=== PATIENT | male | born 1945 | race Caucasian/White ===

== ENCOUNTER 2025-04-25 00:41 | Emergency (ER) | payer MEDICARE, SELFPAY ==
[2025-04-25] VITALS (47 sets, daily range): BP systolic 112–134; BP diastolic 66–94; PULSE 62–113; TEMP 36.7; O2SAT 92–99; BMI 37.3
--- NOTE | 2025-04-25 00:42 | ECG_ITS ---
[facility] Test Date: 2025-04-25 Pat Name: Earle Santos Department: Room: - Gender: Male Cinder Pitman: : 1945 Requested By: 1030 Order Number: [id number] Reading MD: CINDY MELCHOR Measurements Intervals [place] Rate: 89 P: -[id number] CA: -80082 QRS: -6 QRSD: 86 T: -14 QT: 324 QTc: 371 Interpretive Statements 1210 Atrial fibrillation 2420 RSR (QR) in lead V1/V2, consistent with right ventricular conduction delay 3634 Inferior myocardial infarction, age undetermined [address] depression, probably digitalis effect 9150 abnormal ECG No previous ECG available for comparison Electronically Signed On 04-25-2025 16:38:47 EDT by CINDY MELCHOR
[2025-04-25 00:56] LABS: Hematocrit 39.3 % (42.0-54.0); Hemoglobin 12.8 g/dL (14.0-18.0); Immature Granulocytes Abs Auto 0.12 10^3/uL (0.00-0.03); Immature Granulocytes Pct Auto 1.2 % (0.0-0.5); Lymphocytes Absolute Auto 2.8 10^3/uL (1.2-3.8); Mean Corpuscular HGB Conc 32.6 g/dL (29.9-35.2); Mean Corpuscular Hemoglobin 27.2 pg (25.9-34.0); Mean Corpuscular Volume 83.6 fL (80.0-94.0); Platelet Count 205 10^3/uL (150-450); Red Blood Count 4.70 10^6/uL (4.70-6.10); White Blood Count 10.2 10^3/uL (4.0-11.0)
[2025-04-25 01:17] LABS: Anion Gap 12.7; Blood Urea Nitrogen 19.0 mg/dL (7.0-18.0); Calcium 8.3 mg/dL (8.5-10.1); Carbon Dioxide 28.6 mmol/L (21.0-32.0); Chloride 101 mmol/L (98-107); Estimated GFR (African America >60 (>=60 mL/min/1.73m^2); Estimated GFR (Non-African Ame >60 (>=60 mL/min/1.73m^2); Glucose 129 mg/dL (74-106); Potassium 5.3 mmol/L (3.5-5.1); Sodium 137 mmol/L (136-145)
--- NOTE | 2025-04-25 01:24 | ED_ITS ---
HPI HPI - General Adult General Chief complaint: Chest Pain Stated complaint: CHEST PAIN Time Seen by Provider: 04/25/25 00:42 Source: patient Mode of arrival: ambulance Limitations: no limitations History of Present Illness HPI narrative: 79-year-old male presents for chest pain. It is on the left side of his chest and he describes it as stabbing and he has had it continuously for about 22 hours. No trauma. He has a history of CAD and has 5 cardiac stents according to the patient. It has not gone away for least 22 hours. He was given aspirin and nitroglycerin by the paramedics Related Data Home Medications ?Medication ?Instructions ?Recorded ?Confirmed apixaban 5 mg tablet (Eliquis) mg 04/25/25 diltiazem HCl 120 mg mg PO 04/25/25 tablet,extended release 24 hr famotidine 40 mg tablet mg 04/25/25 metoclopramide HCl 5 mg tablet mg 04/25/25 ondansetron HCl 8 mg tablet mg 04/25/25 oxycodone 10 mg tablet mg 04/25/25 oxycodone 15 mg tablet mg 04/25/25 potassium chloride 20 mEq meq PO 04/25/25 tablet,extended release(part/cryst) ropinirole 0.25 mg tablet mg 04/25/25 rosuvastatin 20 mg tablet mg 04/25/25 Allergies Allergy/AdvReac Type Severity Reaction Status Date / Time No Known Drug Allergies Allergy Verified 04/25/25 00:45 Review of Systems ROS Narrative A ten point review of systems is negative except as noted above. Exam Narrative Exam Narrative: Nurses note and vital signs reviewed and patient is not hypoxic. General: The patient appears well and in no apparent distress. Patient is resting comfortably on cart. Skin: Warm, dry, no pallor noted. There is no rash noted. Head: Normocephalic, atraumatic Eye: Normal conjunctiva, no drainage Ears, Nose, Mouth, and Throat: oral mucosa is moist. Nares patent. Cardiovascular: Regular Rate and Rhythm Respiratory: Patient is in no distress, no accessory muscle use, lungs are clear to auscultation, no wheezing, rales or rhonchi Back: non-tender GI: Soft and non- Musculoskeletal: No ankle edema Neurological: A&O x4, normal speech Psychiatric: Cooperative Constitutional Vital Signs, click to edit/add: Last Vital Signs Temp 98.0 F 04/25/25 00:42 Pulse 86 04/25/25 01:52 Resp 14 04/25/25 01:52 BP 121/82 04/25/25 01:30 Pulse Ox 99 04/25/25 01:52 Course Vital Signs Vital signs: Vital Signs Temperature 98.0 F 04/25/25 00:42 Pulse Rate 62 04/25/25 00:42 Respiratory Rate 14 04/25/25 00:42 Blood Pressure 118/79 04/25/25 00:42 Pulse Oximetry 96 04/25/25 00:42 Temperature 98.0 F 04/25/25 00:42 Pulse Rate 86 04/25/25 01:52 Respiratory Rate 14 04/25/25 01:52 Blood Pressure 121/82 04/25/25 01:30 Pulse Oximetry 99 04/25/25 01:52 Medical Decision Making MDM Narrative Medical decision making narrative: The patient's workup including CTA is negative. He will be released back to [facility]. No evidence of acute coronary syndrome or pulmonary embolism. He has had the symptoms now for about 24 hours. At this point I do not suspect cardiac etiology. Treatment diagnosis and follow-up were discussed with the patient. Differential Diagnosis Differential Diagnosis: Myocardial infarction, PE, pneumothorax, pneumonia, chest wall pain Lab Data Lab results reviewed: Yes I reviewed the patient's lab results Labs: Lab Results 04/25/25 Range/Units 00:50 WBC 10.2 (4.0-11.0) 10^3/uL RBC 4.70 (4.70-6.10) 10^6/uL Hgb 12.8 L (14.0-18.0) g/dL Hct 39.3 L (42.0-54.0) % MCV 83.6 (80.0-94.0) fL MCH 27.2 (25.9-34.0) pg MCHC 32.6 (29.9-35.2) g/dL RDW 17.0 H (11.0-15.0) % Plt Count 205 (150-450) 10^3/uL MPV 10.1 (9.5-13.5) fL Neut % (Auto) 55.7 (43.0-75.0) % Lymph % (Auto) 27.8 (20.5-60.0) % Lamb % (Auto) 12.6 H (1.7-12.0) % Eos % (Auto) 2.2 (0.9-7.0) % Baso % (Auto) 0.5 (0.2-2.0) % Neut # (Auto) 5.7 (1.4-6.5) 10^3/uL Lymph # (Auto) 2.8 (1.2-3.8) 10^3/uL Lamb # (Auto) 1.3 H (0.3-0.8) 10^3/uL Eos # (Auto) 0.2 (0.0-0.7) 10^3/uL Baso # (Auto) 0.1 (0.0-0.1) 10^3/uL Abs Immat Gran (auto) 0.12 H (0.00-0.03) 10^3/uL Imm/Tot Granulo (auto) 1.2 H (0.0-0.5) % Sodium 137 (136-145) mmol/L Potassium 5.3 H (3.5-5.1) mmol/L Chloride 101 (98-107) mmol/L Carbon Dioxide 28.6 (21.0-32.0) mmol/L Anion Gap 12.7 BUN 19.0 H (7.0-18.0) mg/dL Creatinine 0.79 (0.70-1.30) mg/dL Est GFR ( Amer) >60 (>=60 mL/min/1.73m^2) Est GFR (Non-Af Amer) >60 (>=60 mL/min/1.73m^2) BUN/Creatinine Ratio 24.1 Glucose 129 H (74-106) mg/dL Calcium 8.3 L (8.5-10.1) mg/dL Troponin I High Sens 11.9 (4.0-76.1) pg/mL Imaging Data Chest x-ray: Radiologist's impression: Chest x-ray per radiologist shows no radiographic evidence of acute cardiopulmonary disease CTA chest per radiologist shows no evidence of pulmonary embolism ECG Data Attestation: I personally reviewed and interpreted this ECG as follows: (EKG on my interpretation shows atrial fibrillation with a rate of 89 and no acute changes) Discharge Plan Discharge Chief Complaint: Chest Pain Clinical Impression: Chest pain Patient Disposition: Home, Self-Care Time of Disposition Decision: 03:12 Condition: Good Mode of Transportation: EMS Prescriptions / Home Meds: No Action ondansetron HCl 8 mg tablet famotidine 40 mg tablet oxycodone 15 mg tablet potassium chloride 20 mEq tablet,ER particles/crystals PO metoclopramide HCl 5 mg tablet ropinirole 0.25 mg tablet diltiazem HCl 120 mg tablet extended release 24 hr PO rosuvastatin 20 mg tablet oxycodone 10 mg tablet Eliquis 5 mg tablet Print Language: Eritrean Instructions: Chest Pain (ED) Referrals: RY BRITTON [Primary Care Provider, Family Practice] - 1 week
[2025-04-25] MEDS: MORPHINE SULFATE 2 MG/ML SYRINGE IV (01:25)
--- NOTE | 2025-04-25 03:32 | PC.NURSE ---
patient and nurse home informed of this patient picker time will be 08:20
[2025-04-25] MEDS: lidocaine HCL 15 ML, MAG HYDROX/ALUMINUM HYD/SIMETH 30 ML, HYOSCYAMINE SULFATE 0.25 MG PO (07:59)
== END 2025-04-25 08:46 | disposition home or self-care (01) ==
PROVIDERS: Emergency Provider Emergency Medicine; PCP Family Medicine
DX: R07.9 Chest pain, unspecified (principal); I25.10 Atherosclerotic heart disease of native coronary artery without angina pectoris; Z95.5 Presence of coronary angioplasty implant and graft
CPT/HCPCS: 36415; 71045; 71275; 80048; 84484; 85025; 93005; 96374; 99285; J2270; Q9967

== ENCOUNTER 2025-04-28 06:18 | Emergency (ER) | payer MEDICARE, SELFPAY ==
--- OUTSIDE RECORDS SUMMARY | 2025-04-17 08:04 | XMS_ITS | Continuity of Care Document ---
Author Organization [facility] Address Unknown Care Team Providers Care Supervisor Train Operations Name Role Phone Bruno Antunez III Primary Care Physician Ghazala Rowley Unavailable Unavailable Eloisa Bellamy Unavailable Unavailable Encounter [id number] Date(s): 04/10/25 - 04/17/25 [facility] [address] [place], [place] [address] Encounter Diagnosis Enterococcus as the cause of diseases classified elsewhere(Discharge Diagnosis) - 04/13/25 Persistent atrial fibrillation(Discharge Diagnosis) - 04/10/25 BPH with urinary obstruction(Discharge Diagnosis) - 04/10/25 CAD S/P percutaneous coronary angioplasty(Discharge Diagnosis) - 04/10/25 Diabetes mellitus with polyneuropathy(Discharge Diagnosis) - 04/10/25 Infection of total left knee replacement(Discharge Diagnosis) - 04/12/25 UTI (urinary tract infection)(Discharge Diagnosis) - 04/10/25 Chest pain(Discharge Diagnosis) - 04/10/25 Discharge Disposition: Undefined HC Fac Attending Physician: Ulices King DO Admitting Physician: Justin George III, DO Encounter Type: Inpatient Allergies, Adverse Reactions, Alerts No Known Allergies Assessment and Plan Extracted from: Title:Discharge Note Author:Ulices King DO Date:04/16/25 Discharge To, Anticipated II - Intermediate Care/ECF Discharged to - Other: back to [facility] Prescriptions oxyCODONE 5 mg Tab, 15 mg= 3 tab(s), Oral, q6hr, PRN Home acetaminophen 325 mg Tab, 650 mg= 2 tab(s), Oral, q6hr, PRN DilTIAZem (Eqv-Cardizem CD) 120 mg/24 hours oral capsule, extended release, 120 mg= 1 cap(s), Oral, Daily docusate sodium 100 mg Cap, 100 mg= 1 cap(s), Oral, BID Eliquis 5 mg oral tablet, 5 mg= 1 tab(s), Oral, BID famotidine 40 mg Tab, 40 mg= 1 tab(s), Oral, BID levofloxacin 750 mg Tab, 750 mg= 1 tab(s), Oral, Daily Milk of Magnesia 8% Susp-Oral, 2.4 gm= 30 mL, Oral, Once a day (at bedtime), PRN omeprazole 20 mg Cap-DR, 20 mg= 1 cap(s), Oral, Daily ondansetron 8 mg Tab, 8 mg= 1 tab(s), Oral, q8hr, PRN potassium chloride 20 mEq ER Tab, 20 mEq= 1 tab(s), Oral, Daily Reglan 5 mg Tab, See Instructions rosuvastatin 20 mg Tab, 20 mg= 1 tab(s), Oral, Bedtime With When Contact Information Tulio BUTLER DO, Bruno Joe, [address] [address]- Additional Instructions: Dr Almeida at [facility] Additional Instructions: Orthopedic surgery, call for followup appointment to schedule follow-up appointment and hopeful surgery Urinary Tract Infection, Adult, [id number] Extracted from: Title:APSO Note Author:Ulices King DO e:04/15/25 The patient is an 79-year-ol d male with past medical history of CAD, prior PCI, HTN, HLD,Trp-kptwivt-nlpihmoyu type 2 diabetes, BPH urinary obstruction and Burr placement for approximately past 6 weeks, 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 04/11 - Hemodynamically stable and afebrile. On room air. No WBC count. Troponins negative. Wound consult pending. Echo complete. Still having musculoskeletal chest pain that is relatively well-controlled with pain regimen. 04/12 -extensive discussion today about left knee follow-up. Also having many issues with discharge planning s ee HPI/subjective for details (04/12 APSO note). Final urine cultures back, changed antibiotics to oral today and will likely be medically stable for discharge tomorrow. Urine culture positive for Enterobacter. 04/13 -increasing pain control medications. Transitioned to oral antibiotic based on cultures. SNF rec per physical therapy. Medically stable for discharge today pending SNF. Will continue to work on pain control with patient. 04/14 -patient reports better pain control today. Labs and vitals stable. Afebrile. Hypokalemia improved. Tolerating antibiotic. Seeking SNF on discharge. Is rec for subacute rehab/SNF by PT/OT 04/15 p michaelkamlesh is still hung up on transferring for chronic knee pain even though orthopedic surgery in [place] is working on it. PT/OT recommended SNF awaiting placement. 1. Unspecified complication of genitourinary prosthetic device, implant and graft, initial encounter (T83.9XXA: Unspecified complication of genitourinary prosthetic device, implant and graft, initial encounter) Burr had become dislodged and bulb was in patient's prostate on presentation. significant abdominal pain on presentation has since resolved Burr replaced in ER. Urine output good currently. No signs of sepsis. Not SIRS positive. Antibiotics as below. pain control for associated abdominal pain: scheduled tylenol, PRN oxycodone and dilaudid Ordered: [facility] Hospital Care/Day Straight Fwd 25 Minutes 32066 2. UTI (urinary tract infection) (N39.0: Urinary tract infection, site not specified) Secondary to multidrug-resistant Enterobacter. Not sensitive to the Zosyn the patient had been on. Changed to Levaquin based on sensitivities on 04/12/2025 3. Chest pain (R07.9: Chest pain, unspecified) Improved per pt. Noncardiac in nature. Reproducible with palpation on left lower rib cage on first several days of admit. appears obviously musculoskeletal. CT abdomen pelvis with contrast showed nonobstructive renal stone and Burr catheter complication. No other acute issues and left upper quadrant area. No evidence of acute cardiopulmonary disease on chest x-ray. EKG was nonischemic. No troponin elevation on serial checks Echo shows A-fib, EF 60 to 65%, mild to moderate LVH, no significant valvular heart disease, no wall motion abnormalities. 4. Infection of total left knee replacement (T84.54XA: Infection and inflammatory reaction due to internal left knee prosthesis, initial encounter) Follows with Dr Almeida at [facility]. Mult previous surgeries. Essentially bedbound past several months per patient and previous documentation review. Spoke with office staff at [facility] on 04/12/2025 and plan was for possible surgery on May 07 per their office, but pt refused date and no surg scheduled currently. Per office staff patient refused and stated that he was going to seek care elsewhere. Patient reports that he thinks they are making a referral to leaving clinic for him. Will reach out to the office and confirm whether new referrals been placed on Tuesday. No evidence of acute issue with the knee. Patient denied any acute symptoms. Reports chronic discomfort and limited range of motion. No signs of acute infection in the area. No systemic signs of infection. Cont to monitor for acute changes. Wound care consulted for left upper thigh wound from skin grafting for his left knee. Pt seeking to change care to [facility] and reports he is working with [facility] office to get referral for [facility]. He is hoping that they can get him in sooner than May 07. 5. Persistent atrial fibrillation (I48.19: Other persistent atrial fibrillation) Continue Cardizem, Eliquis Rate controlled 6. BPH with urinary obstruction (N40.1: Benign prostatic hyperplasia with lower urinary tract symptoms) Maintain chronic Burr Tamsulosin 7. CAD S/P percutaneous coronary angioplasty (I25.10: Atherosclerotic heart disease of red devil coronary artery without angina pectoris) Statin 8. Diabetes mellitus with polyneuropathy (E11.42: Type 2 diabetes mellitus with diabetic polyneuropathy) Managed with diet Monitor SSI if needed Enterococcus as the cause of diseases classified elsewhere (B95.2: Enterococcus as the cause of diseases classified elsewhere) Treatment as above Orders: Change Attending Extracted from: Title:APSO Note Author:Justin George III, DO Date:04/14/25 The patient is an 79-year-ol d male with past medical history of CAD, prior PCI, HTN, HLD,Hhc-bjovwjf-ngptsxxjw type 2 diabetes, BPH urinary obstruction and Burr placement for approximately past 6 weeks, 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 04/11 - Hemodynamically stable and afebrile. On room air. No WBC count. Troponins negative. Wound consult pending. Echo complete. Still having musculoskeletal chest pain that is relatively well-controlled with pain regimen. 04/12 -extensive discussion today about left knee follow-up. Also having many issues with discharge planning s ee HPI/subjective for details (04/12 APSO note). Final urine cultures back, changed antibiotics to oral today and will likely be medically stable for discharge tomorrow. Urine culture positive for Enterobacter. 04/13 -increasing pain control medications. Transitioned to oral antibiotic based on cultures. SNF rec per physical therapy. Medically stable for discharge today pending SNF. Will continue to work on pain control with patient. 04/14 -patient reports better pain control today. Labs and vitals stable. Afebrile. Hypokalemia improved. Tolerating antibiotic. Seeking SNF on discharge. Is rec for subacute rehab/SNF by PT/OT 1. Complication of Burr catheter, (T83.9XXA: Unspecified complication of genitourinary prosthetic device, implant and graft, initial encounter)Unspecified complication of genitourinary prosthetic device, implant and graft, initial encounter Burr had become dislodged and bulb was in patient's prostate on presentation. HAd signficant abdominal pain on presentation that is gradually improving. Burr replaced in ER. Urine output good currently. No signs of sepsis. Not SIRS positive. Antibiotics as below. pain control for associated abdominal pain: scheduled tylenol, PRN oxycodone and dilaudid Ordered: Basic Metabolic Panel eGFR [facility] Discharge Day > 30 Min 68884 2. UTI (urinary tract infection) (N39.0: Urinary tract infection, site not specified) Secondary to multidrug-resistant Enterobacter. Not sensitive to the Zosyn the patient had been on. Changed to Levaquin based on sensitivities on 04/12/2025. 3. Chest pain (R07.9: Chest pain, unspecified) Improved per pt. Noncardiac in nature. Reproducible with palpation on left lower rib cage on first several days of admit. appears obviously musculoskeletal. CT abdomen pelvis with contrast showed nonobstructive renal stone and Burr catheter complication. No other acute issues and left upper quadrant area. No evidence of acute cardiopulmonary disease on chest x-ray. EKG was nonischemic. No troponin elevation on serial checks Echo shows A-fib, EF 60 to 65%, mild to moderate LVH, no significant valvular heart disease, no wall motion abnormalities. 4. Infection of total left knee replacement (T84.54XA: Infection and inflammatory reaction due to internal left knee prosthesis, initial encounter) Follows with Dr Almeida at [facility]. Mult previous surgeries. Essentially bedbound past several months per patient and previous documentation review. Spoke with office staff at [facility] on 04/12/2025 and plan was for possible surgery on May 07 per their office, but pt refused date and no surg scheduled currently. Per office staff patient refused and stated that he was going to seek care elsewhere. Patient reports that he thinks they are making a referral to leaving clinic for him. Will reach out to the office and confirm whether new referrals been placed on Tuesday. No evidence of acute issue with the knee. Patient denied any acute symptoms. Reports chronic discomfort and limited range of motion. No signs of acute infection in the area. No systemic signs of infection. Cont to monitor for acute changes. Wound care consulted for left upper thigh wound from skin grafting for his left knee. Pt seeking to change care to [facility] and reports he is working with [facility] office to get referral for [facility]. He is hoping that they can get him in sooner than May 07. 5. Persistent atrial fibrillation (I48.19: Other persistent atrial fibrillation) Continue Cardizem, Eliquis Rate controlled 6. BPH with urinary obstruction (N40.1: Benign prostatic hyperplasia with lower urinary tract symptoms) Maintain chronic Burr. Tamsulosin 7. CAD S/P percutaneous coronary angioplasty (I25.10: Atherosclerotic heart disease of red devil coronary artery without angina pectoris) Statin 8. Diabetes mellitus with polyneuropathy (E11.42: Type 2 diabetes mellitus with diabetic polyneuropathy) managed with diet hypoglycemia protocol will monitor with daily labs and add ACHS checks and SSI as needed for glucose >180 Orders: docusate, 100 mg = 1 cap(s), Cap, Oral, BID, Routine, Start date 04/13/25 21:00:00 EDT, 04/13/25 12:55:00 EDT oxycodone, 15 mg = 3 tab(s), Tab, Oral, q4hr PRN Pain for 5 day(s), Stop date 04/18/25 10:55:00 EDT, Routine, Start date 04/13/25 10:56:00 EDT, 04/13/25 10:56:00 EDT potassium chloride, 20 mEq = 1 tab(s), Tab-ER, Oral, q12hr, NOW, Start date 04/13/25 10:56:00 EDT, 04/13/25 10:56:00 EDT Capillary Glucose POC Capillary Glucose POC Magnesium Level Disposition: SNF rec. Medically stable for DC, pending placement. Following closely with case mgmt and discussed with [employer] Dr Jiang 04/14. I discussed the diagnosis and plan of care with the patient at the bedside. Moderate level of MDM based on addressing above issues. I spent 38 minutes on care including chart review, ordering, documentation, exam, discussion of care plan with patient This documentation was transcribed using voice recognition software. Several attempts were made to ensure accuracy. However inadvertent computerized cardiovascular tech errors may be present. Extracted from: Title:APSO Note Author:Justin George III, DO Date:04/13/25 The patient is an 79-year-ol d male with past medical history of CAD, prior PCI, HTN, HLD,[id number]-thkeuvnzf type 2 diabetes, BPH urinary obstruction and Burr placement for approximately past 6 weeks, 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 04/11 - Hemodynamically stable and afebrile. On room air. No WBC count. Troponins negative. Wound consult pending. Echo complete. Still having musculoskeletal chest pain that is relatively well-controlled with pain regimen. 04/12 -extensive discussion today about left knee follow-up. Also having many issues with discharge planning s ee HPI/subjective for details (04/12 APSO note). Final urine cultures back, changed antibiotics to oral today and will likely be medically stable for discharge tomorrow. Urine culture positive for Enterobacter. 04/13 -increasing pain control medications. Transitioned to oral antibiotic based on cultures. SNF rec per physical therapy. Medically stable for discharge today pending SNF. Will continue to work on pain control with patient. 1. Complication of Burr catheter (T83.9XXA: Unspecified complication of genitourinary prosthetic device, implant and graft, initial encounter) Burr had become dislodged and bulb was in patient's prostate on presentation Burr replaced. Urine output good currently. No signs of sepsis. Not SIRS positive. Antibiotics as below. pain control for associated abdominal pain: scheduled tylenol, PRN oxycodone and dilaudid Ordered: Basic Metabolic Panel CBC w/ Auto Diff eGFR [facility] Hospital Care/Day High 50 Minutes 65314 2. UTI (urinary tract infection) (N39.0: Urinary tract infection, site not specified) Secondary to multidrug-resistant Enterobacter. Not sensitive to the Zosyn the patient had been on. Changed to Levaquin based on sensitivities on 04/12/2025. 3. Chest pain (R07.9: Chest pain, unspecified) Improved per pt. Noncardiac in nature. Reproducible with palpation on left lower rib cage on first several days of admit. Obviously musculoskeletal. CT abdomen pelvis with contrast showed nonobstructive renal stone and Burr catheter complication. No other acute issues and left upper quadrant area. No evidence of acute cardiopulmonary disease on chest x-ray. EKG was nonischemic. No troponin elevation on serial checks Echo shows A-fib, EF 60 to 65%, mild to moderate LVH, no significant valvular heart disease, no wall motion abnormalities. 4. Infection of total left knee replacement (T84.54XA: Infection and inflammatory reaction due to internal left knee prosthesis, initial encounter) Follows with Dr Almeida at [facility]. Mult previous surgeries. Essentially bedbound past several months per patient and previous documentation review. Spoke with office staff on 04/12/2025 and plan was for possible surgery on May 07 per their office. Per office staff patient refused and stated that he was going to seek care elsewhere. Patient reports that he thinks they are making a referral to leaving clinic for him. Will reach out to the office and confirm whether new referrals been placed. No evidence of acute issue with the knee. Patient denied any acute symptoms. Reports chronic discomfort and limited range of motion. No signs of acute infection in the area. Wound care consulted for left upper thigh wound from skin grafting for his left knee. Pt seeking to change care to [facility] and reports he is working with [facility] office to get referral for [facility]. He is hoping that they can get him in sooner than May 07. 5. Persistent atrial fibrillation (I48.19: Other persistent atrial fibrillation) Continue Cardizem, Eliquis Rate controlled 6. BPH with urinary obstruction (N40.1: Benign prostatic hyperplasia with lower urinary tract symptoms) Maintain chronic Burr. Tamsulosin 7. CAD S/P percutaneous coronary angioplasty (I25.10: Atherosclerotic heart disease of red devil coronary artery without angina pectoris) Statin 8. Diabetes mellitus with polyneuropathy (E11.42: Type 2 diabetes mellitus with diabetic polyneuropathy) managed with diet hypoglycemia protocol will monitor with daily labs and add ACHS checks and SSI as needed for glucose >180 Orders: docusate, 100 mg = 1 cap(s), Cap, Oral, BID, Routine, Start date 04/13/25 21:00:00 EDT, 04/13/25 12:55:00 EDT HYDROmorphone, 0.5 mg = 0.5 mL, Injection, IV Push, q3hr PRN Pain, Routine, Start date 04/12/25 16:55:00 EDT, 04/12/25 16:55:00 EDT oxycodone, 10 mg = 2 tab(s), Tab, Oral, Once, Stop date 04/12/25 16:55:00 EDT, NOW, Start date 04/12/25 16:55:00 EDT, 04/12/25 16:55:00 EDT oxycodone, 15 mg = 3 tab(s), Tab, Oral, q4hr PRN Pain for 5 day(s), Stop date 04/18/25 10:55:00 EDT, Routine, Start date 04/13/25 10:56:00 EDT, 04/13/25 10:56:00 EDT potassium chloride, 20 mEq = 1 tab(s), Tab-ER, Oral, q12hr, NOW, Start date 04/13/25 10:56:00 EDT, 04/13/25 10:56:00 EDT Capillary Glucose POC Capillary Glucose POC Capillary Glucose POC Occupational Therapy Additional Tx Occupational Therapy Evaluate Patient, Develop a Plan of Care and Implement Plan Physical Therapy Additional Tx Physical Therapy Evaluate Patient, Develop a Plan of Care and Implement Plan Disposition: SNF rec. Medically stable for DC, pending placement I discussed the diagnosis and plan of care with the patient at the bedside. Moderate level of MDM based on addressing above issues. I spent 38 minutes on care including chart review, ordering, documentation, exam, discussion of care plan with patient, case management and PT This documentation was transcribed using voice recognition software. Several attempts were made to ensure accuracy. However inadvertent computerized cardiovascular tech errors may be present. Extracted from: Title:APSO Note Author:Justin George III, DO Date:04/12/25 The patient is an 79-year-ol d male with past medical history of CAD, prior PCI, HTN, HLD,Mic-fqwnxyb-cthxxrlva type 2 diabetes, BPH urinary obstruction and Burr placement for approximately past 6 weeks, 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 04/11 - Hemodynamically stable and afebrile. On room air. No WBC count. Troponins negative. Wound consult pending. Echo complete. Still having musculoskeletal chest pain that is relatively well-controlled with pain regimen. 04/12 -extensive discussion today about left knee follow-up. Also having many issues with discharge planning s ee HPI/subjective for details. Final urine cultures back, changed antibiotics to oral today and will likely be medically stable for discharge tomorrow. Urine culture positive for Enterobacter. 1. Complication of Burr catheter (T83.9XXA: Unspecified complication of genitourinary prosthetic device, implant and graft, initial encounter) Burr had become dislodged and bulb was in patient's prostate. Burr replaced. Urine output good currently. No signs of sepsis. Not SIRS positive. Antibiotics as below. pain control for associated abdominal pain: scheduled tylenol, PRN oxycodone and dilaudid Ordered: Basic Metabolic Panel CBC w/ Auto Diff eGFR 2. UTI (urinary tract infection) (N39.0: Urinary tract infection, site not specified) History of previous Pseudomonas UTIs sensitive to Zosyn. Zosyn 3.375 mg IV every 8 hours with extended infusion -> changed to Levaquin on 04/12 based on urine cultures. Urine cultures + Enterobacter 3. Chest pain (R07.9: Chest pain, unspecified) Noncardiac in nature. Reproducible with palpation on left lower rib cage. Appears musculoskeletal. CT abdomen pelvis with contrast showed nonobstructive renal stone and Burr catheter complication. No other acute issues and left upper quadrant area. No evidence of acute cardiopulmonary disease on chest x-ray. EKG was nonischemic. No troponin elevation on serial checks Echo shows A-fib, EF 60 to 65%, mild to moderate LVH, no significant valvular heart disease, no wall motion abnormalities. 4. Persistent atrial fibrillation (I48.19: Other persistent atrial fibrillation) Continue Cardizem, Eliquis Rate controlled 5. BPH with urinary obstruction (N40.1: Benign prostatic hyperplasia with lower urinary tract symptoms) Maintain chronic Burr. Tamsulosin 6. CAD S/P percutaneous coronary angioplasty (I25.10: Atherosclerotic heart disease of red devil coronary artery without angina pectoris) Statin 7. Diabetes mellitus with polyneuropathy (E11.42: Type 2 diabetes mellitus with diabetic polyneuropathy) managed with diet hypoglycemia protocol will monitor with daily labs and add ACHS checks and SSI as needed for glucose >180 8. Infection of total left knee replacement (T84.54XA: Infection and inflammatory reaction due to internal left knee prosthesis, initial encounter) Follows with Dr Almeida at [facility] Plan was for possible surgery on May 07 per their office. Spoke with office staff on 04/12/2025. Per office staff patient refused and stated that he was going to seek care elsewhere. Patient reports that he thinks they are making a referral to leaving clinic for him. Will reach out to the office and confirm whether new referrals been placed. No evidence of acute issue with the knee. Patient denied any acute symptoms. Reports chronic discomfort and limited range of motion. No signs of acute infection in the area. Patient very frustrated about this today and has been on the phone several times with this office. He repeatedly expressed his frustration that they could not schedule him for surgery sooner. We had extensive conversation on this issue as detailed in my subjective/HPI section. Wound care consulted for left upper thigh wound from skin grafting for his left knee. Orders: Al hydroxide/Mg hydroxide/simethicone, 30 mL, Susp-Oral, Oral, Once, Stop date 04/12/25 8:00:00 EDT, Routine, Start date 04/12/25 8:00:00 EDT apixaban, 5 mg = 1 tab(s), Tab, Oral, BID, Routine, Start date 04/12/25 9:00:00 EDT, 04/12/25 7:34:00 EDT atorvastatin, 40 mg = 1 tab(s), Tab, Oral, Bedtime, Routine, Start date 04/12/25 21:00:00 EDT, 04/12/25 7:34:00 EDT atropine/hyoscyamine/PB/scopolamine, 10 mL, Elixir, Oral, Once, Stop date 04/12/25 8:00:00 EDT, Routine, Start date 04/12/25 8:00:00 EDT diltiazem, 120 mg = 1 cap(s), Cap-ER, Oral, Daily, Routine, Start date 04/12/25 9:00:00 EDT, 04/12/25 7:34:00 EDT famotidine, 40 mg = 2 tab(s), Tab, Oral, BID, Routine, Start date 04/12/25 9:00:00 EDT, 04/12/25 7:34:00 EDT HYDROmorphone, 0.5 mg = 0.5 mL, Injection, IV Push, q3hr PRN Pain, Routine, Start date 04/12/25 16:55:00 EDT, 04/12/25 16:55:00 EDT levofloxacin, 750 mg = 1 tab(s), Tab, Oral, Daily, NOW, Start date 04/12/25 11:18:00 EDT lidocaine topical, 200 mg, 10 mL, Soln-Oral, Oral, Once, Stop date 04/12/25 8:00:00 EDT, Routine, Start date 04/12/25 8:00:00 EDT magnesium hydroxide, gm, 30 mL, Susp-Oral, Oral, Once a day (at bedtime) PRN Constipation, Routine, Start date 04/12/25 7:35:00 EDT metoclopramide, 5 mg = 1 tab(s), Tab, Oral, QIDACHS, Routine, Start date 04/12/25 11:30:00 EDT, 04/12/25 7:36:00 EDT oxycodone, 10 mg = 2 tab(s), Tab, Oral, Once, Stop date 04/12/25 16:55:00 EDT, NOW, Start date 04/12/25 16:55:00 EDT, 04/12/25 16:55:00 EDT oxycodone, 10 mg = 2 tab(s), Tab, Oral, q4hr PRN Pain for 5 day(s), Stop date 04/17/25 16:54:00 EDT, Routine, Start date 04/12/25 16:55:00 EDT, 04/12/25 16:55:00 EDT pantoprazole, 40 mg = 1 tab(s), Tab-DR, Oral, Daily, Routine, Start date 04/12/25 9:00:00 EDT, 04/12/25 7:35:00 EDT Capillary Glucose POC Capillary Glucose POC Capillary Glucose POC Capillary Glucose POC Occupational Therapy Evaluate Patient, Develop a Plan of Care and Implement Plan Physical Therapy Evaluate Patient, Develop a Plan of Care and Implement Plan Disposition: Continue current treatment in the hospital pending significant improvement and final urine culture results. DC to nursing facility when stable. I discussed the diagnosis and plan of care with the patient at the bedside. high level of MDM based on addressing above issues. I spent 56 minutes on care including chart review, ordering, documentation, exam, discussion of care plan with patient and case management, ortho office at [facility]. This documentation was transcribed using voice recognition software. Several attempts were made to ensure accuracy. However inadvertent computerized cardiovascular tech errors may be present. 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 04/11 - Hemodynamically stable and afebrile. On room air. No WBC count. Troponins negative. Wound consult pending. Echo complete. Still having musculoskeletal chest pain that is relatively well-controlled with pain regimen. 1. Complication of Burr catheter (T83.9XXA: Unspecified complication of genitourinary prosthetic device, implant and graft, initial encounter) Burr had become dislodged and bulb was in patient's prostate. Burr replaced. Urine output good currently. No signs of sepsis. Not SIRS positive. Antibiotics as below. pain control for associated abdominal pain: scheduled tylenol, PRN oxycodone and dilaudid Ordered: Bilirubin Direct CBC w/ Auto Diff Comprehensive Metabolic Panel eGFR Initial Hospital Care/Day Moderate 55 Minutes 92408 2. UTI (urinary tract infection) (N39.0: Urinary tract infection, site not specified) History of previous Pseudomonas UTIs sensitive to Zosyn. Zosyn 3.375 mg IV every 8 hours with extended infusion Urine cultures pending 3. Chest pain (R07.9: Chest pain, unspecified) Noncardiac in nature. Reproducible with palpation on left lower rib cage. Appears musculoskeletal. EKG was nonischemic. No troponin elevation on serial checks Echo shows A-fib, EF 60 to 65%, mild to moderate LVH, no significant valvular heart disease, no wall motion abnormalities. 4. Persistent atrial fibrillation (I48.19: Other persistent atrial fibrillation) Continue Cardizem, Eliquis 5. BPH with urinary obstruction (N40.1: Benign prostatic hyperplasia with lower urinary tract symptoms) Maintain chronic Burr. Tamsulosin 6. CAD S/P percutaneous coronary angioplasty (I25.10: Atherosclerotic heart disease of red devil coronary artery without angina pectoris) Statin 7. Diabetes mellitus with polyneuropathy (E11.42: Type 2 diabetes mellitus with diabetic polyneuropathy) managed with diet hypoglycemia protocol will monitor with daily labs and add ACHS checks and SSI as needed for glucose >180 Orders: acetaminophen, 650 mg = 2 tab(s), Tab, Oral, q6hr, Routine, Start date 04/10/25 17:00:00 EDT, 04/10/25 16:25:00 EDT glucagon, 1 mg = 1 EA, Injection, IntraMuscular, q15min PRN Low blood sugar, Routine, Start date 04/10/25 17:13:00 EDT, Blood glucose <70 mg/dL glucose, 50 mL, Soln-IV, IV Push, q15min PRN Low blood sugar, Routine, Start date 04/10/25 17:13:00 EDT, Blood glucose < 70 mg/dL glucose, 15 gm = 32 mL, Gel, Oral, q15min PRN Low blood sugar, Routine, Start date 04/10/25 17:13:00 EDT, Blood glucose <70 mg/dL HYDROmorphone, 0.5 mg = 0.5 mL, Injection, IV Push, q4hr PRN Pain, Routine, Start date 04/10/25 16:26:00 EDT, 04/10/25 16:26:00 EDT ondansetron, 4 mg = 2 mL, Injection, IV Push, q6hr PRN Nausea, Routine, Start date 04/10/25 16:25:00 EDT, 04/10/25 16:25:00 EDT oxycodone, 5 mg = 1 tab(s), Tab, Oral, q4hr PRN Pain for 5 day(s), Stop date 04/15/25 16:24:00 EDT, Routine, Start date 04/10/25 16:25:00 EDT, 04/10/25 16:25:00 EDT perflutren, 1.3 mL, Injection, IV Push, Once, Stop date 04/11/25 10:30:00 EDT, Routine, Start date 04/11/25 10:30:00 EDT piperacillin-tazobactam + Sodium Chloride 0.9% intravenous solution 100 mL, 3.375 gm = 1 EA, Injection, IV Piggyback, [id number], Routine, Start date 04/10/25 18:00:00 EDT, 25 mL/hr, Infuse over 4 hour(s) potassium chloride + Generic Diluent 100 mL, 20 mEq = 100 mL, Soln-IV, IV Piggyback, q2hr for 2 dose(s), Stop date 04/10/25 20:59:00 EDT, Routine, Start date 04/10/25 17:00:00 EDT, 50 mL/hr, Infuse over 2 hour(s) Activity As Tolerated Ambulate with Assistance Capillary Glucose POC Capillary Glucose POC Capillary Glucose POC Communication Order Physician to Nursing Consult to Wound Care Echo Transthoracic Lmtd w/ Contrast Hypoglycemia Protocol Responsive Patient Hypoglycemia Protocol Unresponsive Patient Notify Provider Vital Signs Notify Provider Vital Signs Referral to Resource Center Regular Diet Resuscitation Status - DNR CCA (Comfort Care Arrest) Troponin 1 Hr. Troponin 3 Hr. Vital Signs Weight Disposition: Continue current treatment in the hospital pending significant improvement and final urine culture results. I discussed the diagnosis and plan of care with the patient at the bedside. Moderate level of MDM based on addressing above issues. I spent 39 minutes on care including chart review, ordering, documentation, exam, discussion of care plan with patient. This documentation was transcribed using voice recognition software. Several attempts were made to ensure accuracy. However inadvertent computerized cardiovascular tech errors may be present. 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 1. Complication of Burr catheter (T83.9XXA: Unspecified complication of genitourinary prosthetic device, implant and graft, initial encounter) Burr had become dislodged and bulb was in patient's prostate. Burr replaced. Urine output good currently. No signs of sepsis. Not SIRS positive. Antibiotics as below. pain control for associated abdominal pain: scheduled tylenol, pRN oxycodone and dilaudid Ordered: CBC w/ Auto Diff Comprehensive Metabolic Panel Initial Hospital Care/Day Moderate 55 Minutes [id number] 2. UTI (urinary tract infection) (N39.0: Urinary tract infection, site not specified) History of previous Pseudomonas UTIs sensitive to Zosyn. Zosyn 3.375 mg IV every 8 hours with extended infusion Urine cultures pending 3. Chest pain (R07.9: Chest pain, unspecified) Appears atypical and noncardiac in nature. Lasted for several hours some was radiating from left lower abdomen. EKG was nonischemic. Initial troponin negative. Cycle troponins. Check echo for any wall motion abnormalities 4. Persistent atrial fibrillation (I48.19: Other persistent atrial fibrillation) Continue Cardizem, Eliquis 5. BPH with urinary obstruction (N40.1: Benign prostatic hyperplasia with lower urinary tract symptoms) Maintain chronic Burr. Tamsulosin 6. CAD S/P percutaneous coronary angioplasty (I25.10: Atherosclerotic heart disease of red devil coronary artery without angina pectoris) Statin 7. Diabetes mellitus with polyneuropathy (E11.42: Type 2 diabetes mellitus with diabetic polyneuropathy) managed with diet hypoglycemia protocol will monitor with daily labs and add ACHS checks and SSI as needed for glucose >180 Orders: acetaminophen, 650 mg = 2 tab(s), Tab, Oral, q6hr, Routine, Start date 04/10/25 17:00:00 EDT, 04/10/25 16:25:00 EDT glucagon, 1 mg = 1 EA, Injection, IntraMuscular, q15min PRN Low blood sugar, Routine, Start date 04/10/25 17:13:00 EDT, Blood glucose <70 mg/dL, 04/10/25 17:13:00 EDT glucose, 50 mL, Soln-IV, IV Push, q15min PRN Low blood sugar, Routine, Start date 04/10/25 17:13:00 EDT, Blood glucose < 70 mg/dL glucose, 15 gm = 32 mL, Gel, Oral, q15min PRN Low blood sugar, Routine, Start date 04/10/25 17:13:00 EDT, Blood glucose <70 mg/dL, 04/10/25 17:13:00 EDT HYDROmorphone, 0.5 mg = 0.5 mL, Injection, IV Push, q4hr PRN Pain, Routine, Start date 04/10/25 16:26:00 EDT, 04/10/25 16:26:00 EDT ondansetron, 4 mg = 2 mL, Injection, IV Push, q6hr PRN Nausea, Routine, Start date 04/10/25 16:25:00 EDT, 04/10/25 16:25:00 EDT oxycodone, 5 mg = 1 tab(s), Tab, Oral, q4hr PRN Pain for 5 day(s), Stop date 04/15/25 16:24:00 EDT, Routine, Start date 04/10/25 16:25:00 EDT, 04/10/25 16:25:00 EDT piperacillin-tazobactam + Sodium Chloride 0.9% intravenous solution 100 mL, 3.375 gm = 1 EA, IV Piggyback, [id number], Routine, Start date 04/10/25 18:00:00 EDT, 25 mL/hr, Infuse over 4 hour(s), 04/10/25 16:41:00 EDT potassium chloride + Generic Diluent 100 mL, 20 mEq = 100 mL, IV Piggyback, q2hr for 2 dose(s), Stop date 04/10/25 20:59:00 EDT, Routine, Start date 04/10/25 17:00:00 EDT, 50 mL/hr, Infuse over 2 hour(s), 04/10/25 16:42:00 EDT Activity As Tolerated Ambulate with Assistance Communication Order Physician to Nursing Consult to Wound Care Echo Transthoracic Lmtd Hypoglycemia Protocol Responsive Patient Hypoglycemia Protocol Unresponsive Patient Notify Provider Vital Signs Notify Provider Vital Signs Regular Diet Resuscitation Status - DNR CCA (Comfort Care Arrest) Troponin 1 Hr. Troponin 3 Hr. Vital Signs Weight Addendum by Justin George III, DO on April 10, 2025 17:16:27 EDT DNR CCA, regular diet, Eliquis for DVT prophylaxis/anticoagulation Moderate level of MDM based on addressing above issues. I spent 65 minutes on care including chart review, ordering, documentation, exam, discussion of care plan with patient. This documentation was transcribed using voice recognition software. Several attempts were made to ensure accuracy. However inadvertent computerized cardiovascular tech errors may be present. Extracted from: Title:ED Note Author:Paramjit QUIROZ, Melecio Padron te:04/10/25 Chest pain (R07.9: Chest pain, unspecified) Left-sided weakness (R53.1: Weakness) UTI (urinary tract infection) (N39.0: Urinary tract infection, site not specified) Orders: Basic Metabolic Panel BB Draw & Hold Cardiac Monitoring CBC w/ Auto Diff Communication Order Communication Order Continuous Pulse Oximetry CT Abdomen/Pelvis w/ Contrast CT Head or Brain w/o Contrast Dysphagia Screen eGFR Extra SST Tube Hepatic Function Panel Lipase Level Neurological Assessment NPO Diet Oxygen Protocol PT & PTT Rapid Response Form Routine Capillary Glucose POC Troponin 0 Hr. UA with Cult Rflx Urinary Catheter Insertion Urine Culture XR Chest Single View Future Appointments Appointment Date:04/25/2025 09:40:00 AM Scheduled Provider:Dane Wilson MD Location:[facility] Care Appointment Type:[facility] Appointment Date:04/25/2025 10:30:00 AM Scheduled Provider:Cheko Jauregui MD Location:[facility] Appointment Type: Follow Up Visit ([facility]) Immunizations Given and Recorded Vaccine Date Status Refusal Reason influenza virus vaccine, inactivated 05/31/24 Romie rded influenza virus vaccine, inactivated 07/05/23 Romie rded influenza virus vaccine, inactivated 09/08/22 Romie rded influenza virus vaccine, inactivated 06/23/21 Romie rded influenza virus vaccine, inactivated 06/24/20 Romie rded influenza virus vaccine, inactivated 05/06/20 Romie rded influenza virus vaccine, inactivated 07/27/19 Romie rded influenza virus vaccine, inactivated 06/07/16 Romie rded influenza virus vaccine, inactivated 06/20/15 Romie rded diphtheria/pertussis, acel/tetanus adult 11/04/23 Given diphtheria/pertussis, acel/tetanus adult 1, 2 08/21/19 Given SARS-CoV-2 (COVID-19) [id number] 12/30/22 Recorded pneumococcal 20-valent conjugate vaccine 09/08/22 Recorded SARS-CoV-2 (COVID-19) mRNA-1273 vaccine 01/22/22 R ecorded SARS-CoV-2 (COVID-19) mRNA-1273 vaccine 07/07/21 R ecorded SARS-CoV-2 (COVID-19) mRNA-1273 vaccine 11/27/20 R ecorded SARS-CoV-2 (COVID-19) mRNA-1273 vaccine 3 11/03/20 Recorded tetanus-diphtheria toxoids 06/08/21 Given pneumococcal 13-valent vaccine 02/13/16 Recorded pneumococcal 13-valent vaccine 06/20/15 Recorded 1Early/Late Reason: Other : pt. in radiology 2Result Comment: R deltoid 3Result Comment: 2025-01-31: [id number] Medications acetaminophen 325 mg Tab 650 mg = 2 tab(s), Oral, q6hr, PRN Pain, Refills(s) 0 Start Date: 09/19/24 Status: Ordered Repeat number: 1 DilTIAZem (Eqv-Cardizem CD) 120 mg/24 hours oral capsule, extended release 120 mg = 1 cap(s), Oral, Daily, Refills(s) 0 Start Date: 09/12/24 Status: Ordered Repeat number: 1 diltiazem CD 120 mg/24 hours Cap-ER 120 mg = 1 cap(s), Cap-ER, Oral, Start date 04/13/25 9:00:00 AM EDT, 04/12/25 7:34:00 EDT Start Date: 04/13/25 Stop Date: 04/13/25 Status: Completed Repeat number: 1 docusate sodium 100 mg Cap 100 mg = 1 cap(s), Oral, BID, Refills(s) 0 Start Date: 04/16/25 Status: Ordered Repeat number: 1 Eliquis 5 mg oral tablet 5 mg = 1 tab(s), Oral, BID, Refills(s) 0, Blood Thinner Start Date: 08/27/19 Status: Ordered Repeat number: 1 famotidine 40 mg Tab 40 mg = 1 tab(s), Oral, BID, Refills(s) 0 Start Date: 04/11/25 Status: Ordered Repeat number: 1 levofloxacin 750 mg Tab 750 mg = 1 tab(s), Oral, Daily, Refills(s) 0 Start Date: 04/16/25 Stop Date: 04/19/25 Status: Ordered Repeat number: 1 Milk of Magnesia 8% Susp-Oral 2.4 gm, 30 mL, Oral, Once a day (at bedtime) for constipation, 300 mL, Refill(s) 0 Start Date: 01/31/25 Status: Ordered Quantity: 300.0 Unit: mL Repeat number: 1 omeprazole 20 mg Cap-DR 20 mg = 1 cap(s), Oral, Daily, take before supper, Refills(s) 0 Start Date: 01/18/25 Status: Ordered Repeat number: 1 ondansetron 8 mg Tab 8 mg = 1 tab(s), Oral, q8hr, PRN Nausea/Vomiting, Refills(s) 0 Start Date: 01/18/25 Status: Ordered Repeat number: 1 oxyCODONE 5 mg Tab 15 mg = 3 tab(s), Oral, q6hr, PRN Pain, # 24 tab(s), Refills(s) 0 Start Date: 04/16/25 Status: Ordered Quantity: 24.0 Unit: tab(s) Repeat number: 1 potassium chloride 20 mEq ER Tab 20 mEq = 1 tab(s), Oral, Daily, Refills(s) 0 Start Date: 04/16/25 Status: Ordered Repeat number: 1 Reglan 5 mg Tab See Instructions, 1 tab(s) Oral by mouth before meals for nausea BEFORE FOOD, Refills(s) 0 Start Date: 04/11/25 Status: Ordered Repeat number: 1 rosuvastatin 20 mg Tab 20 mg = 1 tab(s), Oral, Bedtime, Refills(s) 0 Start Date: 03/02/24 Status: Ordered Repeat number: 1 Problem List Condition Confirmation Course Effective Dates Status H ealth Status Informant Anemia, blood loss Confirmed Active Streptococcal bacteremia Confirmed Resolved BPH with urinary obstruction Confirmed Active Coronary artery disease Confirmed Active CAD (coronary artery disease) Confirmed Active MRSA (methicillin resistant staph aureus) culture positive 1, 2, 3, 4 Confirmed 06/09/21 Resolved Depression Confirmed Active Eczematous dermatitis Confirmed Active Essential tremor Confirmed Active History of gout Confirmed Active Status post amputation of lesser toe of right foot Confirmed Active HTN [Hypertension] Confirmed Active Hyperlipidemia Confirmed Active Infection and inflammatory reaction due to indwelling urethral catheter, subsequent encounter Confirmed Active Septic arthritis of knee, left Confirmed Resolved shelter resident Confirmed Active Nausea Confirmed Active Obesity due to excess calories Confirmed Active Coronary angioplasty status Confirmed Active Peripheral neuropathy Confirmed Active Persistent atrial fibrillation Confirmed Active Diabetes mellitus with polyneuropathy Confirmed Active Alzheimer's dementia, late onset Confirmed Active CAD S/P percutaneous coronary angioplasty Confirmed Active Restless legs Confirmed Active RHEUMATOID ARTHRITIS Confirmed Resolved Lumbar spinal stenosis Confirmed Active Type 2 diabetes mellitus with hyperlipidemia Confirmed Active Urinary tract infection, site not specified Confirmed Active 1MRSA knee specimens x 2 on 07/27/2022 2MRSA nasal swab 07/21/2022 3MRSA urine 03/19/22 4MRSA toe wound 06/09/2021 Procedures Procedure Date Related Diagnosis Body Site Status Incision AND drainage of LEFT knee 07/27/22 Completed Incision AND drainage left knee 04/08/22 Completed Repair of quadriceps tendon 03/23/22 Completed Incision AND drainage right foot 04/17/21 Completed Excision of lesion from soft tissue of face 1 07/22/17 Completed Cardioversion Completed Cholecystectomy Completed Right Knee replacement Co mpleted Stent placement x 3 Compl eted 1EXCISION SKIN LESION LEFT FACE Results Laboratory List Name Date Bilirubin Direct 04/15/25 CBC w/ Auto Diff 04/15/25 Comprehensive Metabolic Panel (CMP) 04/15 eGFR 04/15/25 eGFR 04/14/25 Basic Metabolic Panel (BMP) 04/14/25 Magnesium Level 04/14/25 Capillary Glucose POC 04/13/25 Capillary Glucose POC 04/13/25 Capillary Glucose POC 04/13/25 eGFR 04/13/25 Basic Metabolic Panel (BMP) 04/13/25 CBC w/ Auto Diff 04/13/25 CBC w/ Auto Diff 04/12/25 Bilirubin Direct 04/11/25 Comprehensive Metabolic Panel (CMP) Troponin 3 Hr. 04/10/25 Troponin 1 Hr. 04/10/25 UA with Cult Rflx 04/10/25 Hepatic Function Panel 04/10/25 Lipase Level 04/10/25 PT & PTT 04/10/25 Troponin 0 Hr. 04/10/25 Most recent to oldest [Reference Range]: 1 2 3 UA Bili [Negative mg/dL] Negative mg/dL (04/10/25 12:27 PM) UA Color [Yellow] Light-[place] 1 *ABN* (04/10/25 12:27 PM) UA Glucose [Negative mg/dL] Negative mg/dL (04/10/25 12:27 PM) UA Ketones [Negative mg/dL] Negative mg/dL (04/10/25 12:27 PM) UA Leuk Est [Negative Nayely/uL] 500 Nayely/uL Nayely/uL *ABN* (04/10/25 12:27 PM) UA Mucous [Negative graded/LPF] Trace graded/LPF (04/10/25 12:27 PM) UA Nitrite [Negative mg/dL] Negative mg/dL (04/10/25 12:27 PM) UA Protein [Negative mg/dL] Trace mg/dL *ABN* (04/10/25 12:27 PM) UA RBC [0-3 graded/HPF] 31-75 graded/HPF *ABN* (04/10/25 12:27 PM) UA Urobilinogen [Negative mg/dL] Negative mg/dL (04/10/25 12:27 PM) UA WBC [0-5 graded/HPF] >75 graded/HPF *ABN* (04/10/25 12:27 PM) UA Spec Desc Catheter 2 (04/10/25 12:27 PM) UA Blood [Negative mg/dL] 2+ mg/dL *ABN* (04/10/25 12:27 PM) UA Clarity [Clear] Ex.Turbid *ABN* (04/10/25 12:27 PM) INR 1.46 3 *NA* (04/10/25 11:19 AM) A/G Ratio [1.1-2.2] 1.2 (04/15/25 6:27 AM) 1.1 (04/11/25 6:56 AM) 1.1 (04/10/25 11:19 AM) BUN/Creat Ratio [10-20] 9 *LOW* (04/15/25:27 AM) 8 *LOW* (04/14/25 4:42 AM) 7 *LOW* (04/13/25 4:34 AM) AGAP [6-16 mEq/L] 8 mEq/L (04/15/25 6:27 AM) 9 mEq/L (04/14/25 4:42 AM) 7 mEq/L (04/13/25 4:34 AM) Albumin Lvl [3.3-5.0 gm/dL] 3.3 gm/dL (04/15/25 6:27 AM) 3.0 gm/dL *LOW* (04/11/25 6:56 AM) 3.2 gm/dL *LOW* (04/10/25 11:19 AM) Alk Phos [21-98 Int._Unit/L] 64 Int._Unit/L (04/15/25 6:27 AM) 70 Int._Unit/L (04/11/25 6:56 AM) 74 Int._Unit/L (04/10/25 11:19 AM) ALT [6-46 Int._Unit/L] 9 Int._Unit/L (04/15/25 6:27 AM) 11 Int._Unit/L (04/11/25 6:56 AM) 13 Int._Unit/L (04/10/25 11:19 AM) AST [5-43 Int._Unit/L] 12 Int._Unit/L (04/15/25 6:27 AM) 12 Int._Unit/L (04/11/25 6:56 AM) 16 Int._Unit/L (04/10/25 11:19 AM) Basophil Auto [0.0-2.0 %] 0.7 % (04/15/25:27 AM) 0.6 % (04/13/25 4:34 AM) 0.6 % (04/12/25:19 AM) Bili Direct [0.0-0.4 mg/dL] 0.1 mg/dL (04/15/25:27 AM) 0.1 mg/dL (04/11/25 6:56 AM) 0.1 mg/dL (04/10/25 11:19 AM) Bili Total [0.0-1.1 mg/dL] 0.6 mg/dL (04/15/25:27 AM) 0.6 mg/dL (04/11/25 6:56 AM) 0.6 mg/dL (04/10/25 11:19 AM) CO2 [21-31 mmol/L] 29 mmol/L (04/15/25:27 AM) 29 mmol/L (04/14/25 4:42 AM) 30 mmol/L (04/13/25 4:34 AM) Eos Auto [0.0-8.0 %] 4.2 % (04/15/25:27 AM) 3.9 % (04/13/25 4:34 AM) 3.9 % (04/12/25:19 AM) Glucose Lvl [55-199 mg/dL] 129 mg/dL (04/15/25 6:27 AM) 123 mg/dL (04/14/25 4:42 AM) 115 mg/dL (04/13/25 4:34 AM) Hct [37.7-49.0 %] 36.3 % *LOW* (04/15/25 6:27 AM) 34.5 % *LOW* (04/13/25 4:34 AM) 34.6 % *LOW* (04/12/25:19 AM) Hgb [13.5-17.5 gm/dL] 11.9 gm/dL *LOW* (04/15/25 6:27 AM) 11.4 gm/dL *LOW* (04/13/25 4:34 AM) 11.7 gm/dL *LOW* (04/12/25 6:19 AM) Lipase Lvl [13-58 unit/L] 20 unit/L (04/10/25 11:19 AM) Lymph Auto [14.0-50.0 %] 25.4 % (04/15/25 6:27 AM) 25.4 % (04/13/25 4:34 AM) 25.5 % (04/12/25 6:19 AM) PT [9.4-12.5 second(s)] 16.4 second(s) 4 *HI* (04/10/25 11:19 AM) PTT [25.1-36.5 second(s)] 33.3 second(s) 5 (04/10/25 11:19 AM) RBC [4.3-5.9 E12/L] 4.4 E12/L (04/15/25 6:27 AM) 4.2 E12/L *LOW* (04/13/25 4:34 AM) 4.3 E12/L (04/12/25 6:19 AM) RDW [10.9-14.2 %] 18.5 % *HI* (04/15/25 6:27 AM) 19.0 % *HI* (04/13/25 4:34 AM) 19.0 % *HI* (04/12/25 6:19 AM) Sodium Lvl [135-145 mmol/L] 137 mmol/L (04/15/25 6:27 AM) 138 mmol/L (04/14/25 4:42 AM) 138 mmol/L (04/13/25 4:34 AM) Total Protein [6.0-7.8 gm/dL] 6.0 gm/dL (04/15/25 6:27 AM) 5.7 gm/dL *LOW* (04/11/25 6:56 AM) 6.2 gm/dL (04/10/25 11:19 AM) Troponin HS [15.90-38.40 pg/mL] 9.00 pg/mL 6 *LOW* (04/10/25 8:55 PM) 8.50 pg/mL 7 *LOW* (04/10/25 6:53 PM) 8.80 pg/mL 8 *LOW* (04/10/25 11:19 AM) Magnesium [1.3-2.4 mg/dL] 1.6 mg/dL (04/14/25 4:42 AM) MCH [27.0-34.0 pg] 26.9 pg *LOW* (04/15/25 6:27 AM) 27.1 pg (04/13/25 4:34 AM) 27.5 pg (04/12/25:19 AM) MCHC [31.4-36.0 gm/dL] 32.7 gm/dL (04/15/25 6:27 AM) 32.9 gm/dL (04/13/25 4:34 AM) 33.9 gm/dL (04/12/25 6:19 AM) MCV [80.0-100.0 fL] 82.2 fL (04/15/25 6:27 AM) 82.4 fL (04/13/25 4:34 AM) 81.3 fL (04/12/25 6:19 AM) Cloud Auto [4.0-14.0 %] 9.7 % (04/15/25 6:27 AM) 11.7 % (04/13/25 4:34 AM) 9.6 % (04/12/25 6:19 AM) MPV [6.4-10.8 fL] 7.2 fL (04/15/25 6:27 AM) 7.3 fL (04/13/25:34 AM) 7.2 fL (04/12/25:19 AM) Neutro Auto [36.0-75.0 %] 60.0 % (04/15/25 6:27 AM) 58.4 % (04/13/25 4:34 AM) 60.4 % (04/12/25 6:19 AM) UA pH [5.0-9.0] 7.0 *NA* (04/10/25 12:27 PM) BUN [5-21 mg/dL] 10 mg/dL (04/15/25 6:27 AM) 8 mg/dL (04/14/25 4:42 AM) 8 mg/dL (04/13/25 4:34 AM) Calcium Lvl [8.9-11.1 mg/dL] 8.5 mg/dL *LOW* (04/15/25 6:27 AM) 8.4 mg/dL *LOW* (04/14/25 4:42 AM) 8.0 mg/dL *LOW* (04/13/25 4:34 AM) Platelet [150.0-500.0 E9/L] 324.0 E9/L (04/15/25 6:27 AM) 318.0 E9/L (04/13/25 4:34 AM) 334.0 E9/L (04/12/25 6:19 AM) Potassium Lvl [3.5-5.3 mmol/L] 3.9 mmol/L (04/15/25 6:27 AM) 3.6 mmol/L (04/14/25 4:42 AM) 3.3 mmol/L *LOW* (04/13/25 4:34 AM) UA Spec Grav [1.005-1.030] 1.029 *NA* (04/10/25 12:27 PM) WBC [4.0-11.0 E9/L] 6.2 E9/L (04/15/25 6:27 AM) 6.5 E9/L (04/13/25 4:34 AM) 6.0 E9/L (04/12/25 6:19 AM) Chloride [101-111 mmol/L] 104 mmol/L (04/15/25 6:27 AM) 104 mmol/L (04/14/25 4:42 AM) 104 mmol/L (04/13/25 4:34 AM) Bili Indirect [0.1-0.9 mg/dL] 0.5 mg/dL (04/10/25 11:19 AM) Cloud Absolute [0.2-1.0 E9/L] 0.6 E9/L (04/15/25 6:27 AM) 0.8 E9/L (04/13/25 4:34 AM) 0.6 E9/L (04/12/25 6:19 AM) Eos Absolute [0.0-0.5 E9/L] 0.3 E9/L (04/15/25 6:27 AM) 0.3 E9/L (04/13/25 4:34 AM) 0.2 E9/L (04/12/25 6:19 AM) Basophil Absolute [0.0-0.2 E9/L] 0.0 E9/L (04/15/25 6:27 AM) 0.0 E9/L (04/13/25 4:34 AM) 0.0 E9/L (04/12/25 6:19 AM) Neutro Absolute [2.0-7.5 E9/L] 3.7 E9/L (04/15/25 6:27 AM) 3.8 E9/L (04/13/25 4:34 AM) 3.6 E9/L (04/12/25 6:19 AM) Lymph Absolute [1.0-4.0 E9/L] 1.6 E9/L (04/15/25 6:27 AM) 1.6 E9/L (04/13/25 4:34 AM) 1.5 E9/L (04/12/25 6:19 AM) eGFR [>=59 mL/min/1.73 m2] 68 mL/min/1.73 m2 (04/15/25 6:27 AM) 76 mL/min/1.73 m2 (04/14/25 4:42 AM) 68 mL/min/1.73 m2 (04/13/25 4:34 AM) Globulin [1.4-4.0 gm/dL] 2.7 gm/dL (04/15/25 6:27 AM) 2.7 gm/dL (04/11/25 6:56 AM) 3.0 gm/dL (04/10/25 11:19 AM) Glucose Cap [55-99 mg/dL] 117 mg/dL 9 *HI* (04/13/25 4:16 PM) 139 mg/dL 10 *HI* (04/13/25 10:56 AM) 136 mg/dL 11 *HI* (04/13/25 7:24 AM) POC Device SN [id number] *NA* (04/13/25 4:16 PM) [id number] *NA* (04/13/25 10:56 AM) [id number] *NA* (04/13/25 7:24 AM) POC User ID [id number] *NA* (04/13/25 4:16 PM) [id number] *NA* (04/13/25 10:56 AM) [id number] *NA* (04/13/25 7:24 AM) POC Username WILLIAM SHAH *NA* (04/13/25 4:16 PM) NITO OCAMPO *NA* (04/13/25 10:56 AM) NITO OCAMPO *NA* (04/13/25 7:24 AM) Creatinine [0.5-1.3 mg/dL] 1.1 mg/dL (04/15/25 6:27 AM) 1.0 mg/dL (04/14/25 4:42 AM) 1.1 mg/dL (04/13/25 4:34 AM) UA WBC Clump >30 graded/HPF *ABN* (04/10/25 12:27 PM) 1Interpretive Data: Microscopic readings are only performed on those samples that meet specific criteria set forth by [facility]. 2Result Comment: Updated to burr cath specimen 04/10/2025 14:29 CSS 3Interpretive Data: INR results are specifically intended to assess patients stabilized on long-term Anticoagulation therapy suggested INR???s ???Less Intensive Anticoagulation?? 2.0 ??? 3.0 Conventional Range 3.0 ??? 4.5 4Interpretive Data: 15 days - 4 weeks 1 - 5 months 6 -11 months 1 ??? 5 years 6 ??? 10 years 11 -17 years Mean: 11.2?? (9.5 ??? 12.6) Mean: 11.0?? (9.7 ??? 12.8) Mean: 11.0 (9.8 ??? 13.0) Mean: 11.3 (9.9 ??? 13.4) Mean: 11.7 (10.0 ??? 14.6) Mean: 11.8? (10.0 - 14.1) Pediatric Reference ranges were obtained from a study by rogelio Patel al. prepared from 1437 samples obtained at 7 different centers using the same coagulation reagent and instrumentation as [facility] [place]. Currently there are no coagulation studies available worldwide for children to 14 days, andno normal ranges. 5Interpretive Data: Parameter 15 days -? 4 weeks 1 - 5 months 6 - 11 months 1 - 5 years 6 - 10 years 11 - 17 years PTT Mean: 35.4 (27.6-45.6) Mean: 33.5 (24.8-40.7) Mean: 32.4 (25.1-40.7) Mean: 31.6 (24.0-39.2) Mean: 31.6 (26.9-38.7) Mean: 31.0 (24.6-38.4) Pediatric Reference ranges were obtained from a study by Eduardo Lu et al. prepared from 1437 samples obtained at 7 different centers using the same coagulation reagent and instrumentation as [facility] [place]. Currently there are no coagulation studies available worldwide for children to 14 days, andno normal ranges. Heparin therapeutic range (represented by Anti-Factor Xa activity of 0.2 - 0.4 U/mL) corresponds to PTT of 56.6 - 109.0 sec. 6Interpretive Data: The 95% CI (Confidence Interval) PPV (Positive Predictive Value) for myocardial infarction in females is 38 pg/mL, in males 51 pg/mL. The results should be used in conjunction withclinical conditions of myocardial infarction. (Access High Sensitivity Troponin I Instructions For Use, [place], April 2018) 7Interpretive Data: The 95% CI (Confidence Interval) PPV (Positive Predictive Value) for myocardial infarction in females is 38 pg/mL, in males 51 pg/mL. The results should be used in conjunction withclinical conditions of myocardial infarction. (Access High Sensitivity Troponin I Instructions For Use, [place], April 2018) 8Interpretive Data: The 95% CI (Confidence Interval) PPV (Positive Predictive Value) for myocardial infarction in females is 38 pg/mL, in males 51 pg/mL. The results should be used in conjunction withclinical conditions of myocardial infarction. (Access High Sensitivity Troponin I Instructions For Use, [place], April 2018) 9Result Comment: Notified RN/MD 10Result Comment: Notified RN/MD 11Result Comment: Notified RN/MD Orders for Microbiology Reports Name Date Urine Culture 04/10/25 Microbiology Reports TEST:Urine Culture STATUS:Modified/Amended/Cor BODY SITE: SOURCE:Urine, Catherized COLLECTED DATE/TIME:04/10/25 12:27 PM AMENDED REPORT >100,000 cfu/ml Enterobacter cloacae MULTIDRUG-RESISTANT Notified Dr. George of MDR 04/13/2025 10:26 CSS ORGANISM:Enterobacter cloacae Susceptibilty: Enterobacter cloacae Tested Drug MARTIN Dilution MARTIN Interpretati on Trimethoprim/Sulfa >2/38 R Tobramycin >8 R Tetracycline >8 R Piperacillin/Tazobactam >64 R Nitrofurantoin >64 R Meropenem <=1 S Levofloxacin <=0.5 S Gentamicin >8 R Ertapenem <=0.5 S Ciprofloxacin 2 R Cefuroxime >16 R Ceftriaxone >2 R Ceftazidime/Avibactam <=8 S Cefepime >16 R Cefazolin >16 R Ampicillin/Sulbactam >16/8 R Ampicillin >16 R Social History Social History Type Response Smoking Status Never (less than 100 in lifetime);Never 1 entered on: 03/28/25 Sex Male Sex Representation Male (finding) 1quit years ago. 3Quit in 1993. [address] Discharge Instructions Patient Education 04/16/2025 14:25:08 Urinary Tract Infection, Adult, [id number] Urinary Tract Infection, Adult A urinary tract infection (UTI) is an infection of any part of the urinary tract. The urinary tractincludes: ??? The kidneys. ??? The ureters. ??? The bladder. ??? The urethra. These organs make, store, and get rid of pee (urine) in the body. What are the causes? This infection is caused by germs (bacteria) in your genital area. These germs grow and cause swelling (inflammation) of your urinary tract. What increases the risk? The following factors may make you more likely to develop this condition: ??? Using a small, thin tube (catheter) to drain pee. ??? Not being able to control when you pee or poop (incontinence). ??? Being female. If you are female, these things can increase the risk: ??? Using these methods to prevent : ??? A medicine that kills sperm (spermicide). ??? A device that blocks sperm (diaphragm). ??? Having low levels of a female hormone (estrogen). ??? Being . You are more likely to develop this condition if: ??? You have genes that add to your risk. ??? You are sexually active. ??? You take antibiotic medicines. ??? You have trouble peeing because of: ??? A prostate that is bigger than normal, if you are male. ??? A blockage in the part of your body that drains pee from the bladder. ??? A kidney stone. ??? A nerve condition that affects your bladder. ??? Not getting enough to drink. ??? Not peeing often enough. ??? You have other conditions, such as: ??? Diabetes. ??? A weak disease-fighting system (immune system). ??? Sickle cell disease. ??? Gout. ??? Injury of the spine. What are the signs or symptoms? Symptoms of this condition include: ??? Needing to pee right away. ??? Peeing small amounts often. ??? Pain or burning when peeing. ??? Blood in the pee. ??? Pee that smells bad or not like normal. ??? Trouble peeing. ??? Pee that is cloudy. ??? Fluid coming from the vagina, if you are female. ??? Pain in the belly or lower back. Other symptoms include: ??? Vomiting. ??? Not feeling hungry. ??? Feeling mixed up (confused). This may be the first symptom in older adults. ??? Being tired and grouchy (irritable). ??? A fever. ??? Watery poop (diarrhea). How is this treated? Taking antibiotic medicine. ??? Taking other medicines. ??? Drinking enough water. In some cases, you may need to see a specialist. Follow these instructions at home: Medicines ??? Take odcb-vvt-cjkfozl and prescription medicines only as told by your doctor. ??? If you were prescribed an antibiotic medicine, take it as told by your doctor. Do not stop taking it even if you start to feel better. General instructions ??? Make sure you: ??? Pee until your bladder is empty. ??? Do not hold pee for a long time. ??? Empty your bladder after sex. ??? Wipe from front to back after peeing or pooping if you are a female. Use each tissue one time when you wipe. ??? Drink enough fluid to keep your pee pale yellow. ??? Keep all follow-up visits. Contact a doctor if: ??? You do not get better after 1???2 days. ??? Your symptoms go away and then come back. Get help right away if: ??? You have very bad back pain. ??? You have very bad pain in your lower belly. ??? You have a fever. ??? You have chills. ??? You feeling like you will vomit or you vomit. Summary ??? A urinary tract infection (UTI) is an infection of any part of the urinary tract. ??? This condition is caused by germs in your genital area. ??? There are many risk factors for a UTI. ??? Treatment includes antibiotic medicines. ??? Drink enough fluid to keep your pee pale yellow. This information is not intended to replace advice given to you by your health care provider. Make sure you discuss any questions you have with your health care provider. Document Revised: 03/29/2021 Document Reviewed: 04/03/2021 [employer] Patient Education ?? 2023 [employer]. Follow Up Care 04/10/2025 10:56:04 With:Tulio BUTLER DO, CARMINA Waddell Address: [address] [place] [id number] When: Unknown With:Dr Almeida at [facility] Address: When: Unknown Comments:Orthopedic surgery, call for followup appointment??to schedule follow- up appointment and hopeful surgery Physician Emergency department Note * Melecio Yusuf PA-C: MODIFY, PERFORM Event Display: ED Note-Physician Authored Date: [id number] Basic Information Time Seen: Melecio Yusuf PA-C ??04/10/2025 11:09 Chief Complaint pt to ER c/o Lsided weakness that he stated started @0300. Jennifer also reports L sided chest pain and L lower abd pain. History of Present Illness A 79-year-old male reports to the ED as a stat transport from [facility]??due to concerns of left-sided weakness. ??Reports that he had left-sided weakness as well as left-sided chest pain??that started??this morning at 3 AM.?? He reports that he is on blood thinners due to history of A-fib.?? He reports that??he is bedbound due to his knees as well as neuropathy.?? He states that his most concerning symptom at this time is??his left lower quadrant abdominal pain.?? He reports no fevers or chills. ??No nausea or vomiting. ??He is having a lot of left lower quadrant abdominal pain.?? He states he is not have any vision changes. ??He reports no weakness of his right side just feelslike his left arm is weak.?? Reports has limited range of motion of the left leg, but denies any weakness or numbness anywhere.?? Denies any allergies to any medications. Review of Systems No other aggravating or relieving factors no other associated symptoms no other prior treatments orcomplaints. ?? Family: Reviewed and noncontributory Social: lives at nursing??home ?? Review of systems negative unless otherwise specified in the HPI. Physical Exam Vitals & Measurements T:??36.5?C(Oral)?? HR:??67(Monitored)?? RR:??14?? BP:??126/79?? SpO2:??96%?? HT:??185??cm?? WT:??103.2??kg?? BMI:??30.15?? General: The patient appears well and in no apparent distress. Patient is resting comfortably on bed.??afebrile Skin: Warm, dry, no pallor noted.?? Head: Normocephalic, atraumatic?? Neck: No JVD?? Eye: PERRLA, EOMI?? ENT: Moist mucus membranes Cardiovascular: Regular rate. normal peripheral perfusion. ??Radial pulses +2??bilaterally Respiratory: No respiratory distress. no accessory muscle use. no obvious audible wheezing.?? Lung sounds clear. Chest Wall: no deformity. ??Mild left upper chest wall tenderness on palpation Musculoskeletal: normal ROM, no deformity, no swelling??chronic knee pain.?? Limited range of motion of left leg due to knee pain. GI: No obvious distention. ??Mild tenderness of left lower quadrant on palpation.. . Neurological: A&Ox3. moves all extremities equal strength and symmetry. No weakness of extremities.?? NIH score is a 0. Psychiatric: Cooperative and appropriate?? Medical Decision Making 79-year-old male reports to the ED??as a stat transport from [facility]??with concerns of left-sided weakness. ??Started at 3 AM this morning. ??Also the left-sided chest pain and left-sided abdominal pain??but has been associated with this.?? Due to concerns of rapid response stroke wascalled.?? CT head was performed that was negative. ??Patient is on Eliquis.?? NIH stroke scale was 0 and TNK was not given.?? He had no weakness of any extremities.?? Denies any paresthesias. ??Do not believe this is a stroke??as the patient's main complaint to me is his left lower quadrant abdominal pain. ??Reports mild chest wall tenderness,??but??we did do a full workup due to his history.?? Reggie mars have a heart score of 4.?? As far as his left lower quadrant tenderness??we did order a CAT scan. ??The CAT scan did show a Burr catheter balloon within the prostate.?? There was also a nonobstructing 8 mm stone noted??in the distal left ureter, but I do not believe this is causing his pain. ??No obstructing urine is noted. ??Patient does have a UTI.?? We did replace the Burr catheter with a new catheter, did have improvement of his abdominal pain.?? Due to his UTI as well as his history of Pseudomonas in his urine, patient was treated with IV Zosyn.?? Discussed case with the hospitalist who was agreeable with admission of the patient. ? Heart Score for Major Cardiac Event History: Example factors for history - pattern of chest pain, onset, duration, relation with exercise, stress or cold, localization, concominant symptoms. reaction to sublingual nitrates,?? [] Highly suspicious +2 [] Moderately suspicious +1 [x] Slightly suspicious 0 EKG: [] Significant ST-Depression +2 [] Non specific repolarization disturbance +1 [x] Normal 0 Age: [x] >= 65 +2 [] 45-65 + 1 [] <45 0 Risk Factors: (HLD, HTN, DM, Cigarette Smoking, Pos Family Hx, Obesity) [x] >3 risk factors or hx of atheroslerotic disease + 2 [] 1-2 risk factors + 1 [] No risk factors known 0 Troponin: [] >= 3X normal + 2 [] 1-3X normal + 1 [x] <= Normal 0 ?? [] 0-3 Points 0.9 - 1.7% risk of major adverse cardiac event in 6 weeks [x] 4-6 Points 12-16.6% risk of major adverse cardiac event in 6 weeks [] 7-10 Points 50-65% risk of major adverse cardiac event in 6 weeks [] 0-3 Points with 2 sets of negative cardiac markers <1% risk of major adverse cardiac event in30 days. Assessment/Plan Chest pain??(R07.9: Chest pain, unspecified) Left-sided weakness??(R53.1: Weakness) UTI (urinary tract infection)??(N39.0: Urinary tract infection, site not specified) Orders: Basic Metabolic Panel BB Draw & Hold Cardiac Monitoring CBC w/ Auto Diff Communication Order Communication Order Continuous Pulse Oximetry CT Abdomen/Pelvis w/ Contrast CT Head or Brain w/o Contrast Dysphagia Screen eGFR Extra SST Tube Hepatic Function Panel Lipase Level Neurological Assessment NPO Diet Oxygen Protocol PT & PTT Rapid Response Form Routine Capillary Glucose POC Troponin 0 Hr. UA with Cult Rflx Urinary Catheter Insertion Urine Culture XR Chest Single View Medications Administered Given morphine 4 mg/mL Inj, 4 mg, IV Push pipera3 g-0.375 gInjection [F]??3.375 gm??+??[id number] mLSoln-IV Minibag Plus [F]??100 mL, IV Piggyback Zofran 4 mg/2 mL Injection, 4 mg, IV Push Disposition Plan Patient Discharge Condition stable Discharge Disposition to be admitted Discharge Prescription List Prescriptions No active prescription medications Follow-up No qualifying data available Attestation Patient seen and evaluated by the physician middle school assistant principal. Attending physician was present in the emergency department and supervised care. ? This visit was performed by both the physician and an APC. ??I performed all aspects of the MDM as documented. ?? This report was transcribed using voice recognition software. ??Every effort was made to ensure accuracy, however, inadvertently computerized cardiovascular tech mistakes may be present. ?? Appropriate healthcare PPE was used in evaluating this patient. ??The patient was placed in a mask.??The healthcare provider was wearing mask, gloves, and utilizing proper hand hygiene. ??All equipment was properly cleansed. ?? I performed a substantive part of the MDM during the patient??s E/M visit.?? I personally made or approved the documented management plan and acknowledge its risk of complications. (Independent Interpretation) My (EKG/X-Ray/US/CT as applicable) interpretation as above. (Discussion) Management/test interpretation discussed with APC. Problem List/Past Medical History Ongoing Alzheimer's dementia, late onset Anemia, blood loss BPH with urinary obstruction CAD (coronary artery disease) CAD S/P percutaneous coronary angioplasty Coronary angioplasty status Coronary artery disease Depression Diabetes mellitus with polyneuropathy Eczematous dermatitis Essential tremor History of gout HTN [Hypertension] Hyperlipidemia Infection and inflammatory reaction due to indwelling urethral catheter, subsequent encounter Lumbar spinal stenosis Nausea shelter resident Obesity due to excess calories Peripheral neuropathy Persistent atrial fibrillation Restless legs Status 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 Urinary tract infection, site not specified Historical MRSA (methicillin resistant staph aureus) culture positive RHEUMATOID ARTHRITIS Septic arthritis of knee, left Streptococcal bacteremia Procedure/Surgical History Incision AND drainage (07/27/2022), Incision AND drainage (04/08/2022), Repair of quadriceps tendon(03/23/2022), Incision AND drainage (04/17/2021), Excision of lesion from soft tissue of face (07/22/2017), Cardioversion, Cholecystectomy, Knee replacement, Stent placement x 3. Medications Inpatient No active inpatient medications Home acetaminophen 325 mg Tab, 650 mg= 2 tab(s), Oral, q6hr, PRN DilTIAZem (Eqv-Cardizem CD) 120 mg/24 hours oral capsule, extended release, 120 mg= 1 cap(s), Oral,Daily Eliquis 5 mg oral tablet, 5 mg= 1 tab(s), Oral, BID Milk of Magnesia 8% Susp-Oral, 2.4 gm= 30 mL, Oral, Once a day (at bedtime), PRN omeprazole 20 mg Cap-DR, 20 mg= 1 cap(s), Oral, Daily ondansetron 8 mg Tab, 8 mg= 1 tab(s), Oral, q8hr, PRN oxycodone 10 mg oral tablet, 10 mg= 1 tab(s), Oral, q6hr rosuvastatin 20 mg Tab, 20 mg= 1 tab(s), Oral, Daily Allergies No Known Allergies Social History Alcohol - Denies Alcohol Use, 07/27/2019 Substance Abuse - Denies Substance Abuse, 02/10/2013 Tobacco - Denies Tobacco Use, 02/10/2013 Never (less than 100 in lifetime) Tobacco Use:. Never Smokeless Tobacco Use:., 03/28/2025 Former smoker, quit more than 30 days ago Tobacco Use:. Never Smokeless Tobacco Use:. Cigarettes, 08/20/2020 Family History Hypertension: Mother. Primary malignant neoplasm of lung: Father. Lab Results WBC: 6.6 E9/L (04/10/25 11:19:00) RBC: 4.5 E12/L (04/10/25 11:19:00) HGB:??12.1 gm/dL??Low (04/10/25 11:19:00) Hct:??36.3 %??Low (04/10/25 11:19:00) MCV: 80.5 fL (04/10/25 11:19:00) MCH:??26.8 pg??Low (04/10/25 11:19:00) MCHC: 33.3 gm/dL (04/10/25 11:19:00) RDW:??18.6 %??High (04/10/25 11:19:00) Platelet: 349 E9/L (04/10/25 11:19:00) MPV: 7.4 fL (04/10/25 11:19:00) Neutro Auto: 56.6 % (04/10/25 11:19:00) Lymph Auto: 31.3 % (04/10/25 11:19:00) Cloud Auto: 10.2 % (04/10/25 11:19:00) Eos Auto: 1.4 % (04/10/25 11:19:00) Basophil Auto: 0.5 % (04/10/25 11:19:00) Neutro Absolute: 3.7 E9/L (04/10/25 11:19:00) Lymph Absolute: 2.1 E9/L (04/10/25 11:19:00) Cloud Absolute: 0.7 E9/L (04/10/25 11:19:00) Eos Absolute: 0.1 E9/L (04/10/25 11:19:00) Basophil Absolute: 0 E9/L (04/10/25 11:19:00) PT:??16.4 second(s)??High (04/10/25 11:19:00) INR: 1.46 (04/10/25 11:19:00) PTT: 33.3 second(s) (04/10/25 11:19:00) Glucose Lvl: 148 mg/dL (04/10/25 11:19:00) BUN: 9 mg/dL (04/10/25 11:19:00) Creatinine: 1 mg/dL (04/10/25 11:19:00) eGFR: 76 mL/min/1.73 m2 (04/10/25 11:19:00) BUN/Creat Ratio:??9??Low (04/10/25 11:19:00) Sodium Lvl: 138 mmol/L (04/10/25 11:19:00) Potassium Lvl:??3.2 mmol/L??Low (04/10/25 11:19:00) Chloride: 101 mmol/L (04/10/25 11:19:00) CO2: 29 mmol/L (04/10/25 11:19:00) AGAP: 11 mEq/L (04/10/25 11:19:00) Calcium Lvl:??8.4 mg/dL??Low (04/10/25 11:19:00) Alk Phos: 74 Int._Unit/L (04/10/25 11:19:00) ALT: 13 Int._Unit/L (04/10/25 11:19:00) AST: 16 Int._Unit/L (04/10/25 11:19:00) Total Protein: 6.2 gm/dL (04/10/25 11:19:00) Albumin Lvl:??3.2 gm/dL??Low (04/10/25 11:19:00) Globulin: 3 gm/dL (04/10/25 11:19:00) A/G Ratio: 1.1 (04/10/25 11:19:00) Bili Total: 0.6 mg/dL (04/10/25 11:19:00) Bili Direct: 0.1 mg/dL (04/10/25 11:19:00) Bili Indirect: 0.5 mg/dL (04/10/25 11:19:00) Lipase Lvl: 20 unit/L (04/10/25 11:19:00) Troponin HS:??8.8 pg/mL??Low (04/10/25 11:19:00) Glucose Cap:??141 mg/dL??High (04/10/25 11:02:00) POC Device SN: [id number] (04/10/25 11:02:00) POC User ID: [id number] (04/10/25 11:02:00) POC Username: VIKI VELARDE (04/10/25 11:02:00) UA Spec Desc: Clean Catch (04/10/25 12:27:00) UA Color: Light-[place] Abnormal (04/10/25 12:27:00) UA Clarity: Ex.Turbid Abnormal (04/10/25 12:27:00) UA Spec Grav: 1.029 (04/10/25 12:27:00) UA pH: 7.0 (04/10/25 12:27:00) UA Protein: Trace Abnormal (04/10/25 12:27:00) UA Glucose: Negat (04/10/25 12:27:00) UA Ketones: Negat (04/10/25 12:27:00) UA Bili: Negat (04/10/25 12:27:00) UA ??Blood: 2+ Abnormal (04/10/25 12:27:00) UA Nitrite: Negat (04/10/25 12:27:00) UA Urobilinogen: Negat (04/10/25 12:27:00) UA Leuk Est: 500 [place]ely/uL Abnormal (04/10/25 12:27:00) UA RBC: 31-75 Abnormal (04/10/25 12:27:00) UA WBC: >75 Abnormal (04/10/25 12:27:00) UA Mucous: Trace (04/10/25 12:27:00) UA WBC Clump: >30 Abnormal (04/10/25 12:27:00) Diagnostic Results CT Abdomen/Pelvis w/ Contrast ?? 04/10/25 12:36:17 IMPRESSION: BURR CATHETER BALLOON WITHIN THE PROSTATE. ?? NONOBSTRUCTING 8 MM DISTAL LEFT URETERAL AND LEFT UPPER POLE CALCULI. ?? POSSIBLE MILD UNCOMPLICATED PROCTITIS. ? Critical communication: Melecio Yusuf PA-C was notified 04/10/2025 at approximately 12:17 PM. ? EXAM: CT Abdomen/Pelvis w/ Contrast ?? DATE: 04/10/2025 11:47 AM ?? CLINICAL HISTORY: Pain. ?? COMPARISON: Abdomen CT 10/08/2022. ?? TECHNIQUE: Spiral imaging was obtained of the abdomen and pelvis after the uneventful infusion of intravenous contrast. ?? All CT scans at this facility use dose modulation, iterative reconstruction, and/or weight based dosing when appropriate to reduce radiation dose to as low as reasonably achievable. ?? Unless otherwise stated, incidental findings identified in this report do not require routine follow-up imaging. ?? FINDINGS: ?? Liver: No enlargement, significant fatty infiltration, suspicious mass or lesion. Approximately 3 cm nonenhancing fluid density cyst within the dome of the posterior superior segment of the right lobe, diminished in size from 10/08/2022. Biliary: The gallbladder has been removed. No abnormal biliary ductal dilatation. Pancreas: No suspicious mass, organized fluid collection, surrounding inflammation, or abnormal pancreatic ductal dilatation. Spleen: Within normal limits. Adrenals: Stable small left adrenal adenoma. Otherwise, unremarkable. Kidneys: Approximately 8 mm distal left ureteral calculus (Series 3, Image 72). Approximately 8 mm nonobstructing left upper pole calculus. No hydronephrosis, other significant urinary tract calculi, or suspicious mass. A few small nonenhancing fluid density cysts are again noted. GI tract: Borderline wall thickening of the rectum with minimal ill-defined surrounding inflammation, possibly uncomplicated proctitis. No abnormal dilation, other abnormal wall thickening, diverticulosis, or suspicious mass. Lymph nodes: No pathologically enlarged lymph nodes. Vasculature: No aneurysm or dissection. Minimal to mild calcified plaquing. Mesentery/peritoneum/retroperitoneum: No free fluid, organized fluid collection, or suspicious mass. Pelvis: A Burr catheter balloon is within the lower third of the mildly enlarged but otherwise unremarkable-appearing prostate, with the catheter tip near the base of the mildly distended bladder. Moderate nonspecific diffuse wall thickening of the bladder without significant surrounding inflammatory changes or suspicious mass. Musculoskeletal: No acute osseous findings identified. Chronic mild to moderate L4 compression fracture and degenerative changes, similar to 11/22/2022. Lower thorax: Noncontributory. ? GFR (mL/min/1/73m2) >60 Contrast: Isovue 300 Contrast amount in ml???s: 100.00 Rectal Contrast Given? No ? Ordering Provider: Melecio Yusuf ?? Signed By: Dom AMBROSE, Charles Rios ?? CT Head or Brain w/o Contrast ?? 04/10/25 11:26:35 IMPRESSION: CHRONIC FINDINGS. NO EVIDENCE OF INTRACRANIAL HEMORRHAGE. ?? CLINICAL HISTORY: Stroke, Neuro deficit, acute, stroke suspected. Left-sided weakness. Left-sided chest pain and lower abdominal pain. ?? COMPARISON: 09/12/2024. ?? COMMENT: Unenhanced images were obtained. ?? The basal cisterns are prominent. The lateral ventricles, sylvian fissures, and cortical sulci bilaterally are dilated. There is no mass effect nor midline shift. There are ill-defined areas of mildly decreased attenuation involving cerebral white matter bilaterally, that are nonspecific, but with small vessel ischemic changes suspected. There is no evidence of intracranial hemorrhage nor extra-axial hematoma. No mass lesion is evident. No skull fracture is noted. There are calcifications of distal internal carotid arteries and minimally of distal left vertebral artery. ?? There has been no significant change when compared to the prior exam. ?? All CT scans at this facility use dose modulation, iterative reconstruction, and/or weight based dosing when appropriate to reduce radiation dose to as low as reasonably achievable. ?? Ordering Provider: Melecio Yusuf ?? Signed By: Thom Gipson, Ulices Leon ?? XR Chest Single View ?? 04/10/25 13:40:58 IMPRESSION: NO EVIDENCE OF ACTIVE CARDIOPULMONARY DISEASE, BY PORTABLE CHEST RADIOGRAPHY. ? EXAM: XR Chest Single View ?? DATE: 04/10/2025 11:19 AM ?? CLINICAL HISTORY: Chest pain. ?? COMPARISON: 01/14/2025. ?? TECHNIQUE: A portable upright AP radiograph of the chest was obtained. ?? FINDINGS: ?? The heart remains mildly enlarged, exaggerated by technique. ?? There are shallow inspiratory volumes, without significant pulmonary infiltrate, vascular congestion, sizable pleural effusion, pneumothorax, or other significant changes identified. ? Ordering Provider: Melecio Yusuf ?? Signed By: Charles Fernandes MD EKG Results EC04/10/25: ATRIAL FIBRILLATION WITH ABERRANT CONDUCTION OR VENTRICULAR PREMATURE COMPLEXES LOW QRS VOLTAGE IN PRECORDIAL LEADS [QRS DEFLECTION < 1.0 mV IN CHEST LEADS] POSSIBLE RIGHT VENTRICULAR CONDUCTION DELAY [RSR (QR) IN V1/V2] MODERATE VOLTAGE CRITERIA FOR LVH, CONSIDER NORMAL VARIANT [MEETS CRITERIA IN ONE OF: R(aVL), S(V1), R(V5), R(V5/V6)+S(V1)] POSSIBLE ANTERIOR MYOCARDIAL INFARCTION [30 ms Q WAVE IN V3/V4, OR R < 0.2 mV IN V4], PROBABLY OLD ?? ABNORMAL RHYTHM ECG Signed By: Mary Babin M.D. ??04/10/2025 ??11:30:05 Electronically Signed By: Melecio Yusuf PA-C Date and Time Signed: 04/10/25 18:29 EDT Electronically Co-Signed By: Mary Babin M.D. Date and Time Co-Signed: 04/10/25 19:31 EDT History and physical note * Justin George III, DO: PERFORM Event Display: History and Physical Authored Date: [id number] Basic Information Admit Date/Time:04/10/2025 14:18 Chief Complaint pt to ER c/o Lsided weakness that he stated started @0300. Jennifer also reports L sided chest pain and L lower abd pain. History of Present Illness The patient is an 79-year-old male with past medical history of CAD, prior PCI, HTN, HLD,Fpx-[id number]-qyvcopuso type 2 diabetes, BPH urinary obstruction and Burr placement for approximately past 6 weeks, left knee infected hardware status post explant with antibiotic spacer and multiple surgeries to left knee with recent skin grafting, and admission for septic UTI in January 2025 who presents from [facility]??with primary complaint of left lower abdominal pain??that radiated to the left side of his chest??that began around 3 AM this morning, persisted, and eventually increased in severity leading him to seek care in the ER.?? In the ER, he was hemodynamically stable, no tachycardia, no tachypnea, 98% SpO2 on room air.?? Afebrile.??CBC unremarkable showing a chronic normocytic anemia.?? Mild hypokalemia of 3.2 on CMP.?? Troponin negative.?? Urinalysis was specific as for infection.?? CT of abdomen pelvis with contrast showed Burr catheter balloon within the prostate, nonobstructing 8 mm distal left ureteral and left upper pole calculi, possible mild uncomplicated proctitis. Chest x-ray unremarkable.?? CT brain for acute changes.?? Showed chronic white matter changes.?? EKG showed rate controlled A-fib with PVCs.?? Appeared nonischemic and similar to previous EKGs. Review of Systems Constitutional:??no?? fever,??no?? chills,??no?? sweats,??no?? weakness Respiratory: ??no?shortness of breath,??no?cough,??no? orthopnea, ??no?wheezing Cardiovascular: ??moderate?chest pain(resolved on exam),??no?palpitations,??no?edema Additional ROS info: Except as noted in the above Review of Systems and in the History of Present Illness all other systems have been reviewed and are negative or noncontributory. Scoring Ayers Fall Risk Score: 35 (04/10/25) Physical Exam Vitals & Measurements T:??36.5?C(Oral)?? HR:??75(Monitored)?? RR:??27?? BP:??134/93?? SpO2:??96%?? HT:??185??cm?? WT:??103.2??kg?? General:??alert,??no acute??distress Skin:??warm,??dry. ??He has a right upper thigh??wound that is healing well secondary to skin graft??removal for left knee??skin graft. Head:??no??trauma,??normocephalic Eye:??normal??conjunctiva, sclera??clear ENMT: Normal oral mucosa Cardiovascular:??regular??rate and rhythm,??normal??peripheral perfusion Respiratory: Lungs??CTA, respirations??non labored Chest wall:??no??deformity. Gastrointestinal:??soft,??non distended,?no??tenderness,?no??guarding. : Burr in place, draining??clear??light yellow urine Extremities:??no??deformity,??no??trauma.?? Bilateral knee??vertical scars??from previous knee surgeries.?? Left leg has limited range of motion and??just??distal to knee has a skin graft. ??There christiana mild small less than??8 mm??scab/superficial wound. ??Otherwise it appears well-healed. ??No signs of infection around either knee. Neurological: oriented x 4, LOC appropriate for age, CN II-XII intact, motor strength equal & normal bilaterally, sensation equal & normal bilaterally, speech normal Psychiatric:??cooperative, affect??appropriate for age,??normal??judgement,??normal??psychiatric thoughts. Lab Results WBC: 6.6 E9/L (04/10/25 11:19:00) RBC: 4.5 E12/L (04/10/25 11:19:00) HGB:??12.1 gm/dL??Low (04/10/25 11:19:00) Hct:??36.3 %??Low (04/10/25 11:19:00) MCV: 80.5 fL (04/10/25 11:19:00) MCH:??26.8 pg??Low (04/10/25 11:19:00) MCHC: 33.3 gm/dL (04/10/25 11:19:00) RDW:??18.6 %??High (04/10/25 11:19:00) Platelet: 349 E9/L (04/10/25 11:19:00) MPV: 7.4 fL (04/10/25 11:19:00) Neutro Auto: 56.6 % (04/10/25 11:19:00) Lymph Auto: 31.3 % (04/10/25 11:19:00) Cloud Auto: 10.2 % (04/10/25 11:19:00) Eos Auto: 1.4 % (04/10/25 11:19:00) Basophil Auto: 0.5 % (04/10/25 11:19:00) Neutro Absolute: 3.7 E9/L (04/10/25 11:19:00) Lymph Absolute: 2.1 E9/L (04/10/25 11:19:00) Cloud Absolute: 0.7 E9/L (04/10/25 11:19:00) Eos Absolute: 0.1 E9/L (04/10/25 11:19:00) Basophil Absolute: 0 E9/L (04/10/25 11:19:00) PT:??16.4 second(s)??High (04/10/25 11:19:00) INR: 1.46 (04/10/25 11:19:00) PTT: 33.3 second(s) (04/10/25 11:19:00) Glucose Lvl: 148 mg/dL (04/10/25 11:19:00) BUN: 9 mg/dL (04/10/25 11:19:00) Creatinine: 1 mg/dL (04/10/25 11:19:00) eGFR: 76 mL/min/1.73 m2 (04/10/25 11:19:00) BUN/Creat Ratio:??9??Low (04/10/25 11:19:00) Sodium Lvl: 138 mmol/L (04/10/25 11:19:00) Potassium Lvl:??3.2 mmol/L??Low (04/10/25 11:19:00) Chloride: 101 mmol/L (04/10/25 11:19:00) CO2: 29 mmol/L (04/10/25 11:19:00) AGAP: 11 mEq/L (04/10/25 11:19:00) Calcium Lvl:??8.4 mg/dL??Low (04/10/25 11:19:00) Alk Phos: 74 Int._Unit/L (04/10/25 11:19:00) ALT: 13 Int._Unit/L (04/10/25 11:19:00) AST: 16 Int._Unit/L (04/10/25 11:19:00) Total Protein: 6.2 gm/dL (04/10/25 11:19:00) Albumin Lvl:??3.2 gm/dL??Low (04/10/25 11:19:00) Globulin: 3 gm/dL (04/10/25 11:19:00) A/G Ratio: 1.1 (04/10/25 11:19:00) Bili Total: 0.6 mg/dL (04/10/25 11:19:00) Bili Direct: 0.1 mg/dL (04/10/25 11:19:00) Bili Indirect: 0.5 mg/dL (04/10/25 11:19:00) Lipase Lvl: 20 unit/L (04/10/25 11:19:00) Troponin HS:??8.8 pg/mL??Low (04/10/25 11:19:00) Glucose Cap:??141 mg/dL??High (04/10/25 11:02:00) POC Device SN: [id number] (04/10/25 11:02:00) POC User ID: [id number] (04/10/25 11:02:00) POC Username: VIKI VELARDE (04/10/25 11:02:00) UA Spec Desc: Catheter (04/10/25 12:27:00) UA Color: Light-[place] Abnormal (04/10/25 12:27:00) UA Clarity: Ex.Turbid Abnormal (04/10/25 12:27:00) UA Spec Grav: 1.029 (04/10/25 12:27:00) UA pH: 7.0 (04/10/25 12:27:00) UA Protein: Trace Abnormal (04/10/25 12:27:00) UA Glucose: Negat (04/10/25 12:27:00) UA Ketones: Negat (04/10/25 12:27:00) UA Bili: Negat (04/10/25 12:27:00) UA ??Blood: 2+ Abnormal (04/10/25 12:27:00) UA Nitrite: Negat (04/10/25 12:27:00) UA Urobilinogen: Negat (04/10/25 12:27:00) UA Leuk Est: 500 Nayely/uL Abnormal (04/10/25 12:27:00) UA RBC: 31-75 Abnormal (04/10/25 12:27:00) UA WBC: >75 Abnormal (04/10/25 12:27:00) UA Mucous: Trace (04/10/25 12:27:00) UA WBC Clump: >30 Abnormal (04/10/25 12:27:00) Assessment/Plan The patient is an 79-year-old male with past medical history of CAD, prior PCI, HTN, HLD,Buj-mtbjjwt-nwwhmqonf type 2 diabetes, BPH urinary obstruction and Burr placement for approximately past 6 weeks, left knee infected hardware status post explant with antibiotic spacer and multiple surgeries to left knee with recent skin grafting, and admission for septic UTI in January 2025,??admitted 04/10/2025 with??abdominal pain radiating to chest likely secondary to??misplaced Burr catheter with bulb and prostate and urinary tract infection. 1.??Complication of Burr catheter??(T83.9XXA: Unspecified complication of genitourinary prostheticdevice, implant and graft, initial encounter) Burr had become dislodged and bulb was in patient's prostate. Burr replaced. Urine output good currently. No signs of sepsis.?? Not SIRS positive. Antibiotics as below. pain control for associated abdominal pain: scheduled tylenol,??pRN??oxycodone and dilaudid?? Ordered: CBC w/ Auto Diff Comprehensive Metabolic Panel Initial Hospital Care/Day Moderate 55 Minutes 28588 ?? 2.??UTI (urinary tract infection)??(N39.0: Urinary tract infection, site not specified) History of previous Pseudomonas UTIs sensitive to Zosyn. Zosyn 3.375 mg IV every 8 hours with extended infusion Urine cultures pending ?? 3.??Chest pain??(R07.9: Chest pain, unspecified) Appears atypical and noncardiac in nature.?? Lasted for several hours some??was radiating from leftlower abdomen. EKG was nonischemic. Initial troponin negative. ??Cycle troponins. Check??echo for any wall motion abnormalities ?? 4.??Persistent atrial fibrillation??(I48.19: Other persistent atrial fibrillation) Continue Cardizem, Eliquis ?? 5.??BPH with urinary obstruction??(N40.1: Benign prostatic hyperplasia with lower urinary tract symptoms) Maintain chronic Burr.??Tamsulosin ?? 6.??CAD S/P percutaneous coronary angioplasty??(I25.10: Atherosclerotic heart disease of red devil coronary artery without angina pectoris) Statin ?? 7.??Diabetes mellitus with polyneuropathy??(E11.42: Type 2 diabetes mellitus with diabetic polyneuropathy) managed with diet hypoglycemia protocol?? will monitor with daily labs and add ACHS checks and SSI as needed for glucose >180 ?? Orders: acetaminophen, 650 mg = 2 tab(s), Tab, Oral, q6hr, Routine, Start date 04/10/25 17:00:00 EDT, 04/10/25 16:25:00 EDT glucagon, 1 mg = 1 EA, Injection, IntraMuscular, q15min PRN Low blood sugar, Routine, Start date 04/10/25 17:13:00 EDT, Blood glucose <70 mg/dL, 04/10/25 17:13:00 EDT glucose, 50 mL, Soln-IV, IV Push, q15min PRN Low blood sugar, Routine, Start date 04/10/25 17:13:00EDT, Blood glucose < 70 mg/dL glucose, 15 gm = 32 mL, Gel, Oral, q15min PRN Low blood sugar, Routine, Start date 04/10/25 17:13:00 EDT, Blood glucose <70 mg/dL, 04/10/25 17:13:00 EDT HYDROmorphone, 0.5 mg = 0.5 mL, Injection, IV Push, q4hr PRN Pain, Routine, Start date 04/10/25 16:26:00 EDT, 04/10/25 16:26:00 EDT ondansetron, 4 mg = 2 mL, Injection, IV Push, q6hr PRN Nausea, Routine, Start date 04/10/25 16:25:00 EDT, 04/10/25 16:25:00 EDT oxycodone, 5 mg = 1 tab(s), Tab, Oral, q4hr PRN Pain for 5 day(s), Stop date 04/15/25 16:24:00 EDT,Routine, Start date 04/10/25 16:25:00 EDT, 04/10/25 16:25:00 EDT piperacillin-tazobactam + Sodium Chloride 0.9% intravenous solution 100 mL, 3.375 gm = 1 EA, IV Piggyback, [id number], Routine, Start date 04/10/25 18:00:00 EDT, 25 mL/hr, Infuse over 4 hour(s), 04/10/25 16:41:00 EDT potassium chloride + Generic Diluent 100 mL, 20 mEq = 100 mL, IV Piggyback, q2hr for 2 dose(s), Stop date 04/10/25 20:59:00 EDT, Routine, Start date 04/10/25 17:00:00 EDT, 50 mL/hr, Infuse over 2 hour(s), 04/10/25 16:42:00 EDT Activity As Tolerated Ambulate with Assistance Communication Order Physician to Nursing Consult to Wound Care Echo Transthoracic Lmtd Hypoglycemia Protocol Responsive Patient Hypoglycemia Protocol Unresponsive Patient Notify Provider Vital Signs Notify Provider Vital Signs Regular Diet Resuscitation Status - DNR CCA (Comfort Care Arrest) Troponin 1 Hr. Troponin 3 Hr. Vital Signs Weight Problem List/Past Medical History Ongoing Alzheimer's dementia, late onset Anemia, blood loss BPH with urinary obstruction CAD (coronary artery disease) CAD S/P percutaneous coronary angioplasty Coronary angioplasty status Coronary artery disease Depression Diabetes mellitus with polyneuropathy Eczematous dermatitis Essential tremor History of gout HTN [Hypertension] Hyperlipidemia Infection and inflammatory reaction due to indwelling urethral catheter, subsequent encounter Lumbar spinal stenosis Nausea shelter resident Obesity due to excess calories Peripheral neuropathy Persistent atrial fibrillation Restless legs Status 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 Urinary tract infection, site not specified Historical MRSA (methicillin resistant staph aureus) culture positive RHEUMATOID ARTHRITIS Septic arthritis of knee, left Streptococcal bacteremia Procedure/Surgical History Incision AND drainage (07/27/2022), Incision AND drainage (04/08/2022), Repair of quadriceps tendon(03/23/2022), Incision AND drainage (04/17/2021), Excision of lesion from soft tissue of face (07/22/2017), Cardioversion, Cholecystectomy, Knee replacement, Stent placement x 3. Medications Inpatient acetaminophen 325 mg Tab, 650 mg= 2 tab(s), Oral, q6hr Dextrose 50% Soln-IV, 50 mL, IV Push, q15min, PRN Dilaudid 0.5 mg/0.5 mL injectable solution, 0.5 mg= 0.5 mL, IV Push, q4hr, PRN glucagon recombinant 1 mg Inj, 1 mg= 1 EA, IntraMuscular, q15min, PRN glucose Oral gel, 15 gm= 32 mL, Oral, q15min, PRN oxyCODONE 5 mg Tab, 5 mg= 1 tab(s), Oral, q4hr, PRN piperacillin-tazobactam additive + Sodium Chloride 0.9% intravenous solution 100 mL potassium chloride additive + premix generic diluent 100 mL Zofran 4 mg/2 mL Injection, 4 mg= 2 mL, IV Push, q6hr, PRN Home acetaminophen 325 mg Tab, 650 mg= 2 tab(s), Oral, q6hr, PRN DilTIAZem (Eqv-Cardizem CD) 120 mg/24 hours oral capsule, extended release, 120 mg= 1 cap(s), Oral,Daily Eliquis 5 mg oral tablet, 5 mg= 1 tab(s), Oral, BID Milk of Magnesia 8% Susp-Oral, 2.4 gm= 30 mL, Oral, Once a day (at bedtime), PRN omeprazole 20 mg Cap-DR, 20 mg= 1 cap(s), Oral, Daily ondansetron 8 mg Tab, 8 mg= 1 tab(s), Oral, q8hr, PRN oxycodone 10 mg oral tablet, 10 mg= 1 tab(s), Oral, q6hr rosuvastatin 20 mg Tab, 20 mg= 1 tab(s), Oral, Daily Allergies No Known Allergies Social History Alcohol - Denies Alcohol Use, 07/27/2019 Substance Abuse - Denies Substance Abuse, 02/10/2013 Tobacco - Denies Tobacco Use, 02/10/2013 Never (less than 100 in lifetime) Tobacco Use:. Never Smokeless Tobacco Use:., 03/28/2025 Former smoker, quit more than 30 days ago Tobacco Use:. Never Smokeless Tobacco Use:. Cigarettes, 08/20/2020 Family History Hypertension: Mother. Primary malignant neoplasm of lung: Father. Immunizations Vaccine Date Status Commentsinfluenza virus vaccine, inactivated 05/31/2024 Recorded diphtheria/pertussis, acel/tetanus adult 11/04/2023 Given influenza virus vaccine, inactivated 07/05/2023 Recorded SARS-CoV-2 (COVID-19) [id number] 12/30/2022 Recorded influenza virus vaccine, inactivated 09/08/2022 Recorded pneumococcal 20-valent conjugate vaccine 09/08/2022 Recorded SARS-CoV-2 (COVID-19) mRNA-1273 vaccine 01/22/2022 Recorded SARS-CoV-2 (COVID-19) mRNA-1273 vaccine 07/07/2021 Recorded influenza virus vaccine, inactivated 06/23/2021 Recorded tetanus-diphtheria toxoids 06/08/2021 Given SARS-CoV-2 (COVID-19) mRNA-1273 vaccine 11/27/2020 Recorded SARS-CoV-2 (COVID-19) mRNA-1273 vaccine 11/03/2020 Recorded 2025-01-31: [id number] influenza virus vaccine, inactivated 06/24/2020 Recorded influenza virus vaccine, inactivated 05/06/2020 Recorded diphtheria/pertussis, acel/tetanus adult 08/21/2019 Given Other : ??pt. in radiology R deltoid influenza virus vaccine, inactivated 07/27/2019 Recorded influenza virus vaccine, inactivated 06/07/2016 Recorded pneumococcal 13-valent vaccine 02/13/2016 Recorded pneumococcal 13-valent vaccine 06/20/2015 Recorded influenza virus vaccine, inactivated 06/20/2015 Recorded Electronically Signed By: Justin George III, DO Date and Time Signed: 04/10/25 17:16 EDT * Justin George III, DO.: PERFORM Event Display: History and Physical Authored Date: [id number] DNR CCA, regular diet, Eliquis for DVT prophylaxis/anticoagulation ?? Moderate level of MDM based on addressing above issues.?? I spent 65 minutes on care including chart review, ordering, documentation, exam, discussion of care plan with patient. This documentation was transcribed using voice recognition software. ??Several attempts were made to ensure accuracy. ??However inadvertent computerized cardiovascular tech errors may be present.?? Electronically Signed By: Justin George III, DO Date and Time Signed: 04/10/25 17:16 EDT Note * Ulices King DO: PERFORM Event Display: Progress Note-Physician Authored Date: [id number] Assessment/Plan The patient is an 79-year-old male with past medical history of CAD, prior PCI, HTN, HLD,Sdn-wzjwknc-lqouqaaty type 2 diabetes, BPH urinary obstruction and Burr placement for approximately past 6 weeks, left knee infected hardware status post explant with antibiotic spacer and multiple surgeries to left knee with recent skin grafting, and admission for septic UTI in January 2025,??admitted 04/10/2025 with??abdominal pain radiating to chest likely secondary to??misplaced Burr catheter with bulb and prostate and urinary tract infection. 04/11 -? Hemodynamically stable and afebrile. ??On room air.??No WBC count.?? Troponins negative.?Wound consult pending. Echo complete. Still having??musculoskeletal chest pain that is relativelywell-controlled with pain regimen. 04/12 -extensive discussion today about??left knee follow-up.?? Also having many issues with discharge planning???see HPI/subjective for details (04/12 APSO note).?? Final urine cultures back, changed antibiotics to oral today and??will likely be medically stable for discharge tomorrow.?? Urine culturepositive for Enterobacter. 04/13 -increasing pain control medications.?? Transitioned to oral antibiotic based on cultures.?? SNF rec per physical therapy.?? Medically stable for discharge today??pending SNF.?? Will continue to work on pain control with patient. 04/14 -patient reports??better pain control today.?? Labs and vitals stable. ??Afebrile.?Hypokalemia improved. ??Tolerating antibiotic.?? Seeking SNF??on discharge.??Is rec for??subacute rehab/SNF??by PT/OT 04/15???patient is still hung up on??transferring for chronic knee pain even though??orthopedic surgery??in [place]??is working on it.?? PT/OT recommended SNF awaiting??placement. 1.??Unspecified complication of genitourinary prosthetic device, implant and graft, initial encounter??(T83.9XXA: Unspecified complication of genitourinary prosthetic device, implant and graft, initial encounter) Burr had become dislodged and bulb was in patient's prostate on presentation. ??significant abdominal pain on presentation has since resolved?? Burr replaced in ER. Urine output good currently. No signs of sepsis.?? Not SIRS positive. Antibiotics as below. pain control for associated abdominal pain: scheduled tylenol, PRN??oxycodone and dilaudid?? Ordered: [facility] Care/Day Straight Fwd 25 Minutes [id number] ?? 2.??UTI (urinary tract infection)??(N39.0: Urinary tract infection, site not specified) Secondary to??multidrug-resistant Enterobacter. ??Not sensitive to the Zosyn the patient had been on. Changed to??Levaquin based on sensitivities on 04/12/2025 ?? 3.??Chest pain??(R07.9: Chest pain, unspecified) Improved per pt.?? Noncardiac in nature. ??Reproducible with palpation on left lower rib cage on first several days ofadmit.?? appears obviously??musculoskeletal. CT??abdomen pelvis with contrast showed nonobstructive renal stone and??Burr catheter complication. ??No other acute issues and??left upper quadrant area.?? No evidence of acute cardiopulmonary disease on chest x-ray. EKG was nonischemic. No troponin elevation on??serial??checks Echo shows A-fib, EF 60 to 65%, mild to moderate LVH, no significant valvular heart disease, no wall motion abnormalities. ?? 4.??Infection of total left knee replacement??(T84.54XA: Infection and inflammatory reaction due tointernal left knee prosthesis, initial encounter) Follows with Dr Almeida??at [facility]. Mult previous surgeries. Essentially bedbound past several months per patient and previous documentation review.?? Spoke with??office staff at [facility] on 04/12/2025 and plan was for??possible surgery on May 07 [facility] office, but pt refused date and no surg scheduled currently.?? Per office staff patient refused??and stated that he was going to seek care elsewhere. Patient??reports that he thinks they are making a referral to??leaving clinic for him. Will reach out to the office and confirm whether new referrals been placed on Tuesday. No evidence of??acute issue with the knee. Patient denied any acute symptoms.?? Reports chronic discomfort and limited range of motion. No??signs of acute infection in the area. No systemic signs of infection. Cont to monitor for acutechanges.?? Wound care consulted for left upper thigh wound??from skin grafting for his left knee. Pt seeking to change care to [facility] and reports he is working with [facility] office to get referral for [facility]. He is hoping that they can get him in sooner than May 07.? 5.??Persistent atrial fibrillation??(I48.19: Other persistent atrial fibrillation) Continue Cardizem, Eliquis Rate controlled ?? 6.??BPH with urinary obstruction??(N40.1: Benign prostatic hyperplasia with lower urinary tract symptoms) Maintain chronic Burr ??Tamsulosin ?? 7.??CAD S/P percutaneous coronary angioplasty??(I25.10: Atherosclerotic heart disease of red devil coronary artery without angina pectoris) Statin ?? 8.??Diabetes mellitus with polyneuropathy??(E11.42: Type 2 diabetes mellitus with diabetic polyneuropathy) Managed with diet Monitor??SSI if needed ?? Enterococcus as the cause of diseases classified elsewhere??(B95.2: Enterococcus as the cause of diseases classified elsewhere) Treatment as above ?? Orders: Change Attending Subjective Patient seen and examined. ??Patient resting in bed. ??Patient states pain is controlled. ??Patientstill??aggravated on why he cannot get transferred to have his chronic knee fixed.?Afebrile. ??Patient denies any chest pain, nausea vomiting diarrhea or other symptoms at this time. Objective Vitals & Measurements T:??36.4?C(Oral)?? TMIN:??36.3?C(Oral)?? TMAX:??36.8?C(Oral)?? HR:??66(Monitored)?? RR:??16?? BP:??127/74?? SpO2:??97%?? WT:??97.4??kg?? Intake & Output ?? This visit (24 hour periods starting at 07:00 EDT)? 04/15/25 *?? 04/14/25?? 04/13/25?? Total Summary?Intake mL?? 3?? 401.5?? 539.5?Output mL?? 450?? 500?? 1,825?Fluid Balance ?? -447?? -98.5?? -1,285.5?? Intake (3)?Oral Intake mL?? --?? 400?? 530?hydromorphone mL?? 1?? 1.5?? 1.5?ondansetron mL?? 2?? --?? 8?Total?? 3?? 401.5?? 539.5?? Output (1)?Urine Catheter mL?? 450?? 500?? 1,825?Total?? 450?? 500?? 1,825?? Counts (1)?Stool Count ?? --?? 1?? 1? * This column has not completed the indicated time period.?? Physical Exam General:??NAD,??exam out of proportion??to complaints Skin:??Warm, dry?? Head:??No trauma,??normocephalic?? Neck: Trachea midline,??supple,??negative for JVD Eye:??Conjunctive are clear, clear??sclera??, EOMI ENMT: oral mucosa??moist,??no lesions or edema nose??or external ears Cardiovascular:??Regular rate and rhythm, S1-S2 present,??negative for murmurs rubs or gallops?? Respiratory: Lungs clear to auscultation,??bilateral??symmetric movement, negative for wheezes rales or rhonchi Chest wall:?no??deformity. Gastrointestinal:??Abdomen soft,??bowel sounds present,??nontender to palpation ; Burr in place Back:?No??tenderness Extremities:??R??bilateral knee scars from previous knee surgeries.?? Left leg limited range of motion.?? Mild??small 8 mm scabbed superficial??hole left knee.?? Mild swelling around left knee, induration,??mild erythema,??if patient is distracted and palpating does not complain of much pain. Neurological:?? awake, alert, speech??normal,??cranial nerves II through XII intact, no sensory defects,??alert and oriented x3 Psychiatric:?cooperative, affect??appropriate for age, pleasant Lab Results WBC: 6.2 E9/L (04/15/25 06:27:00) RBC: 4.4 E12/L (04/15/25 06:27:00) HGB:??11.9 gm/dL??Low (04/15/25 06:27:00) Hct:??36.3 %??Low (04/15/25 06:27:00) MCV: 82.2 fL (04/15/25 06:27:00) MCH:??26.9 pg??Low (04/15/25 06:27:00) MCHC: 32.7 gm/dL (04/15/25 06:27:00) RDW:??18.5 %??High (04/15/25 06:27:00) Platelet: 324 E9/L (04/15/25 06:27:00) MPV: 7.2 fL (04/15/25 06:27:00) Neutro Auto: 60 % (04/15/25 06:27:00) Lymph Auto: 25.4 % (04/15/25 06:27:00) Cloud Auto: 9.7 % (04/15/25 06:27:00) Eos Auto: 4.2 % (04/15/25 06:27:00) Basophil Auto: 0.7 % (04/15/25:27:00) Neutro Absolute: 3.7 E9/L (04/15/25:27:00) Lymph Absolute: 1.6 E9/L (04/15/25 06:27:00) Cloud Absolute: 0.6 E9/L (04/15/25 06:27:00) Eos Absolute: 0.3 E9/L (04/15/25 06:27:00) Basophil Absolute: 0 E9/L (04/15/25 06:27:00) Glucose Lvl: 129 mg/dL (04/15/25 06:27:00) BUN: 10 mg/dL (04/15/25:27:00) Creatinine: 1.1 mg/dL (04/15/25 06:27:00) eGFR: 68 mL/min/1.73 m2 (04/15/25:27:00) BUN/Creat Ratio:??9??Low (04/15/25:27:00) Sodium Lvl: 137 mmol/L (04/15/25 06:27:00) Potassium Lvl: 3.9 mmol/L (04/15/25:27:00) Chloride: 104 mmol/L (04/15/25 06:27:00) CO2: 29 mmol/L (04/15/25:27:00) AGAP: 8 mEq/L (04/15/25 06:27:00) Calcium Lvl:??8.5 mg/dL??Low (04/15/25:27:00) Alk Phos: 64 Int._Unit/L (04/15/25 06:27:00) ALT: 9 Int._Unit/L (04/15/25 06:27:00) AST: 12 Int._Unit/L (04/15/25 06:27:00) Total Protein: 6 gm/dL (04/15/25 06:27:00) Albumin Lvl: 3.3 gm/dL (04/15/25 06:27:00) Globulin: 2.7 gm/dL (04/15/25 06:27:00) A/G Ratio: 1.2 (04/15/25 06:27:00) Bili Total: 0.6 mg/dL (04/15/25 06:27:00) Bili Direct: 0.1 mg/dL (04/15/25 06:27:00) Problem List/Past Medical History Ongoing Alzheimer's dementia, late onset Anemia, blood loss BPH with urinary obstruction CAD (coronary artery disease) CAD S/P percutaneous coronary angioplasty Coronary angioplasty status Coronary artery disease Depression Diabetes mellitus with polyneuropathy Eczematous dermatitis Essential tremor History of gout HTN [Hypertension] Hyperlipidemia Infection and inflammatory reaction due to indwelling urethral catheter, subsequent encounter Lumbar spinal stenosis Nausea shelter resident Obesity due to excess calories Peripheral neuropathy Persistent atrial fibrillation Restless legs Status 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 Urinary tract infection, site not specified Historical MRSA (methicillin resistant staph aureus) culture positive RHEUMATOID ARTHRITIS Septic arthritis of knee, left Streptococcal bacteremia Medications Inpatient acetaminophen 325 mg Tab, 650 mg= 2 tab(s), Oral, q6hr atorvastatin 40 mg Tab, 40 mg= 1 tab(s), Oral, Bedtime Dextrose 50% Soln-IV, 50 mL, IV Push, q15min, PRN Dilaudid 0.5 mg/0.5 mL injectable solution, 0.5 mg= 0.5 mL, IV Push, q3hr, PRN diltiazem CD 120 mg/24 hours Cap-ER, 120 mg= 1 cap(s), Oral, Daily docusate sodium 100 mg Cap, 100 mg= 1 cap(s), Oral, BID Eliquis 5 mg oral tablet, 5 mg= 1 tab(s), Oral, BID famotidine 20 mg Tab, 40 mg= 2 tab(s), Oral, BID glucagon recombinant 1 mg Inj, 1 mg= 1 EA, IntraMuscular, q15min, PRN glucose Oral gel, 15 gm= 32 mL, Oral, q15min, PRN levofloxacin, 750 mg= 1 tab(s), Oral, Daily Milk of Magnesia 8% Susp-Oral, 30 mL, Oral, Once a day (at bedtime), PRN oxyCODONE 5 mg Tab, 15 mg= 3 tab(s), Oral, q4hr, PRN Pantoprazole [address] Tab, 40 mg= 1 tab(s), Oral, Daily potassium chloride 20 mEq ER Tab, 20 mEq= 1 tab(s), Oral, q12hr Reglan 5 mg Tab, 5 mg= 1 tab(s), Oral, QIDACHS Zofran 4 mg/2 mL Injection, 4 mg= 2 mL, IV Push, q6hr, PRN Home acetaminophen 325 mg Tab, 650 mg= 2 tab(s), Oral, q6hr, PRN DilTIAZem (Eqv-Cardizem CD) 120 mg/24 hours oral capsule, extended release, 120 mg= 1 cap(s), Oral,Daily Eliquis 5 mg oral tablet, 5 mg= 1 tab(s), Oral, BID famotidine 40 mg Tab, 40 mg= 1 tab(s), Oral, BID Milk of Magnesia 8% Susp-Oral, 2.4 gm= 30 mL, Oral, Once a day (at bedtime), PRN omeprazole 20 mg Cap-DR, 20 mg= 1 cap(s), Oral, Daily ondansetron 8 mg Tab, 8 mg= 1 tab(s), Oral, q8hr, PRN oxycodone 10 mg oral tablet, 10 mg= 1 tab(s), Oral, q4hr, PRN promethazine 12.5 mg oral tablet, 12.5 mg= 1 tab(s), Oral, q8hr, PRN Reglan 5 mg Tab, See Instructions rosuvastatin 20 mg Tab, 20 mg= 1 tab(s), Oral, Bedtime Electronically Signed By: Ulices King DO Date and Time Signed: 04/15/25 15:10 EDT * Justin George III, DO: PERFORM Event Display: Progress Note-Physician Authored Date: [id number] Assessment/Plan The patient is an 79-year-old male with past medical history of CAD, prior PCI, HTN, HLD,Yns-pweawwz-zrrwnwpee type 2 diabetes, BPH urinary obstruction and Burr placement for approximately past 6 weeks, left knee infected hardware status post explant with antibiotic spacer and multiple surgeries to left knee with recent skin grafting, and admission for septic UTI in January 2025,??admitted 04/10/2025 with??abdominal pain radiating to chest likely secondary to??misplaced Burr catheter with bulb and prostate and urinary tract infection. 04/11 -? Hemodynamically stable and afebrile. ??On room air.??No WBC count.?? Troponins negative.?Wound consult pending. Echo complete. Still having??musculoskeletal chest pain that is relativelywell-controlled with pain regimen. 04/12 -extensive discussion today about??left knee follow-up.?? Also having many issues with discharge planning???see HPI/subjective for details (04/12 APSO note).?? Final urine cultures back, changed antibiotics to oral today and??will likely be medically stable for discharge tomorrow.?? Urine culturepositive for Enterobacter. 04/13 -increasing pain control medications.?? Transitioned to oral antibiotic based on cultures.?? SNF rec per physical therapy.?? Medically stable for discharge today??pending SNF.?? Will continue to work on pain control with patient. 04/14 -patient reports??better pain control today.?? Labs and vitals stable. ??Afebrile.?Hypokalemia improved. ??Tolerating antibiotic.?? Seeking SNF??on discharge.??Is rec for??subacute rehab/SNF??by PT/OT 1.??Complication of Burr catheter,??(T83.9XXA: Unspecified complication of genitourinary prosthetic device, implant and graft, initial encounter)Unspecified complication of genitourinary prosthetic device, implant and graft, initial encounter Burr had become dislodged and bulb was in patient's prostate on presentation. HAd signficant abdominal pain on presentation that is??gradually improving.?? Burr replaced in ER. Urine output good currently. No signs of sepsis.?? Not SIRS positive. Antibiotics as below. pain control for associated abdominal pain: scheduled tylenol, PRN??oxycodone and dilaudid?? Ordered: Basic Metabolic Panel eGFR [facility] Discharge Day > 30 Min [id number] ?? 2.??UTI (urinary tract infection)??(N39.0: Urinary tract infection, site not specified) Secondary to??multidrug-resistant Enterobacter. ??Not sensitive to the Zosyn the patient had been on. Changed to??Levaquin based on sensitivities on 04/12/2025. ?? 3.??Chest pain??(R07.9: Chest pain, unspecified) Improved per pt.?? Noncardiac in nature. ??Reproducible with palpation on left lower rib cage on first several days ofadmit.?? appears obviously??musculoskeletal. CT??abdomen pelvis with contrast showed nonobstructive renal stone and??Burr catheter complication. ??No other acute issues and??left upper quadrant area.?? No evidence of acute cardiopulmonary disease on chest x-ray. EKG was nonischemic. No troponin elevation on??serial??checks Echo shows A-fib, EF 60 to 65%, mild to moderate LVH, no significant valvular heart disease, no wall motion abnormalities. ?? 4.??Infection of total left knee replacement??(T84.54XA: Infection and inflammatory reaction due tointernal left knee prosthesis, initial encounter) Follows with Dr Almeida??at [facility]. Mult previous surgeries. Essentially bedbound past several months per patient and previous documentation review.?? Spoke with??office staff at [facility] on 04/12/2025 and plan was for??possible surgery on May 07 [facility] office, but pt refused date and no surg scheduled currently.?? Per office staff patient refused??and stated that he was going to seek care elsewhere. Patient??reports that he thinks they are making a referral to??leaving clinic for him. Will reach out to the office and confirm whether new referrals been placed on Tuesday. No evidence of??acute issue with the knee. Patient denied any acute symptoms.?? Reports chronic discomfort and limited range of motion. No??signs of acute infection in the area. No systemic signs of infection. Cont to monitor for acutechanges.?? Wound care consulted for left upper thigh wound??from skin grafting for his left knee. Pt seeking to change care to [facility] and reports he is working with [facility] office to get referral for [facility]. He is hoping that they can get him in sooner than May 07.? 5.??Persistent atrial fibrillation??(I48.19: Other persistent atrial fibrillation) Continue Cardizem, Eliquis Rate controlled ?? 6.??BPH with urinary obstruction??(N40.1: Benign prostatic hyperplasia with lower urinary tract symptoms) Maintain chronic Burr.??Tamsulosin ?? 7.??CAD S/P percutaneous coronary angioplasty??(I25.10: Atherosclerotic heart disease of red devil coronary artery without angina pectoris) Statin ?? 8.??Diabetes mellitus with polyneuropathy??(E11.42: Type 2 diabetes mellitus with diabetic polyneuropathy) managed with diet hypoglycemia protocol?? will monitor with daily labs and add ACHS checks and SSI as needed for glucose >180 ?? Orders: docusate, 100 mg = 1 cap(s), Cap, Oral, BID, Routine, Start date 04/13/25 21:00:00 EDT, 04/13/25 12:55:00 EDT oxycodone, 15 mg = 3 tab(s), Tab, Oral, q4hr PRN Pain for 5 day(s), Stop date 04/18/25 10:55:00 EDT, Routine, Start date 04/13/25 10:56:00 EDT, 04/13/25 10:56:00 EDT potassium chloride, 20 mEq = 1 tab(s), Tab-ER, Oral, q12hr, NOW, Start date 04/13/25 10:56:00 EDT, 04/13/25 10:56:00 EDT Capillary Glucose POC Capillary Glucose POC Magnesium Level Disposition:??SNF rec. Medically stable for DC, pending placement. Following closely??with case mgmt and discussed with??[employer] Dr Jiang??04/14.? I discussed the diagnosis and plan of care with the patient at the bedside. ?? Moderate level of MDM based on addressing above issues.?? I spent 38 minutes on care including chart review, ordering, documentation, exam, discussion of care plan with patient ?? This documentation was transcribed using voice recognition software. ??Several attempts were made to ensure accuracy. ??However inadvertent computerized cardiovascular tech errors may be present. Subjective Patient seen at bedside. ??Resting comfortably. ??Rates his pain at a 6 out of 10 in bilateral lower extremities below the knee??secondary to chronic neuropathy. ??Reports no new??knee pain or issues. ??Reports that his abdominal pain and chest pain are improving with increased pain control.?? States that he got more sleep last night. ??Better oral intake today and did finish most of his breakfast at time of my exam. Objective Vitals & Measurements T:??36.4?C(Oral)?? TMIN:??36.3?C(Oral)?? TMAX:??36.7?C(Oral)?? HR:??72(Monitored)?? RR:??18?? BP:??146/90?? SpO2:??99%?? WT:??97.8??kg?? Intake & Output ?? This visit (24 hour periods starting at 07:00 EDT)? 04/14/25 *?? 04/13/25?? 04/12/25?? Total Summary?Intake mL?? 400?? 539.5?? 172.5?Output mL?? --?? 1,825?? 550?Fluid Balance ?? 400?? -1,285.5?? -377.5?? Intake (6)?Al hydroxide/Mg hydroxide/simethicone mL?? --?? --?? 30?Oral Intake mL?? 400?? 530?? 120?atropine/hyoscyamine/PB/scopolamine mL?? --?? --?? 10?hydromorphone mL?? --?? 1.5?? 2.5?lidocaine topical mL?? --?? --?? 10?ondansetron mL?? --?? 8?? --?Total?? 400?? 539.5?? 172.5?? Output (1)?Urine Catheter mL?? --?? 1,825?? 550?Total?? --?? 1,825?? 550?? Counts (1)?Stool Count ?? --?? 1?? 2? * This column has not completed the indicated time period.?? Physical Exam General:??alert,??no acute??distress Skin:??warm,??dry. ??He has a right upper thigh??wound that is healing well secondary to skin graft??removal for left knee??skin graft. Head:??no??trauma,??normocephalic Eye:??normal??conjunctiva, sclera??clear ENMT: Normal oral mucosa Cardiovascular:??regular??rate and rhythm,??normal??peripheral perfusion Respiratory: Lungs??CTA, respirations??non labored Chest wall:??no??deformity. Gastrointestinal:??soft,??non distended,?no??tenderness,?no??guarding. : Burr in place, draining??clear??light yellow urine Extremities:??no??deformity,??no??trauma.?? Bilateral knee??vertical scars??from previous knee surgeries.?? Left leg has limited range of motion and??just??distal to knee has a skin graft. ??There christiana mild small less than??8 mm??scab/superficial wound superior to skin graft. ??Otherwise it appearswell- healed. ??No signs of infection around either knee including: erythema, significant TTP, induration, warmth Neurological: oriented x 4, LOC appropriate for age, CN II-XII intact, motor strength equal & normal bilaterally, sensation equal & normal bilaterally, speech normal Psychiatric:??cooperative, affect??appropriate for age,??normal??judgement,??normal??psychiatric thoughts. Lab Results Glucose Lvl: 123 mg/dL (04/14/25 04:42:00) BUN: 8 mg/dL (04/14/25 04:42:00) Creatinine: 1 mg/dL (04/14/25 04:42:00) eGFR: 76 mL/min/1.73 m2 (04/14/25 04:42:00) BUN/Creat Ratio:??8??Low (04/14/25 04:42:00) Sodium Lvl: 138 mmol/L (04/14/25 04:42:00) Potassium Lvl: 3.6 mmol/L (04/14/25 04:42:00) Chloride: 104 mmol/L (04/14/25 04:42:00) CO2: 29 mmol/L (04/14/25 04:42:00) AGAP: 9 mEq/L (04/14/25 04:42:00) Calcium Lvl:??8.4 mg/dL??Low (04/14/25 04:42:00) Magnesium: 1.6 mg/dL (04/14/25 04:42:00) Glucose Cap:??117 mg/dL??High (04/13/25 16:16:00) POC Device SN: [id number] (04/13/25 16:16:00) POC User ID: [id number] (04/13/25 16:16:00) POC Username: [email or web address] (04/13/25 16:16:00) Problem List/Past Medical History Ongoing Alzheimer's dementia, late onset Anemia, blood loss BPH with urinary obstruction CAD (coronary artery disease) CAD S/P percutaneous coronary angioplasty Coronary angioplasty status Coronary artery disease Depression Diabetes mellitus with polyneuropathy Eczematous dermatitis Essential tremor History of gout HTN [Hypertension] Hyperlipidemia Infection and inflammatory reaction due to indwelling urethral catheter, subsequent encounter Lumbar spinal stenosis Nausea shelter resident Obesity due to excess calories Peripheral neuropathy Persistent atrial fibrillation Restless legs Status 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 Urinary tract infection, site not specified Historical MRSA (methicillin resistant staph aureus) culture positive RHEUMATOID ARTHRITIS Septic arthritis of knee, left Streptococcal bacteremia Medications Inpatient acetaminophen 325 mg Tab, 650 mg= 2 tab(s), Oral, q6hr atorvastatin 40 mg Tab, 40 mg= 1 tab(s), Oral, Bedtime Dextrose 50% Soln-IV, 50 mL, IV Push, q15min, PRN Dilaudid 0.5 mg/0.5 mL injectable solution, 0.5 mg= 0.5 mL, IV Push, q3hr, PRN diltiazem CD 120 mg/24 hours Cap-ER, 120 mg= 1 cap(s), Oral, Daily docusate sodium 100 mg Cap, 100 mg= 1 cap(s), Oral, BID Eliquis 5 mg oral tablet, 5 mg= 1 tab(s), Oral, BID famotidine 20 mg Tab, 40 mg= 2 tab(s), Oral, BID glucagon recombinant 1 mg Inj, 1 mg= 1 EA, IntraMuscular, q15min, PRN glucose Oral gel, 15 gm= 32 mL, Oral, q15min, PRN levofloxacin, 750 mg= 1 tab(s), Oral, Daily Milk of Magnesia 8% Susp-Oral, 30 mL, Oral, Once a day (at bedtime), PRN oxyCODONE 5 mg Tab, 15 mg= 3 tab(s), Oral, q4hr, PRN Pantoprazole [address] Tab, 40 mg= 1 tab(s), Oral, Daily potassium chloride 20 mEq ER Tab, 20 mEq= 1 tab(s), Oral, q12hr Reglan 5 mg Tab, 5 mg= 1 tab(s), Oral, QIDACHS Zofran 4 mg/2 mL Injection, 4 mg= 2 mL, IV Push, q6hr, PRN Home acetaminophen 325 mg Tab, 650 mg= 2 tab(s), Oral, q6hr, PRN DilTIAZem (Eqv-Cardizem CD) 120 mg/24 hours oral capsule, extended release, 120 mg= 1 cap(s), Oral,Daily Eliquis 5 mg oral tablet, 5 mg= 1 tab(s), Oral, BID famotidine 40 mg Tab, 40 mg= 1 tab(s), Oral, BID Milk of Magnesia 8% Susp-Oral, 2.4 gm= 30 mL, Oral, Once a day (at bedtime), PRN omeprazole 20 mg Cap-DR, 20 mg= 1 cap(s), Oral, Daily ondansetron 8 mg Tab, 8 mg= 1 tab(s), Oral, q8hr, PRN oxycodone 10 mg oral tablet, 10 mg= 1 tab(s), Oral, q4hr, PRN promethazine 12.5 mg oral tablet, 12.5 mg= 1 tab(s), Oral, q8hr, PRN Reglan 5 mg Tab, See Instructions rosuvastatin 20 mg Tab, 20 mg= 1 tab(s), Oral, Bedtime Electronically Signed By: Justin George III, DO Date and Time Signed: 04/14/25 10:41 EDT * Justin George III, DO.: PERFORM Event Display: Progress Note-Physician Authored Date: [id number] Assessment/Plan The patient is an 79-year-old male with past medical history of CAD, prior PCI, HTN, HLD,Hym-ubiyjqm-gaobeyayx type 2 diabetes, BPH urinary obstruction and Burr placement for approximately past 6 weeks, left knee infected hardware status post explant with antibiotic spacer and multiple surgeries to left knee with recent skin grafting, and admission for septic UTI in January 2025,??admitted 04/10/2025 with??abdominal pain radiating to chest likely secondary to??misplaced Burr catheter with bulb and prostate and urinary tract infection. 04/11 -? Hemodynamically stable and afebrile. ??On room air.??No WBC count.?? Troponins negative.?Wound consult pending. Echo complete. Still having??musculoskeletal chest pain that is relativelywell-controlled with pain regimen. 04/12 -extensive discussion today about??left knee follow-up.?? Also having many issues with discharge planning???see HPI/subjective for details (04/12 APSO note).?? Final urine cultures back, changed antibiotics to oral today and??will likely be medically stable for discharge tomorrow.?? Urine culturepositive for Enterobacter. 04/13 -increasing pain control medications.?? Transitioned to oral antibiotic based on cultures.?? SNF rec per physical therapy.?? Medically stable for discharge today??pending SNF.?? Will continue to work on pain control with patient. 1.??Complication of Burr catheter??(T83.9XXA: Unspecified complication of genitourinary prostheticdevice, implant and graft, initial encounter) Burr had become dislodged and bulb was in patient's prostate on presentation Burr replaced. Urine output good currently. No signs of sepsis.?? Not SIRS positive. Antibiotics as below. pain control for associated abdominal pain: scheduled tylenol, PRN??oxycodone and dilaudid?? Ordered: Basic Metabolic Panel CBC w/ Auto Diff eGFR Sbsq Hospital Care/Day High 50 Minutes [id number] ?? 2.??UTI (urinary tract infection)??(N39.0: Urinary tract infection, site not specified) Secondary to??multidrug-resistant Enterobacter. ??Not sensitive to the Zosyn the patient had been on. Changed to??Levaquin based on sensitivities on 04/12/2025. ?? 3.??Chest pain??(R07.9: Chest pain, unspecified) Improved per pt.?? Noncardiac in nature. ??Reproducible with palpation on left lower rib cage on first several days ofadmit.?? Obviously??musculoskeletal. CT??abdomen pelvis with contrast showed nonobstructive renal stone and??Burr catheter complication. ??No other acute issues and??left upper quadrant area.?? No evidence of acute cardiopulmonary disease on chest x-ray. EKG was nonischemic. No troponin elevation on??serial??checks Echo shows A-fib, EF 60 to 65%, mild to moderate LVH, no significant valvular heart disease, no wall motion abnormalities. ?? 4.??Infection of total left knee replacement??(T84.54XA: Infection and inflammatory reaction due tointernal left knee prosthesis, initial encounter) Follows with Dr Almeida??at [facility]. Mult previous surgeries. Essentially bedbound past several months per patient and previous documentation review.?? Spoke with??office staff on 04/12/2025 and plan was for??possible surgery on May 07 per their office. ?? Per office staff patient refused??and stated that he was going to seek care elsewhere. Patient??reports that he thinks they are making a referral to??leaving clinic for him. Will reach out to the office and confirm whether new referrals been placed. No evidence of??acute issue with the knee. Patient denied any acute symptoms.?? Reports chronic discomfort and limited range of motion. No??signs of acute infection in the area. Wound care consulted for left upper thigh wound??from skin grafting for his left knee. Pt seeking to change care to [facility] and reports he is working with [facility] office to get referral for [facility]. He is hoping that they can get him in sooner than May 07.? 5.??Persistent atrial fibrillation??(I48.19: Other persistent atrial fibrillation) Continue Cardizem, Eliquis Rate controlled ?? 6.??BPH with urinary obstruction??(N40.1: Benign prostatic hyperplasia with lower urinary tract symptoms) Maintain chronic Burr.??Tamsulosin ?? 7.??CAD S/P percutaneous coronary angioplasty??(I25.10: Atherosclerotic heart disease of red devil coronary artery without angina pectoris) Statin ?? 8.??Diabetes mellitus with polyneuropathy??(E11.42: Type 2 diabetes mellitus with diabetic polyneuropathy) managed with diet hypoglycemia protocol?? will monitor with daily labs and add ACHS checks and SSI as needed for glucose >180 ?? Orders: docusate, 100 mg = 1 cap(s), Cap, Oral, BID, Routine, Start date 04/13/25 21:00:00 EDT, 04/13/25 12:55:00 EDT HYDROmorphone, 0.5 mg = 0.5 mL, Injection, IV Push, q3hr PRN Pain, Routine, Start date 04/12/25 16:55:00 EDT, 04/12/25 16:55:00 EDT oxycodone, 10 mg = 2 tab(s), Tab, Oral, Once, Stop date 04/12/25 16:55:00 EDT, NOW, Start date 04/12/25 16:55:00 EDT, 04/12/25 16:55:00 EDT oxycodone, 15 mg = 3 tab(s), Tab, Oral, q4hr PRN Pain for 5 day(s), Stop date 04/18/25 10:55:00 EDT, Routine, Start date 04/13/25 10:56:00 EDT, 04/13/25 10:56:00 EDT potassium chloride, 20 mEq = 1 tab(s), Tab-ER, Oral, q12hr, NOW, Start date 04/13/25 10:56:00 EDT, 04/13/25 10:56:00 EDT Capillary Glucose POC Capillary Glucose POC Capillary Glucose POC Occupational Therapy Additional Tx Occupational Therapy Evaluate Patient, Develop a Plan of Care and Implement Plan Physical Therapy Additional Tx Physical Therapy Evaluate Patient, Develop a Plan of Care and Implement Plan Disposition:??SNF rec. Medically stable for DC, pending placement? I discussed the diagnosis and plan of care with the patient at the bedside. ?? Moderate level of MDM based on addressing above issues.?? I spent 38 minutes on care including chart review, ordering, documentation, exam, discussion of care plan with patient,??case management??and??PT ?? This documentation was transcribed using voice recognition software. ??Several attempts were made to ensure accuracy. ??However inadvertent computerized cardiovascular tech errors may be present. Subjective Patient seen at bedside this a.m. ??Complaining of neuropathic pain from knees down bilaterally.?? No acute changes with his knee pain. ??No signs of localized infection around bilateral knees.?? Reports he still having significant intermittent abdominal pain that has been difficult to control. ??Increasing oxycodone dosing today. ??Add docusate. ??Replacing potassium. ??Encouraging oral intake. ??Patient is reporting some intermittent nausea and reticence to eat. ??Treating his nausea. ??Working with PT. ??They recommend SNF. Objective Vitals & Measurements T:??36.4?C(Oral)?? TMIN:??36.4?C(Oral)?? TMAX:??36.5?C(Oral)?? HR:??65(Peripheral)?? RR:??18?? BP:??129/80?? SpO2:??98%?? WT:??99.2??kg?? Intake & Output ?? This visit (24 hour periods starting at 07:00 EDT)? 04/13/25 *?? 04/12/25?? 04/11/25?? Total Summary?Intake mL?? 302.5?? 172.5?? 1,221.31?Output mL?? 825?? 550?? 1,900?Fluid Balance ?? -522.5?? -377.5?? -678.69?? Intake (8)?Al hydroxide/Mg hydroxide/simethicone mL?? --?? 30?? --?Oral Intake mL?? 300?? 120?? 970?Sodium Chloride 0.9%, piperacillin-tazobactam mL?? --?? --?? 245.01?atropine/hyoscyamine/PB/scopolamine mL?? --?? 10?? --?hydromorphone mL?? 0.5?? 2.5?? 1?lidocaine topical mL?? --?? 10?? --?ondansetron mL?? 2?? --?? 4?perflutren mL?? --?? --?? 1.3?Total?? 302.5?? 172.5?? 1,221.31?? Output (1)?Urine Catheter mL?? 825?? 550?? 1,900?Total?? 825?? 550?? 1,900?? Counts (1)?Stool Count ?? --?? 2?? 1? * This column has not completed the indicated time period.?? Physical Exam General:??alert,??no acute??distress Skin:??warm,??dry. ??He has a right upper thigh??wound that is healing well secondary to skin graft??removal for left knee??skin graft. Wound care following?? Head:??no??trauma,??normocephalic Eye:??normal??conjunctiva, sclera??clear ENMT: Normal oral mucosa Cardiovascular:??regular??rate and rhythm,??normal??peripheral perfusion Respiratory: Lungs??CTA, respirations??non labored Chest wall:??no??deformity. Gastrointestinal:??soft,??non distended,?no??tenderness,?no??guarding. : Burr in place, draining??clear??light yellow urine Extremities:??no??deformity,??no??trauma.?? Bilateral knee??vertical scars??from previous knee surgeries.?? Left leg has limited range of motion and??just??distal to knee has a skin graft. ??There christiana mild small less than??8 mm??scab/superficial wound. ??Otherwise it appears well-healed. ??No signs of infection around either knee. Neurological: oriented x 4, LOC appropriate for age, CN II-XII intact, motor strength equal & normal bilaterally, sensation equal & normal bilaterally, speech normal Psychiatric:??cooperative, affect??appropriate for age,??normal??judgement,??normal??psychiatric thoughts. Lab Results WBC: 6.5 E9/L (04/13/25 04:34:00) RBC:??4.2 E12/L??Low (04/13/25 04:34:00) HGB:??11.4 gm/dL??Low (04/13/25 04:34:00) Hct:??34.5 %??Low (04/13/25 04:34:00) MCV: 82.4 fL (04/13/25 04:34:00) MCH: 27.1 pg (04/13/25 04:34:00) MCHC: 32.9 gm/dL (04/13/25 04:34:00) RDW:??19 %??High (04/13/25 04:34:00) Platelet: 318 E9/L (04/13/25 04:34:00) MPV: 7.3 fL (04/13/25 04:34:00) Neutro Auto: 58.4 % (04/13/25 04:34:00) Lymph Auto: 25.4 % (04/13/25 04:34:00) Cloud Auto: 11.7 % (04/13/25 04:34:00) Eos Auto: 3.9 % (04/13/25 04:34:00) Basophil Auto: 0.6 % (04/13/25 04:34:00) Neutro Absolute: 3.8 E9/L (04/13/25 04:34:00) Lymph Absolute: 1.6 E9/L (04/13/25 04:34:00) Cloud Absolute: 0.8 E9/L (04/13/25 04:34:00) Eos Absolute: 0.3 E9/L (04/13/25 04:34:00) Basophil Absolute: 0 E9/L (04/13/25 04:34:00) Glucose Lvl: 115 mg/dL (04/13/25 04:34:00) BUN: 8 mg/dL (04/13/25 04:34:00) Creatinine: 1.1 mg/dL (04/13/25 04:34:00) eGFR: 68 mL/min/1.73 m2 (04/13/25 04:34:00) BUN/Creat Ratio:??7??Low (04/13/25 04:34:00) Sodium Lvl: 138 mmol/L (04/13/25 04:34:00) Potassium Lvl:??3.3 mmol/L??Low (04/13/25 04:34:00) Chloride: 104 mmol/L (04/13/25 04:34:00) CO2: 30 mmol/L (04/13/25 04:34:00) AGAP: 7 mEq/L (04/13/25 04:34:00) Calcium Lvl:??8 mg/dL??Low (04/13/25 04:34:00) Glucose Cap:??139 mg/dL??High (04/13/25 10:56:00) POC Device SN: [id number] (04/13/25 10:56:00) POC User ID: [id number] (04/13/25 10:56:00) POC Username: [email or web address] (04/13/25 10:56:00) Problem List/Past Medical History Ongoing Alzheimer's dementia, late onset Anemia, blood loss BPH with urinary obstruction CAD (coronary artery disease) CAD S/P percutaneous coronary angioplasty Coronary angioplasty status Coronary artery disease Depression Diabetes mellitus with polyneuropathy Eczematous dermatitis Essential tremor History of gout HTN [Hypertension] Hyperlipidemia Infection and inflammatory reaction due to indwelling urethral catheter, subsequent encounter Lumbar spinal stenosis Nausea shelter resident Obesity due to excess calories Peripheral neuropathy Persistent atrial fibrillation Restless legs Status 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 Urinary tract infection, site not specified Historical MRSA (methicillin resistant staph aureus) culture positive RHEUMATOID ARTHRITIS Septic arthritis of knee, left Streptococcal bacteremia Medications Inpatient acetaminophen 325 mg Tab, 650 mg= 2 tab(s), Oral, q6hr atorvastatin 40 mg Tab, 40 mg= 1 tab(s), Oral, Bedtime Dextrose 50% Soln-IV, 50 mL, IV Push, q15min, PRN Dilaudid 0.5 mg/0.5 mL injectable solution, 0.5 mg= 0.5 mL, IV Push, q3hr, PRN diltiazem CD 120 mg/24 hours Cap-ER, 120 mg= 1 cap(s), Oral, Daily docusate sodium 100 mg Cap, 100 mg= 1 cap(s), Oral, BID Eliquis 5 mg oral tablet, 5 mg= 1 tab(s), Oral, BID famotidine 20 mg Tab, 40 mg= 2 tab(s), Oral, BID glucagon recombinant 1 mg Inj, 1 mg= 1 EA, IntraMuscular, q15min, PRN glucose Oral gel, 15 gm= 32 mL, Oral, q15min, PRN levofloxacin, 750 mg= 1 tab(s), Oral, Daily Milk of Magnesia 8% Susp-Oral, 30 mL, Oral, Once a day (at bedtime), PRN oxyCODONE 5 mg Tab, 15 mg= 3 tab(s), Oral, q4hr, PRN Pantoprazole [address] Tab, 40 mg= 1 tab(s), Oral, Daily potassium chloride 20 mEq ER Tab, 20 mEq= 1 tab(s), Oral, q12hr Reglan 5 mg Tab, 5 mg= 1 tab(s), Oral, QIDACHS Zofran 4 mg/2 mL Injection, 4 mg= 2 mL, IV Push, q6hr, PRN Home acetaminophen 325 mg Tab, 650 mg= 2 tab(s), Oral, q6hr, PRN DilTIAZem (Eqv-Cardizem CD) 120 mg/24 hours oral capsule, extended release, 120 mg= 1 cap(s), Oral,Daily Eliquis 5 mg oral tablet, 5 mg= 1 tab(s), Oral, BID famotidine 40 mg Tab, 40 mg= 1 tab(s), Oral, BID Milk of Magnesia 8% Susp-Oral, 2.4 gm= 30 mL, Oral, Once a day (at bedtime), PRN omeprazole 20 mg Cap-DR, 20 mg= 1 cap(s), Oral, Daily ondansetron 8 mg Tab, 8 mg= 1 tab(s), Oral, q8hr, PRN oxycodone 10 mg oral tablet, 10 mg= 1 tab(s), Oral, q4hr, PRN promethazine 12.5 mg oral tablet, 12.5 mg= 1 tab(s), Oral, q8hr, PRN Reglan 5 mg Tab, See Instructions rosuvastatin 20 mg Tab, 20 mg= 1 tab(s), Oral, Bedtime Electronically Signed By: Justin George III, DO Date and Time Signed: 04/13/25 13:08 EDT Discharge summary * Ulices King DO: PERFORM Event Display: Discharge Summary Authored Date: [id number] Admission and Discharge Information Admit Date/Time:04/10/2025 14:18 Admitting Physician - Justin George III, DO Consulting Physician - [facility] [place] Wound, XXXX Admitting Diagnoses: 1.??Unspecified complication of genitourinary prosthetic device, implant and graft, initial encounter, 04/14/2025 Discharge Order Date Discharge Patient - Ordered?-- 04/16/25 14:43:00 EDT, discharged to [facility] Discharge Diagnoses 1.??Unspecified complication of genitourinary prosthetic device, implant and graft, initial encounter, 04/14/2025 2.??UTI (urinary tract infection), 04/10/2025 3.??Chest pain, 04/10/2025 4.??Infection of total left knee replacement, 04/12/2025 5.??Persistent atrial fibrillation, 04/10/2025 6.??BPH with urinary obstruction, 04/10/2025 7.??CAD S/P percutaneous coronary angioplasty, 04/10/2025 8.??Diabetes mellitus with polyneuropathy, 04/10/2025 Abdominal pain, 04/10/2025 Chest pain, 04/10/2025 Enterococcus as the cause of diseases classified elsewhere, 04/13/2025 Weakness or fatigue, 04/10/2025 Procedure History Incision AND drainage (07/27/2022), Incision AND drainage (04/08/2022), Repair of quadriceps tendon(03/23/2022), Incision AND drainage (04/17/2021), Excision of lesion from soft tissue of face (07/22/2017), Cardioversion, Cholecystectomy, Knee replacement, Stent placement x 3. Hospital Course The patient is an 79-year-old male with past medical history of CAD, prior PCI, HTN, HLD,Vad-hfpzznn-nirfuyruj type 2 diabetes, BPH urinary obstruction and Burr placement for approximately past 6 weeks, left knee infected hardware status post explant with antibiotic spacer and multiple surgeries to left knee with recent skin grafting, and admission for septic UTI in January 2025,??admitted 04/10/2025 with??abdominal pain radiating to chest likely secondary to??misplaced Burr catheter with bulb and prostate and urinary tract infection. 04/11 -? Hemodynamically stable and afebrile. ??On room air.??No WBC count.?? Troponins negative.?Wound consult pending. Echo complete. Still having??musculoskeletal chest pain that is relativelywell-controlled with pain regimen. 04/12 -extensive discussion today about??left knee follow-up.?? Also having many issues with discharge planning???see HPI/subjective for details (04/12 APSO note).?? Final urine cultures back, changed antibiotics to oral today and??will likely be medically stable for discharge tomorrow.?? Urine culturepositive for Enterobacter. 04/13 -increasing pain control medications.?? Transitioned to oral antibiotic based on cultures.?? SNF rec per physical therapy.?? Medically stable for discharge today??pending SNF.?? Will continue to work on pain control with patient. 04/14 -patient reports??better pain control today.?? Labs and vitals stable. ??Afebrile.?Hypokalemia improved. ??Tolerating antibiotic.?? Seeking SNF??on discharge.??Is rec for??subacute rehab/SNF??by PT/OT 04/15???patient is still hung up on??transferring for chronic knee pain even though??orthopedic surgery??in [place]??is working on it.?? PT/OT recommended SNF awaiting??placement. Patient will need to finish course of Levaquin.?? PT/OT recommended??for??SNF/placement. Discussed diagnosis and treatment plan with patient who agrees and accepts plan of treatment. Patient stable at discharge. ?? Medication changes Potassium 20 mill equivalents daily Oxycodone 50 mg every 6 hours as needed pain + Levaquin 750 mg daily for 3 more days to finish course Docusate ?? Follow-up appointments Orthopedic surgery at [place]??to schedule surgery PCP 3 to 5 days??sign Discharge time 39 minutes which included extensive conversation??with patient about diagnosis and treatment plan. ??Along with communication with consultants, nursing, case management. Services Consulted - Completed?-- 04/11/25 15:09:50 EDT Consult to Wound Care - Ordered?-- 04/10/25 16:24:00 EDT, right hip wound, Consult and Co-manage Physical Exam Vitals & Measurements T:??36.4?C(Oral)?? TMIN:??36.3?C(Oral)?? TMAX:??36.6?C(Oral)?? HR:??63(Monitored)?? RR:??22?? BP:??126/79?? SpO2:??98%?? WT:??98.8??kg?? General:??NAD,??exam out of proportion??to complaints Skin:??Warm, dry?? Head:??No trauma,??normocephalic?? Neck: Trachea midline,??supple,??negative for JVD Eye:??Conjunctive are clear, clear??sclera??, EOMI ENMT: oral mucosa??moist,??no lesions or edema nose??or external ears Cardiovascular:??Regular rate and rhythm, S1-S2 present,??negative for murmurs rubs or gallops?? Respiratory: Lungs clear to auscultation,??bilateral??symmetric movement, negative for wheezes rales or rhonchi Chest wall:?no??deformity. Gastrointestinal:??Abdomen soft,??bowel sounds present,??nontender to palpation ; Burr in place Back:?No??tenderness Extremities:??R??bilateral knee scars from previous knee surgeries.?? Left leg limited range of motion.?? Mild??small 8 mm scabbed superficial??hole left knee.?? Mild swelling around left knee, induration,??mild erythema,??if patient is distracted and palpating does not complain of much pain. Neurological:?? awake, alert, speech??normal,??cranial nerves II through XII intact, no sensory defects,??alert and oriented x3 Psychiatric:?cooperative, affect??appropriate for age, pleasant Tests Performed CT Abdomen/Pelvis w/ Contrast CT Head or Brain w/o Contrast Echo Transthoracic Lmtd w/ Contrast XR Chest Single View Discharge Plan Discharge Disposition Discharge To, Anticipated II - Intermediate Care/ECF Discharged to - Other: back to [facility] Discharge Medication List Prescriptions oxyCODONE 5 mg Tab, 15 mg= 3 tab(s), Oral, q6hr, PRN Home acetaminophen 325 mg Tab, 650 mg= 2 tab(s), Oral, q6hr, PRN DilTIAZem (Eqv-Cardizem CD) 120 mg/24 hours oral capsule, extended release, 120 mg= 1 cap(s), Oral,Daily docusate sodium 100 mg Cap, 100 mg= 1 cap(s), Oral, BID Eliquis 5 mg oral tablet, 5 mg= 1 tab(s), Oral, BID famotidine 40 mg Tab, 40 mg= 1 tab(s), Oral, BID levofloxacin 750 mg Tab, 750 mg= 1 tab(s), Oral, Daily Milk of Magnesia 8% Susp-Oral, 2.4 gm= 30 mL, Oral, Once a day (at bedtime), PRN omeprazole 20 mg Cap-DR, 20 mg= 1 cap(s), Oral, Daily ondansetron 8 mg Tab, 8 mg= 1 tab(s), Oral, q8hr, PRN potassium chloride 20 mEq ER Tab, 20 mEq= 1 tab(s), Oral, Daily Reglan 5 mg Tab, See Instructions rosuvastatin 20 mg Tab, 20 mg= 1 tab(s), Oral, Bedtime Follow-up With When Contact Information Bruno Antunez III, DO, [address], [place] [address]- Additional Instructions: Dr Almeida at [facility] Additional Instructions: Orthopedic surgery, call for followup appointment??to schedule follow-up appointment and hopeful surgery Patient Education Urinary Tract Infection, Adult, [id number] Electronically Signed By: Ulices King DO Date and Time Signed: 04/16/25 14:45 EDT Patient Care team information Care Team Personnel Name: Octavia White Position: FT Pain Physician Member Role: Nurse Practitioner Address: [address] [place], [place] [id number] Telecom: Name: Letty Leung Position: Pro[employer]: Claims Followup Rep (Ambulance Mechanic) Member Role: [employer]: Claims Followup Rep (Edson) Name: Bruno Antunez III, DO Member Role: Primary Care Physician Address: [address] [place] [id number] Telecom: Name: Ghazala Rowley Position: Powerchart Outreach Office Staff Search Member Role: Other Care Team Related Persons Name: AYO DAI Name: AYO DAI Name: AYO DAI Name: AYO DAI Insurance Providers Guarantor name: ARMANI DAI Health Plan Information #: 1 Payer: NA Payer Identifier: [id number] Member Number: [id number] Group Number: [id number] Subscriber Identifier: [id number] Relationship to Subscriber: Self Coverage Type: MEDICARE Coverage Verification Date: 25 Telecom: NA Address: NA
--- OUTSIDE RECORDS SUMMARY | 2025-04-23 14:00 | XMS_ITS | Encounter Summary ---
Author Organization [facility] enter Address [address] [place] [address] Care Team Providers Care Superintendent Pipelines Name Role Phone Tulio BUTLER DO, [place] Primary Care Provider [phone] Reason for Referral * Adjunctive Therapy (Routine) - New Request Specialty Diagnoses / Procedures Referred By Fidel pearson Referred To Contact PreOp Diagnoses Infection associated with internal left knee prosthesis, subsequent encounter Dick Monique PA-C [address] [place] [address] Phone: tel: fax: Referral ID Status Reason Start Date Expiration Date V isits Requested Visits Authorized [id number] New Request 04/23/2025 05/18/2026 1 1 Reason for Visit * Reason Comments Follow-up Encounter Details Date Type Department Care Team (Late st Contact Info) Description 04/23/2025 2:00 PM EDT Telemedicine [facility] [address] [place] [address] Dick Monique PA-C [address] [place] [address] Infection associated with internal left [...] Monique PA-C - 04/23/2025 2:00 PM EDT [facility] Total Joint Arthroplasty Return - Telephone Visit Earle Santos verbally consents to the submission of a virtual synchronous check- in note. This telehealth visit is a realtime telephone visit. he is aware of the risk, benefits and possible coinsurance/co-pay cost. Primary care provider: Dr. Bruno Antunez III Patient location: [facility] Telephone Encounter: We called Earle Santos [...] documented as of this encounter Care Teams Superintendent Pipelines Relationship Specialty Start Date End Date Bruno Antunez III, DO PCP - General Family Medicine 09/15/23 documented as of this encounter
--- OUTSIDE RECORDS SUMMARY | 2025-04-25 23:59 | XMS_ITS | Continuity of Care Document ---
Author Organization [facility] Address Unknown Care Team Providers Care Transport Operations Inspector Name Role Phone Bruno Antunez III Primary Care Physician Ghazala Rowley Unavailable Unavailable Eloisa Bellamy Unavailable Unavailable Encounter [id number] [id number] Date(s): 04/25/25 - 04/25/25 [facility] [address] [place] [address]- Discharge Disposition: Home (Routine DC) Attending Physician: Cheko Jauregui MD Encounter Type: Outpatient Allergies, Adverse Reactions, Alerts No Known Allergies Assessment and Plan Future Appointments Appointment Date:05/16/2025 10:30:00 AM Scheduled Provider:Cheko Jauregui MD Location:FT.WOUND [...] adult 1, 2 08/21/19 Given SARS-CoV-2 (COVID-19) [id number] 12/30/22 Recorded pneumococcal 20-valent conjugate vaccine 09/08/22 [...] Date: 09/12/24 Status: Ordered Repeat number: 1 docusate sodium 100 mg [...] Date: 04/11/25 Status: Ordered Repeat number: 1 Milk of [...] indwelling urethral catheter, subsequent encounter Confirmed Active 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 3Quit in 1993. 4denies 5denies Patient Care team information Care Team Personnel Name: Octavia White Position: FT Pain Physician Member Role: Nurse Practitioner Address: [address] [place] [address] Telecom: Name: Letty Leung Position: [employer]: Claims Followup Rep (Lead Database Administrator) Member Role: [employer]: Claims Followup Rep (Lead Database Administrator) Name: Bruno Antunez III, DO Member Role: Primary Care Physician Address: [address] [place] [address] Telecom: Name: Ghazala Rowley Position: Powerchart Outreach Office Staff Search Member Role: Other Care Team Related Persons Name: AYO DAI Name: AYO DAI Name: AYO DAI Name: AYO DAI Name: AYO DAI Insurance Providers Guarantor name: ARMANI DAI Health Plan Information #: 1 Payer: AETKANDI Payer Identifier: [id number] Member Number: [id number] Group Number: [id number] Subscriber Identifier: [id number] Relationship to Subscriber: Self Coverage Type: MEDICARE Coverage Verification Date: 25 Telecom: [phone] Address: [facility] [id number] [place] [id number]
[2025-04-28 06:20] VITALS: BP 122/72; PULSE 68; TEMP 37; O2SAT 100; BMI 33.8
--- OUTSIDE RECORDS SUMMARY | 2025-04-28 06:25 | XMS_ITS | Encounter Summary ---
Author Organization [facility] Address [address] [place] [address] Phone Care Team Providers Care Youth Corrections Officer Name Role Phone Bruno Antunez DO Primary Care Provider [phone] Encounter Details Date Type Department Care Team (Late st Contact Info) Description 09/14/2024 Scanned Document [facility] [address] [place] [address] Scanning, Generic Provider Social History Tobacco Use Types Packs/Day Years Used Date Smoking Tobacco: Former Cigarettes Smokeless Tobacco: Never Alcohol Use Standard Drinks/Week Comments Yes 0 (1 standard drink = 0.6 oz pur e alcohol) Sex and Gender Information Value Date Recorded Sex Assigned at Not on file Legal Sex Male 5:28 PM EST Gender Identity Not on file Sexual Orientation Not on file documented as of this encounter Plan of Treatment Not on file documented as of this encounter Procedures Procedure Name Priority Date/Time Associated Diagnosis Comments ECHOCARDIOGRAM 09/14/2024 ECHOCARDIOGRAM 09/14/2024 documented in this encounter Results * Echocardiogram (09/14/2024) Narrative 09/14/2024 Ordered by an unspecified provider. us Generic Provider Scanning CV ECHO PROCEDURES Fin al Result * Echocardiogram (09/14/2024) Narrative 09/14/2024 Ordered by an unspecified provider. us Generic Provider Scanning CV ECHO PROCEDURES Fin al Result documented in this encounter Visit Diagnoses Not on filedocumented in this encounter Additional Health Concerns Assessment Noted Time A fall risk assessment has been complete d for the patient 01/25/2024 9:19 AM EDT documented as of this encounter Care Teams Youth Corrections Officer Relationship Specialty Start Date End Date Bruno Antunez DO [address] [place] [address] PCP - General Family Medicine 01/25/24 documented as of this encounter
--- OUTSIDE RECORDS SUMMARY | 2025-04-28 06:25 | XMS_ITS | Encounter Summary ---
Author Organization [facility] Address [address] [place] [address] Care Team Providers Care Insole Taper Name Role Phone Bruno Antunez DO Primary Care Provider [phone] Bruno Antunez DO Primary Care Provider [phone] Encounter Details Date Type Department Care Team (Late st Contact Info) Description 09/14/2024 Abstract [facility] [address] [place] [id number] Rasheed Crump, DPM FACFAS [address] [place], [place] [id number] Social History Tobacco Use Types Packs/Day Years Used Date Smoking Tobacco: Former Cigarettes Sex and Gender Information Value Date Recorded Sex Assigned at Not on file Legal Sex Male 8:32 PM EDT Gender Identity Not on file Sexual Orientation Not on file documented as of this encounter Plan of Treatment Not on file documented as of this encounter Visit Diagnoses Not on filedocumented in this encounter Care Teams Insole Taper Relationship Specialty Start Date End Date Bruno Antunez DO PCP - General Family Medicine 01/24/24 02/24/25 Bruno Antunez DO [address] [place] [phone] PCP - General Family Medicine 02/25/25 documented as of this encounter
--- OUTSIDE RECORDS SUMMARY | 2025-04-28 06:25 | XMS_ITS | Clinical Summary ---
Author Organization [facility] Address [address] [place] [address] Phone Care Team Providers Care Ammonia Refrigeration Technician Name Role Phone Bruno Antunez DO Primary Care Provider [phone] Allergies No known active allergies Medications acetaminophen (Tylenol) 500 mg tablet Take 1 tablet (500 mg) by mouth every 4 hours if needed. Active DULoxetine (Cymbalta) [address] capsule Take 1 capsule (60 mg) by mouth once daily. 2 Active lisinopril 5 mg tablet Take 1 tablet (5 mg) by mouth once daily. 1 Active nitroglycerin (Nitrostat) 0.[address] 1 tablet (0.4 mg) under the tongue every 5 minutes if needed. Active apixaban (Eliquis) 5 mg tabletIndications:P aroxysmal atrial fibrillation (Multi) Take 1 tablet (5 mg) by mouth 2 times a day. 180 tablet 3 4 Active rosuvastatin (Crestor) 20 mg tabletIndications:A therosclerosis of mentasta coronary artery of mentasta heart without angina pectoris,Hyperlipid emia, unspecified hyperlipidemia type Take 1 tablet (20 mg) by mouth once daily. 90 tablet 3 4 Active dilTIAZem CD (Cardizem CD) 120 mg 24 hr capsuleIndications: Essential hypertension Take 1 capsule (120 mg) by mouth once daily. 90 capsule 3 4 05/01/20 25 Active Active Problems Problem Noted Date Diagnosed Date Adult BMI 32.0-32.9 kg/sq m 01/25/2024 Former cigarette smoker 01/25/2024 Atherosclerosis of mentasta co ronary artery of mentasta heart without angina pectoris 10/04/2023 Diabetes mellitus (Multi) 10/04/2023 Essential hypertension 10/04/2023 Fatigue 10/04/2023 Gout 10/04/2023 Hyperlipidemia 10/04/2023 Paroxysmal atrial fibrillation (Multi) Status post coronary angioplasty 10/04/2023 Immunizations Immunization Administration Dates Next Due Flu vaccine, trivalent, pres ervative free, HIGH-DOSE, age 65y+ (Fluzone) 06/05/2017 Moderna SARS-CoV-2 Vaccination 11/27/2020,2020 Pneumococcal Conjugate PCV 7 06/09/2015 Pneumococcal polysaccharide vaccine, 23-valent, age 2 years and older (PNEUMOVAX 23) 07/06/2011 Social History Tobacco Use Types Packs/Day Years Used Date Smoking Tobacco: Former Cigarettes Smokeless Tobacco: Never Alcohol Use Standard Drinks/Week Comments Yes 0 (1 standard drink = 0.6 oz pur e alcohol) Sex and Gender Information Value Date Recorded Sex Assigned at Not on file Legal Sex Male 5:28 PM EST Gender Identity Not on file Sexual Orientation Not on file Last Filed Vital Signs Vital Sign Reading Time Taken Comments Blood Pressure 104/84 01/25/2024 9:19 AM EDT Pulse 59 01/25/2024 9:19 AM EDT Temperature - - Respiratory Rate - - Oxygen Saturation - - Inhaled Oxygen Concentration - - Weight 111 kg (245 lb) 01/25/2024 9:19 AM EDT Height 185.4 cm (6' 1 ) 01/25/2024 9:19 AM EDT Body Mass Index 32.32 01/25/2024 9:19 AM EDT Plan of Treatment Health Maintenance Due Date Last Done Comments Diabetes: Urine Protein Screening 1945 Lipid Panel 1945 Medicare Annual Wellness Visit (AWV) 1945 Zoster Vaccines (1 of 2) 1994 RSV High Risk: (Elderly (60+) or Population) (1 - 1-dose 75+ series) 2019 Diabetes: Hemoglobin A1C 12/19/2023 024, 01/12/2023, 08/18/2022 COVID-19 Vaccine (2023- season) 2024 07/05/2023, 12/30/2022, 01/22/2022, Additional history exists Influenza Vaccine (#1) 2025 , 09/08/2022, 06/23/2021, Additional history exists Diabetes: Retinopathy Screening 06/18/2026 06/18/2024, 02/24/2022 DTaP/Tdap/Td Vaccines (4 - Td or Tdap) 11/03/2033 11/04/2023, 06/08/2021, 08/21/2019 Pneumococcal Vaccine Completed 09/08/2022, 02/13/2016, 06/20/2015, Additional history exists HIB Vaccines Aged Out No longer eligi ble based on patient's age to complete this topic HPV Vaccines Aged Out No longer eligi ble based on patient's age to complete this topic Hepatitis A Vaccines Aged Out No long er eligible based on patient's age to complete this topic Hepatitis B Vaccines Aged Out No long er eligible based on patient's age to complete this topic IPV Vaccines Aged Out No longer eligi ble based on patient's age to complete this topic Meningococcal Vaccine Aged Out No sharmin gaurang eligible based on patient's age to complete this topic Rotavirus Vaccines Aged Out No longer eligible based on patient's age to complete this topic Insurance AETNA GOLDEN MEDICARE AETNA FORD MEDICARE Care Teams Ammonia Refrigeration Technician Relationship Specialty Start Date End Date Bruno Antunez DO [address] [place] [phone] PCP - General Family Medicine 01/25/24
--- OUTSIDE RECORDS SUMMARY | 2025-04-28 06:25 | XMS_ITS | Encounter Summary ---
Author Organization [facility] Address [address] [place] [address] Care Team Providers Care Fitness Services Manager Name Role Phone Bruno Antunez DO Primary Care Provider Bruno Antunez DO Primary Care Provider [phone] Encounter Details Date Type Department Care Team (Late st Contact Info) Description 09/13/2024 Abstract [facility] [address] [place] [phone] Rasheed Crump, DPM FACFAS [address] [place], [place] [phone] Social History Tobacco Use Types Packs/Day Years [...] on filedocumented in this encounter Care Teams Fitness Services Manager Relationship Specialty Start Date End Date Bruno Antunez DO PCP - General Family Medicine 01/24/24 02/24/25 Bruno Antunez DO [address] [place] [phone] PCP - General Family Medicine 02/25/25 documented as of this encounter
--- OUTSIDE RECORDS SUMMARY | 2025-04-28 06:25 | XMS_ITS | Encounter Summary ---
Author Organization [facility] Address [address] [place] [address] Phone Care Team Providers Care Car Loader Name Role Phone Kishore Donis DO Primary Care Provider Kishore Donsi DO Primary Care Provider [phone] Bruno Antunez DO Primary Care Provider Encounter Details Date Type Department Care Team (Late st Contact Info) Description 03/19/2022 Orders Only [facility] [address] [place] [address] Conversion, Onbase Social History Tobacco Use Types Packs/Day Years Used Date Smoking Tobacco: Never Assessed Sex and Gender Information Value Date Recorded Sex Assigned at Not on file Legal Sex Male 5:28 PM EST Gender Identity Not on file Sexual Orientation Not on file documented as of this encounter Plan of Treatment Scheduled Orders Name Type Priority Associated Diagnoses Orde r Schedule OUTSIDE LAB SCAN Lab Ordered: 03/19/2022 documented as of this encounter Visit Diagnoses Not on filedocumented in this encounter Care Teams Car Loader Relationship Specialty Start Date End Date Kishore Donis DO PCP - General 11/25/22 10/04/23 Kishore Donis DO PCP - General Family Medicine 10/05/23 01/24/24 Bruno Antunez DO [address] [place] [place] [address] PCP - General Family Medicine 01/25/24 documented as of this encounter
--- OUTSIDE RECORDS SUMMARY | 2025-04-28 06:25 | XMS_ITS | Encounter Summary ---
Author Organization [facility] Address [address] [place] [address] Phone Care Team Providers Care Hotel Superintendent Name Role Phone Kishore Donis DO Primary Care Provider [phone] Kishore Donis DO Primary Care Provider [phone] Bruno Antunez DO Primary Care Provider Encounter Details Date Type Department Care Team (Late st Contact Info) Description 09/27/2022 Orders Only [facility] [address] [place] [address] Conversion, Onbase Social History Tobacco Use Types [...] r Schedule OUTSIDE LAB SCAN Lab Ordered: 09/27/2022 documented as of this encounter Visit Diagnoses Not on filedocumented in this encounter Care Teams Hotel Superintendent Relationship Specialty Start Date End Date Kishore Donis DO PCP - General 11/25/22 10/04/23 Kishore Donis DO PCP - General Family Medicine 10/05/23 01/24/24 Bruno Antunez DO [address] [place] [address] PCP - General Family Medicine 01/25/24 documented as of this encounter
--- OUTSIDE RECORDS SUMMARY | 2025-04-28 06:25 | XMS_ITS | Encounter Summary ---
Author Organization [facility] Address [address] [place] [address] Phone Care Team Providers Care Surface Water Manager Name Role Phone Kishore Donis DO Primary Care Provider [phone] Kishore Donis DO Primary Care Provider [phone] Bruno Antunez DO Primary Care Provider Encounter Details Date Type Department Care Team (Late st Contact Info) Description 01/12/2023 Orders Only [facility] [address] [place] [address] Conversion, Onbase Social History Tobacco Use Types [...] r Schedule OUTSIDE LAB SCAN Lab Ordered: 01/12/2023 documented as of this encounter Visit Diagnoses Not on filedocumented in this encounter Care Teams Surface Water Manager Relationship Specialty Start Date End Date Kishore Donis DO PCP - General 11/25/22 10/04/23 Kishore Donis DO PCP - General Family Medicine 10/05/23 01/24/24 Bruno Antunez DO [address] [place] [address] PCP - General Family Medicine 01/25/24 documented as of this encounter
--- OUTSIDE RECORDS SUMMARY | 2025-04-28 06:25 | XMS_ITS | Encounter Summary ---
Author Organization [facility] Address [address] [place] [address] Phone Care Team Providers Care Center Specialists Name Role Phone Bruno Antunez DO Primary Care Provider [phone] Encounter Details Date Type Department Care Team (Late st Contact Info) Description 09/12/2024 Scanned Document [facility] [address] [place] [address] Scanning, Generic Provider Social History [...] Procedure Name Priority Date/Time Associated Diagnosis Comments OUTSIDE IMAGING SCAN 09/12/2024 documented in this encounter Results * OUTSIDE IMAGING SCAN (09/12/2024) Anatomical Region Laterality Modality Other Narrative 09/12/2024 Ordered by an unspecified provider. us Generic Provider Scanning OUTSIDE SCAN Final Result documented in this encounter Visit Diagnoses Not on filedocumented in this encounter Additional Health Concerns Assessment Noted Time A fall risk assessment has been complete d for the patient 01/25/2024 9:19 AM EDT documented as of this encounter Care Teams Center Specialists Relationship Specialty Start Date End Date Bruno Antunez DO [address] [place] [address] PCP - General Family Medicine 01/25/24 documented as of this encounter
--- OUTSIDE RECORDS SUMMARY | 2025-04-28 06:25 | XMS_ITS | Encounter Summary ---
Author Organization [facility] Address [address] [place] [address] Care Team Providers Care Talent Coordinator Name Role Phone AntunezBruno craven Primary Care Provider [phone] Bruno Antunez DO Primary Care Provider [phone] Encounter Details Date Type Department Care Team (Late st Contact Info) Description 09/13/2024 Clinisync Result Encounter [facility] External Department Unsolicited Rasheed Crump, ASHOKM [facility] [address] [place] [address] Social History Tobacco Use Types Packs/Day Years [...] Procedure Name Priority Date/Time Associated Diagnosis Comments MRI FOOT W/O CONTRAST RIGHT 09/13/2024 2:36 PM EST documented in this encounter Results * MRI FOOT W/O CONTRAST RIGHT (09/13/2024 2:36 PM EST) Anatomical Region Laterality Modality Other 09/13/2024 2:36 PM EST Narrative 09/13/2024 3:40 PM EST Exam Date/Time: 09/13/2024 15:13 EST Reason for Exam: right great toe osteomyelitis;Osteomyelitis Report IMPRESSION: OSTEOMYELITIS OF THE DISTAL PHALANX OF THE GREAT TOE. EXAM: MRI Foot w/o Contrast Right HISTORY: Great toe osteomyelitis. COMPARISON : Radiographs 09/24/2023 TECHNIQUE: Multiplanar multisequence MRI of the foot was performed without contrast. FINDINGS: There is hyperintense T2 signal throughout the distal phalanx of the great toe with corresponding hypointense T1 signal and adjacent soft tissue edema. Remaining bones demonstrate normal signal. No loculated soft tissue fluid collection. Small nonspecific joint effusion at the first metatarsophalangeal joint without adjacent bone marrow edema that is likely degenerative/reactive. Mild degenerative changes at this joint. Hyperintense T2 signal of the musculature of the foot likely represents changes of chronic denervation. Flexor and extensor tendons are intact. Plantar fascia and Achilles tendon are intact. Ordering Provider: Rasheed Crump FINAL REPORT Dictated: 09/13/2024 3:37 pm Anderson Vasques DO Signed (Electronic Signature): 09/13/2024 3:37 pm Signed by: Anderson Vasques DO Transcribed by: ASHOK Technologist: CAROL Technical Comments None Procedure Note Radiology, Radiologist, MD - 09/13/2024 Exam Date/Time: 09/13/2024 15:13 EST Reason for Exam: right great toe osteomyelitis;Osteomyelitis Report IMPRESSION: OSTEOMYELITIS OF THE DISTAL PHALANX OF THE GREAT TOE. EXAM: MRI Foot w/o Contrast Right HISTORY: Great toe osteomyelitis. COMPARISON : Radiographs 09/24/2023 TECHNIQUE: Multiplanar multisequence MRI of the foot was performed withoutcontrast. FINDINGS: There is hyperintense T2 signal throughout the distal phalanx of the greattoe with corresponding hypointense T1 signal and adjacent soft tissue edema.Remaining bones demonstrate normal signal. No loculated soft tissue fluid collection.Small nonspecific joint effusion at the first metatarsophalangeal joint withoutadjacent bone marrow edema that is likely degenerative/reactive. Mild degenerativechanges at this joint. Hyperintense T2 signal of the musculature of the foot likelyrepresents changes of chronic denervation. Flexor and extensor tendons are intact.Plantar fascia and Achilles tendon are intact. Ordering Provider: Rasheed Crump FINAL REPORT Dictated: 09/13/2024 3:37 pm Anderson Vasques DO Signed (Electronic Signature): 09/13/2024 3:37 pm Signed by: Anderson Vasques DO Transcribed by: ASHOK Technologist: CAROL Technical Comments None us Rasheed Crump DPM [facility] Final Result documented in this encounter Visit Diagnoses Not on filedocumented in this encounter Care Teams Talent Coordinator Relationship Specialty Start Date End Date Bruno Antunez DO PCP - General Family Medicine 01/24/24 02/24/25 Bruno Antunez DO [address] [place], [place] [address]dict Mattie [address] [phone] PCP - General Family Medicine 02/25/25 documented as of this encounter
--- OUTSIDE RECORDS SUMMARY | 2025-04-28 06:25 | XMS_ITS | Encounter Summary ---
Author Organization [facility] Address [address] [place] [address] Phone Care Team Providers Care Reading Interventionist Name Role Phone Kishore Donis DO Primary Care Provider [phone] Kishore Donis DO Primary Care Provider [phone] Bruno Antunez DO Primary Care Provider Encounter Details Date Type Department Care Team (Late st Contact Info) Description 05/04/2023 Orders Only [facility] [address] [place] [address] Conversion, Onbase Social History Tobacco Use Types [...] r Schedule OUTSIDE LAB SCAN Lab Ordered: 05/04/2023 documented as of this encounter Visit Diagnoses Not on filedocumented in this encounter Care Teams Reading Interventionist Relationship Specialty Start Date End Date Kishore Donis DO PCP - General 11/25/22 10/04/23 Kishore Donis DO PCP - General Family Medicine 10/05/23 01/24/24 Bruno Antunez DO [address] [place] [address] PCP - General Family Medicine 01/25/24 documented as of this encounter
--- OUTSIDE RECORDS SUMMARY | 2025-04-28 06:25 | XMS_ITS | Encounter Summary ---
Author Organization [facility] Address [address] [place] [address] Care Team Providers Care Microbiology Lab Manager Name Role Phone AntunezBruno craven Primary Care Provider Bruno Antunez DO Primary Care Provider [phone] Encounter Details Date Type Department Care Team (Late st Contact Info) Description 09/13/2024 Clinisync Result Encounter [facility] External Department Unsolicited Rasheed Crump, DPM [facility] [address] [place] [address] Social History Tobacco Use Types [...] Procedure Name Priority Date/Time Associated Diagnosis Comments US PVR LOWER EXT COMPLETE BILAT 09/13/2024 2:02 PM EST documented in this encounter Results * US PVR LOWER EXT COMPLETE BILAT (09/13/2024 2:02 PM EST) Anatomical Region Laterality Modality Other 09/13/2024 2:02 PM EST Narrative 09/13/2024 2:48 PM EST Exam Date/Time: 09/13/2024 14:31 EST Reason for Exam: PAD Report IMPRESSION: NO EVIDENCE OF SIGNIFICANT ARTERIAL STENOTIC DISEASE INVOLVING THE RIGHT AND LEFT LEGS. CLINICAL HISTORY: PAD. COMPARISON: None available. FINDINGS: On the right, the brachial systolic pressure is 131 the high thigh pressure is 198 , index 1.39 the low thigh pressure is 194 , index 1.37 the calf pressure is 150 , index 1.06 the posterior tibial ankle pressure is 141 , index 0.99 the dorsalis pedis ankle pressure is 145 , index 1.02 and the digit pressure is 126 , index 0.89 (with normal 0.7 or greater). The plethysmography waveforms are essentially normal. On the left, the brachial systolic pressure is 142 the high thigh pressure is 157 , index 1.11 the low thigh pressure is 161 , index 1.13 the calf pressure is 147 , index 1.04 the posterior tibial ankle pressure is 125 , index 0.88 the dorsalis pedis ankle pressure is 120 , index 0.85 and the digit pressure is 103 , index 0.73 (with normal 0.7 or greater). The plethysmography waveforms are essentially normal. Ordering Provider: Rasheed Crump FINAL REPORT Dictated: 09/13/2024 2:45 pm Charles Fernandes MD Signed (Electronic Signature): 09/13/2024 2:45 pm Signed by: Charles Fernandes MD Transcribed by: ASHOK Technologist: CORINNA Procedure Note Radiology, Radiologist, - 09/13/2024 Exam Date/Time: 09/13/2024 14:31 EST Reason for Exam: PAD Report IMPRESSION: NO EVIDENCE OF SIGNIFICANT ARTERIAL STENOTIC DISEASE INVOLVINGTHE RIGHT AND LEFT LEGS. CLINICAL HISTORY: PAD. COMPARISON: None available. FINDINGS: On the right, the brachial systolic pressure is 131 the high thigh pressure is 198 , index 1.39 the low thigh pressure is 194 , index 1.37 the calf pressure is 150 , index 1.06 the posterior tibial ankle pressure is 141 , index 0.99 the dorsalis pedis ankle pressure is 145 , index 1.02 and the digit pressure is 126 , index 0.89 (with normal 0.7 or greater). The plethysmography waveforms are essentially normal. On the left, the brachial systolic pressure is 142 the high thigh pressure is 157 , index 1.11 the low thigh pressure is 161 , index 1.13 the calf pressure is 147 , index 1.04 the posterior tibial ankle pressure is 125 , index 0.88 the dorsalis pedis ankle pressure is 120 , index 0.85 and the digit pressure is 103 , index 0.73 (with normal 0.7 or greater). The plethysmography waveforms are essentially normal. Ordering Provider: Rasheed Crump FINAL REPORT Dictated: 09/13/2024 2:45 pm Charles Fernandes MD Signed (Electronic Signature): 09/13/2024 2:45 pm Signed by: Charles Fernandes MD Transcribed by: ASHOK Technologist: CORINNA Rasheed Crump DPM [facility] Final Result documented in this encounter Visit Diagnoses Not on filedocumented in this encounter Care Teams Microbiology Lab Manager Relationship Specialty Start Date End Date Bruno Antunez DO PCP - General Family Medicine 01/24/24 02/24/25 Bruno Antunez DO [address] [phone] PCP - General Family Medicine 02/25/25 documented as of this encounter
--- OUTSIDE RECORDS SUMMARY | 2025-04-28 06:25 | XMS_ITS | Encounter Summary ---
Author Organization [facility] Address [id number] [place] [address] Care Team Providers Care Extruding Press Operator Name Role Phone Unavailable Primary Care Provider Unavailabl e Encounter Details Date Type Department Care Team (Late st Contact Info) Description 04/17/2025 [facility] - Family Medicine [address] [place] [phone] Marty Brambila, DO [address] [facility], [place] [address] Alzheimer's disease with late onset (CODE) ([facility]) (Primary Dx); Diabetes mellitus due to underlying condition with diabetic polyneuropathy, without long-term current use of insulin ([facility]); Urinary tract infection associated with indwelling urethral catheter, subsequent encounter; Other spondylosis with myelopathy, lumbar region; Infection and inflammatory reaction due to internal right knee prosthesis, subsequent encounter; Infection and inflammatory reaction due to internal left knee prosthesis, subsequent encounter; Iron deficiency anemia secondary to blood loss (chronic); Primary hypertension; Gastroesophageal reflux disease without esophagitis; Restless leg syndrome Social History Tobacco Use Types Packs/Day Years Used Date Smoking Tobacco: Never Assessed Comments Unknown Sex and Gender Information Value Date Recorded Sex Assigned at Not on file Legal Sex Female 10:48 AM EDT Gender Identity Not on file Sexual Orientation Not on file documented as of this encounter Last Filed Vital Signs Vital Sign Reading Time Taken Comments Blood Pressure 133/83 04/17/2025 3:01 PM EDT Pulse 82 04/17/2025 3:01 PM EDT Temperature 36.4 C (97.6 F) 04/17/2025 3:01 PM EDT Respiratory Rate 18 04/17/2025 3:01 PM EDT Oxygen Saturation 97% 04/17/2025 3:01 PM EDT Inhaled Oxygen Concentration - - Weight 96.6 kg (213 lb) 04/17/2025 3:01 PM EDT Height - - Body Mass Index - - documented in this encounter Progress Notes * Marty Brambila, DO - 04/17/2025 11:59 PM EDT Patient Name: Earle Santos Date of : 1945 Date of Service: 04/17/2025 Facility: [facility] Type of Visit: Admission H&P Subjective Earle Santos is a 79 y.o. female seen today at fpc facility for admission H&P. Earle presents to [facility] from [facility] where he was treated for a UTI. He has been in and out of hospitals and fpc facilities over the last 8 months. Heoriginally fell at home and damaged his knee. He had bad knee pain for 2 days and then went to the hospital. At some point he was diagnosed with 2 knee infections and both had spacers. He had a skin graft on his left knee. He is NWB for his left leg. He was walking with a walker at home prior to these problems. He has a neuropathy from his knees down and there is no known cause per patient. He isusing oxycodone 15 mg Q6 hrs prn for pain which is moderately effective. When asked how he was doing he said poorly . He doesn't have any new symptoms or problems. He has had a Dykes catheter in for6 weeks. He is supposed to have surgery on his knees again. [facility] was originally [facility] Allergies: Patient has no allergy information on record. Code Status: DNRCC-A The following portions of the patient's history were reviewed and updated as appropriate: allergies, current medications, past family history, past medical history, past social history, past surgicalhistory, problem list, and medication reconciliation was completed including current medication andpost discharge medication. Review of Systems Constitutional: Positive for fatigue. Respiratory: Negative. Cardiovascular: Negative. Gastrointestinal: Negative. Musculoskeletal: Positive for arthralgias and gait problem. Neurological: Positive for weakness. Psychiatric/Behavioral: Negative. Objective BP 133/83 Pulse 82 Temp 36.4 ??C (97.6 ??F) Resp 18 Wt 96.6 kg (213 lb) SpO2 97% Physical Exam Vitals reviewed. Constitutional: General: She is not in acute distress. Appearance: Normal appearance. Comments: In bed HENT: Head: Normocephalic. Eyes: General: No scleral icterus. Extraocular Movements: Extraocular movements intact. Conjunctiva/sclera: Conjunctivae normal. Cardiovascular: Rate and Rhythm: Normal rate and regular rhythm. Heart sounds: Normal heart sounds. No murmur heard. Pulmonary: Effort: Pulmonary effort is normal. No respiratory distress. Breath sounds: Normal breath sounds. No wheezing, rhonchi or rales. Abdominal: General: Bowel sounds are normal. Palpations: Abdomen is soft. There is no mass. Tenderness: There is no abdominal tenderness. Musculoskeletal: Right lower leg: No edema. Left lower leg: No edema. Skin: General: Skin is warm and dry. Comments: Intact skin graft on left knee Neurological: Mental Status: She is alert. She is disoriented. Cranial Nerves: Cranial nerves 2-12 are intact. Comments: A&O x 2. Thought it was 04/16 [address] Psychiatric: Mood and Affect: Mood normal. Behavior: Behavior normal. Thought Content: Thought content normal. Judgment: Judgment normal. Assessment/Plan Summary / Assessment / Plan 1. Alzheimer's disease with late onset (CODE) ([facility]) 2. Diabetes mellitus due to underlying condition with diabetic polyneuropathy, without long-term current use of insulin ([facility]) 3. Urinary tract infection associated with indwelling urethral catheter, subsequent encounter 4. Other spondylosis with myelopathy, lumbar region 5. Infection and inflammatory reaction due to internal right knee prosthesis, subsequent encounter 6. Infection and inflammatory reaction due to internal left knee prosthesis, subsequent encounter 7. Iron deficiency anemia secondary to blood loss (chronic) 8. Primary hypertension 9. Gastroesophageal reflux disease without esophagitis 10. Restless leg syndrome Admit to [facility] for therapies. Continue medications from hospital. Continue pain medication. He is using a high risk medication with benefit. DNRCC-Arrest [facility] rehab potential. ELECTRONICALLY SIGNED BY: Marty Brambila DO documented in this encounter Plan of Treatment Not on file documented as of this encounter Visit Diagnoses Diagnosis Alzheimer's disease with late onset (CODE) ([facility])- Primary Diabetes mellitus due to underlying condition with diabetic polyneuropathy, without long-term current use of insulin ([facility]) Urinary tract infection associated with indwelling urethral catheter, subsequent encounter Other spondylosis with myelopathy, lumbar region Infection and inflammatory reaction due to internal right knee prosthesis, subsequent encounter Infection and inflammatory reaction due to internal left knee prosthesis, subsequent encounter Iron deficiency anemia secondary to blood loss (chronic) Primary hypertension Unspecified essential hypertension Gastroesophageal reflux disease without esophagitis Esophageal reflux Restless leg syndrome Restless legs syndrome (RLS) documented in this encounter
--- OUTSIDE RECORDS SUMMARY | 2025-04-28 06:25 | XMS_ITS | Encounter Summary ---
Author Organization [facility] Address [address] [place] [address] Care Team Providers Care Antenna Installer Name Role Phone Tulio BUTLER DO, [place] Primary Care Provider [phone] Reason for Visit * Reason Onset Date Comments Advice Only 12/21/2024 Encounter Details Date Type Department Care Team (Late st Contact Info) Description 12/21/2024 Telephone Central Scheduling [address] [place] [address] Flako Almeida MD [address] [place] [phone] Advice Only Social History Tobacco Use Types Packs/Day Years [...] Everette Gonzalez RN documented in this encounter Miscellaneous Notes * Telephone Encounter - Fernanda Wilcox ATC - 12/21/2024 3:09 PM EDT Called Lucy back to provide verbal order for following home care, patient s/p 6 weeks L knee revision. * Telephone Encounter - Ariane Madison - 12/21/2024 1:09 PM EDT Pt sx 11/08 Lucy would like to see if Dr. 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
--- OUTSIDE RECORDS SUMMARY | 2025-04-28 06:25 | XMS_ITS | Encounter Summary ---
Author Organization [facility] Address [address] [place] [address] Phone Care Team Providers Care Millinery Department Manager Name Role Phone Bruno Antunez DO Primary Care Provider Encounter Details Date Type Department Care Team (Late st Contact Info) Description 09/15/2024 Scanned Document [facility] [address] [place] [address] Scanning, Generic Provider Social History [...] documented as of this encounter Care Teams Millinery Department Manager Relationship Specialty Start Date End Date Bruno Antunez DO [address] [place] [phone] PCP - General Family Medicine 01/25/24 documented as of this encounter
--- OUTSIDE RECORDS SUMMARY | 2025-04-28 06:25 | XMS_ITS | Clinical Summary ---
Author Organization [facility] Address [address] [place], [place] [id number] Care Team Providers Care Licensed Embalmer Name Role Phone Earle Larsen MD Primary Care Provider Jase Harris Unavailable Allergies No known active allergies Medications allopurinol (ZYLOPRIM) 300 mg tabletIndication s:Screening for nephropathy,Skin cancer 05/20/2017 Active amitriptyline (ELAVIL) 100 mg tabletIndication s:Screening for nephropathy,Skin cancer 08/11/2017 Active atenolol (TENORMIN) 50 mg tabletIndication s:Screening for nephropathy,Skin cancer 07/18/2017 Active atorvastatin (LIPITOR) 20 mg tabletIndication s:Screening for nephropathy,Skin cancer 05/20/2017 Active clonazePAM (KLONOPIN) 1 mg tabletIndication s:Screening for nephropathy,Skin cancer 04/30/2017 Active gabapentin (NEURONTIN) 300 mg capsuleIndicatio ns:Screening for nephropathy,Skin cancer 05/10/2017 Active gemfibrozil (LOPID) 600 mg tabletIndication s:Screening for nephropathy,Skin cancer 08/11/2017 Active gentamicin 0.1 % ointmentIndicati ons:Screening for nephropathy,Skin cancer 06/24/2017 Active hydroCHLOROthiaz dinh (HYDRODIURIL, ESIDRIX) 25 mg tabletIndication s:Screening for nephropathy,Skin cancer 07/18/2017 Active lisinopril (ZESTRIL, PRINIVIL) 20 mg tabletIndication s:Screening for nephropathy,Skin cancer 07/18/2017 Active meloxicam (MOBIC) 15 mg tabletIndication s:Screening for nephropathy,Skin cancer 06/17/2017 Active JANUMET 50-500 mg per tabletIndication s:Screening for nephropathy,Skin cancer 06/17/2017 Active PYRIDOXINE HCL, VITAMIN B6, (VITAMIN B-6 ORAL)Indications :Screening for nephropathy,Skin cancer Take by mouth. Active alpha tocopheryl acetate 1,000 unit capsuleIndicatio ns:Screening for nephropathy,Skin cancer Take 1,000 Units by mouth once daily. Active Fcafc-1-GGB-EPA- Fish Oil (FISH OIL) 1,000 mg (120 mg-180 mg) capIndications:S creening for nephropathy,Skin cancer Take 2 g by mouth twice daily. Active Active Problems Problem Noted Date Diagnosed Date Skin cancer 08/16/2017 Encounters Date Type Department Care Team Description 04/05/2025 Telephone [facility] [address] [place] [address] Jose Nuñez MD from Last 3 Months Family History Medical History Relation Comments Cancer Father Relation Status Comments Father Social History Tobacco Use Types Packs/Day Years Used Date Smoking Tobacco: Former Pipe Q uit: 09/05/1993 Cigars Quit: 09/05/18 94 Smokeless Tobacco: Never Alcohol Use Standard Drinks/Week Comments Yes 0 (1 standard drink = 0.6 oz pur e alcohol) Occassional Area Deprivation Index Answer Date Romie rded National Score (1-100), lower number is lower ri sk Not on file 08/10/2020 State Score (1-10), lower number is lower risk N ot on file 08/10/2020 Data from: https://www.neighborhoodatlas.medicine.[facility].edu/. Last address used for calculation Not on file 08/10/2020 Sex and Gender Information Value Date Recorded Sex Assigned at Not on file Legal Sex Male 10:03 AM EST Gender Identity Not on file Sexual Orientation Not on file Last Filed Vital Signs Vital Sign Reading Time Taken Comments Blood Pressure 120/76 10/11/2017 1:40 PM EST Pulse - - Temperature - - Respiratory Rate - - Oxygen Saturation - - Inhaled Oxygen Concentration - - Weight 136.1 kg (300 lb) 10/11/2017 1:40 PM EST Height 185.4 cm (6' 1 ) 08/16/2017 9:04 AM EST Body Mass Index 39.58 08/16/2017 9:04 AM EST Plan of Treatment Health Maintenance Due Date Last Done Comments Anxiety Screening 1962 Depression Screening 1962 DTaP,Tdap,Td Vaccine (1 - Tdap) 1963 Diabetes Screening 1989 Pneumococcal Vaccine: 50+ (1 of 1 - PCV) 1994 Shingrix Vaccine (1 of 2) 1994 RSV Vaccine (1 - 1-dose 75+ series) 2019 Advance Directive Discussion 09/05/2024 Influenza Vaccine (#1) 2025 Procedures Procedure Name Priority Date/Time Associated Diagnosis Comments EXTERNAL PROCEDURE 03/28/2025 12 :52 PM EDT EXTERNAL PROCEDURE 03/28/2025 12 :52 PM EDT from Last 3 Months Results * EXTERNAL PROCEDURE (03/28/2025 12:52 PM EDT) us External Provider PA-C PROCEDURE Final Res ult * EXTERNAL PROCEDURE (03/28/2025 12:52 PM EDT) us External Provider PA-C PROCEDURE Final Res ult from Last 3 Months Insurance [facility] MEDICARE ADVANTAGE PPO Care Teams Licensed Embalmer Relationship Specialty Start Date End Date Earle Larsen MD [address] [place] [address] PCP - General Family Medicine 08/04/17 Jase Harris [address] [address] General Surgery 08/04/17
--- OUTSIDE RECORDS SUMMARY | 2025-04-28 06:25 | XMS_ITS | Encounter Summary ---
Author Organization [facility] Address [address] [place] [address] Care Team Providers Care Intel Analyst Name Role Phone Bruno Antunez DO Primary Care Provider [phone] Bruno Antunez DO Primary Care Provider [phone] Encounter Details Date Type Department Care Team (Late st Contact Info) Description 09/14/2024 Abstract [facility] [address] [place] [phone] Rasheed Crump, DPM F[facility]AS [address] [place], [place] [id number] Social History Tobacco Use Types Packs/Day Years [...] on filedocumented in this encounter Care Teams Intel Analyst Relationship Specialty Start Date End Date Bruno Antunez DO PCP - General Family Medicine 01/24/24 02/24/25 Bruno Antunez DO [address] [place] [phone] PCP - General Family Medicine 02/25/25 documented as of this encounter
--- OUTSIDE RECORDS SUMMARY | 2025-04-28 06:25 | XMS_ITS | Encounter Summary ---
Author Organization [facility] Address [id number] [place] [address] Care Team Providers Care Zinc Miner Name Role Phone Unavailable Primary Care Provider Unavailabl e Encounter Details Date Type Department Care Team (Late st Contact Info) Description 04/19/2025 Continuing Care [facility] Internal Medicine - Family Medicine [address] [place] [phone] Marty Brambila DO [address], [place] [address] Infection and inflammatory reaction due to internal right knee prosthesis, subsequent encounter (Primary Dx); 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 ([facility]); Infection and inflammatory reaction due to indwelling urethral catheter, sequela; Primary hypertension; Iron deficiency anemia secondary to blood loss (chronic) Social History Tobacco Use Types Packs/Day Years Used Date Smoking Tobacco: Never Assessed Comments Unknown Sex and Gender Information Value Date Recorded Sex Assigned at Not on file Legal Sex Female 10:48 AM EDT Gender Identity Not on file Sexual Orientation Not on file documented as of this encounter Last Filed Vital Signs Vital Sign Reading Time Taken Comments Blood Pressure 132/83 04/19/2025 2:43 PM EDT Pulse 79 04/19/2025 2:43 PM EDT Temperature 36.5 C (97.7 F) 04/19/2025 2:43 PM EDT Respiratory Rate 18 04/19/2025 2:43 PM EDT Oxygen Saturation 98% 04/19/2025 2:43 PM EDT Inhaled Oxygen Concentration - - Weight - - Height - - Body Mass Index - - documented in this encounter Progress Notes * Marty rBambila DO - 04/19/2025 2:43 PM EDT Patient Name: Earle Santos Date of : 1945 Date of Service: 04/19/2025 Facility: [facility] Type of Visit: Skilled Visit Subjective Earle Santos is a 79 y.o. female seen today at care home facility for therapy and problem visit. Earle is still having a lot of pain in his left knee. He would like IV morphine that he had in the hospital. He is not sure how often he is getting the pain medication or that he had to ask for it. We put an SETH wrap on it and ice and that has helped. He was also given tylenol and ibuprofen. Nursing reports mild swelling in left lower leg since SETH wrap applied-imprint of socks noted. Other side ok. Allergies: Patient has no allergy information on record. Code Status: DNRCC-A BP 132/83 Pulse 79 Temp 36.5 ??C (97.7 ??F) Resp 18 SpO2 98% Physical Exam Vitals reviewed. Constitutional: General: She is sleeping. She is not in acute distress. Comments: He was actually sleeping and easily awoken Cardiovascular: Rate and Rhythm: Normal rate and regular rhythm. Heart sounds: Normal heart sounds. No murmur heard. Pulmonary: Effort: Pulmonary effort is normal. No respiratory distress. Breath sounds: Normal breath sounds. No wheezing, rhonchi or rales. Musculoskeletal: Left knee: Tenderness present. Right lower leg: No edema. Left lower le+ Pitting Edema (trace to +1) present. Comments: Knee in SETH wrap. Tenderness anteriorly and not in calf or posteriorly. Neurological: General: No focal deficit present. Mental Status: She is oriented to person, place, and time and easily aroused. Psychiatric: Attention and Perception: Attention normal. Mood and Affect: Mood and affect normal. Speech: Speech normal. Behavior: Behavior normal. Behavior is cooperative. Thought Content: Thought content normal. Cognition and Memory: Cognition and memory normal. Judgment: Judgment normal. Assessment/Plan Summary / Assessment / Plan Encounter Diagnoses Name Primary? 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 He is not sure he is getting it regularly. Encouraged him to use it routinely. I'm going going to give him a low-dose burst of prednisone 10 mg 3 times a day for 5 days to see that helps as well. He should not take ibuprofen while on prednisone. He has minimal swelling in lower leg. Can use wrap on lower leg too or LUKASZ hose. Pain anteriorly sodoubt DVT. Continue therapy. All other medications reviewed and are medically necessary. 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
--- OUTSIDE RECORDS SUMMARY | 2025-04-28 06:25 | XMS_ITS | Encounter Summary ---
Author Organization [facility] Address [address] [place] [address] Phone Care Team Providers Care Rotary Dryer Operator Name Role Phone Bruno Antunez DO Primary Care Provider Encounter Details Date Type Department Care Team (Late st Contact Info) Description 09/19/2024 Scanned Document [facility] [address] [place] [address] Scanning, Generic Provider Social History [...] documented as of this encounter Care Teams Rotary Dryer Operator Relationship Specialty Start Date End Date Bruno Antunez DO [address] [place] [place] [phone] PCP - General Family Medicine 01/25/24 documented as of this encounter
--- OUTSIDE RECORDS SUMMARY | 2025-04-28 06:25 | XMS_ITS | Encounter Summary ---
Author Organization [facility] Address [address] [place] [address] Phone Care Team Providers Care Equal Opportunity Specialist Name Role Phone Bruno Antunez DO Primary Care Provider [phone] Encounter Details Date Type Department Care Team (Late st Contact Info) Description 09/13/2024 Scanned Document [facility] [address] [place] [address] Scanning, Generic Provider Social History [...] Type Priority Associated Diagnoses Orde r Schedule Ultrasound- OnBase Scan Imaging O rdered: 09/13/2024 documented as of this encounter Visit Diagnoses Not on filedocumented in this encounter Additional Health Concerns Assessment Noted Time A fall risk assessment has been complete d for the patient 01/25/2024 9:19 AM EDT documented as of this encounter Care Teams Equal Opportunity Specialist Relationship Specialty Start Date End Date Bruno Antunez DO [address] [place] [phone] PCP - General Family Medicine 01/25/24 documented as of this encounter
--- OUTSIDE RECORDS SUMMARY | 2025-04-28 06:25 | XMS_ITS | Encounter Summary ---
Author Organization [facility] Address [address] [place] [address] Care Team Providers Care Traveling Freight Agent Name Role Phone Bruno Antunez DO Primary Care Provider [phone] Bruno Antunez DO Primary Care Provider [phone] Encounter Details Date Type Department Care Team (Late st Contact Info) Description 09/13/2024 Abstract [facility] [address] [place] [phone] Rasheed Crump, DPM FACFAS [address] [place], [place] [phone] Social History Tobacco Use Types Packs/Day Years [...] on filedocumented in this encounter Care Teams Traveling Freight Agent Relationship Specialty Start Date End Date Bruno Antunez DO PCP - General Family Medicine 01/24/24 02/24/25 Bruno Antunez DO [address] [place] [phone] PCP - General Family Medicine 02/25/25 documented as of this encounter
--- OUTSIDE RECORDS SUMMARY | 2025-04-28 06:25 | XMS_ITS | Encounter Summary ---
Author Organization [facility] Address [address] [place] [address] Care Team Providers Care Certified Genetic Counselor Name Role Phone AntunezBruno craven Primary Care Provider [phone] Bruno Antunez DO Primary Care Provider [phone] Encounter Details Date Type Department Care Team (Late st Contact Info) Description 09/14/2024 Clinisync Result Encounter [facility] External Department Unsolicited Rasheed Crump, DPM FACFAS [address] [place] [address] Social History Tobacco Use Types [...] Procedure Name Priority Date/Time Associated Diagnosis Comments XR FOOT 3+ VIEWS RIGHT 09/14/2024 2:07 PM EST documented in this encounter Results * XR FOOT 3+ VIEWS RIGHT (09/14/2024 2:07 PM EST) Anatomical Region Laterality Modality Other 09/14/2024 2:07 PM EST Narrative 09/14/2024 3:07 PM EST Exam Date/Time: 09/14/2024 14:33 EST Reason for Exam: Postoperative;Other (please specify) Report IMPRESSION: 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 EXAM: XR Foot 3+ Views Right DATE: 09/14/2024 2:07 PM CLINICAL HISTORY: Postoperative. COMPARISON: Right great toe radiographs: 04/24/2025 and right foot, 09/13/2024. TECHNIQUE: AP, lateral, and oblique radiographs of the right foot were obtained. FINDINGS: There has been interval amputation of the tuft of the right first distal phalanx. There are no other significant changes identified. Ordering Provider: Rasheed Crump FINAL REPORT Dictated: 09/14/2024 3:04 pm Charles Fernandes MD Signed (Electronic Signature): 09/14/2024 3:04 pm Signed by: Charles Fernandes MD Transcribed by: ASHOK Technologist: JN Technical Comments Radiation Dose: Ka,r in mGy = na DAP = na Procedure Note Radiology, Radiologist, MD - 09/14/2024 Exam Date/Time: 09/14/2024 14:33 EST Reason for Exam: Postoperative;Other (please specify) Report IMPRESSION: INTERVAL AMPUTATION OF THE TUFT OF THE RIGHT FIRST DISTALPHALANX. EXAM: XR Foot 3+ Views Right DATE: 09/14/2024 2:07 PM CLINICAL HISTORY: Postoperative. COMPARISON: Right great toe radiographs: 04/24/2025 and right foot,09/13/2024. TECHNIQUE: AP, lateral, and oblique radiographs of the right foot wereobtained. FINDINGS: There has been interval amputation of the tuft of the right first distalphalanx. There are no other significant changes identified. Ordering Provider: Rasheed Crump FINAL REPORT Dictated: 09/14/2024 3:04 pm Charles Fernandes MD Signed (Electronic Signature): 09/14/2024 3:04 pm Signed by: Charles Fernandes MD Transcribed by: ASHOK Technologist: JN Technical Comments Radiation Dose: Ka,r in mGy = na DAP = na Rasheed Crump DPM [facility] Final Result documented in this encounter Visit Diagnoses Not on filedocumented in this encounter Care Teams Certified Genetic Counselor Relationship Specialty Start Date End Date Antunez, Bruno, PCP - General Family Medicine 01/24/24 02/24/25 Bruno Antunez DO [address] [phone] PCP - General Family Medicine 02/25/25 documented as of this encounter
--- OUTSIDE RECORDS SUMMARY | 2025-04-28 06:26 | XMS_ITS | Encounter Summary ---
Author Organization [facility] Address [address] [place] [address] Care Team Providers Care Suppression Crew Leader Name Role Phone AntunezBruno craven Primary Care Provider TulioBruno Primary Care Provider [phone] Encounter Details Date Type Department Care Team (Late st Contact Info) Description 09/24/2024 Abstract [facility] [address] [facility] [address] [place] [address] Unallocated, [facility] Provider, [address] [place] [address] Social History Tobacco Use Types Packs/Day Years [...] on filedocumented in this encounter Care Teams Suppression Crew Leader Relationship Specialty Start Date End Date Bruno Antunez DO PCP - General Family Medicine 01/24/24 02/24/25 Bruno Antunez DO [address] [facility] [address] [place] [address] PCP - General Family Medicine 02/25/25 documented as of this encounter
--- OUTSIDE RECORDS SUMMARY | 2025-04-28 06:26 | XMS_ITS | Clinical Summary ---
Author Organization [facility] Address [address], [address] [place] [address] Care Team Providers Care Floor Molder Name Role Phone Unavailable Primary Care Provider Unavailabl e Allergies No known active allergies Medications aspirin 81 MG chewable tablet Take 1 tablet by mouth daily Active cyclobenzaprin e (FLEXERIL) 5 MG tablet Take 1 tablet by mouth 3 times daily as needed for Muscle spasms Active DAPTOmycin (CUBICIN) 500 MG injection Infuse 16 mLs intravenously daily Active dilTIAZem (CARDIZEM 12 HR) 120 MG extended release capsule Take 1 capsule by mouth daily Active apixaban (ELIQUIS) 5 MG TABS tablet Take 1 tablet by mouth 2 times daily Active famotidine (PEPCID) 20 MG tablet Take 1 tablet by mouth in the morning and 1 tablet in the evening. Active insulin lispro protamine & lispro (HUMALOG MIX) (75-25) 100 UNIT per ML SUSP injection vial Inject 4 Units into the skin in the morning, at noon, in the evening, and at bedtime Humalog kwikpen insulin lispro 100u/ml Follow Sliding scale Active escitalopram (LEXAPRO) 10 MG tablet Take 1 tablet by mouth daily Active melatonin 5 MG TABS tablet Take 1 tablet by mouth nightly as needed (insomnia) Active polyethylene glycol (GLYCOLAX) 17 g packet Take 1 packet by mouth daily as needed for Constipation Active ondansetron (ZOFRAN) 4 MG tablet Take 1 tablet by mouth every 8 hours as needed for Nausea or Vomiting Active oxyCODONE (ROXICODONE) 5 MG immediate release tablet Take 1 tablet by mouth every 4 hours as needed for Pain. Active pregabalin (LYRICA) 75 MG capsule Take 1 capsule by mouth 2 times daily. Active risperiDONE (RISPERDAL) 0.5 MG tablet Take 1 tablet by mouth daily Active sennosides-doc usate sodium (SENOKOT-S) 8.6-50 MG tablet Take 2 tablets by mouth daily Active linagliptin (TRADJENTA) 5 MG tablet Take 1 tablet by mouth daily Active acetaminophen (TYLENOL) 325 MG tablet Take 2 tablets by mouth every 6 hours as needed for Pain Active atorvastatin (LIPITOR) 40 MG tablet Take 1 tablet by mouth nightly Active Menthol, Topical Analgesic, (BIOFREEZE ROLL-ON) 4 % GEL Apply topically 4 times daily as needed Active docusate sodium (COLACE) 100 MG capsule Take 1 capsule by mouth 2 times daily Active nystatin (MYCOSTATIN) 924189 UNIT/GM powder Apply topically 2 times daily To groin Active tamsulosin (FLOMAX) 0.4 MG capsuleIndicat ions: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 Never 10/31/2024 Q2: How many drinks containi ng alcohol do you have on a typical day when you are drinking? Patient does not drink Q3: How often do you have si x or more drinks on one occasion? Never 10/31/2024 Interpersonal Safety Domain Source: IP Abuse Scr eening Answer Date Recorded Physical abuse Denies 10/31/2024 Verbal abuse Denies 10/31/2024 Emotional abuse Denies 10/31/2024 Financial abuse Denies 10/31/2024 Sexual abuse Denies 10/31/2024 Sex and Gender Information Value Date Recorded Sex Assigned at Not on file Legal Sex Male 8:22 AM EST Gender Identity Not on file Sexual Orientation Not on file Last Filed Vital Signs Vital Sign Reading Time Taken Comments Blood Pressure 118/78 12/24/2024 12:17 PM EDT Pulse 75 10/31/2024 3:27 PM EST Temperature 36.9 C (98.4 F) 10/31/2024 3:27 PM EST Respiratory Rate 20 10/31/2024 3:27 PM EST Oxygen Saturation 97% 10/31/2024 8:07 PM EST Inhaled Oxygen Concentration - - Weight 114.8 kg (253 lb) 12/24/2024 12:17 PM EDT Height 185.4 cm (6' 1 ) 12/24/2024 12:17 PM EDT Body Mass Index 33.38 12/24/2024 12:17 PM EDT Plan of Treatment Health Maintenance Due Date Last Done Comments Depression Screen 1956 Shingles vaccine (1 of 2) 1994 Respiratory Syncytial Virus (RSV) or age 60 yrs+ (1 - 1-dose 75+ series) 2019 COVID-19 Vaccine ( season) 2024 07/05/2023, 12/30/2022, 11/27/2020, Additional history exists Annual Wellness Visit (Medicare) 09/21/2024 Flu vaccine (#1) 04/05/2025 05/31/2024, , 09/08/2022, Additional history exists Lipids 09/25/2025 09/25/2024 DTaP/Tdap/Td vaccine (4 - Td or Tdap) 11/03/2033 11/04/2023, 06/08/2021, 08/21/2019 Pneumococcal 50+ years Vaccine Completed 09/08/2022, 02/13/2016, 06/20/2015, Additional history exists Hepatitis A vaccine Aged Out No longe r eligible based on patient's age to complete this topic Hepatitis B vaccine Aged Out No longe r eligible based on patient's age to complete this topic Hib vaccine Aged Out No longer eligi ble based on patient's age to complete this topic Meningococcal (ACWY) vaccine Aged Out No longer eligible based on patient's age to complete this topic Meningococcal B vaccine Aged Out No l onger eligible based on patient's age to complete this topic Polio vaccine Aged Out No longer elig ible based on patient's age to complete this topic Procedures Procedure Name Priority Date/Time Associated Diagnosis Comments LIPID PANEL Routine 09/25/2024 6:45 AM EST from Last 3 Months or Most Recently Relevant to Health Maintenance Results * (ABNORMAL) Lipid Panel (09/25/2024 6:45 AM EST) Cholesterol, Total 88 0 - 199 mg/dL 09/25/2024 6:45 AM EST [facility] Comment: Cholesterol Guidelines: <200 Desirable 200-240 Borderline >240 Undesirable HDL 28(L) >40 mg/dL 09/25/2024 6:45 AM EST [facility] Comment: HDL Guidelines: <40 Undesirable 40-59 Borderline >59 Desirable LDL Cholesterol 42 0 - 100 mg/dL 09/25/2024 6:45 AM EST [facility] Comment: LDL Guidelines: <100 Desirable 100-129 Near to/above Desirable 130-159 Borderline >159 Undesirable Direct (measured) LDL and calculated LDL are not interchangeable tests. Chol/HDL Ratio 3.1 09/25/2024 6:45 AM EST [facility] Triglycerides 89 <150 mg/dL 09/25/2024 6:45 AM EST [facility] Comment: Triglyceride Guidelines: <150 Desirable 150-199 Borderline 200-499 High >499 Very high Based on AHA Guidelines for fasting triglyceride, June 2012. VLDL 18 1 - 30 mg/dL 09/25/2024 6:45 AM [employer] 09/25/2024 6:45 AM EST 09/25/2024 7:45 AM EST Dani Longoria MD CHEMISTRY ORDERABLES Final Resul t [facility] [address] [place] [address], [facility] [phone] [address] [place] [id number] [phone] from Last 3 Months or Most Recently Relevant to Health Maintenance Insurance MEDICARE [employer] MEDICARE
--- OUTSIDE RECORDS SUMMARY | 2025-04-28 06:26 | XMS_ITS | Clinical Summary ---
Author Organization [facility] Address [address] [place] [address] Care Team Providers Care Oiler Bander Name Role Phone Tulio BUTLER DO, Rolland Primary Care Provider [phone] Allergies No known active allergies Medications Eliquis 5 MG tablet Take 1 tablet by mouth 2 times daily. 2 Active Atorvastatin 40 MG tablet Take 1 tablet by mouth at bedtime. Active Diltiazem 120 MG Cap SR 24HR capsule XL Take 1 capsule by mouth daily. Active Insulin lispro, 1 Unit Dial, (HumaLOG KwikPen) 100 UNIT/ML Solution Pen-injector Inject under the skin before meals & at bedtime. BG 150-200: 2 units BG 201-250: 4 units BG 251-300: 6 units BG 301-350: 8 units BG 351-400: 10 units Active Escitalopram (Lexapro) 10 MG tablet Take 1 tablet by mouth daily. Active Melatonin 5 MG tablet Take 1 tablet by mouth at bedtime. Active pregabalin 75 MG capsule Take 1 capsule by mouth 2 times daily. Active risperiDONE 0.5 MG tablet Take 1 tablet by mouth daily. Active linaGLIPtin 5 MG tablet Take 1 tablet by mouth every 24 hours. Active Acetaminophen 325 MG tablet Take 2 tablets by mouth every 6 hours as needed for Mild Pain. Active Polyethylene glycol 17 g Pack packet Take 1 packet by mouth daily. Active Ondansetron 4 MG tablet Take 1 tablet by mouth every 8 hours as needed for Nausea / Vomiting. Active senna-docusate (Senna Plus) 8.6-50 MG per tablet Take 2 tablets by mouth daily. Active alteplase 2 MG Recon Soln 2 mg by Intracatheter route once as needed for Catheter Clearance (For an occluded line) for up to 1 dose. 1 Each 5 Active Tamsulosin HCl 0.4 MG capsule Take 1 capsule by mouth daily. 30 capsule 5 Active aspirin 81 MG Chew Tab chewable tablet Chew 1 tablet daily. 5 Active Cyclobenzaprine 5 MG tablet Take 1 tablet by mouth 3 times daily as needed for Muscle spasms. 5 Active faMOTIdine 20 MG tablet Take 1 tablet by mouth every 12 hours. 5 Active oxyCODONE 5 MG tabletIndicatio ns:Infection associated with internal right knee prosthesis, initial encounter,Hx of total knee arthroplasty, left,Left knee pain, unspecified chronicity Take 1 tablet by mouth every 6 hours as needed for Severe Pain or Moderate Pain for up to 7 days. Facility physician to wean/taper and manage after 7 days 28 tablet 5 Active doxycycline hyclate 100 MG tablet Take 1 tablet by mouth 2 times daily. 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 10/24/2023 Urge incontinence 10/24/2023 Urgency of urination 10/24/2023 Urine frequency 10/24/2023 Weak urine stream 10/24/2023 Subluxation of left patella 10/10/2023 Gout 10/04/2023 Fatigue 10/04/2023 Tendon rupture, nontraumatic, extensor 3 Alzheimer's dementia, late onset 04/06/2023 04/06/2023 Coronary artery disease 04/06/2023 04/06/20 23 Diabetes mellitus with polyneuropathy 04/06/2023 04/06/2023 Essential tremor 04/06/2023 04/06/2023 Eczematous dermatitis 04/06/2023 04/06/2023 Hyperlipidemia 04/06/2023 04/06/2023 Hypertension 04/06/2023 04/06/2023 Hypertrophy of prostate with urinary obstruction 04/06/2023 04/06/2023 Restless legs 04/06/2023 04/06/2023 Persistent atrial fibrillation 04/06/2023 0 04/06/2023 Type 2 diabetes mellitus with hyperglycemia (A1C > 6.49) 09/01/2022 Arthritis of left knee due to other bacteria Obesity (BMI 30.0-34.9) 08/18/2022 MRSA (methicillin resistant staph aureus) cultur e positive 06/09/2021 Overview (10/24/2023): MRSA knee specimens x 2 on 07/27/2022MRSA nasal swab 07/21/2022MRSA urine 03/19/22MRSA toe wound 06/09/2021 Acute osteomyelitis of ankle or foot 04/15/2021 04/06/2023 Malignant neoplasm of skin 08/16/2017 Encounters Date Type Department Care Team Description 04/23/2025 2:00 PM EDT Telemedicine [facility] [address] [phone] Dick Monique PA-C Infection associated with internal left knee prosthesis, subsequent encounter (Primary Dx) 04/12/2025 Telephone [facility] Outpatient Care [address] [phone] Flako Almeida MD Surgery 04/11/2025 Telephone [facility] Outpatient [facility] [address] [phone] Flako Almeida MD Surgery 04/09/2025 Telephone [facility] Out[facility] [address] [phone] Flako Almeida MD Schedule Surgery 04/03/2025 3:00 PM EDT Telemedicine [facility] [address] [phone] Falko Almeida MD 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); Infection associated with internal right knee prosthesis, initial encounter; Infection associated with internal left knee prosthesis, subsequent encounter; Hx of left knee surgery 03/21/2025 Documentation Only Sports Medicine Outpatient Care [place] [phone] Fernanda Wilcox ATC 03/21/2025 Telephone Central Scheduling [address] [place] [address] Flako Almeida MD Other; Order Request; Follow-up (Pt information faxed) 03/19/2025 9:39 AM EDT - 03/19/2025 10:01 AM EDT [facility] [address] [phone] Flako Almeida MD ASPIRATION OR INJECTION LARGE JOINT BURSA 03/19/2025 9:30 AM EDT Anesthesia Event [facility] Per[facility] [address] [phone] Cheko Carolnia, DO Pfeiffer, Prince R, ASSOCIATE SOFTWARE APPLICATION ENGINEER-PIPE CHANGER 03/19/2025 7:17 AM EDT - 03/19/2025 11:06 AM EDT Hospital Encounter [facility] Peri [address] [phone] Flako Almeida MD Right knee pain, unspecified chronicity Discharge Disposition: Home or Self Care 03/19/2025 Travel 03/18/2025 Telephone Central Scheduling [address] [place] [address] Bjorn Meyers 03/15/2025 Telephone Central Scheduling [address] [place] [phone] Flako Almeida MD Other; Follow-up (Call back) 03/13/2025 Orders Only Orthopedics Outpatient Care [address] [phone] Dick Monique PA-C Right knee pain, unspecified chronicity (Primary Dx); Left knee pain, unspecified chronicity 03/01/2025 Telephone Central Scheduling [address] [place] [address] Flako Almeida MD Referral; Procedure (Call back ) 02/19/2025 Telephone [facility] Orthopedics [address] [place] [address] Donald Marx MD Appointment 02/18/2025 11:40 AM EDT Anesthesia Event [facility] [address] [place] [address] Dennis Ramirez MD Ladu, Victoria C, AA 02/18/2025 9:24 AM EDT - 02/18/2025 11:14 AM EDT Hospital Encounter [facility] [address] [place] [address] Flako Almeida MD Right knee pain, unspecified chronicity Discharge Disposition: Jail Facility 02/18/2025 Telephone Central Scheduling [address] [place] [address] Flako Almeida MD Surgery (Please call back/advise); Reschedule from Last 3 Months Immunizations Immunization Administration Dates Next Due Influenza Vaccine, High-dose 06/23/2021, 06/24/2020,07/27/2019,2016 Influenza Vaccine, Trivalent 05/06/2020,06/07/20 16,06/20/2015 Influenza, High-dose Seasona l, Quadrivalent, Preservative Free 07/05/2023,09/08/2022 Pneumococcal Conjugate 13-va lent vaccine 02/13/2016,06/20/2015 Pneumococcal Conjugate 7-Mary ent Vac <5yo, IM 06/09/2015 Pneumococcal Polysac 23-Anna nt Vaccine 07/06/2011 Td Vaccine 2-2 LF 06/08/2021 Tdap Vaccine 08/21/2019 pneumococcal Conjugate 20-Va lent Vaccine 09/08/2022 Social History Tobacco Use Types Packs/Day Years Used Date Smoking Tobacco: Former Cigarettes Q uit: 07/1994 Smokeless Tobacco: Never Tobacco Cessation:Counseling Given: Not Answered Comments:Quit 1993 Alcohol Use Standard Drinks/Week Comments [...] Sign Reading Time Taken Comments Blood Pressure 124/76 03/19/2025 10:45 AM EDT Pulse 76 03/19/2025 10:45 AM EDT Temperature 36.9 C (98.4 F) 03/19/2025 10:45 AM EDT Respiratory Rate 19 03/19/2025 10:45 AM EDT Oxygen Saturation 99% 03/19/2025 10:45 AM EDT Inhaled Oxygen Concentration - - Weight 96.6 kg (213 lb) 03/19/2025 7:45 AM EDT Height 185.4 cm (6' 1 ) 03/19/2025 7:45 AM EDT Body Mass Index 28.1 03/19/2025 7:45 AM EDT Plan of Treatment Scheduled Procedures Name Priority Associated Diagnoses Date/Ti me REVISION ARTHROPLASTY KNEE Infection associated with internal left knee prosthesis, subsequent encounter Hx of left knee surgery 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 of antibiotic-impregnated cement spacer Health Maintenance Due Date Last Done Comments DIABETIC FOOT EXAM 1944 EYE EXAM 1944 LIPIDS 1944 URINE MICROALBUMIN TEST 1944 COLORECTAL CANCER SCREENING DISCUSSION 1989 ZOSTER (SHINGLES) VACCINE (1 of 2) 1994 RSV VACCINE (1 - 1-dose 75+ series) 2019 HBA1C TEST 03/19/2024 09/19/2023, 01/03, 08/18/2022 COVID-19 VACCINE ( season) 2024 07/05/2023, 12/30/2022, 01/22/2022, Additional history exists INFLUENZA VACCINE (#1) 2025 , 07/05/2023, 09/08/2022, Additional history exists TETANUS 11/03/2033 11/04/2023, 12/2020, 08/21/2019 PNEUMOCOCCAL VACCINE SERIES Completed 12/2022, 09/08/2022, 02/13/2016, Additional history exists TDAP (ADULT) Completed 11/04/2023, 08/21/2019 HEP B VACCINE Aged Out No longer elig ible based on patient's age to complete this topic Medical Devices Implanted Type Area Bearing Inspector Device Identifier Shelf Expiration Date Model / Serial / Lot Palacos R+G 1x40 Single With Gentamicin - [id number] Implanted:Qty: 3 on 08/23/2022 by Donald Marx MD at [facility] Other Left: Knee [employer]ARY [employer] 09/04/2025 [id number] / / [id number] Palacos R+G 1x40 Single With Gentamicin - [id number] Implanted:Qty: 2 on 08/23/2022 by Donald Marx MD at [facility] Other Left: Knee MARY [employer]ET 07/05/2025 [id number] / / [id number] Atune Femoral Crutiate Retaining Size 8 Left Cemented Implanted:Qty: 1 on 08/23/2022 by Donald Marx MD at [facility] Left: Knee DEPUY 10/05/2031 1504-00-108 / / [id number] Attune Knee System All Poly Tibial Implant Crutiate Retaining Cemented Size 7 Implanted:Qty: 1 on 08/23/2022 by Donald Marx MD at [facility] Left: Knee [employer] 12/03/2025 1516-00-707 / / [id number] Palacos R & G Bone Cement High-Viscosity With Gentamicin - [id number] Implanted:Qty: 2 on 04/12/2023 by Donald Marx MD at [facility] Left: Knee 06/04/2026 / [id number] / [id number] Attune Patella Medialized Dome Implanted:Qty: 1 on 04/12/2023 by Donald Marx MD at [facility] Left: Knee DEPUY SYNTHES 03/04/2028 / [id number] / [id number] Bard Mesh Implanted:Qty: 1 on 04/12/2023 by Donald Marx MD at [facility] Left: Knee BARD 11/02/2026 / [id number] / [id number] Synthes 4.0mm Cannulated Screw 40mm Long Thread #[id number] Implanted:Qty: 1 on 04/12/2023 by Donald Marx MD at [facility] Left: Knee DEPUY SYNTHES Surface Articular 16mm Persona 10-12 G-H Knee Right - [id number] Implanted:Qty: 1 on 11/02/2024 by Flako Almeida MD at [facility] Right: Knee MARY BI[employer]ET 06/01/2029 [id number] / / [id number] Filler Bone Void 10cc 20cc Calcium Sulfate Stimulan Rapid - [id number] Implanted:Qty: 1 on 11/02/2024 by Flako Almeida MD at [facility] Right: Knee [employer]ES 06/04/2027 620-010 / / [id number] Bowl Bone Cement Quick-Vac Large Capacity Vacuum Mix Adapter - [id number] Implanted:Qty: 1 on 11/02/2024 by Flako Almeida MD at [facility] Right: Knee [employer]ARY [employer]ET 11/02/2024 [id number] / / [id number] Cement Bone Refobacin - [id number] Implanted:Qty: 1 on 11/02/2024 by Flako Almeida MD at [facility] Right: Knee [employer]ARY [employer]ET 04/04/2025 [id number] / / [id number] Cement Bone Refobacin - [id number] Implanted:Qty: 1 on 11/02/2024 by Flako Almeida MD at [facility] Right: Knee MARY [employer]ET 10/05/2026 [id number] / / [id number] Cement Bone Refobacin - [id number] Implanted:Qty: 1 on 11/02/2024 by Flako Almeida MD at [facility] Right: Knee [employer]ARY [employer]ET 10/05/2026 [id number] / / [id number] Femoral 11 Standard Knee Right Posterior Stabilize - [id number] Implanted:Qty: 1 on 11/02/2024 by Flako Almeida MD at [facility] Right: Knee MARY [employer]ET 07/29/2032 [id number] / / [id number] Bar To Bar Clamp Implanted:Qty: 1 on 11/08/2024 by Flako Almeida MD at [facility] Left: Knee 56-6797-136-01 . / [id number] / Cement Bone Refobacin - [id number] Implanted:Qty: 1 on 11/08/2024 by Flako Almeida MD at [facility] Left: Knee [employer]ARY [employer] 10/05/2026 [id number] / / [id number] Cement Bone Refobacin - [id number] Implanted:Qty: 1 on 11/08/2024 by Flako Almeida MD at [facility] Left: Knee [employer]ARY [employer] 10/05/2026 [id number] / / [id number] Filler Bone Void 10cc 20cc Calcium Sulfate Stimulan Rapid - [id number] Implanted:Qty: 1 on 11/08/2024 by Flako Almeida MD at [facility] Left: Knee [employer]POSITES 06/04/2027 620-010 / / [id number] Cement Bone Refobacin - [id number] Implanted:Qty: 1 on 11/08/2024 by Flako Almeida MD at [facility] Left: Knee [employer]ARY [employer]ET 04/04/2025 [id number] / / [id number] 250mm Bar Implanted:Qty: 2 on 11/08/2024 by Flako Almeida MD at [facility] Left: Knee MARY [employer]ET [id number] / / Procedures Procedure Name Priority Date/Time Associated Diagnosis Comments SYNOVASURE PJI, SYNOVIAL FLUID STAT 03/19/2025 9:47 AM EDT Right knee pain, unspecified chronicity Left knee pain, unspecified chronicity BODY FLUID PATH DIFFERENTIAL, PERFORMABLE ONLY STAT 03/19/2025 9:42 AM EDT BODY FLUID CELL COUNT STAT 03/19/2025 9:42 AM EDT BODY FLUID TECH DIFFERENTIAL STAT 03/19/2025 9:42 AM EDT BODY FLUID TECH DIFFERENTIAL STAT 03/19/2025 9:42 AM EDT ACID FAST CULTURE STAT 03/19/2025 9:4 2 AM EDT ANAEROBE CULTURE STAT 03/19/2025 9:42 AM EDT FUNGUS CULTURE STAT 03/19/2025 9:42 AM EDT BODY FLUID CULTURE AND DIRECT SMEAR STAT 03/19/2025 9:42 AM EDT ACID FAST CULTURE STAT 03/19/2025 9:4 2 AM EDT ANAEROBE CULTURE STAT 03/19/2025 9:42 AM EDT FUNGUS CULTURE STAT 03/19/2025 9:42 AM EDT BODY FLUID CULTURE AND DIRECT SMEAR STAT 03/19/2025 9:42 AM EDT [place] ARTHROCENTESIS ASPIR&/INJ MAJOR JT/BURSA W/O US 03/19/2025 9:34 AM EDT Right knee pain, unspecified chronicity Left knee pain, unspecified chronicity Special Needs (6' 1 ) (257 lb 9.6 oz) CARDIAC RHYTHM 03/19/2025 HEMOGLOBIN A1C Today 09/19/2023 10:10 AM EST Pre-op testing Preop testing Abnormal finding of blood chemistry, unspecified from Last 3 Months or Most Recently Relevant to Health Maintenance Results * SYNOVASURE PJI, SYNOVIAL FLUID (03/19/2025 9:47 AM EDT) Synovasure PJI, Synovial Fluid Negative Negative 03/19/2025 12:00 PM EDT [facility] Fluid, Unspecified (SYNOVIAL FLUID: RIGHT KNEE) 03/19/2025 9:47 AM EDT 03/19/2025 11:29 AM EDT us Flako Almeida MD BODY FLUIDS & STOOLS OR DERABLES Final Result [facility] [address] [place] [address] * BODY FLUID PATH DIFFERENTIAL, PERFORMABLE ONLY (03/19/2025 9:42 AM EDT) Specimen Source SYNOVIAL FLUID: LEFT KNEE 03/20/2025 3:00 PM EDT [facility] Comment (Fluid) There is no evidence of malignancy. Blood is present. Acute and chronic inflammatory cells present. No microorganisms seen. Correlation with gram stain and culture recommended. 03/20/2025 3:00 PM EDT [facility] Neutrophils (Fluid) 13 % 03/20/2025 3:00 PM EDT [facility] Comment:The reference range has not been established for this fluid. Clinical correlation is recommended. Lymphocytes (Fluid) 34 % 03/20/2025 3:00 PM EDT [facility] Comment:The reference range has not been established for this fluid. Clinical correlation is recommended. Monocytes/Macro phages, Fluid 53 % 03/20/2025 3:00 PM EDT [facility] Comment:The reference range has not been established for this fluid. Clinical correlation is recommended. Eosinophils Fluid 0 % 03/20/2025 3:00 PM EDT [facility] Comment:The reference range has not been established for this fluid. Clinical correlation is recommended. Basophils (Fluid) 0 % 03/20/2025 3:00 PM EDT [facility] Comment:The reference range has not been established for this fluid. Clinical correlation is recommended. Differential Reviewed By Quincy Krishna MD 03/20/2025 3:00 PM EDT [facility] Cells Counted (Fluid) 100 03/20/2025 3:00 PM EDT [facility] Fluid (SYNOVIAL FLUID: LEFT KNEE) 03/19/2025 9:42 AM EDT 03/19/2025 11:29 AM EDT Flako Almeida MD BODY FLUIDS & STOOLS OR DERABLES Final Result Performing Organization Address City/[facility] Co de Phone Number [facility] [address] [address] [facility] [address] [place] [address] * BODY FLUID TECH DIFFERENTIAL (03/19/2025 9:42 AM EDT) Fluid (SYNOVIAL FLUID: LEFT KNEE) 03/19/2025 9:42 AM EDT 03/19/2025 11:29 AM EDT Flako Almeida MD BODY FLUIDS & STOOLS OR DERABLES Final Result Performing Organization Address [facility]/ZIP Co de Phone Number [facility] [address] [place] [address] * ANAEROBE CULTURE (03/19/2025 9:42 AM EDT) Only the most recent of2 resultswithin the time period is included. Culture No anaerobic growth 04/02/2025 11:33 AM EDT [facility] Aspirate (SYNOVIAL FLUID: RIGHT KNEE) 03/19/2025 9:42 AM EDT 03/19/2025 2:19 PM EDT Narrative [facility] - 04/02/2025 11:33 AM EDT Specimen incubated up to 14 days. Flako Almeida MD MICROBIOLOGY - GENERAL ORDERABLES Final Result Performing Organization Address [facility] Co de Phone Number [facility] [address] [place] [address] * BODY FLUID CULTURE AND DIRECT SMEAR (03/19/2025 9:42 AM EDT) Only the most recent of2 resultswithin the time period is included. Culture NO GROWTH DAY 2 OF 2 03/21/2025 7:31 AM EDT [facility] Gram Stain Neutrophils, Rare 03/21/2025 7:31 AM [facility] Gram Stain Mononuclear cells present 03/21/2025 7:31 AM T [facility] Gram Stain Red Blood Cells Present 03/21/2025 7:31 AM [facility] Gram Stain No organisms seen 03/21/2025 7:31 AM T [facility] Fluid (SYNOVIAL FLUID: RIGHT KNEE) 03/19/2025 9:42 AM EDT 03/19/2025 11:47 AM EDT Flako Almeida MD MICROBIOLOGY - GENERAL ORDERABLES Final Result Performing Organization Address [facility]/ZIP Co de Phone Number [facility] [address] [place] [address] * FUNGUS CULTURE (03/19/2025 9:42 AM EDT) Only the most recent of2 resultswithin the time period is included. Culture NO GROWTH DAY 28 OF 28 04/16/2025 3:01 PM EDT [facility] Aspirate (SYNOVIAL FLUID: RIGHT KNEE) 03/19/2025 9:42 AM EDT 03/19/2025 2:19 PM EDT us Flako Almeida MD MICROBIOLOGY - GENERAL ORDERABLES Final Result Performing Organization Address [facility] de Phone Number [facility] [address] [place] [address] * BODY FLUID CELL COUNT (03/19/2025 9:42 AM EDT) Total Nucleated Cells (TNC) 1,489 /uL 03/19/2025 12:14 PM EDT [facility] Comment:The reference range has not been established for this fluid. Clinical correlation is recommended. Red Blood Cells 14,344 /uL 12:14 PM EDT [facility] Comment:The reference range has not been established for this fluid. Clinical correlation is recommended. Gross Appearance (Fluid) Brown Hazy 03/19/2025 12:14 PM EDT [facility] Supernatant (Fluid) Yellow Clear 03/19/2025 12:14 PM EDT [facility] Specimen Source SYNOVIAL FLUID: LEFT KNEE 03/19/2025 12:14 PM EDT [facility] Fluid (SYNOVIAL FLUID: LEFT KNEE) 03/19/2025 9:42 AM EDT 03/19/2025 11:29 AM EDT us Flako Almeida MD BODY FLUIDS & STOOLS OR DERABLES Final Result Performing Organization Address [facility] Co de Phone Number [facility] [address] [place] [address] * CARDIAC RHYTHM (03/19/2025) 03/19/2025 us Other Other OT ECG ORDERABLES Final Result * (ABNORMAL) HEMOGLOBIN A1C (09/19/2023 10:10 AM EST) HEMOGLOBIN A1C 6.1(H) 0 - 6 % [address] Comment: NORMAL <5.7% PREDIABETES 5.7-6.4% DIABETES 6.5% OR HIGHER Estimated Average Glucose 128 mg/dL [facility] [address] [place] [address] Blood 09/19/2023 10:1 0 AM EST 09/19/2023 10:17 AM EST us Samantha Jara PA-C HEMATOLOGY ORDERABLES Final Resu lt [facility] [address] [place] [address] [place] [phone] from Last 3 Months or Most Recently Relevant to Health Maintenance Insurance Medicare A[employer]na PPO Medicare [employer] PPO Advance Directives For more information, please contact: [phone] (7:30 AM - 6PM [place], Tuesday-Tuesday) * Full Code (Latest Code Status on File) Date Activated Date Inactivated Comments 11/08/2024 9:38 PM * Full Code Date Activated Date Inactivated Comments 11/01/2024 1:58 AM 11/08/2024 9:38 PM [facility] revers ed for OR * Full Code Date Activated Date Inactivated Comments 10/10/2023 2:54 PM 11/01/2024 1:58 AM * Full Code Date Activated Date Inactivated Comments 04/12/2023 2:54 PM 10/10/2023 2:54 PM * Full Code Date Activated Date Inactivated Comments 08/23/2022 4:00 PM 04/12/2023 2:54 PM Care Teams Oiler Bander Relationship Specialty Start Date End Date Bruno Antunez III, DO PCP - General Family Medicine 09/15/23
--- OUTSIDE RECORDS SUMMARY | 2025-04-28 06:26 | XMS_ITS | Encounter Summary ---
Author Organization [facility] enter Address [address] [place] [address] Care Team Providers Care Winder Helper Name Role Phone Tulio BUTLER DO, Rolland Primary Care Provider [phone] Reason for Visit * Reason Onset Date Comments Surgery 02/18/2025 Please call back /advise Reschedule 02/19/2025 Encounter Details Date Type Department Care Team (Late st Contact Info) Description 02/18/2025 Telephone Central Scheduling [address] [place] [address] Flako Almeida MD [address] [place] [address] Surgery (Please call back/advise); Reschedule Social History Tobacco Use Types Packs/Day Years [...] encounter Miscellaneous Notes * Telephone Encounter - Halie Calles - 02/19/2025 10:07 AM EDT Pt returning missed call from Fernanda. Advised pt of the encounter above and he did not have anyquestions. Pt asked for someone to call back to reschedule the surgery so he can arrange transportation. * Telephone Encounter - Fernanda Wilcox ATC - 02/19/2025 9:33 AM EDT Called to follow up with patient just in case he had any questions, mailbox was full. * Telephone Encounter - Fernanda Wilcox ATC - 02/18/2025 4:15 PM EDT Spoke to Tanvi regarding this and the patient's surgery has been cancelled. * Telephone Encounter - Lew Toth - 02/18/2025 10:36 AM EDT Who Called: Cheko from [facility] Surgery Contact Reason for the call: Pt is having surgery today, states after surgery pt. has no transportation to get home and was wondering if Insurance will cover for over night stay Fax Number: n/a Claim Number:n/a Provider name/Clinic or Department: Herbie Almeida, Nas follow up [Yes or No]: yes documented in this encounter Plan of Treatment [...] documented as of this encounter Care Teams Winder Helper Relationship Specialty Start Date End Date Bruno Antunez III, DO PCP - General Family Medicine 09/15/23 documented as of this encounter
--- OUTSIDE RECORDS SUMMARY | 2025-04-28 06:26 | XMS_ITS | Clinical Summary ---
Author Organization [facility] [facility] Address [id number] 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 04/19/2025 Infection and inflammatory r eaction due to indwelling urethral catheter, sequela 04/19/2025 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 04/19/2025 Primary hypertension 04/19/2025 Iron deficiency anemia secondary to blood loss ( chronic) 04/19/2025 Pure hypercholesterolemia 04/19/2025 Other obesity due to excess calories 04/19/2025 Essential tremor 04/19/2025 Urinary tract infection, site not specified 04/05 Encounters Date Type Department Care Team Description 04/24/2025 Telephone [facility] Call Center [address] [place] [phone] Jessica Ochoa Chest Pain 04/19/2025 Continuing Care [facility] Internal [facility] - Family Medicine [address] [place] [address] Marty Brambila DO Infection and inflammatory reaction due to internal right knee prosthesis, subsequent encounter (Primary Dx); 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 ([facility]); Infection and inflammatory reaction due to indwelling urethral catheter, sequela; Primary hypertension; Iron deficiency anemia secondary to blood loss (chronic) 04/17/2025 Continuing Care [facility] - Family Medicine [address] [facility] [place] [address] Marty Brambila DO Alzheimer's disease with late onset (CODE) ([facility]) (Primary Dx); Diabetes mellitus due to underlying condition with diabetic polyneuropathy, without long-term current use of insulin ([facility]); Urinary tract infection associated with indwelling urethral catheter, subsequent encounter; Other spondylosis with myelopathy, lumbar region; Infection and inflammatory reaction due to internal right knee prosthesis, subsequent encounter; Infection and inflammatory reaction due to internal left knee prosthesis, subsequent encounter; Iron deficiency anemia secondary to blood loss (chronic); Primary hypertension; Gastroesophageal reflux disease without esophagitis; Restless leg syndrome from Last 3 Months Family History Medical History Relation Name Comments Deep vein thrombosis Daughter Pulmonary embolism Daughter Relation Name Status Comments Daughter Social History Tobacco Use Types Packs/Day Years Used Date Smoking Tobacco: Never Assessed Comments Unknown Sex and Gender Information Value Date Recorded Sex Assigned at Not on file Legal Sex Female 10:48 AM EDT Gender Identity Not on file Sexual Orientation Not on file Occupation Industry Job Start Date Job End Date construction Not on file Not on file Not on file Last Filed Vital Signs [...] - - Body Mass Index - - Plan of Treatment Health Maintenance Due Date Last Done Comments Depression Screening 1957 Tobacco Screening 1957 DTaP,Tdap and Td Vaccines (1 - Tdap) 1963 Zoster (Shingles) Vaccine (1 of 2) 1994 Fall Risk Screening 2009 Influenza Vaccine 05/06/2025 Medical Devices Not on file Insurance [employer] MEDICARE
--- OUTSIDE RECORDS SUMMARY | 2025-04-28 06:26 | XMS_ITS | Encounter Summary ---
Author Organization [facility] enter Address [address] [place] [address] Care Team Providers Care Technical Service Engineer Name Role Phone Tulio BUTLER DO, Rolland Primary Care Provider [phone] Reason for Visit * Reason Onset Date Comments Surgery 04/15/2025 Encounter Details Date Type Department Care Team (Late st Contact Info) Description 04/12/2025 Telephone Orthopedics Outpatient Care [facility] [address] [place] [address] Flako Almeida MD [address] [place] [address] Surgery Social History Tobacco Use Types Packs/Day Years [...] encounter Miscellaneous Notes * Telephone Encounter - Tanvi Gunter - 04/19/2025 3:22 PM EDT Spoke with Marc the assistant chief nursing officer at the facility that Earle is currently residing at . Marc let me know that she would like for Mr. Og to continue with moving forward with surgery with Dr. Almeida as this is who Earle has been seeing regarding his left knee and she would like to move forward with getting him scheduled as she was unaware that Mr. Og was being undecided about where to have his surgery as I informed her per our last encounter that he was wanting to go to the [facility] due to him not wanting to wait or go to another location to be seen and have surgery withDr. Almeida. I scheduled a telephone call per Marc request to have her follow up with DANYELL Mills with Dr Almeida as she stated that she had some questions regarding the condition of Earle's knee as she stated there was some swelling and redness and the knee didn't look good. I was able to get her scheduled with Dick for a telehealth visit on 04/23/25 at 2pm. Marc stated that would be fine and requested that she be contacted for the visit and going forward for anything pertaining to Earle and appointments, etc.. * Telephone Encounter - Ayleen Ramirez - 04/17/2025 12:50 PM EDT bond runner at [facility] called. Stated she was told to schedule follow up appointment to discuss surgery for spacer in the patient's knee. CB # [phone] (Marc, bond runner) Please advise * Telephone Encounter - Doreen Parks - 04/15/2025 10:05 AM EDT The patient is wanting to speak with Tanvi about scheduling surgery for the LEFT knee. Please advise * Telephone Encounter - Tanvi Gunter - 04/12/2025 2:04 PM EDT Contacted to let Earle know that Dr. Almeida is okay with him going to be seen at the [facility] Earle stated that he is open to going but wasn't for sure how he would be transported there. I informed Earle that since he was staying at a facility they would need to be the ones to coordinate with the [facility] on how to get him transported I informed him that I would let Dr. Almeida know of his concerns about getting a referral over the clinic so that Earle can get in sooner to have surgery with them and would follow back up with him to let him know. documented in this encounter Plan of Treatment [...] documented as of this encounter Care Teams Technical Service Engineer Relationship Specialty Start Date End Date Bruno Antunez III, DO PCP - General Family Medicine 09/15/23 documented as of this encounter
--- OUTSIDE RECORDS SUMMARY | 2025-04-28 06:26 | XMS_ITS | Encounter Summary ---
Author Organization [facility] Address [address] [place] [address] Care Team Providers Care Radioactive Waste Disposal Dispatcher Name Role Phone Antunez DO BUTLER Rolland Primary Care Provider [phone] Encounter Details Date Type Department Care Team (Late st Contact Info) Description 03/18/2025 Telephone Central Scheduling [address] [place] [address] Bjorn Meyers Social History Tobacco Use Types Packs/Day Years [...] Everette Gonzalez RN documented in this encounter Plan of Treatment [...] documented as of this encounter Care Teams Radioactive Waste Disposal Dispatcher Relationship Specialty Start Date End Date Bruno Antunez III, DO PCP - General Family Medicine 09/15/23 documented as of this encounter
--- OUTSIDE RECORDS SUMMARY | 2025-04-28 06:26 | XMS_ITS | Encounter Summary ---
Author Organization [facility] enter Address [address] [place] [address] Care Team Providers Care Family Lawyer Name Role Phone Tulio BUTLER DO, Rolland Primary Care Provider [phone] Reason for Visit * Reason Onset Date Comments Schedule Surgery 04/11/2025 Encounter Details Date Type Department Care Team (Late st Contact Info) Description 04/09/2025 Telephone Orthopedics Outpatient Care [facility] [address] [place] [address] Flako Almeida MD [address] [place] [address] Schedule Surgery Social History Tobacco Use Types Packs/Day [...] Telephone Encounter - Tanvi Gunter - 04/19/2025 3:14 PM EDT Spoke with Marc the assistant director of nursing at the facility that Earle is currently [...] he was wanting to go to the [facility] due to him not wanting to wait [...] and appointments, etc.. * Telephone Encounter - Daron Sinclair - 04/12/2025 9:06 AM EDT Pt calling back with questions asking to speak to Tanvi. Nicole on Teams. Please call pt back as able. * Telephone Encounter - Tanvi Gunter - 04/11/2025 9:34 AM EDT I contacted and was able to get Earle scheduled for a left knee revision with Dr. Almieda I informed Earle that due to Dr. Mcintosh going on vacation later this month the soonest we could get him in for surgery was 05/14/25 Earle agreed that the date would work for him. I will schedule all of Earle post-ops to follow up after surgery. * Telephone Encounter - Halie Calles - 04/11/2025 8:46 AM EDT Pt of Dr Rodriguez calling to schedule his surgery. Pt advised he received a call on the 04/09 advising him he was scheduled for surgery on 05/14. I did not see the surgery scheduled or where someone had called him. Routing high priority per pt request. Please call back documented in this encounter Plan of Treatment [...] documented as of this encounter Care Teams Family Lawyer Relationship Specialty Start Date End Date Bruno Antunez III, DO PCP - General Family Medicine 09/15/23 documented as of this encounter
--- OUTSIDE RECORDS SUMMARY | 2025-04-28 06:26 | XMS_ITS | Encounter Summary ---
Author Organization [facility] Address [address] [place] [address] Care Team Providers Care Coater Operator Insulation Board Name Role Phone Bruno Antunez DO Primary Care Provider [phone] AntunezBruno craven Primary Care Provider [phone] Encounter Details Date Type Department Care Team (Late st Contact Info) Description 05/24/2024 Orders Only MALIKA BALDERAS [address] [place] [address] Angelina Rothman PA Social History Tobacco Use Types Packs/Day Years [...] Name Priority Date/Time Associated Diagnosis Comments MRI LUMBAR SPINE WO CONTRAST Routine 05/24/2024 2:55 PM EDT documented in this encounter Results * MRI LUMBAR SPINE WO CONTRAST (05/24/2024 2:55 PM EDT) Anatomical Region Laterality Modality Radiographic Amie ging Angelina ELLIOTT IMG XR PROCEDURES Final Result documented in this encounter Visit Diagnoses Not on filedocumented in this encounter Care Teams Coater Operator Insulation Board Relationship Specialty Start Date End Date Bruno Antunez DO PCP - General Family Medicine 01/24/24 02/24/25 Bruno Antunez DO [address] [place] [address] [address] PCP - General Family Medicine 02/25/25 documented as of this encounter
--- OUTSIDE RECORDS SUMMARY | 2025-04-28 06:26 | XMS_ITS | Encounter Summary ---
Author Organization [facility] Address [address] [place] [address] Care Team Providers Care Doubler Operator Name Role Phone AntunezBruno craven Primary Care Provider [phone] Tulio Bruno Primary Care Provider [phone] Encounter Details Date Type Department Care Team (Late st Contact Info) Description 10/19/2024 Abstract [facility] [address] [facility] [address] [place] [id number] Unallocated, Noms Provider, [address] [place] [address] Social History Tobacco Use Types Packs/Day Years [...] on filedocumented in this encounter Care Teams Doubler Operator Relationship Specialty Start Date End Date Bruno Antunez DO PCP - General Family Medicine 01/24/24 02/24/25 Bruno Antunez DO [address] [facility] [address] [place] [address] PCP - General Family Medicine 02/25/25 documented as of this encounter
--- OUTSIDE RECORDS SUMMARY | 2025-04-28 06:26 | XMS_ITS | Encounter Summary ---
Author Organization [facility] enter Address [address] [place] [address] Care Team Providers Care Vacuum Frame Operator Name Role Phone Tulio BUTLER DO, Rolland Primary Care Provider [phone] Reason for Visit * Reason Onset Date Comments Appointment 01/25/2025 Encounter Details Date Type Department Care Team (Late st Contact Info) Description 01/25/2025 Telephone Central Scheduling [address] [place] [address] Flako Almeida MD [address] [place] [address] Appointment Social History Tobacco Use Types Packs/Day Years [...] Miscellaneous Notes * Telephone Encounter - Halie Roa MA - 01/25/2025 2:52 PM EDT Spoke to earle and broke down his appointments/when he will have his aspirations done/follow up telephone call with Dr. Almeida. Patient understood and said if he have any more questions he will give us a call. * Telephone Encounter - Halie Calles - 01/25/2025 2:18 PM EDT Pt of Dr Rodriguez called to give the name and phone number of someone who will fill in for his telehealth phone call on 03/06 since he does not understand medical terminology well. I put her name and number in the appt notes. Pt thought he was scheduled on 02/04 and I advised they have him scheduled in March for a follow-up on his aspirations scheduled on 02/18. Pt advised this date has been mixed up multipletimes and he has February written down. I tried to reiterate that he is scheduled in March for a follow-up on the procedure which would mean the appt cannot be 02/04. Pt kept arguing that he is scheduled inJ and not March. He would like to hear from the clinic themselves which date he is scheduled. Pt had dates very confused and ended up hanging up on me. Please call pt documented in this encounter Plan of Treatment [...] documented as of this encounter Care Teams Vacuum Frame Operator Relationship Specialty Start Date End Date Bruno Antunez III, DO PCP - General Family Medicine 09/15/23 documented as of this encounter
--- OUTSIDE RECORDS SUMMARY | 2025-04-28 06:26 | XMS_ITS | Encounter Summary ---
Author Organization [facility] Address [address] [place] [address] Care Team Providers Care Body Hanger Name Role Phone Tulio Bruno GOMEZ Primary Care Provider [phone] Bruno Antunez DO Primary Care Provider [phone] Encounter Details Date Type Department Care Team (Late st Contact Info) Description 10/24/2024 Orders Only [facility] [address] [place] [address] Unallocated, Noms Provider, [address] [place] [address] Social History Tobacco Use Types Packs/Day Years [...] Procedure Name Priority Date/Time Associated Diagnosis Comments DUPLEX ARTERIES LOWER EXT RT Routine 10/24/2024 3:43 PM EST documented in this encounter Results * DUPLEX ARTERIES LOWER EXT RT (10/24/2024 3:43 PM EST) Anatomical Region Laterality Modality Radiographic Amie ging us Noms Provider Unallocated MD RILEY XR PROCEDURES F inal Result documented in this encounter Visit Diagnoses Not on filedocumented in this encounter Care Teams Body Hanger Relationship Specialty Start Date End Date Bruno Antunez DO PCP - General Family Medicine 01/24/24 02/24/25 Bruno Antunez DO [address] [phone] PCP - General Family Medicine 02/25/25 documented as of this encounter
--- OUTSIDE RECORDS SUMMARY | 2025-04-28 06:26 | XMS_ITS | Encounter Summary ---
Author Organization [facility] enter Address [address] [place] [address] Care Team Providers Care Quarry Extraction Worker Name Role Phone Tulio BUTLER DO, Rolland Primary Care Provider [phone] Reason for Visit * Reason Onset Date Comments Other 03/15/2025 Follow-up 03/19/2025 Call back Encounter Details Date Type Department Care Team (Late st Contact Info) Description 03/15/2025 Telephone Central Scheduling [address] [place] [address] Flako Almeida MD [address] [place] [address] Other; Follow-up (Call back) Social History Tobacco Use Types Packs/Day Years [...] Telephone Encounter - Fernanda Wilcox ATC - 03/21/2025 4:10 PM EDT Spoke to patient [facility] in another encounter and provided list of doctors names to Carlota. * Telephone Encounter - Fernanda Wilcox ATC - 03/20/2025 4:33 PM EDT Spoke with Dr. Rodriguez regarding a list of providers, will contact patient tomorrow to provide list of names * Telephone Encounter - Fernanda Wilcox ATC - 03/19/2025 4:17 PM EDT I will check on this when Dr. Rodriguez is in clinic tomorrow * Telephone Encounter - Sana Lan - 03/19/2025 4:00 PM EDT Pt of Dr Almeida called in requesting to get the [facility] providers and numbers, pt lostthe page with the information that provider gave at appt Please call back * Telephone Encounter - Halie Roa MA - 03/18/2025 8:21 AM EDT Spoke with nurse at [facility] in let her know pre gaurav that patient can continue * Telephone Encounter - Daron Sinclair - 03/15/2025 3:09 PM EDT Carlota from [facility] calling to ask if pt will need any medications held prior to general anaesthesia. Please call back @ [phone] to advise. documented in this encounter Plan of Treatment [...] documented as of this encounter Care Teams Quarry Extraction Worker Relationship Specialty Start Date End Date Bruno Antunez III, DO PCP - General Family Medicine 09/15/23 documented as of this encounter
--- OUTSIDE RECORDS SUMMARY | 2025-04-28 06:26 | XMS_ITS | Encounter Summary ---
Author Organization [facility] Address [address] [place] [address] Care Team Providers Care Staffing Rn Name Role Phone Unavailable Primary Care Provider Unavailabl e Encounter Details Date Type Department Care Team (Late st Contact Info) Description 11/27/2024 Orders Only [facility] UROLOG[facility] Part of [address] [place] [address] Provider, MD Mat Social History Tobacco Use Types Packs/Day Years Used Date Smoking Tobacco: Former Cigarettes Alcohol Use Standard Drinks/Week Comments Not Currently [...] Procedure Name Priority Date/Time Associated Diagnosis Comments CBC Routine 11/20/2024 8:39 AM EDT COMPREHENSIVE METABOLIC PANEL Routine 11/20/2024 8:38 AM EDT CBC Routine 10/26/2024 8:41 AM EST COMPREHENSIVE METABOLIC PANEL Routine 10/26/2024 8:40 AM EST CBC Routine 10/19/2024 8:44 AM EST COMPREHENSIVE METABOLIC PANEL Routine 10/19/2024 8:42 AM EST CMP, EXTERNAL Routine 2024 8:48 AM EST CBC Routine 2024 8:47 AM EST CBC Routine 10/12/2024 8:58 AM EST documented in this encounter Results * CBC (11/20/2024 8:39 AM EDT) Blood BLOOD SPECIMEN / Unknown Result [facility] Provider HEMATOLOGY ORDERABLES Fin al Result * Comprehensive Metabolic Panel (11/20/2024 8:38 AM EDT) Blood BLOOD SPECIMEN / Unknown Result [facility] Provider CHEMISTRY ORDERABLES Hanny l Result * CBC (10/26/2024 8:41 AM EST) Blood BLOOD SPECIMEN / Unknown Result [facility] Provider HEMATOLOGY ORDERABLES Fin al Result * Comprehensive Metabolic Panel (10/26/2024 8:40 AM EST) Blood BLOOD SPECIMEN / Unknown Result [facility] Provider CHEMISTRY ORDERABLES Hanny l Result * CBC (10/19/2024 8:44 AM EST) Blood BLOOD SPECIMEN / Unknown Result [facility] Provider HEMATOLOGY ORDERABLES Fin al Result * Comprehensive Metabolic Panel (10/19/2024 8:42 AM EST) Blood BLOOD SPECIMEN / Unknown Result [facility] Provider CHEMISTRY ORDERABLES Hanny l Result * CMP, EXTERNAL (2024 8:48 AM EST) us Historical Provider LAB SEND OUT ORDERABLES F inal Result * CBC (2024 8:47 AM EST) Blood BLOOD SPECIMEN / Unknown [facility] Provider HEMATOLOGY ORDERABLES Fin al Result * CBC (10/12/2024 8:58 AM EST) Blood BLOOD SPECIMEN / Unknown [facility] Provider HEMATOLOGY ORDERABLES Fin al Result documented in this encounter Visit Diagnoses Not on filedocumented in this encounter
--- OUTSIDE RECORDS SUMMARY | 2025-04-28 06:26 | XMS_ITS | Encounter Summary ---
Author Organization [facility] Address [id number] [address] [place] [address] Care Team Providers Care Litigation Manager Name Role Phone Unavailable Primary Care Provider Unavailabl e Reason for Visit * Reason Onset Date Comments Chest Pain 04/24/2025 Encounter Details Date Type Department Care Team (Late st Contact Info) Description [facility]/24[facility] [address] [place] [phone] Jessica Ochoa Chest Pain Social History Tobacco Use Types Packs/Day Years Used Date Smoking Tobacco: Never Assessed Comments Unknown Sex and Gender Information Value Date Recorded Sex Assigned at Not on file Legal Sex Female 10:48 AM EDT Gender Identity Not on file Sexual Orientation Not on file documented as of this encounter Miscellaneous Notes * Telephone Encounter - Jessica Ochoa - 04/24/2025 11:49 PM EDT Contract: [address] Brambila * Telephone Encounter - Jessica Ochoa - 04/24/2025 11:49 PM EDT Call was connected documented in this encounter Plan of Treatment Not on file documented as of this encounter Visit Diagnoses Not on filedocumented in this encounter
--- OUTSIDE RECORDS SUMMARY | 2025-04-28 06:27 | XMS_ITS | Encounter Summary ---
Author Organization [facility] Address [address] [place] [address] Care Team Providers Care Janitor Helper Name Role Phone AntunezBruno craven Primary Care Provider [phone] TulioBruno Primary Care Provider [phone] Encounter Details Date Type Department Care Team (Late st Contact Info) Description 12/17/2024 Abstract [facility] [address] [facility] [address] [place] [address] Unallocated, Noms Provider, [address] [place] [address] Social History Tobacco Use Types Packs/Day Years [...] on filedocumented in this encounter Care Teams Janitor Helper Relationship Specialty Start Date End Date Bruno Antunez DO PCP - General Family Medicine 01/24/24 02/24/25 Bruno Antunez DO [address] [facility] [address] [place] [address] PCP - General Family Medicine 02/25/25 documented as of this encounter
--- OUTSIDE RECORDS SUMMARY | 2025-04-28 06:27 | XMS_ITS | Clinical Summary ---
Author Organization [facility] Address [address] [place] [address] Care Team Providers Care Sewing Demonstrator Name Role Phone Bruno Antunez DO Primary Care Provider [phone] Allergies No known active allergies Medications lisinopril 5 MG tablet Take 5 mg by mouth Daily 4 Active rosuvastatin (Crestor) 20 MG tablet 20 mg = 1 tab(s), Oral, Daily, Refills(s) 0 4 Active dilTIAZem CD (Cardizem CD) 120 MG 24 hr capsule Take 120 mg by mouth in the morning. 4 05/01/20 25 Active apixaban (Eliquis) 5 MG tablet Take 5 mg by mouth in the morning and 5 mg before bedtime. 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 10 mL 1 4 Active pregabalin (Lyrica) 75 MG capsuleIndicati ons:Polyneuropa thy Take 1 capsule (75 mg) by mouth in the morning and 1 capsule (75 mg) before bedtime. 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 Immunizations Immunization Administration Dates Next Due Influenza, High Dose Seasona l, Preservative Free 06/23/2021,06/24/2020,07/27/2019,06/05 Influenza, High-dose Seasona l, Quadrivalent, Preservative Free 07/05/2023,09/08/2022 Influenza, Unspecified 06/11/2019 Influenza, seasonal, injectable 05/06/2020,06/07,06/20/2015 Pneumococcal Conjugate PCV 13 02/13/2016, 015 Pneumococcal Conjugate PCV 20 09/08/2022 Pneumococcal Conjugate PCV 7 06/09/2015 Pneumococcal Polysaccharide PPSV23 07/06/2011 TD (adult), 2 Lf tetanus tox oid, preservative free, adsorbed 06/08/2021 Tdap 11/04/2023,08/21/2019 Family History Medical History Relation Name Comments Hypertension Father Hypertension Mother Relation Name Status Comments Father Mother Social History Tobacco Use Types Packs/Day Years Used Date Smoking Tobacco: Former Cigarettes Tobacco Cessation:Counseling Given: Not Answered Sex and Gender Information Value Date Recorded Sex Assigned at Not on file Legal Sex Male 8:32 PM EDT Gender Identity Not on file Sexual Orientation Not on file Last Filed Vital Signs Vital Sign Reading Time Taken Comments Blood Pressure 148/86 10/09/2024 8:56 AM EST Pulse 78 10/09/2024 8:56 AM EST Temperature - - Respiratory Rate 16 08/09/2024 2:48 PM EST Oxygen Saturation 95% 08/09/2024 2:48 PM EST Inhaled Oxygen Concentration - - Weight 123 kg (271 lb) 10/09/2024 8:56 AM EST Height 185.4 cm (6' 1 ) 10/09/2024 8:56 AM EST Body Mass Index 35.75 10/09/2024 8:56 AM EST Plan of Treatment Health Maintenance Due Date Last Done Comments Influenza Vaccine (#1) 2025 , 07/05/2023, 09/08/2022, Additional history exists Pneumococcal Vaccine: 65+ Years Completed 09/08/2022, 09/08/2022, 02/13/2016, Additional history exists Insurance [employer] MEDICARE ADVANTAGE Care Teams Sewing Demonstrator Relationship Specialty Start Date End Date Bruno Antunez DO [address] [id number] PCP - General Family Medicine 02/25/25
--- OUTSIDE RECORDS SUMMARY | 2025-04-28 06:27 | XMS_ITS | Encounter Summary ---
Author Organization [facility] Address [address] [place] [address] Care Team Providers Care Registered Midwife Name Role Phone AntunezBruno craven Primary Care Provider [phone] TulioBruno Primary Care Provider [phone] Encounter Details Date Type Department Care Team (Late st Contact Info) Description 10/19/2024 Abstract [facility]OME[facility]rette [facility] [address] [facility] [address] [place] [address] Unallocated, Noms Provider, [address] [place] [address] Social History Tobacco Use Types Packs/Day Years [...] on filedocumented in this encounter Care Teams Registered Midwife Relationship Specialty Start Date End Date Bruno Antunez DO PCP - General Family Medicine 01/24/24 02/24/25 Bruno Antunez DO [address] [facility] [address] [place] [address] PCP - General Family Medicine 02/25/25 documented as of this encounter
[2025-04-28 06:55] LABS: Hematocrit 34.6 % (42.0-54.0); Hemoglobin 11.3 g/dL (14.0-18.0); Immature Granulocytes Abs Auto 0.05 10^3/uL (0.00-0.03); Immature Granulocytes Pct Auto 0.8 % (0.0-0.5); Lymphocytes Absolute Auto 2.0 10^3/uL (1.2-3.8); Mean Corpuscular HGB Conc 32.7 g/dL (29.9-35.2); Mean Corpuscular Hemoglobin 27.6 pg (25.9-34.0); Mean Corpuscular Volume 84.4 fL (80.0-94.0); Platelet Count 315 10^3/uL (150-450); Red Blood Count 4.10 10^6/uL (4.70-6.10); White Blood Count 6.6 10^3/uL (4.0-11.0)
[2025-04-28 07:09] LABS: Alanine Aminotransferase 24 U/L (16-63); Albumin Globulin Ratio 0.7; Albumin Level 2.2 g/dL (3.4-5.0); Alkaline Phosphatase 68 U/L (46-116); Anion Gap 10.2; Aspartate Amino Transferase 20 U/L (15-37); Blood Urea Nitrogen 16.0 mg/dL (7.0-18.0); Calcium 7.4 mg/dL (8.5-10.1); Carbon Dioxide 26.7 mmol/L (21.0-32.0); Chloride 103 mmol/L (98-107); Estimated GFR (African America >60 (>=60 mL/min/1.73m^2); Estimated GFR (Non-African Ame >60 (>=60 mL/min/1.73m^2); Globulin 3.2 g/dL; Glucose 110 mg/dL (74-106); Potassium 3.9 mmol/L (3.5-5.1); Sodium 136 mmol/L (136-145); Total Protein 5.4 g/dL (6.4-8.2)
[2025-04-28 07:12] LABS: Lactate/Lactic Acid 1.6 mmol/L (0.4-2.0)
[2025-04-28] MEDS: 0.9 % SODIUM CHLORIDE 1,000 ML 999 ML IV (07:17)
--- NOTE | 2025-04-28 07:55 | CT_ITS ---
The [address] [address] Patient Name: ARMANI DAI MRN: [id number] date: 1945 Sex: M Assigned Patient Location: ER Current Patient Location: ER Accession/Order Number: [id number] Exam Date: 04/28/2025 08:20 Report Date: 04/28/2025 08:55 At the request of: LISA BELLA DO Procedure: CT abdomen pelvis w con CT abdomen pelvis w con 04/28/2025 8:25 AM SIGNS AND SYMPTOMS: lower abdominal pain, melena TECHNIQUE: Multidetector ct axial images of the abdomen and pelvis were obtained without IV contrast. Multiplanar reformats were performed and reviewed to further define anatomy and possible pathology. CT was performed with one or more of the following dose reduction techniques: Automated exposure control, adjustment of the mA and/or kV according to patient size, or use of iterative reconstruction technique. COMPARISON: 04/25/2025 FINDINGS: Lower Chest: Mild atherosclerotic changes are noted in the coronary arteries. ABDOMEN: Liver: There is a similar 3 cm hypoattenuating structure in the right hepatic lobe. Bile Ducts: Normal caliber. Gallbladder: Previously removed. Pancreas: Within normal limits. Spleen: Within normal limits. Adrenals: Within normal limits. Kidneys: There is an 8 mm nonobstructing stone in the left renal collecting system. Simple cysts are noted in the renal cortices requiring no further follow-up. Pelvis: Reproductive Organs: No pelvic masses. Ureters: There is a 7 mm stone in the distal left ureter. Bladder: There is a Dykes catheter. There is bladder wall thickening with adjacent fat stranding suspicious for cystitis. Bowel: There is a moderate to large amount of stool throughout colon consistent with constipation. There is a normal appendix in the right lower quadrant. Mesenteric Lymph Nodes: No enlarged mesenteric lymph nodes. Peritoneum: No ascites or free air, no fluid collection. Vessels: Atherosclerotic changes are noted in the abdominal aorta. Retroperitoneum: Within normal limits. Abdominal Wall: Within normal limits. Bones: There is a remote compression deformity of the L4 superior endplate. Degenerative changes are noted throughout the thoracolumbar spine. Degenerative changes are noted in the hips and sacroiliac joints. CT/CT abdomen pelvis w con IMPRESSION: There is a moderate to large amount stool throughout colon consistent with constipation. There is a 7 mm stone in the distal left ureter. There is no resulting hydronephrosis. There is bladder wall thickening with adjacent fat stranding suspicious for cystitis. Additional chronic appearing findings are noted as above. Impression dictated by: Brad Mendoza M.D. 04/28/2025 8:55 AM Dictation Location: [place] [address] Electronically authenticated by: [id number] Y Date: 04/28/2025 08:55
--- NOTE | 2025-04-28 08:18 | ED_ITS ---
HPI HPI - General Adult General Chief complaint: Abdominal Pain Stated complaint: abd pain Time Seen by Provider: 04/28/25 06:43 Source: patient Mode of arrival: ambulance Limitations: no limitations History of Present Illness HPI narrative: Patient is a 79-year-old male presenting to the emergency department from a custodial for concerns of black/tarry stools. Patient has a history of A-fib and is on Eliquis. According to the custodial staff, the patient has been having black/tarry stools over the last couple days. The patient himself states that he has also been having lower abdominal pain and nausea for the last 3 weeks. 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 He denies any other symptoms such as vomiting , chest pain, shortness of breath, fevers, or chills. He states he had a recent colonoscopy a few weeks ago which was normal. He also has an indwelling Dykes catheter that was placed 6 weeks ago, which he states is for prolonged immobilization from his knee surgery. Related Data Home Medications ?Medication ?Instructions ?Recorded ?Confirmed apixaban 5 mg tablet (Eliquis) 5 mg 04/25/25 diltiazem HCl 120 mg 120 mg PO 04/25/25 tablet,extended release 24 hr famotidine 40 mg tablet 40 mg 04/25/25 metoclopramide HCl 5 mg tablet 5 mg 04/25/25 ondansetron HCl 8 mg tablet 8 mg 04/25/25 oxycodone 10 mg tablet mg 04/25/25 oxycodone 15 mg tablet 15 mg 04/25/25 potassium chloride 20 mEq 20 meq PO 04/25/25 tablet,extended release(part/cryst) ropinirole 0.25 mg tablet 0.25 mg 04/25/25 rosuvastatin 20 mg tablet 20 mg 04/25/25 Allergies Allergy/AdvReac Type Severity Reaction Status Date / Time No Known Drug Allergies Allergy Verified 04/28/25 06:20 Opioid HPI Opioid Management Most Recent Opioid Data: Last Pain Scale 6 Today, 06:20 Review of Systems ROS Status of ROS 10 or more systems reviewed and unremark able except as noted in history and below PFSH PFSH Social History Little interest or pleasure in doing things: not at all Feeling down, depressed, or hopeless: not at all Exam Narrative Exam Narrative: CONSTITUTIONAL: Well-appearing, answering questions and following commands appr opriately SKIN: Was warm and dry. EYES: No conjunctival pallor. No scleral icterus EARS, NOSE, THROAT: Moist oral mucosa. RESPIRATORY: Clear to auscultation bilaterally, no wheezes, crackles, or stri ori, no use of accessory muscles CARDIOVASCULAR: Normal rate and regular rhythm. There is no S3, S4, murmur, rub. GASTROINTESTINAL: Mild tenderness to palpation throughout the lower abdomen. No rebound tenderness or guarding. There is a indwelling Dykes catheter draining cloudy urine. Rectal examination performed with a female nurse driver trainer demonstrated black/tarry stool without active bleeding. MUSCULOSKELETAL: There is a left knee effusion and significant limitation with range of motion. There is no significant tenderness to the left knee, overlying erythema or drainage. NEUROLOGIC: Patient is awake and alert. Facies were symmetrical. Constitutional Vital Signs, click to edit/add: Last Vital Signs Temp 98.6 F 04/28/25 06:20 Pulse 68 04/28/25 06:20 Resp 18 04/28/25 06:20 BP 122/72 04/28/25 06:20 Pulse Ox 100 04/28/25 06:20 O2 Del Method Room Air 04/28/25 06:20 Course Vital Signs Vital signs: Vital Signs Temperature 98.6 F 04/28/25 06:20 Pulse Rate 68 04/28/25 06:20 Respiratory Rate 18 04/28/25 06:20 Blood Pressure 122/72 04/28/25 06:20 Pulse Oximetry 100 04/28/25 06:20 Oxygen Delivery Method Room Air 04/28/25 06:20 Temperature 98.6 F 04/28/25 06:20 Pulse Rate 68 04/28/25 06:20 Respiratory Rate 18 04/28/25 06:20 Blood Pressure 122/72 04/28/25 06:20 Pulse Oximetry 100 04/28/25 06:20 Oxygen Delivery Method Room Air 04/28/25 06:20 Medical Decision Making MDM Narrative Medical decision making narrative: Patient is an 79-year-old male presented to the emergency department from a custodial for concerns of melena and lower abdominal pain x 3 weeks. Of note, patient is currently in rehab for left prosthetic joint infection. He also mentions that he had a normal colonoscopy 3 weeks ago. Vital signs on arrival today are within normal limits. He is afebrile and hemodynamically stable. On review of external documentation, patient was seen in the emergency department 3 days ago for chest pain. He had a normal CT PE study, and was only mildly anemic with a hemoglobin ~12. According to the ED note, he was complaining of lower abdominal pain at that time as well. Differential diagnosis includes GI bleed secondary to Eliquis use, anemia, cystitis, or other electrolyte/metabolic derangement. IV was established and laboratory studies were obtained. Dykes catheter was replaced and a clean urine sample was obtained. CT abdomen/pelvis was ordered. He was given 1 L bolus normal saline. Fecal occult blood test is positive. Laboratory studies were significant for anemia with a hemoglobin of 11.3 which is downtrending from studies drawn three days ago when his hemoglobin was 12.8. No other significant electrolyte or metabolic derangement. His BUN is 16 with a normal creatinine. No transaminitis or hyperbilirubinemia. Urinalysis was indicative of UTI. CT abdomen/pelvis independently reviewed/interpreted by myself and radiology demonstrated evidence of cystitis with 7 mm nonobstructive stone in the distal ureter and moderate constipation. Patient will require transfer to [facility] for higher level of care - including GI capabilities. Patient was treated empirically for cystitis with IV ceftriaxone. I discussed the patient with Dr. Pinedo with GI, who accepted the transfer. I discussed the patient with Dr. Billingsley, hospitalist, who accepted the transfer. He remains hemodynamically stable with normal vital signs at the time of transfer. FINAL IMPRESSION: #Acute GI bleed #Acute cystitis DISPOSITION: Transferred to [facility] CONDITION: Good Medical Records Medical records reviewed: Yes I reviewed the patient's medical records Lab Data Lab results reviewed: Yes I reviewed the patient's lab results Labs: Lab Results 04/28/25 04/28/25 04/28/25 Range/Units 06:25 07:18 08:57 WBC 6.6 (4.0-11.0) 10^3/uL RBC 4.10 L (4.70-6.10) 10^6/uL Hgb 11.3 L (14.0-18.0) g/dL Hct 34.6 L (42.0-54.0) % MCV 84.4 (80.0-94.0) fL MCH 27.6 (25.9-34.0) pg MCHC 32.7 (29.9-35.2) g/dL RDW 16.7 H (11.0-15.0) % Plt Count 315 (150-450) 10^3/uL MPV 9.6 (9.5-13.5) fL Neut % (Auto) 50.7 (43.0-75.0) % Lymph % (Auto) 30.5 (20.5-60.0) % [place]ent % (Auto) 13.7 H (1.7-12.0) % Eos % (Auto) 3.7 (0.9-7.0) % Baso % (Auto) 0.6 (0.2-2.0) % Neut # (Auto) 3.3 (1.4-6.5) 10^3/uL Lymph # (Auto) 2.0 (1.2-3.8) 10^3/uL Sargent # (Auto) 0.9 H (0.3-0.8) 10^3/uL Eos # (Auto) 0.2 (0.0-0.7) 10^3/uL Baso # (Auto) 0.0 (0.0-0.1) 10^3/uL Abs Immat Gran (auto) 0.05 H (0.00-0.03) 10^3/uL Imm/Tot Granulo (auto) 0.8 H (0.0-0.5) % Sodium 136 (136-145) mmol/L Potassium 3.9 (3.5-5.1) mmol/L Chloride 103 (98-107) mmol/L Carbon Dioxide 26.7 (21.0-32.0) mmol/L Anion Gap 10.2 BUN 16.0 (7.0-18.0) mg/dL Creatinine 0.82 (0.70-1.30) mg/dL Est GFR ( Amer) >60 (>=60 mL/min/1.73m^2) Est GFR (Non-Af Amer) >60 (>=60 mL/min/1.73m^2) BUN/Creatinine Ratio 19.5 Glucose 110 H (74-106) mg/dL Lactate 1.6 (0.4-2.0) mmol/L Calcium 7.4 L (8.5-10.1) mg/dL Total Bilirubin 0.5 (0.2-1.0) mg/dL AST 20 (15-37) U/L ALT 24 (16-63) U/L Alkaline Phosphatase 68 (46-116) U/L Total Protein 5.4 L (6.4-8.2) g/dL Albumin 2.2 L (3.4-5.0) g/dL Globulin 3.2 g/dL Albumin/Globulin Ratio 0.7 Urine Color Lt. yellow (YELLOW) Urine Clarity Clear (CLEAR) Urine pH 5.5 (5.0-9.0) Ur Specific [place] <=1.005 A (1.005-1.025) Urine Protein Negative (NEG/TRACE) mg/dL Urine Glucose (UA) Negative (NEGATIVE) mg/dL Urine Ketones Negative (NEGATIVE) mg/dL Urine Occult Blood Trace-i (NEGATIVE) Urine Nitrite Positive A (NEGATIVE) Urine Bilirubin Negative (NEGATIVE) Urine Urobilinogen 1.0 (0.2-1.0) EU/dL Ur Leukocyte Esterase Trace A (NEGATIVE) Urine RBC 0-2 (0-2) #/HPF Urine WBC 2-5 A (NONE SEEN) #/HPF Ur Squamous Epith Cells Rare (NONE/RARE) #/LPF Urine Crystals None seen (None Seen) #/HPF Urine Bacteria Small A (NONE SEEN) #/HPF Urine Casts None seen (NONE SEEN) #/LPF Urine Mucus None seen (NONE SEEN) Ur Culture Indicated? Yes-[facility] Stool Occult Blood Positive A Imaging Data CT scan - abdomen: Attestation: I personally reviewed and interpreted this imaging study as follows: Radiologist's impression: ITS Impressions Abdomen/Pelvis CT 04/28/25 07:55 IMPRESSION: There is a moderate to large amount stool throughout colon consistent with constipation. There is a 7 mm stone in the distal left ureter. There is no resulting hydronephrosis. There is bladder wall thickening with adjacent fat stranding suspicious for cystitis. Additional chronic appearing findings are noted as above. Impression dictated by: Brad Mendoza M.D. 04/28/2025 8:55 AM Dictation Location: [place] [address] Electronically authenticated by: [id number] Y Date: 04/28/2025 08:55 Discharge Plan Discharge Chief Complaint: Abdominal Pain Clinical Impression: Cystitis GI (gastrointestinal bleed) Qualifiers: GI bleed type/associated pathology: melena Qualified Code(s): K92.1 - Melena Patient Disposition: [facility] Time of Disposition Decision: 10:32 Discharge Location: [facility] Condition: Good Mode of Transportation: EMS
[2025-04-28 09:05] LABS: Glucose Urine UA NEGATIVE (NEGATIVE)
[2025-04-28 09:12] LABS: Cast Seen? NONE SEEN #/LPF (NONE SEEN); Crystals Seen? None Seen #/HPF (None Seen); Urine Culture Indicated YES-FRMC
[2025-04-28 12:15] VITALS: BP 127/71; PULSE 70; TEMP 36.6; O2SAT 97
== END 2025-04-28 12:16 | disposition short-term general hospital (02) ==
PROVIDERS: Internal Medicine; Emergency Provider Student in an Organized Health Care Education/Training Program; PCP Family Medicine
DX: N30.90 Cystitis, unspecified without hematuria (principal); K92.1 Melena; R10.84 Generalized abdominal pain; R11.0 Nausea; K59.00 Constipation, unspecified; N20.1 Calculus of ureter
CPT/HCPCS: 36415; 74177; 80053; 81001; 83605; 83631; 85025; 87086; 87088; 87186; 96365; 96375; 99285; G0328; J0696; J2405; Q9967

== ENCOUNTER 2025-05-03 11:29 | Outpatient (REF) | payer MEDICARE, SELFPAY ==
--- OUTSIDE RECORDS SUMMARY | 2025-04-23 14:00 | XMS_ITS | Encounter Summary ---
Author Organization [facility] enter Address [address] [place] [address] Care Team Providers Care Party Plan Sales Host/Hostess Name Role Phone Tulio BUTLER DO, [place] Primary Care Provider [phone] Reason for Referral * Adjunctive Therapy (Routine) - New Request Specialty Diagnoses / Procedures Referred By Fidel pearson Referred To Contact PreOp Diagnoses Infection associated with internal left knee prosthesis, subsequent encounter Dick Monique PA-C [address] [place] [address] Phone: tel: fax: Referral ID Status Reason Start Date Expiration Date V isits Requested Visits Authorized [id number] New Request 04/23/2025 05/18/2026 1 1 Reason for Visit * Reason Comments Follow-up Encounter Details Date Type Department Care Team (Late st Contact Info) Description 04/23/2025 2:00 PM EDT Telemedicine [facility] [address] [place] [address] Dick Monique PA-C [address] [place] [address] Infection associated with internal left knee prosthesis, subsequent encounter (Primary Dx) Social History Tobacco Use Types Packs/Day Years Used Date Smoking Tobacco: Former Cigarettes Q uit: 07/1994 Smokeless Tobacco: Never Comments:Quit 1993 Alcohol Use Standard Drinks/Week Comments Yes 1 (1 standard drink = 0.6 oz pur e alcohol) occasional Overall Financial Resource Strain (CARDIA) Answe r Date Recorded How hard is it for you to pa y for the very basics like food, housing, medical care, and heating? Not hard at all 11/01/2024 NCSS - Food Insecurity Answer Date Romie rded Within the past 12 months, d id you worry that your food would run out before you got money to buy more? No 11/01/2024 Within the past 12 months, d id the food you bought just not last and you didn t have money to get more? No 11/01/2024 NCSS - Housing/Utilities Answer Date Re corded Do you have housing? Yes 11/01/2024 Are you worried about losing your housing? No 11/01/2024 Within the past 12 months, h ave you or your family members you live with been unable to get utilities (heat, electricity) when it was really needed? No 11/01/2024 NCSS - Transportation Answer Date Recor ded Within the past 12 months, h as lack of transportation kept you from medical appointments, getting your medicines, non-medical meetings or appointments, work, or from getting things that you need? No 11/01/2024 NCSS - Utilities Answer Date Recorded Within the past 12 months, h ave you or your family members you live with been unable to get utilities (heat, electricity) when it was really needed? No 11/01/2024 Sex and Gender Information Value Date Recorded Sex Assigned at Not on file Legal Sex Male 11:02 AM EST Gender Identity Not on file Sexual Orientation Not on file documented as of this encounter Functional Status * Are you deaf or do you have serious difficulty hearing? Answer Date of Assessment Author No 11/01/2024 3:30 AM Everette Gonzalez RN * Are you blind or do you have serious difficulty seeing, even when wearing glasses? Answer Date of Assessment Author No 11/01/2024 3:30 AM Everette Gonzalez RN * Do you have serious difficulty walking or climbing stairs (5 years or older)? Answer Date of Assessment Author No 11/01/2024 3:30 AM Everette Gonzalez RN * Do you have difficulty dressing or bathing (5 yrs or older)? Answer Date of Assessment Author No 11/01/2024 3:30 AM Everette Gonzalez RN * Because of a physical, mental, or emotional condition, do you have difficulty doing errands alone such as visiting a doctor's office or shopping (5 yrs or older)? Answer Date of Assessment Author No 11/01/2024 3:30 AM Everette Gonzalez RN documented as of this encounter Mental Status * Because of a physical, mental, or emotional condition, do you have serious difficulty concentrating, remembering, or making decisions (5 yrs or older)? Answer Entry Date Author No 11/01/2024 3:30 AM Everette Gonzalez RN documented in this encounter Progress Notes * Dick Monique PA-C - 04/23/2025 2:00 PM EDT [facility] Total Joint Arthroplasty Return - Telephone Visit Earle Santos verbally consents to the submission of a virtual synchronous check- in note. This telehealth visit is a realtime telephone visit. he is aware of the risk, benefits and possible coinsurance/co-pay cost. Primary care provider: Dr. Bruno Antunez III Patient location: [facility] Telephone Encounter: We called Earle Santos today to further discuss his left knee. Previously treated with L knee explant and static spacer with gastroc flap about 6 months ago. Bilateral knee aspirations were obtained 03/19/2025. Results Interpretation: L knee: cultures all no growth, not enough fluid obtained for cell count or synovasure ASSESSMENT AND PLAN ICD-10-CM 1. Infection associated with internal left knee prosthesis, subsequent encounter T84.54XD PLAN: L knee static spacer, appears to have cleared PJI from aspiration results. We had a discussion about left revision total knee replacement and he was given the opportunity to ask questions and they were answered to his satisfaction. He has elected to proceed with second stage left revision knee replacement. We will have our surgery scheduling team reach out to the patient to further discuss timingand help arrange preoperative optimization. 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 of antibiotic-impregnated cement spacer Scheduled Referrals Name Type Priority Associated Diagnoses Orde r Schedule AMB REFERRAL TO OPAC Outpatient Referral Routine Infection associated with internal left knee prosthesis, subsequent encounter Ordered: 04/23/2025 documented as of this encounter Visit Diagnoses Diagnosis Infection associated with internal left knee prosthesis, subsequent encounter- Primary documented in this encounter Additional Health Concerns Assessment Noted Time A fall risk assessment has been complete d for the patient 11/22/2024 10:06 AM EDT documented as of this encounter Care Teams Party Plan Sales Host/Hostess Relationship Specialty Start Date End Date Bruno Antunez III, DO PCP - General Family Medicine 09/15/23 documented as of this encounter
--- OUTSIDE RECORDS SUMMARY | 2025-05-03 11:31 | XMS_ITS | Encounter Summary ---
Author Organization [facility] Address [address] [place] [address] Phone Care Team Providers Care Embedder Name Role Phone Kishore Donis DO Primary Care Provider [phone] Kishore Donis DO Primary Care Provider [phone] Bruno Antunez DO Primary Care Provider Encounter Details Date Type Department Care Team (Late st Contact Info) Description 01/12/[address] [facility] [address] [place] [address] Conversion, Onbase Social History Tobacco Use Types [...] on filedocumented in this encounter Care Teams Embedder Relationship Specialty Start Date End Date Kishore Donis DO PCP - General 11/25/22 10/04/23 Kishore Donis DO PCP - General Family Medicine 10/05/23 01/24/24 Bruno Antunez DO [address] [place] [address] PCP - General Family Medicine 01/25/24 documented as of this encounter
--- OUTSIDE RECORDS SUMMARY | 2025-05-03 11:31 | XMS_ITS | Clinical Summary ---
Author Organization [facility] Address [address] [place], [place] [id number] Care Team Providers Care Sanitation Engineer Name Role Phone Earle Larsen MD Primary [...] 1,000 Units by mouth once daily. Active [id number]- Fish Oil (FISH OIL) 1,000 mg (120 mg-180 mg) capIndications:S creening for nephropathy,Skin cancer Take 2 g by mouth twice daily. Active Active Problems Problem Noted Date Diagnosed Date Skin cancer 08/16/2017 Encounters Date Type Department Care Team Description 04/05/2025 Telephone [facility] [place] [address] [place] [address] Jose Nuñez MD from Last 3 Months [...] N ot on file 08/10/2020 Data from: [email or web address].[email or web address] Last address used for calculation Not [...] Res ult from Last 3 Months Insurance [facility] MEDICARE ADVANTAGE PPO Care Teams Sanitation Engineer Relationship Specialty Start Date End Date Earle Larsen MD [address] [place] [address] PCP - General Family Medicine 08/04/17 Jase Harris [address] [address] General Surgery 08/04/17
--- OUTSIDE RECORDS SUMMARY | 2025-05-03 11:31 | XMS_ITS | Encounter Summary ---
Author Organization [facility] Address [address] [place] [address] Phone Care Team Providers Care Billing Machine Operator Name Role Phone Kishore Donis DO Primary Care Provider [phone] Kishore Donis DO Primary Care Provider Bruno Antunez DO Primary Care Provider Encounter Details Date Type Department Care Team (Late st Contact Info) Description 03/19/2022 Orders Only [facility] [address] [place] [address] Conversion, Onbase Social History Tobacco Use Types [...] on filedocumented in this encounter Care Teams Billing Machine Operator Relationship Specialty Start Date End Date Kishore Donis DO PCP - General 11/25/22 10/04/23 Kishore Donis DO PCP - General Family Medicine 10/05/23 01/24/24 Bruno Antunez DO [address] [place] [address] PCP - General Family Medicine 01/25/24 documented as of this encounter
--- OUTSIDE RECORDS SUMMARY | 2025-05-03 11:31 | XMS_ITS | Encounter Summary ---
Author Organization [facility] Address [address] [place] [address] Phone Care Team Providers Care Mechanical Designer Name Role Phone Kishore Donis DO Primary Care Provider [phone] Kishore Donis DO Primary Care Provider [phone] Bruno Antunez DO Primary Care Provider Encounter Details Date Type Department Care Team (Late st Contact Info) Description 05/04/2023 Orders Only [facility] [address] [place] [address] Conversion, Onbase Social History Tobacco Use Types [...] on filedocumented in this encounter Care Teams Mechanical Designer Relationship Specialty Start Date End Date Kishore Donis DO PCP - General 11/25/22 10/04/23 Kishore Donis DO PCP - General Family Medicine 10/05/23 01/24/24 Bruno Antunez DO [address] [place] [address] PCP - General Family Medicine 01/25/24 documented as of this encounter
--- OUTSIDE RECORDS SUMMARY | 2025-05-03 11:31 | XMS_ITS | Encounter Summary ---
Author Organization [facility] Address [address] [place] [address] Phone Care Team Providers Care Insurance Claims Processor Name Role Phone Kishore Donis DO Primary Care Provider [phone] Kishore Donis DO Primary Care Provider [phone] Bruno Antunez DO Primary Care Provider Encounter Details Date Type Department Care Team (Late st Contact Info) Description 09/27/2022 Orders Only [facility] [address] [place] [address] Conversion, Onbase Social History Tobacco Use Types [...] on filedocumented in this encounter Care Teams Insurance Claims Processor Relationship Specialty Start Date End Date Kishore Donis DO PCP - General 11/25/22 10/04/23 Kishore Donis DO PCP - General Family Medicine 10/05/23 01/24/24 Bruno Antunez DO [address] [place] [address] PCP - General Family Medicine 01/25/24 documented as of this encounter
--- OUTSIDE RECORDS SUMMARY | 2025-05-03 11:31 | XMS_ITS | Encounter Summary ---
Author Organization [facility] Address [address] [place] [address] Phone Care Team Providers Care Plastic Press Molder Name Role Phone Kishore Donis DO Primary Care Provider [phone] Kishore Donis DO Primary Care Provider [phone] Bruno Antunez DO Primary Care Provider Encounter Details Date Type Department Care Team (Late st Contact Info) Description 11/10/2022 Orders Only [facility] [address] [place] [address] Conversion, Onbase Social History Tobacco Use Types [...] r Schedule OUTSIDE LAB SCAN Lab Ordered: 11/10/2022 documented as of this encounter Visit Diagnoses Not on filedocumented in this encounter Care Teams Plastic Press Molder Relationship Specialty Start Date End Date Kishore Donis DO PCP - General 11/25/22 10/04/23 Kishore Donis DO PCP - General Family Medicine 10/05/23 01/24/24 Bruno Antunez DO [address] [place] [place] [address] PCP - General Family Medicine 01/25/24 documented as of this encounter
--- OUTSIDE RECORDS SUMMARY | 2025-05-03 11:32 | XMS_ITS | Encounter Summary ---
Author Organization [facility] Address [address] [place] [address] Care Team Providers Care Aircraft Maintenance Supervisor Name Role Phone AntunezBruno craven Primary Care Provider [phone] Bruno Antunez DO Primary Care Provider [phone] Encounter Details Date Type Department Care Team (Late st Contact Info) Description 09/13/2024 Clinisync Result Encounter [facility] External Department Unsolicited Rasheed Crump, ASHOKM FACFAS [address] [place] [address] Social History Tobacco Use Types [...] on filedocumented in this encounter Care Teams Aircraft Maintenance Supervisor Relationship Specialty Start Date End Date Bruno Antunez DO PCP - General Family Medicine 01/24/24 02/24/25 Bruno Antunez DO [address] [place], [place] [address]dict Mattie [address] [phone] PCP - General Family Medicine 02/25/25 documented as of this encounter
--- OUTSIDE RECORDS SUMMARY | 2025-05-03 11:32 | XMS_ITS | Encounter Summary ---
Author Organization [facility] Address [address] [place] [address] Care Team Providers Care Loan Assistant Name Role Phone Bruno Antunez DO Primary Care Provider [phone] Bruno Antunez DO Primary Care Provider [phone] Encounter Details Date Type Department Care Team (Late st Contact Info) Description 09/14/2024 Abstract [facility] [address] [place] [phone] Rasheed Crump, DPM FACFAS [address] [place], [place] [id number] Social History Tobacco Use Types Packs/Day Years [...] on filedocumented in this encounter Care Teams Loan Assistant Relationship Specialty Start Date End Date Bruno Antunez DO PCP - General Family Medicine 01/24/24 02/24/25 Bruno Antunez DO [address] [place] [phone] PCP - General Family Medicine 02/25/25 documented as of this encounter
--- OUTSIDE RECORDS SUMMARY | 2025-05-03 11:32 | XMS_ITS | Encounter Summary ---
Author Organization [facility] enter Address [address] [place] [address] Care Team Providers Care Train Control Electronic Technician Name Role Phone Tulio BUTLER DO, Rolland Primary Care Provider [phone] Reason for Visit * Reason Onset Date Comments Appointment 01/25/2025 Encounter Details Date Type Department Care Team (Late st Contact Info) Description 01/25/2025 Telephone Central Scheduling [address] [place] [address] Flako Almeida MD [address] [place] [address] Appointment Social History Tobacco Use Types [...] documented as of this encounter Care Teams Train Control Electronic Technician Relationship Specialty Start Date End Date Bruno Antunez III, DO PCP - General Family Medicine 09/15/23 documented as of this encounter
--- OUTSIDE RECORDS SUMMARY | 2025-05-03 11:32 | XMS_ITS | Encounter Summary ---
Author Organization [facility] enter Address [address] [place] [address] Care Team Providers Care Financial Auditor Name Role Phone Tulio BUTLER DO, Rolland Primary Care Provider [phone] Reason for Visit * Reason Onset Date Comments Schedule Surgery 04/11/2025 Encounter Details Date Type Department Care Team (Late st Contact Info) Description 04/09/2025 Telephone Orthopedics Outpatient Care [facility] [address] [place] [address] Flako Almeida MD [address] [place] [address] Schedule Surgery Social History Tobacco [...] 3:14 PM EDT Spoke with Marc the director nursing service at the facility that Earle is currently [...] he was wanting to go to the [facility] due to him not wanting to wait [...] for a left knee revision with Dr. Almeida I informed Earle that due to Dr. [...] documented as of this encounter Care Teams Financial Auditor Relationship Specialty Start Date End Date Bruno Antunez III, DO PCP - General Family Medicine 09/15/23 documented as of this encounter
--- OUTSIDE RECORDS SUMMARY | 2025-05-03 11:32 | XMS_ITS | Encounter Summary ---
Author Organization [facility] Address [address] [place] [address] Phone Care Team Providers Care Floor Associate Name Role Phone Bruno Antunez DO Primary Care Provider Encounter Details Date Type Department Care Team (Late st Contact Info) Description 09/15/2024 Scanned Document [facility] [address] [place] [address] Scanning, Generic Provider Social History [...] documented as of this encounter Care Teams Floor Associate Relationship Specialty Start Date End Date Bruno Antunez DO [address] [place] [phone] PCP - General Family Medicine 01/25/24 documented as of this encounter
--- OUTSIDE RECORDS SUMMARY | 2025-05-03 11:32 | XMS_ITS | Encounter Summary ---
Author Organization [facility] Address [address] [place] [address] Phone Care Team Providers Care Backup Operator Name Role Phone Bruno Antunez DO Primary Care Provider [phone] Encounter Details Date Type Department Care Team (Late st Contact Info) Description 09/14/2024 Scanned Document [facility] [address] [place] [address] Scanning, Generic Provider Social History [...] documented as of this encounter Care Teams Backup Operator Relationship Specialty Start Date End Date Bruno Antunez DO [address] [place] [address] PCP - General Family Medicine 01/25/24 documented as of this encounter
--- OUTSIDE RECORDS SUMMARY | 2025-05-03 11:32 | XMS_ITS | Encounter Summary ---
Author Organization [facility] enter Address [address] [place] [address] Care Team Providers Care Lottery Clerk Name Role Phone Tulio BUTLER DO, Rolland Primary Care Provider [phone] Reason for Visit * Reason Onset Date Comments Advice Only 12/21/2024 Encounter Details Date Type Department Care Team (Late st Contact Info) Description 12/21/2024 Telephone Central Scheduling [address] [place] [address] Flako Almeida MD [address] [place] [address] Advice Only Social History Tobacco Use [...] home care Best call back for Lucy [phone] documented in this encounter Plan of Treatment [...] documented as of this encounter Care Teams Lottery Clerk Relationship Specialty Start Date End Date Bruno Antunez III, DO PCP - General Family Medicine 09/15/23 documented as of this encounter
--- OUTSIDE RECORDS SUMMARY | 2025-05-03 11:32 | XMS_ITS | Encounter Summary ---
Author Organization [facility] Address [address] [place] [address] Care Team Providers Care Farm Tractor Mechanic Name Role Phone Antunez DO BUTLER Rolland Primary Care Provider [phone] Encounter Details Date Type Department Care Team (Late st Contact Info) Description 03/18/2025 Telephone Central Scheduling [address] [place] [address] Bjorn Meyers Social History Tobacco [...] documented as of this encounter Care Teams Farm Tractor Mechanic Relationship Specialty Start Date End Date Bruno Antunez III, DO PCP - General Family Medicine 09/15/23 documented as of this encounter
--- OUTSIDE RECORDS SUMMARY | 2025-05-03 11:32 | XMS_ITS | Encounter Summary ---
Author Organization [employer] Address [id number] [address] [place] [address] Care Team Providers Care Stitcher Set Up Operator Automatic Name Role Phone Unavailable Primary Care Provider Unavailabl e Encounter Details Date Type Department Care Team (Late st Contact Info) Description 04/17/2025 [facility] - [facility] Medicine [address] [place] [address] Marty Brambila, DO [address] [facility], [place] [address] Alzheimer's disease with late onset (CODE) ([facility]) (Primary Dx); Diabetes mellitus due to underlying condition with diabetic polyneuropathy, without long-term current use of insulin ([facility]); Urinary tract infection associated with indwelling urethral [...] : 1945 Date of Service: 04/17/2025 Facility: [facility] Type of Visit: Admission H&P Subjective Earle Santos is a 79 y.o. female seen today at fdc facility for admission H&P. Earle presents to [facility] from [facility] where he was treated for a UTI. He has been in and out of hospitals and fdc facilities over the last 8 months. Heoriginally [...] symptoms or problems. He has had a Dyeks catheter in for6 weeks. He is supposed to have surgery on his knees again. It was originally done at [facility] but [facility] is[facility]. Allergies: Patient has no allergy information on [...] 1. Alzheimer's disease with late onset (CODE) ([facility]) 2. Diabetes mellitus due to underlying condition with diabetic polyneuropathy, without long-term current use of insulin ([facility]) 3. Urinary tract infection associated with indwelling [...] esophagitis 10. Restless leg syndrome Admit to [facility] for therapies. Continue medications from hospital. Continue pain medication. He is using a high risk medication with benefit. [facility] rehab potential. ELECTRONICALLY SIGNED BY: Marty Brambila DO documented in this encounter Plan of Treatment Not on file documented as of this encounter Visit Diagnoses Diagnosis Alzheimer's disease with late onset (CODE) ([facility])- Primary Diabetes mellitus due to underlying condition with diabetic polyneuropathy, without long-term current use of insulin ([facility]) Urinary tract infection associated with indwelling urethral [...]
--- OUTSIDE RECORDS SUMMARY | 2025-05-03 11:32 | XMS_ITS | Encounter Summary ---
Author Organization [facility] Address [address] [place] [address] Care Team Providers Care Video Tape Transferrer Name Role Phone Bruno Antunez DO Primary Care Provider [phone] Bruno Antunez DO Primary Care Provider [phone] Encounter Details Date Type Department Care Team (Late st Contact Info) Description 09/13/2024 Abstract [facility] [address] [place] [phone] Rasheed Crump, DPM FACFAS [address] [place], [place] [id number] Social History Tobacco Use Types Packs/Day Years [...] on filedocumented in this encounter Care Teams Video Tape Transferrer Relationship Specialty Start Date End Date Bruno Antunez DO PCP - General Family Medicine 01/24/24 02/24/25 Bruno Antunez DO [address] [place] [phone] PCP - General Family Medicine 02/25/25 documented as of this encounter
--- OUTSIDE RECORDS SUMMARY | 2025-05-03 11:32 | XMS_ITS | Encounter Summary ---
Author Organization [facility] Address [address] [place] [address] Phone Care Team Providers Care Hull Grinder Name Role Phone Bruno Antunez DO Primary Care Provider [phone] Encounter Details Date Type Department Care Team (Late st Contact Info) Description 09/12/2024 Scanned Document [facility] [address] [place] [address] Scanning, Generic Provider Social History [...] documented as of this encounter Care Teams Hull Grinder Relationship Specialty Start Date End Date Bruno Antunez DO [address] [place] [address] PCP - General Family Medicine 01/25/24 documented as of this encounter
--- OUTSIDE RECORDS SUMMARY | 2025-05-03 11:32 | XMS_ITS | Clinical Summary ---
Author Organization [facility] Address [address] [place] [address] Phone Care Team Providers Care Ampoule Filler Name Role Phone Bruno Antunez DO Primary Care Provider [phone] Allergies No known active allergies Medications acetaminophen [...] rosuvastatin (Crestor) 20 mg tabletIndications:A therosclerosis of tejon coronary artery of tejon heart without angina pectoris,Hyperlipid emia, unspecified hyperlipidemia type Take 1 tablet (20 mg) by mouth once daily. 90 tablet 3 4 Active dilTIAZem CD (Cardizem CD) 120 mg 24 hr capsuleIndications: Essential hypertension Take 1 capsule (120 mg) by mouth once daily. 90 capsule 3 4 Active Active Problems Problem Noted Date Diagnosed Date Adult BMI 32.0-32.9 kg/sq m 01/25/2024 Former cigarette smoker 01/25/2024 Atherosclerosis of tejon co ronary artery of tejon heart without angina pectoris 10/04/2023 Diabetes mellitus [...] A1C 12/19/2023 024, 01/12/2023, 08/18/2022 COVID-19 Vaccine ( season) 2024 07/05/2023, 12/30/2022, 01/22/2022, Additional [...] this topic Insurance [employer] Care Teams Ampoule Filler Relationship Specialty Start Date End Date Bruno Antunez DO [address] [place] [address] PCP - General Family Medicine 01/25/24
--- OUTSIDE RECORDS SUMMARY | 2025-05-03 11:32 | XMS_ITS | Encounter Summary ---
Author Organization [facility] Address [address] [place] [address] Phone Care Team Providers Care Box Blank Machine Feeder Name Role Phone Bruno Antunez DO Primary Care Provider [phone] Encounter Details Date Type Department Care Team (Late st Contact Info) Description 09/13/2024 Scanned Document [facility] [address] [place] [address] Scanning, Generic Provider Social History [...] documented as of this encounter Care Teams Box Blank Machine Feeder Relationship Specialty Start Date End Date Bruno Antunez DO [address] [place] [address] PCP - General Family Medicine 01/25/24 documented as of this encounter
--- OUTSIDE RECORDS SUMMARY | 2025-05-03 11:32 | XMS_ITS | Clinical Summary ---
Author Organization [employer] Address [id number] [address] 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
--- OUTSIDE RECORDS SUMMARY | 2025-05-03 11:32 | XMS_ITS | Encounter Summary ---
Author Organization [facility] Address [address] [place] [address] Care Team Providers Care Senior Sales Assistant Name Role Phone Bruno Antunez DO Primary Care Provider [phone] AntunezBruno craven Primary Care Provider [phone] Encounter Details Date Type Department Care Team (Late st Contact Info) Description 05/24/2024 Orders Only [facility] [address] [place] [address] Angelina Rothman PA Social History [...] on filedocumented in this encounter Care Teams Senior Sales Assistant Relationship Specialty Start Date End Date Bruno Antunez DO PCP - General Family Medicine 01/24/24 02/24/25 Bruno Antunez DO [address] [address] PCP - General Family Medicine 02/25/25 documented as of this encounter
--- OUTSIDE RECORDS SUMMARY | 2025-05-03 11:32 | XMS_ITS | Encounter Summary ---
Author Organization [employer] Address [id number] [address] [place] [address] Care Team Providers Care Networks Software Consultant Name Role Phone Unavailable Primary Care Provider Unavailabl e Reason for Visit * Reason Onset Date Comments Chest Pain 04/24/2025 Encounter Details Date Type Department Care Team (Late st Contact Info) Description [facility]/24/[facility] [address] [place] [address] Jessica Ochoa Chest Pain Social History Tobacco [...]
--- OUTSIDE RECORDS SUMMARY | 2025-05-03 11:32 | XMS_ITS | Encounter Summary ---
Author Organization [facility] Address [address] [place] [address] Care Team Providers Care Tester Printed Circuit Boards Name Role Phone AntunezBruno craven Primary Care Provider [phone] Bruno Antunez DO Primary Care Provider [phone] Encounter Details Date Type Department Care Team (Late st Contact Info) Description 09/13/2024 Clinisync Result Encounter [facility] External Department Unsolicited Rasheed Crump, DPM FACFAS [address] [place] [address] Social History Tobacco Use Types [...] on filedocumented in this encounter Care Teams Tester Printed Circuit Boards Relationship Specialty Start Date End Date Bruno Antunez DO PCP - General Family Medicine 01/24/24 02/24/25 Bruno Antunez DO [address] [phone] PCP - General Family Medicine 02/25/25 documented as of this encounter
--- OUTSIDE RECORDS SUMMARY | 2025-05-03 11:32 | XMS_ITS | Encounter Summary ---
Author Organization [facility] Address [address] [place] [address] Care Team Providers Care Metrology Technician Name Role Phone Bruno Antunez DO Primary Care Provider [phone] Bruno Antunez DO Primary Care Provider [phone] Encounter Details Date Type Department Care Team (Late st Contact Info) Description 09/14/2024 Abstract [facility] [address] [place] [phone] Rasheed Crump, DPM FACFAS [address] [place], [place] [phone] Social History Tobacco Use Types Packs/Day Years [...] on filedocumented in this encounter Care Teams Metrology Technician Relationship Specialty Start Date End Date Bruno Antunez DO PCP - General Family Medicine 01/24/24 02/24/25 Bruno Antunez DO [address] [place] [address] PCP - General Family Medicine 02/25/25 documented as of this encounter
--- OUTSIDE RECORDS SUMMARY | 2025-05-03 11:32 | XMS_ITS | Encounter Summary ---
Author Organization [facility] Address [address] [place] [address] Care Team Providers Care Aquatics Specialist Name Role Phone AntunezBruno craven Primary Care Provider Bruno Antunez DO Primary Care Provider [phone] Encounter Details Date Type Department Care Team (Late st Contact Info) Description 09/14/2024 Clinisync Result Encounter [facility] External Department Unsolicited Rasheed Crump, DPM FACFAS [address] [place] [address] Social History Tobacco Use Types [...] on filedocumented in this encounter Care Teams Aquatics Specialist Relationship Specialty Start Date End Date Antunez, Bruno, PCP - General Family Medicine 01/24/24 02/24/25 Bruno Antunez DO [address] [phone] PCP - General Family Medicine 02/25/25 documented as of this encounter
--- OUTSIDE RECORDS SUMMARY | 2025-05-03 11:32 | XMS_ITS | Encounter Summary ---
Author Organization [facility] enter Address [address] [place] [address] Care Team Providers Care Product Representative Name Role Phone Tulio BUTLER DO, Rolland Primary Care Provider [phone] Reason for Visit * Reason Onset Date Comments Surgery 02/18/2025 Please call back /advise Reschedule 02/19/2025 Encounter Details Date Type Department Care Team (Late st Contact Info) Description 02/18/2025 Telephone Central Scheduling [address] [place] [address] Flako Almeida MD [address] [place] [address] Surgery (Please call back/advise); Reschedule Social [...] 10:36 AM EDT Who Called: Cheko from [facility] Surgery Contact Reason for the call: Pt [...] documented as of this encounter Care Teams Product Representative Relationship Specialty Start Date End Date Bruno Antunez III, DO PCP - General Family Medicine 09/15/23 documented as of this encounter
--- OUTSIDE RECORDS SUMMARY | 2025-05-03 11:32 | XMS_ITS | Encounter Summary ---
Author Organization [facility] Address [address] [place] [address] Care Team Providers Care Agricultural Engineer Name Role Phone Bruno Antunez DO Primary Care Provider [phone] Bruno Antunez DO Primary Care Provider [phone] Encounter Details Date Type Department Care Team (Late st Contact Info) Description 09/13/2024 Abstract [facility] POD [address] [place] [phone] Rasheed Crump, DPM FACFAS [address] [place], [place] [id number] Social History Tobacco Use Types Packs/Day Years [...] on filedocumented in this encounter Care Teams Agricultural Engineer Relationship Specialty Start Date End Date Bruno Antunez DO PCP - General Family Medicine 01/24/24 02/24/25 Bruno Antunez DO [address] [place] [phone] PCP - General Family Medicine 02/25/25 documented as of this encounter
--- OUTSIDE RECORDS SUMMARY | 2025-05-03 11:32 | XMS_ITS | Encounter Summary ---
Author Organization [facility] Address [address] [place] [address] Phone Care Team Providers Care Automation Tech Name Role Phone Bruno Antunez DO Primary Care Provider Encounter Details Date Type Department Care Team (Late st Contact Info) Description 09/19/2024 Scanned Document [facility] [address] [place] [address] Scanning, Generic Provider Social History [...] documented as of this encounter Care Teams Automation Tech Relationship Specialty Start Date End Date Bruno Antunez DO [address] [place] [address] PCP - General Family Medicine 01/25/24 documented as of this encounter
--- OUTSIDE RECORDS SUMMARY | 2025-05-03 11:32 | XMS_ITS | Encounter Summary ---
Author Organization [facility] Address [address] [place] [address] Care Team Providers Care Profiler Operator Name Role Phone Tulio BUTLER DO, Rolland Primary Care Provider [phone] Reason for Visit * Reason Onset Date Comments Surgery 04/15/2025 Encounter Details Date Type Department Care Team (Late st Contact Info) Description 04/12/2025 Telephone Orthopedics Outpatient Care [facility] [address] [place] [address] Flako Almeida MD [address] [place] [address] Surgery Social History Tobacco Use [...] Date Author No 11/01/2024 3:30 AM Everette Gonazlez RN documented in this encounter Miscellaneous Notes * Telephone Encounter - Tanvi Gunter - 04/19/2025 3:22 PM EDT Spoke with Marc the wool batting worker at the facility that Earle is currently [...] he was wanting to go to the [facility] due to him not wanting to [...] Ayleen Ramirez - 04/17/2025 12:50 PM EDT oil well drilling manager at [facility] called. Stated she was told to schedule follow up appointment to discuss surgery for spacer in the patient's knee. CB # [phone] (Marc, oil well drilling manager) Please advise * Telephone Encounter - Doreen Parks - 04/15/2025 10:05 AM EDT The patient is wanting to speak with Tanvi about scheduling surgery for the LEFT knee. Please advise * Telephone Encounter - Tanvi Gunter - 04/12/2025 2:04 PM EDT Contacted to let Earle know that Dr. Almeida is okay with him going to be seen at the [facility] Earle stated that he is open to going but wasn't for sure how he would be transported there. I informed Earle that since he was staying at a facility they would need to be the ones to coordinate with the [facility] on how to get him transported I [...] documented as of this encounter Care Teams Profiler Operator Relationship Specialty Start Date End Date Bruno Antunez III, DO PCP - General Family Medicine 09/15/23 documented as of this encounter
--- OUTSIDE RECORDS SUMMARY | 2025-05-03 11:32 | XMS_ITS | Encounter Summary ---
Author Organization [facility] Address [id number] [address] [place] [address] Care Team Providers Care Ordained Minister Name Role Phone Unavailable Primary Care Provider Unavailabl e Encounter Details Date Type Department Care Team (Late st Contact Info) Description 04/19/2025 Continuing Care [facility] Physicians Internal Medicine - Family Medicine [address] [place] [phone] Marty Brambila DO [address], [facility] [place] [address] Infection and inflammatory reaction due to internal right knee prosthesis, subsequent encounter (Primary Dx); 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 female seen today at retirement facility for therapy and problem visit. Earle [...] arthritis with rheumatoid factor of left knee ([facility]) Infection and inflammatory reaction due to indwelling [...] arthritis with rheumatoid factor of left knee ([facility]) Infection and inflammatory reaction due to indwelling urethral catheter, sequela Primary hypertension Unspecified essential hypertension Iron deficiency anemia secondary to blood loss (chronic) documented in this encounter
--- OUTSIDE RECORDS SUMMARY | 2025-05-03 11:33 | XMS_ITS | Encounter Summary ---
Author Organization [facility] Address [address] [place] [address] Care Team Providers Care Circuit Breaker Supervisor Name Role Phone AntunezBruno craven Primary Care Provider [phone] Tulio Bruno Primary Care Provider [phone] Encounter Details Date Type Department Care Team (Late st Contact Info) Description 10/19/2024 Abstract [facility] [address] [facility] [address] [place] [phone] Unallocated, Noms Provider, [address] [place] [address] Social History Tobacco Use Types Packs/Day Years [...] on filedocumented in this encounter Care Teams Circuit Breaker Supervisor Relationship Specialty Start Date End Date Bruno Antunez DO PCP - General Family Medicine 01/24/24 02/24/25 Bruno Antunez DO [address] [facility] [address] [place] [address] PCP - General Family Medicine 02/25/25 documented as of this encounter
--- OUTSIDE RECORDS SUMMARY | 2025-05-03 11:33 | XMS_ITS | Encounter Summary ---
Author Organization [facility] Address [address] [place] [address] Care Team Providers Care Software Build Engineer Name Role Phone AntunezBruno rcaven Primary Care Provider [phone] TulioBruno Primary Care Provider [phone] Encounter Details Date Type Department Care Team (Late st Contact Info) Description 12/17/2024 Abstract NOMEverette Cur[facility] [address] [facility] [address] [place] [address] Unallocated, Noms Provider, [address] [place] [address] Social History Tobacco Use Types Packs/Day Years [...] on filedocumented in this encounter Care Teams Software Build Engineer Relationship Specialty Start Date End Date Bruno Antunez DO PCP - General Family Medicine 01/24/24 02/24/25 Bruno Antunez DO [address] [facility] [address] [place] [address] PCP - General Family Medicine 02/25/25 documented as of this encounter
--- OUTSIDE RECORDS SUMMARY | 2025-05-03 11:33 | XMS_ITS | Encounter Summary ---
Author Organization [facility] Address [address] [place] [address] Care Team Providers Care Electronic Device Monitor Name Role Phone AntunezBruno craven Primary Care Provider [phone] TulioBruno Primary Care Provider [phone] Encounter Details Date Type Department Care Team (Late st Contact Info) Description 09/24/2024 Abstract NOMEverette [facility] [address] [facility] [address] [place] [address] Unallocated, Noms Provider, [address] [place] [address] Social History Tobacco Use Types Packs/Day Years [...] on filedocumented in this encounter Care Teams Electronic Device Monitor Relationship Specialty Start Date End Date Bruno Antunez DO PCP - General Family Medicine 01/24/24 02/24/25 Bruno Antunez DO [address] [facility] [address] [place] [address] PCP - General Family Medicine 02/25/25 documented as of this encounter
--- OUTSIDE RECORDS SUMMARY | 2025-05-03 11:33 | XMS_ITS | Encounter Summary ---
Author Organization [facility] Address [address] [place] [address] Care Team Providers Care Engine Lathe Set Up Operator Tool Name Role Phone Tulio Bruno GOMEZ Primary Care Provider [phone] Bruno Antunez DO Primary Care Provider [phone] Encounter Details Date Type Department Care Team (Late st Contact Info) Description 10/24/2024 Orders Only [facility] [address] [place] [address] [place] [address] Unallocated, Noms Provider, [address] [place] [address] Social History Tobacco Use Types Packs/Day Years [...] on filedocumented in this encounter Care Teams Engine Lathe Set Up Operator Tool Relationship Specialty Start Date End Date Bruno Antunez DO PCP - General Family Medicine 01/24/24 02/24/25 Bruno Antunez DO [address] [phone] PCP - General Family Medicine 02/25/25 documented as of this encounter
--- OUTSIDE RECORDS SUMMARY | 2025-05-03 11:33 | XMS_ITS | Clinical Summary ---
Author Organization [employer] Address [address] [place] [address] Care Team Providers Care Industrial Maintenance Technician Name Role Phone Tulio BUTLER DO, Rolland Primary Care Provider [phone] Allergies No known active allergies Medications Eliquis [...] 2:00 PM EDT Telemedicine Orthopedics Outpatient Care [address] [address] Dick Monique PA-C Infection associated with internal left knee prosthesis, subsequent encounter (Primary Dx) 04/12/2025 Telephone Orthopedics Outpatient Care [address] [address] Flako Almeida MD Surgery 04/11/2025 Telephone Orthopedics Outpatient Care [address] [address] Flako Almeida MD Surgery 04/09/2025 Telephone Orthopedics Outpatient Care [address] [address] Flako Almeida MD Schedule Surgery 04/03/2025 3:00 PM EDT Telemedicine Orthopedics Outpatient Care [address] [phone] Flako Almeida MD 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); Infection associated with internal right knee prosthesis, initial encounter; Infection associated with internal left knee prosthesis, subsequent encounter; Hx of left knee surgery 03/21/2025 Documentation Only Sports Medicine Outpatient Care [place] [phone] Fernanda Wilcox ATC 03/21/2025 Telephone Central Scheduling [address] [place] [address] Flako Almeida MD Other; Order Request; Follow-up (Pt information faxed) 03/19/2025 9:39 AM EDT - 03/19/2025 10:01 AM EDT [facility] [address] [phone] Flako Almeida MD ASPIRATION OR INJECTION LARGE JOINT BURSA 03/19/2025 9:30 AM EDT Anesthesia Event [facility] [address] [phone] Cheko Carolina, DO Pfeiffer, Prince R, FAMILY PRESERVATION WORKER-RACK WORKER 03/19/2025 7:17 AM EDT - 03/19/2025 11:06 AM EDT Hospital Encounter [facility] [address] [phone] Flako Almeida MD Right knee pain, unspecified chronicity Discharge Disposition: Home or Self Care 03/19/2025 Travel 03/18/2025 Telephone Central Scheduling [address] [place] [address] Bjorn Meyers 03/15/2025 Telephone Central Scheduling [address] [place] [phone] Flako Almeida MD Other; Follow-up (Call back) 03/13/2025 Orders Only Orthopedics Outpatient Care [address] [phone] Dick Monique PA-C Right knee pain, unspecified chronicity (Primary Dx); Left knee pain, unspecified chronicity 03/01/2025 Telephone Central Scheduling [address] [place] [address] Flako Almeida MD Referral; Procedure (Call back ) 02/19/2025 Telephone [facility] [address] [place] [address] Donald Marx MD Appointment 02/18/2025 11:40 AM EDT Anesthesia Event [facility] [address] [place] [address] Dennis Ramirez MD Ladu, Victoria C, AA 02/18/2025 9:24 AM EDT - 02/18/2025 11:14 AM EDT Hospital Encounter [facility] [address] [place] [address] Flako Almeida MD Right knee pain, unspecified chronicity Discharge Disposition: Custodial Facility 02/18/2025 Telephone Central Scheduling [address] [place] [address] Flako Almeida MD Surgery (Please [...] this topic Medical Devices Implanted Type Area Lead Database Developer Device Identifier Shelf Expiration Date Model / Serial / Lot Palacos R+G 1x40 Single With Gentamicin - [id number] Implanted:Qty: 3 on 08/23/2022 by Donald Marx MD at [facility] Other Left: Knee [employer]ARY [employer] 09/04/2025 [id number] / / [id number] Palacos R+G 1x40 Single With Gentamicin - [id number] Implanted:Qty: 2 on 08/23/2022 by Donald Marx MD at [facility] Other Left: Knee MARY [employer]OM[employer] 07/05/2025 [id number] / / [id number] Atune Femoral Crutiate Retaining Size 8 Left Cemented Implanted:Qty: 1 on 08/23/2022 by Donald Marx MD at [facility] Left: Knee DEPUY 10/05/2031 1504-00-108 / / [id number] Attune Knee System All Poly Tibial Implant Crutiate Retaining Cemented Size 7 Implanted:Qty: 1 on 08/23/2022 by Donald Marx MD at [facility] Left: Knee [employer] 12/03/2025 1516-00-707 / / [id number] Palacos R & G Bone Cement High-Viscosity With Gentamicin - [id number] Implanted:Qty: 2 on 04/12/2023 by Donald Marx MD at [facility] Left: Knee 06/04/2026 / [id number] / [id number] Attune Patella Medialized Dome Implanted:Qty: 1 on 04/12/2023 by Donald Marx MD at [facility] Left: Knee DEPUY SYNTHES 03/04/2028 / 1518-20-041 / [id number] Bard Mesh Implanted:Qty: 1 on 04/12/2023 by Donald Marx MD at [facility] Left: Knee BARD 11/02/2026 / [id number] / [id number] Synthes 4.0mm Cannulated Screw 40mm Long Thread #[id number] Implanted:Qty: 1 on 04/12/2023 by Donald Marx MD at [facility] Left: Knee DEPUY SYNTHES Surface Articular 16mm Persona 10-12 G-H Knee Right - [id number] Implanted:Qty: 1 on 11/02/2024 by Flako Almeida MD at [facility] Right: Knee MARY BIOMET 06/01/2029 [id number] / / [id number] Filler Bone Void 10cc 20cc Calcium Sulfate Stimulan Rapid - [id number] Implanted:Qty: 1 on 11/02/2024 by Flako Almeida MD at [facility] Right: Knee BIOCOMPOSITES 06/04/2027 620-010 / / [id number] Bowl Bone Cement Quick-Vac Large Capacity Vacuum Mix Adapter - [id number] Implanted:Qty: 1 on 11/02/2024 by Flako Almeida MD at [facility] Right: Knee [employer]ARY [employer] 11/02/2024 [id number] / / [id number] Cement Bone Refobacin - [id number] Implanted:Qty: 1 on 11/02/2024 by Flako Almeida MD at [facility] Right: Knee MARY [employer]ET 04/04/2025 [id number] / / [id number] Cement Bone Refobacin - [id number] Implanted:Qty: 1 on 11/02/2024 by Flako Almeida MD at [facility] Right: Knee MARY [employer]ET 10/05/2026 [id number] / / [id number] Cement Bone Refobacin - [id number] Implanted:Qty: 1 on 11/02/2024 by Flako Almeida MD at [facility] Right: Knee [employer]ARY [employer]ET 10/05/2026 [id number] / / [id number] Component Femoral 11 Standard Knee Right Posterior Stabilize - [id number] Implanted:Qty: 1 on 11/02/2024 by Flako Almeida MD at [facility] Right: Knee [employer]ARY [employer] 07/29/2032 [id number] / / [id number] Bar To Bar Clamp Implanted:Qty: 1 on 11/08/2024 by Flako Almeida MD at [facility] Left: Knee 66-6665-778-01 . / [id number] / Cement Bone Refobacin - [id number] Implanted:Qty: 1 on 11/08/2024 by Flako Almeida MD at [facility] Left: Knee [employer]ARY [employer] 10/05/2026 [id number] / / [id number] Cement Bone Refobacin - [id number] Implanted:Qty: 1 on 11/08/2024 by Flako Almeida MD at [facility] Left: Knee MARY [employer]ET 10/05/2026 [id number] / / [id number] Filler Bone Void 10cc 20cc Calcium Sulfate Stimulan Rapid - [id number] Implanted:Qty: 1 on 11/08/2024 by Flako Almeida MD at [facility] Left: Knee [employer]OCOMPOSITES 06/04/2027 620-010 / / [id number] Cement Bone Refobacin - [id number] Implanted:Qty: 1 on 11/08/2024 by Flako Almeida MD at [facility] Left: Knee MARY [employer]OMET 04/04/2025 [id number] / / [id number] 250mm Bar Implanted:Qty: 2 on 11/08/2024 by Flako Almeida MD at [facility] Left: Knee MARY [employer]OMET [id number] / / Procedures Procedure Name Priority Date/Time [...] DIRECT SMEAR STAT 03/19/2025 9:42 AM EDT ID ARTHROCENTESIS ASPIR&/INJ MAJOR JT/BURSA W/O US 03/19/2025 [...] Fluid Negative Negative 03/19/2025 12:00 PM EDT [facility] Fluid, Unspecified (SYNOVIAL FLUID: RIGHT KNEE) 03/19/2025 9:47 AM EDT 03/19/2025 11:29 AM EDT us Flako Almeida MD BODY FLUIDS & STOOLS OR DERABLES Final Result Performing Organization Address City/State/[facility] Co de Phone Number [facility] [address] [place] [address] * BODY FLUID PATH DIFFERENTIAL, PERFORMABLE ONLY (03/19/2025 9:42 AM EDT) Specimen Source SYNOVIAL FLUID: LEFT KNEE 03/20/2025 3:00 PM EDT [facility] Comment (Fluid) There is no evidence of malignancy. Blood is present. Acute and chronic inflammatory cells present. No microorganisms seen. Correlation with gram stain and culture recommended. 03/20/2025 3:00 PM EDT [facility] Neutrophils (Fluid) 13 % 03/20/2025 3:00 PM EDT [facility] Comment:The reference range has not been established for this fluid. Clinical correlation is recommended. Lymphocytes (Fluid) 34 % 03/20/2025 3:00 PM EDT [facility] Comment:The reference range has not been established for this fluid. Clinical correlation is recommended. Monocytes/Macro phages, Fluid 53 % 03/20/2025 3:00 PM EDT [facility] Comment:The reference range has not been established for this fluid. Clinical correlation is recommended. Eosinophils Fluid 0 % 03/20/2025 3:00 PM EDT [facility] Comment:The reference range has not been established for this fluid. Clinical correlation is recommended. Basophils (Fluid) 0 % 03/20/2025 3:00 PM EDT [facility] Comment:The reference range has not been established for this fluid. Clinical correlation is recommended. Differential Reviewed By Quincy Krishna MD 03/20/2025 3:00 PM EDT [facility] Cells Counted (Fluid) 100 03/20/2025 3:00 PM EDT [facility] Fluid (SYNOVIAL FLUID: LEFT KNEE) 03/19/2025 9:42 AM EDT 03/19/2025 11:29 AM EDT Flako Almeida MD BODY FLUIDS & STOOLS OR DERABLES Final Result Performing Organization Address [facility] Co de Phone Number [facility] [address] [place] [address] [facility] [address] [place] [address] * BODY FLUID TECH DIFFERENTIAL (03/19/2025 9:42 AM EDT) Fluid (SYNOVIAL FLUID: LEFT KNEE) 03/19/2025 9:42 AM EDT 03/19/2025 11:29 AM EDT us Flako Almeida MD BODY FLUIDS & STOOLS OR DERABLES Final Result Performing Organization Address [facility] Co de Phone Number [facility] [address] [place] [address] * ANAEROBE CULTURE (03/19/2025 9:42 AM EDT) Only the most recent of2 resultswithin the time period is included. Culture No anaerobic growth 04/02/2025 11:33 AM EDT [facility] Aspirate (SYNOVIAL FLUID: RIGHT KNEE) 03/19/2025 9:42 AM EDT 03/19/2025 2:19 PM EDT [facility] - 04/02/2025 11:33 AM EDT Specimen incubated up to 14 days. Flako Almeida MD MICROBIOLOGY - GENERAL ORDERABLES Final Result Performing Organization Address [facility] Co de Phone Number [facility] [address] [place] [address] * ACID FAST CULTURE (03/19/2025 9:42 AM EDT) Only the most recent of2 resultswithin the time period is included. Fluid (SYNOVIAL FLUID: RIGHT KNEE) 03/19/2025 9:42 AM EDT 03/19/2025 2:19 PM EDT [facility] - 05/03/2025 9:31 AM EDT SEE SCANNED REPORT Testing performed by [address] [address] Flako Almeida MD MICROBIOLOGY - GENERAL ORDERABLES Final Result Performing Organization Address City/[facility] Co de Phone Number [facility] [address] [address] * BODY FLUID CULTURE AND DIRECT SMEAR (03/19/2025 9:42 AM EDT) Only the most recent of2 resultswithin the time period is included. Culture NO GROWTH DAY 2 OF 2 03/21/2025 7:31 AM EDT [facility] Gram Stain Neutrophils, Rare 03/21/2025 7:31 AM EDT [facility] Gram Stain Mononuclear cells present 03/21/2025 7:31 AM EDT [facility] Gram Stain Red Blood Cells Present 03/21/2025 7:31 AM EDT [facility] Gram Stain No organisms seen 03/21/2025 7:31 AM EDT [facility] Fluid (SYNOVIAL FLUID: RIGHT KNEE) 03/19/2025 9:42 AM EDT 03/19/2025 11:47 AM EDT us Flako Almeida MD MICROBIOLOGY - GENERAL ORDERABLES Final Result Performing Organization Address [facility] Co de Phone Number [facility] [address] [place] [address] * FUNGUS CULTURE (03/19/2025 9:42 AM EDT) Only the most recent of2 resultswithin the time period is included. Culture NO GROWTH 04/16/2025 3:01 PM T [facility] Aspirate (SYNOVIAL FLUID: RIGHT KNEE) 03/19/2025 9:42 AM EDT 03/19/2025 2:19 PM EDT us Flako Almeida MD MICROBIOLOGY - GENERAL ORDERABLES Final Result Performing Organization Address [facility] de Phone Number [facility] [address] [place] [address] * BODY FLUID CELL COUNT (03/19/2025 9:42 AM EDT) Total Nucleated Cells (TNC) 1,489 /uL 03/19/2025 12:14 PM [facility] Comment:The reference range has not been established for this fluid. Clinical correlation is recommended. Red Blood Cells 14,344 /uL 12:14 PM [facility] Comment:The reference range has not been established for this fluid. Clinical correlation is recommended. Gross Appearance (Fluid) Brown Hazy 03/19/2025 12:14 PM [facility] Supernatant (Fluid) Yellow Clear 03/19/2025 12:14 PM [facility] Specimen Source SYNOVIAL FLUID: LEFT KNEE 03/19/2025 12:14 PM [facility] Fluid (SYNOVIAL FLUID: LEFT KNEE) 03/19/2025 9:42 AM EDT 03/19/2025 11:29 AM EDT us Flako Almeida MD BODY FLUIDS & STOOLS OR DERABLES Final Result [facility] [address] [place] [address] * CARDIAC RHYTHM (03/19/2025) 03/19/2025 us Other Other OT ECG ORDERABLES Final Result * (ABNORMAL) HEMOGLOBIN A1C (09/19/2023 10:10 AM EST) HEMOGLOBIN A1C 6.1(H) 0 - 6 % [address] Comment: NORMAL <5.7% PREDIABETES 5.7-6.4% DIABETES 6.5% OR HIGHER Estimated Average Glucose 128 mg/dL [address] Blood 09/19/2023 10:1 0 AM EST 09/19/2023 10:17 AM EST us Samantha Jara PA-C HEMATOLOGY ORDERABLES Final Resu lt Performing Organization Address [facility]/ZIP Co de Phone Number [address] [address] from Last 3 Months or Most Recently Relevant to Health Maintenance Insurance Medicare [employer]na PPO Medicare [employer]na PPO Advance Directives For more information, please contact: [phone] (7:30 AM - 6PM [facility], Tuesday-Tuesday) * Full Code (Latest Code Status [...] 4:00 PM 04/12/2023 2:54 PM Care Teams Industrial Maintenance Technician Relationship Specialty Start Date End Date Bruno Antunez III, DO PCP - General Family Medicine 09/15/23
--- OUTSIDE RECORDS SUMMARY | 2025-05-03 11:33 | XMS_ITS | Encounter Summary ---
Author Organization [facility] Address [address], [address] [place] [address] Care Team Providers Care Tobacco Stemmer Machine Name Role Phone Unavailable Primary Care Provider Unavailabl e Encounter Details Date Type Department Care Team (Late st Contact Info) Description 11/27/2024 Orders Only [facility] Part of [address] [place] [address] Provider, MD Mat Social History [...] EDT) Blood BLOOD SPECIMEN / Unknown Result [facility] Provider HEMATOLOGY ORDERABLES Fin al Result * Comprehensive Metabolic Panel (11/20/2024 8:38 AM EDT) Blood BLOOD SPECIMEN / Unknown Result [facility] Provider CHEMISTRY ORDERABLES Hanny l Result * CBC (10/26/2024 8:41 AM EST) Blood BLOOD SPECIMEN / Unknown Result [facility] Provider HEMATOLOGY ORDERABLES Fin al Result * Comprehensive Metabolic Panel (10/26/2024 8:40 AM EST) Blood BLOOD SPECIMEN / Unknown Result [facility] Provider CHEMISTRY ORDERABLES Hanny l Result * CBC (10/19/2024 8:44 AM EST) Blood BLOOD SPECIMEN / Unknown Result [facility] Provider HEMATOLOGY ORDERABLES Fin al Result * Comprehensive Metabolic Panel (10/19/2024 8:42 AM EST) Blood BLOOD SPECIMEN / Unknown Result [facility] Provider CHEMISTRY ORDERABLES Hanny l Result * CMP, EXTERNAL (2024 8:48 AM EST) us Historical Provider LAB SEND OUT ORDERABLES F inal Result * CBC (2024 8:47 AM EST) Blood BLOOD SPECIMEN / Unknown [facility] Provider HEMATOLOGY ORDERABLES Fin al Result * CBC (10/12/2024 8:58 AM EST) Blood BLOOD SPECIMEN / Unknown [facility] Provider HEMATOLOGY ORDERABLES Fin al Result documented in this encounter Visit Diagnoses Not on filedocumented in this encounter
--- OUTSIDE RECORDS SUMMARY | 2025-05-03 11:33 | XMS_ITS | Clinical Summary ---
Author Organization [facility] Address [address], [address] [place] [address] Care Team Providers Care Field Operations Technician Name Role Phone Unavailable Primary Care Provider [...] mouth 2 times daily Active nystatin (MYCOSTATIN) 392014 UNIT/GM powder Apply topically 2 times daily [...] - 199 mg/dL 09/25/2024 6:45 AM EST [employer] Comment: Cholesterol Guidelines: <200 Desirable 200-240 Borderline >240 Undesirable HDL 28(L) >40 mg/dL 09/25/2024 6:45 AM EST [employer] Comment: HDL Guidelines: <40 Undesirable 40-59 Borderline >59 Desirable LDL Cholesterol 42 0 - 100 mg/dL 09/25/2024 6:45 AM EST [employer] Comment: LDL Guidelines: <100 Desirable 100-129 Near to/above Desirable 130-159 Borderline >159 Undesirable Direct (measured) LDL and calculated LDL are not interchangeable tests. Chol/HDL Ratio 3.1 09/25/2024 6:45 AM EST [employer] Triglycerides 89 <150 mg/dL 09/25/2024 6:45 AM EST [employer] Comment: Triglyceride Guidelines: <150 Desirable 150-199 Borderline 200-499 High >499 Very high Based on AHA Guidelines for fasting triglyceride, June 2012. VLDL 18 1 - 30 mg/dL 09/25/2024 6:45 AM [employer] 09/25/2024 6:45 AM EST 09/25/2024 7:45 AM EST Dani Longoria MD CHEMISTRY ORDERABLES Final Resul t [facility] [address] [place] [address], [facility] [phone] [employer] [place] [id number] [phone] from Last 3 Months or Most Recently Relevant to Health Maintenance Insurance MEDICARE AETNA MEDICARE
--- OUTSIDE RECORDS SUMMARY | 2025-05-03 11:33 | XMS_ITS | Clinical Summary ---
Author Organization [facility] Address [address] [place] [address] Care Team Providers Care Cleaning Associate Name Role Phone Bruno Antunez DO Primary Care Provider [phone] Allergies No known active allergies Medications lisinopril 5 MG tablet Take 5 mg by mouth Daily 4 Active rosuvastatin (Crestor) 20 MG tablet 20 mg = 1 tab(s), Oral, Daily, Refills(s) 0 4 Active dilTIAZem CD (Cardizem CD) 120 MG 24 hr capsule Take 120 mg by mouth in the morning. 4 Active apixaban (Eliquis) 5 MG tablet Take [...] exists Insurance AETNA MEDICARE ADVANTAGE Care Teams Cleaning Associate Relationship Specialty Start Date End Date Bruno Antunez DO [address] [phone] PCP - General Family Medicine 02/25/25
--- OUTSIDE RECORDS SUMMARY | 2025-05-03 11:33 | XMS_ITS | Encounter Summary ---
Author Organization [facility] enter Address [address] [place] [address] Care Team Providers Care Bread Supervisor Name Role Phone Tulio CARRIEDO Rolland Primary Care Provider [phone] Reason for Visit * Reason Onset Date Comments Other 03/15/2025 Follow-up 03/19/2025 Call back Encounter Details Date Type Department Care Team (Late st Contact Info) Description 03/15/2025 Telephone Central Scheduling [address] [place] [address] Flako Almeida MD [address] [place] [address] Other; Follow-up (Call back) Social [...] 03/21/2025 4:10 PM EDT Spoke to patient half-way in another encounter and provided list of doctors names to Carlota. * Telephone Encounter - Fernnada Wilcox ATC - 03/20/2025 4:33 PM EDT [...] Almeida called in requesting to get the [facility] providers and numbers, pt lostthe page with [...] to general anaesthesia. Please call back @ [phone] to advise. documented in this encounter Plan [...] documented as of this encounter Care Teams Bread Supervisor Relationship Specialty Start Date End Date Bruno Antunez III, DO PCP - General Family Medicine 09/15/23 documented as of this encounter
--- OUTSIDE RECORDS SUMMARY | 2025-05-03 11:33 | XMS_ITS | Encounter Summary ---
Author Organization [facility] Address [address] [place] [address] Care Team Providers Care Steel Barrel Reamer Name Role Phone AntunezBruno craven Primary Care Provider [phone] TulioBruno Primary Care Provider [phone] Encounter Details Date Type Department Care Team (Late st Contact Info) Description 10/19/2024 Abstract [facility] [address] [facility] [address] [place] [address] Unallocated, [facility] Provider, [address] [place] [address] Social History Tobacco Use Types Packs/Day Years [...] on filedocumented in this encounter Care Teams Steel Barrel Reamer Relationship Specialty Start Date End Date Bruno Antunez DO PCP - General Family Medicine 01/24/24 02/24/25 Bruno Antunez DO [address] [facility] [address] [place] [address] PCP - General Family Medicine 02/25/25 documented as of this encounter
[2025-05-03 11:54] LABS: Hematocrit 36.0 % (42.0-54.0); Hemoglobin 11.0 g/dL (14.0-18.0); Immature Granulocytes Abs Auto 0.04 10^3/uL (0.00-0.03); Immature Granulocytes Pct Auto 0.6 % (0.0-0.5); Lymphocytes Absolute Auto 1.8 10^3/uL (1.2-3.8); Mean Corpuscular HGB Conc 30.6 g/dL (29.9-35.2); Mean Corpuscular Hemoglobin 26.4 pg (25.9-34.0); Mean Corpuscular Volume 86.5 fL (80.0-94.0); Platelet Count 331 10^3/uL (150-450); Red Blood Count 4.16 10^6/uL (4.70-6.10); White Blood Count 6.9 10^3/uL (4.0-11.0)
== END 2025-05-03 11:30 | disposition home or self-care (01) ==
LOC: LAB 11:29
PROVIDERS: PCP Family Medicine; Visit Provider Family Medicine
DX: R10.9 Unspecified abdominal pain (principal)
CPT/HCPCS: 36415; 85025

== ENCOUNTER 2025-08-26 13:36 | Outpatient (REF) | payer MEDICARE, SELFPAY ==
--- OUTSIDE RECORDS SUMMARY | 2025-08-16 14:40 | XMS_ITS | Encounter Summary ---
Author Organization [facility] enter Address [address] [place] [address] Care Team Providers Care Display Designer Outside Name Role Phone Tulio BUTLER DO, Rolland Primary Care Provider [phone] Reason for Visit * ReasonCommentsPost Op VisitPatient is 6.5 weeks s/p left total knee revision, quad and patellar tendon reconstruction (DOS 06/03/25). Patient was seen by HILARIA on 07/10/25 - seroma was aspirated at that time and two sutures were placed. Patient resides in a SNF and has been NWB with knee immobilizer.Follow-up Patient is 6.5 weeks s/p left total knee revision, quad and patellar tendon reconstruction (DOS 06/03/25). Patient was seen by HILARIA on 07/10/25 - seroma was aspirated at that time and two sutures were placed. Patient resides in a SNF and has been NWB with knee immobilizer. 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 Social History Tobacco UseTypesPacks/DayYears UsedDateSmoking Tobacco: NhjlaaHuihtbdkxa8Nagf: 07/1994Smokeless Tobacco: Never Comments:Quit 1993 Alcohol UseStandard Drinks/WeekCommentsYes1 (1 standard drink = 0.6 oz pure alcohol)occasionalOverall Financial Resource Strain (CARDIA)AnswerDate Recorded How hard is it for you to pay for the very basics like food, housing, medical care, and heating?Not hard at all11/01/2024NC - Food InsecurityAnswerDate RecordedWithin the past 12 months, did you worry that your food would run out before you got money to buy more?No11/01/2024Within the past 12 months, did the food you bought just not last and you didn???t have money to getmore?No 11/01/2024NCSS - Housing/UtilitiesAnswerDate RecordedDo you have housing?Yes 11/01/2024re you worried about losing your housing?No11/01/2024Within the past 12 months, have you or your family members you live with been unable to get utilities (heat, electricity) when it was really needed?No11/01/2024NCSS - TransportationAnswerDate RecordedWithin the past 12 months, has lack of transportation kept you from medical appointments, getting your medicines, non- medical meetings or appointments, work, or from getting things that you need?No 11/01/2024NCSS - UtilitiesAnswerDate RecordedWithin the past 12 months, have you or your family members you live with been unable to get utilities (heat, electricity) when it was really needed?No11/01/2024UDIT-CAnswerDate RecordedQ1: How often do you have a drink containing alcohol?Never06/25/2025verage Number of DrinksNot on file06/25/2025Frequency of Binge DrinkingNot on file06/25/2025 NCSS - Food InsecurityAnswerDate RecordedWithin the past 12 months, did you worry that your food would run out before you got money to buy more?No06/04/2025 Within the past 12 months, did the food you bought just not last and you didn???t have money to getmore?No06/04/2025NCSS - Housing/UtilitiesAnswerDate RecordedDo you have housing?Yes06/04/2025re you worried about losing your housing?No06/04/2025Within the past 12 months, have you or your family members you live with been unable to get utilities (heat, electricity) when it was really needed?No06/04/2025NCSS - UtilitiesAnswerDate RecordedWithin the past 12 months, have you or your family members you live with been unable to get utilities (heat, electricity) when it was really needed?No06/04/2025NCSS - TransportationAnswerDate RecordedWithin the past 12 months, has lack of transportation kept you from medical appointments, getting your medicines, non- medical meetings or appointments, work, or from getting things that you need?No 06/04/2025Sex and Gender InformationValueDate RecordedSex Assigned at BirthNot on fileLegal XedPhgh46/09/2022 11:02 AM ESTGender IdentityNot on fileSexual OrientationNot on filedocumented as of this encounter Functional Status * Are you deaf or do you have serious difficulty hearing?AnswerDate of HrdbtigdcpFceejtNg10/30/2025 7:00 AM Estephania Yao RN * Are you blind or do you have serious difficulty seeing, even when wearing glasses?AnswerDate of UdijjjvosvAgvipvYi80/30/2025 7:00 AM Estephania Yao RN * Do you have serious difficulty walking or climbing stairs (5 years or older)? AnswerDate of XxqnlfgrpmPlzkovYgk73/30/2025 7:00 AM Estephania Yao RN * Do you have difficulty dressing or bathing (5 yrs or older)?AnswerDate of JvlxnkgihnStevqeVu89/30/2025 7:00 AM Estephania Yao RN * Because of a physical, mental, or emotional condition, do you have difficulty doing errands alone such as visiting a doctor's office or shopping (5 yrs or older)?AnswerDate of CokpkhnphbGojrqhSw55/30/2025 7:00 AM Estephania Yao RN documented as of this encounter Mental Status * Because of a physical, mental, or emotional condition, do you have serious difficulty concentrating, remembering, or making decisions (5 yrs or older)? AnswerEntry WrsuLfsjukXx58/30/2025 7:00 AM Estephania Yao RN documented in this encounter Progress Notes * Flako Almeida MD - 08/16/2025 2:40 PM EST Telehealth Visit This telehealth visit is a real time telephone visit communication. During the scheduling process, this patient has verbally consented to the submission of Telehealth visits and the patient is aware of the risks, benefits, and possible coinsurance/copay costs. Patient Location: Home Reason for Visit: Follow-up of knee aspiration results History: Earle Santos is a 79 y.o. male approximately 10 weeks status-post 2nd stage revision left total knee arthroplasty and extensor mechanism reconstruction. History is obtained with the help of one of the nurses at his care facility. He has developed a sinus tract and area of non-healing wound near theproximal corner of his gastroc flap site. He was previously aspirated by one of our PAs. 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 His culturesare growing a drug resistant bacteria ESBL Klebsiella pneumoniae. Patient reports continued drainage from his wound. He is not currently having increased pain. He denies fevers, chills, feeling unwell, or any other systemic symptoms of infection. 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 We offered continued non-operative treatment of the knee given his lack of systemic symptoms. He could elect to continue with non-operative treatment until he develops worse symptoms of the knee and/or systemic symptoms of infection. We also offered surgical treatment of the knee. One option would be for continued attempt of limb salvage. This would involve surgical debridement of the infection, explant of the knee and mesh used during prior reconstruction, and placement of new static spacer. We discussed that after that surgery and clearance of infection we could offer knee arthrodesis. The other surgical option for the patient would be removal of the knee implants and above knee amputation. The patient would like to take some time to think about these options and discuss with family members before deciding how to proceed. He will contact our office when he is ready to make a decision. He is welcome to seek opinions from other surgeons regarding his condition. [facility] however he has never attempted to obtain an appointment with them. He and the nurse at his facility are aware of red flag symptoms for worsening infection that would require emergent presentation to a hospital for treatment. Documentation of Time: I spent a total of 20-30 in a virtual encounter with this patient today, including approximately 10minutes reviewing the patient's prior history and intake forms, approximately 10 minutes virtually wghh-cx-mscz during the visit, approximately 5 minutes of additional time after the visit coordinating care via email and phone, and approximately 5 minutes documenting in the EMR. Flako Almeida MD documented in this encounter Plan of Treatment DateTypeDepartmentCare Team (Latest Contact Info)Kukqkpprlld51/06/2026 11:20 AM ESTOffice Visit Orthopedics Outpatient Care [facility] [address] [place] [address] Dick Monique PA-C [address] [place] [phone] 09/13/2025 10:00 AM ESTOffice Visit Sports Medicine Outpatient Care [address] [place] [address] Idalia Gorman PA-C [address] [place] [phone] documented as of this encounter Visit Diagnoses Diagnosis Infection associated with internal left knee prosthesis, subsequent encounter- Primary S/P revision of total knee, 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
--- OUTSIDE RECORDS SUMMARY | 2025-08-26 13:39 | XMS_ITS | Clinical Summary ---
Author Organization [facility] Address [address] [place] [address] Phone Care Team Providers Care Automotive Worker Name Role Phone Bruno Antunez DO Primary Care Provider [phone] Allergies No known active allergies Medications MedicationSigDispense QuantityRefillsLast FilledStart DateEnd DateStatus acetaminophen (Tylenol) 500 mg tablet Take 1 tablet (500 mg) by mouth every 4 hours if needed.Active DULoxetine (Cymbalta) [address] capsule Take 1 capsule (60 mg) by mouth once daily.10/01/2021ctive lisinopril 5 mg tablet Take 1 tablet (5 mg) by mouth once daily.02/26/2021ctive nitroglycerin (Nitrostat) 0.[address] 1 tablet (0.4 mg) under the tongue every 5 minutes if needed.Active apixaban (Eliquis) 5 mg tablet Indications:Paroxysmal atrial fibrillation (Multi)Take 1 tablet (5 mg) by mouth 2 times a day. 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 90 tablet ctive dilTIAZem CD (Cardizem CD) 120 mg 24 hr capsule Indications:Essential hypertensionTake 1 capsule (120 mg) by mouth once daily. 90 capsule ctive Active Problems ProblemNoted DateDiagnosed DateAdult BMI 32.0-32.9 kg/sq m001/25/2024Former cigarette crefyv1201/25/2024therosclerosis of upper sioux coronary artery of upper sioux heart without angina /30/2024iabetes kxzytjhw53/30/2024Essential iwhluxecsfmj03/30/4085Mgrylew93/30/1848Qnrn74/30/4574Hugrrcobwoacpf99/30/2024 Paroxysmal atrial onjiomvnneje60/30/2024Status post coronary angioplasty 10/04/2023 Immunizations ImmunizationAdministration DatesNext DueFlu vaccine, trivalent, preservative free, HIGH-DOSE, age 65y+ (Fluzone)06/05/2017Moderna SARS-CoV-2 Vaccination 11/27/2020,11/03/2020neumococcal Conjugate PCV Pneumococcal polysaccharide vaccine, 23-valent, age 2 years and older (PNEUMOVAX 23) 07/06/2011 Social History Tobacco UseTypesPacks/DayYears UsedDateSmoking Tobacco: FormerCigarettes Smokeless Tobacco: NeverAlcohol UseStandard Drinks/WeekCommentsYes0 (1 standard drink = 0.6 oz pure alcohol)Sex and Gender InformationValueDate RecordedSex Assigned at BirthNot on fileLegal FekOshc61/25/2022 5:28 PM ESTGender Identity Not on fileSexual OrientationNot on file Last Filed Vital Signs Vital SignReadingTime TakenCommentsBlood Wagpldza411/8401/25/2024 9:19 AM EDT Mlmzk773501/25/2024 9:19 AM EDTTemperature--Respiratory Rate--Oxygen Saturation-- Inhaled Oxygen Concentration--Pdfmzc573 kg (245 lb)01/25/2024 9:19 AM EDTHeight 185.4 cm (6' 1 )01/25/2024 9:19 AM EDTBody Mass Index32.32001/25/2024 9:19 AM EDT Plan of Treatment Health MaintenanceDue DateLast DoneCommentsDiabetes: Urine Protein Screening 1944Lipid Panel1944Medicare Annual Wellness Visit (AWV)1944 Zoster Vaccines (1 of 2)1994RSV High Risk: (Elderly (60+) or Population) (1 - 1-dose 75+ series)2019Diabetes: Hemoglobin A1C12/19/2023 09/19/2023, 01/12/2023, 08/18/2022Influenza Vaccine (#1)/, 09/08/2022, 06/23/2021, Additional history existsCOVID-19 Vaccine ( season), 12/30/2022, 01/22/2022, Additional history exists Diabetes: Retinopathy Uoiawuhxr75, 2DTaP/Tdap/Td Vaccines (4 - Td or Tdap)/09/2023, 06/08/2021, 08/21/2019 Pneumococcal LvhcrroZbwgktize42/04/2023, 02/13/2016, 06/20/2015, Additional history existsHIB VaccinesAged OutNo longer eligible based on patient's age to complete this topicHPV VaccinesAged OutNo longer eligible based on patient's age to complete this topicHepatitis A VaccinesAged OutNo longer eligible based on patient's age to complete this topicHepatitis B VaccinesAged OutNo longer eligible based on patient's age to complete this topicIPV VaccinesAged OutNo longer eligible based on patient's age to complete this topicMeningococcal VaccineAged OutNo longer eligible based on patient's age to complete this topic Rotavirus VaccinesAged OutNo longer eligible based on patient's age to complete this topic Insurance Care Teams Team MemberRelationshipSpecialtyStart DateEnd Date Bruno Antunez DO [address] [place] [phone] PCP - GeneralFamily Medicine01/25/24
--- OUTSIDE RECORDS SUMMARY | 2025-08-26 13:39 | XMS_ITS | Encounter Summary ---
Author Organization [facility] enter Address [address] [place] [address] Care Team Providers Care Area Secretary Name Role Phone Tulio BUTLER DO, Rolland Primary Care Provider [phone] Reason for Visit * ReasonOnset DateCommentsAdvice Only08/23/2025 Encounter Details DateTypeDepartmentCare Team (Latest Contact Info)Ifyihujepha17/19/2025Telephone Central Scheduling [address] [place] [address] Flako Almeida MD [address] [place] [address] Advice Only Social History Tobacco UseTypesPacks/DayYears UsedDateSmoking Tobacco: QvsghgQkjttrcofg9Yzad: 07/1994Smokeless Tobacco: Never Comments:Quit 1993 Alcohol UseStandard Drinks/WeekCommentsYes1 (1 standard drink = 0.6 oz pure alcohol)occasionalOverall Financial Resource Strain (CARDIA)AnswerDate Recorded How hard is it for you to pay for the very basics like food, housing, medical care, and heating?Not hard at all11/01/2024NCSS - Food InsecurityAnswerDate RecordedWithin the past 12 [...] InformationValueDate RecordedSex Assigned at BirthNot on fileLegal VzjMlex54/09/2022 11:02 AM ESTGender IdentityNot on fileSexual OrientationNot on filedocumented as of this encounter Functional Status * Are you deaf or do you have serious difficulty hearing?AnswerDate of PtydlaiqxnDyljajTa25/30/2025 7:00 AM Estephania Yao RN * Are you blind or do you have serious difficulty seeing, even when wearing glasses?AnswerDate of LfmmyxzssdOrikyrJi85/30/2025 7:00 AM Estephania Yao RN * Do you have serious difficulty walking or climbing stairs (5 years or older)? AnswerDate of NnimnbxvvkCznfwxTpn90/30/2025 7:00 AM Estephania Yao RN * Do you have difficulty dressing or bathing (5 yrs or older)?AnswerDate of QpflcyettuSglseeSu73/30/2025 7:00 AM Estephania Yao RN * Because of a physical, mental, or emotional condition, do you have difficulty doing errands alone such as visiting a doctor's office or shopping (5 yrs or older)?AnswerDate of HwzzrnyqhoXlknfpDo17/30/2025 7:00 AM Estephania Yao RN documented as of this encounter Mental Status * Because of a physical, mental, or emotional condition, do you have serious difficulty concentrating, remembering, or making decisions (5 yrs or older)? AnswerEntry SranMwylagAk80/30/2025 7:00 AM Estephania Yao RN documented in this encounter Miscellaneous Notes * Telephone Encounter - Umesh Alvarenga ATC - 08/23/2025 12:02 PM EST Called and informed patient that he may begin active ROM on 08/29 and he is scheduled to follow up with our office on 09/10/25. I instructed him to call us if he has any issues with this. * Telephone Encounter - Angélica Howard - 08/23/2025 11:17 AM EST Pt calling in wanting to know if he needs to continue wearing his brace or does he need it off and start bending. Please advise and give a call back. documented in this encounter Plan of Treatment DateTypeDepartmentCare Team (Latest Contact Info)Fddieqraufw89/06/2026 11:20 AM ESTOffice Visit Orthopedics Outpatient Care [facility] [address] [place] [address] Dick Monique PA-C [address] [place] [address] 09/13/2025 10:00 AM ESTOffice Visit Sports Medicine Outpatient Care [address] [place] [address] Idalia Gorman PA-C [address] [place] [address] documented as of this encounter Visit Diagnoses Not on filedocumented in this encounter Care Teams Team MemberRelationshipSpecialtyStart DateEnd Date Bruno Antunez III, DO PCP - GeneralFamily Medicine09/15/23documented as of this encounter
--- OUTSIDE RECORDS SUMMARY | 2025-08-26 13:39 | XMS_ITS | Clinical Summary ---
Author Organization [facility] Address [address], [address] [place] [address] Care Team Providers Care Pressfitter Name Role Phone Unavailable Primary Care Provider Unavailabl e Allergies No known active allergies Medications MedicationSigDispense QuantityRefillsLast FilledStart DateEnd DateStatus aspirin 81 MG chewable tablet Take 1 tablet by mouth dailyActive cyclobenzaprine (FLEXERIL) 5 MG tablet Take 1 tablet by mouth 3 times daily as needed for Muscle spasmsActive DAPTOmycin (CUBICIN) 500 MG injection Infuse 16 mLs intravenously dailyActive dilTIAZem (CARDIZEM 12 HR) 120 MG extended release capsule Take 1 capsule by mouth dailyActive apixaban (ELIQUIS) 5 MG TABS tablet Take 1 tablet by mouth 2 times dailyActive famotidine (PEPCID) 20 MG tablet Take 1 tablet by mouth in the morning and 1 tablet in the evening.Active insulin lispro protamine & lispro (HUMALOG MIX) (75-25) 100 UNIT per ML SUSP injection vial Inject 4 Units into the skin in the morning, at noon, in the evening, and at bedtime Humalog kwikpen insulin lispro 100u/ml Follow Sliding scaleActive escitalopram (LEXAPRO) 10 MG tablet Take 1 tablet by mouth dailyActive melatonin 5 MG TABS tablet Take 1 tablet by mouth nightly as needed (insomnia)Active polyethylene glycol (GLYCOLAX) 17 g packet Take 1 packet by mouth daily as needed for ConstipationActive ondansetron (ZOFRAN) 4 MG tablet Take 1 tablet by mouth every 8 hours as needed for Nausea or VomitingActive oxyCODONE (ROXICODONE) 5 MG immediate release tablet Take 1 tablet by mouth every 4 hours as needed for Pain.Active pregabalin (LYRICA) 75 MG capsule Take 1 capsule by mouth 2 times daily.Active risperiDONE (RISPERDAL) 0.5 MG tablet Take 1 tablet by mouth dailyActive sennosides-docusate sodium (SENOKOT-S) 8.6-50 MG tablet Take 2 tablets by mouth dailyActive linagliptin (TRADJENTA) 5 MG tablet Take 1 tablet by mouth dailyActive acetaminophen (TYLENOL) 325 MG tablet Take 2 tablets by mouth every 6 hours as needed for PainActive atorvastatin (LIPITOR) 40 MG tablet Take 1 tablet by mouth nightlyActive Menthol, Topical Analgesic, (BIOFREEZE ROLL-ON) 4 % GEL Apply topically 4 times daily as neededActive docusate sodium (COLACE) 100 MG capsule Take 1 capsule by mouth 2 times dailyActive nystatin (MYCOSTATIN) 259485 UNIT/GM powder Apply topically 2 times daily To groinActive tamsulosin (FLOMAX) 0.4 MG capsule 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,Urinary retention Take 1 capsule by mouth daily 30 capsule 5Active Social History Tobacco UseTypesPacks/DayYears UsedDateSmoking Tobacco: FormerCigarettesQuit: 1968Passive Smoke Exposure: NeverSmokeless Tobacco: Never Tobacco Cessation:Counseling Given: Not Answered Alcohol UseStandard Drinks/WeekCommentsNot Currently0 (1 standard drink = 0.6 oz pure alcohol)AUDIT-CAnswerDate RecordedQ1: How often do you have a drink containing alcohol?Never10/31/2024Q2: How many drinks containing alcohol do you have on a typical day when you are drinking?Patient does not drink10/31/2024Q3: How often do you have six or more drinks on one occasion?Never10/31/2024 Interpersonal Safety Domain Source: IP Abuse ScreeningAnswerDate Recorded Physical dowylUswscy87/26/2025Verbal osofoRnzqxj88/26/2025Emotional abuseDenies 10/31/2024Financial izvzfMymepz78/26/2025Sexual lystoNmdisy31/26/2025Sex and Gender InformationValueDate RecordedSex Assigned at BirthNot on fileLegal Sex Male09/21/2024 8:22 AM ESTGender IdentityNot on fileSexual OrientationNot on file Last Filed Vital Signs Vital SignReadingTime TakenCommentsBlood Cfhsrxqj304/7804 12:17 PM EDT Tvzoj135810/31/2024 3:27 PM EJHLyyzdjaroyv66.9 ??C (98.4 ??F)10/31/2024 3:27 PM ESTRespiratory Wfoi4513 3:27 PM ESTOxygen Uhklifqxaz78%10/31/2024 8:07 PM ESTInhaled Oxygen Concentration--Ybjdpm964.8 kg (253 lb)12/24/2024 12:17 PM WOWZjydau920.4 cm (6' 1 )12/24/2024 12:17 PM EDTBody Mass Index33.38012/24/2024 12:17 PM EDT Plan of Treatment Health MaintenanceDue DateLast DoneCommentsDepression Jundtl7210/17/1956Shingles vaccine (1 of 2)1994Respiratory Syncytial Virus (RSV) or age 60 yrs+ (1 - 1-dose 75+ series)2019Annual Wellness Visit (Medicare)09/21/2024 Flu vaccine (#1), 07/05/2023, 09/08/2022, Additional history existsCOVID-19 Vaccine ( season), 12/30/2022, 11/27/2020, Additional history wmwulzOjquth32DTaP/Tdap/Td vaccine (4 - Td or Tdap), 06/08/2021, 08/21/2019Pneumococcal 50+ years NuzkaajMzmddubtd19/04/2023, 02/13/2016, 06/20/2015, Additional history existsHepatitis A vaccineAged OutNo longer eligible based on patient's age to complete this topicHepatitis B vaccineAged OutNo longer eligible based on patient's age to complete this topicHib vaccineAged OutNo longer eligible based on patient's age to complete this topicMeningococcal (ACWY) vaccineAged OutNo longer eligible based on patient's age to complete this topicMeningococcal B vaccineAged OutNo longer eligible based on patient's age to complete this topic Polio vaccineAged OutNo longer eligible based on patient's age to complete this topic Procedures Procedure NamePriorityDate/TimeAssociated DiagnosisCommentsLIPID PANELRoutine 09/25/2024 6:45 AM EST from Last 3 Months or Most Recently Relevant to Health Maintenance Results * (ABNORMAL) Lipid Panel (09/25/2024 6:45 AM EST)ComponentValueRef RangeTest MethodAnalysis TimePerformed AtPathologist SignatureCholesterol, Spswu439 - 199 mg/dL09/25/2024 6:45 AM [facility]ATORIESComment: Cholesterol Guidelines: <200 Desirable 200-240 ??Borderline >240 Undesirable HDL28(L)>40 mg/dL09/25/2024 6:45 AM [facility]IESComment: HDL Guidelines: <40 Undesirable 40-59 ?Borderline >59 Desirable LDL Ftmmqrhdnos658 - 100 mg/dL09/25/2024 6:45 AM [facility]IESComment: LDL Guidelines: <100 Desirable 100-129 ?? Near to/above Desirable 130-159 ?? Borderline >159 Undesirable Direct (measured) LDL and calculated LDL are not interchangeable tests. Chol/HDL Ratio3. 6:45 AM ESTMERCY NODWNDCZDRIKUvapkwabnnhoa38<150 mg/dL09/25/2024 6:45 AM [facility]ATORIESComment: Triglyceride Guidelines: <150 Desirable 150-199 ??Borderline 200-499 ??High >499 Very high Based on AHA Guidelines for fasting triglyceride, June 2012. EUMT786 - 30 mg/dL09/25/2024 6:45 AM ESTMERCY LABORATORIESSpecimen (Source) Anatomical Location / LateralityCollection Method / VolumeCollection Time Received Time09/25/2024 6:45 AM EST09/25/2024 7:45 AM EST Narrative Authorizing ProviderResult TypeResult StatusIrruth Longoria MDCHEMISTRY ORDERABLES Final ResultPerforming OrganizationAddressCity/State/ZIP CodePhone Number [facility] [address] [place] [address], [facility] [phone] [employer] [address] [place] [address], [facility] [phone] from Last 3 Months or Most Recently Relevant to Health Maintenance Insurance
--- OUTSIDE RECORDS SUMMARY | 2025-08-26 13:40 | XMS_ITS | Clinical Summary ---
[facility] Organization [facility] Address [address] [place] [address] Care Team Providers Care Machine Stitcher Name Role Phone Tulio BUTLER DO, Rolland Primary Care Provider [phone] Allergies No known active allergies Medications MedicationSigDispense QuantityRefillsLast FilledStart DateEnd DateStatus Eliquis 5 MG tablet Take 1 tablet by mouth 2 times daily.2Active Diltiazem 120 MG Cap SR 24HR capsule XL Take 1 capsule by mouth daily.Active Insulin lispro, 1 Unit Dial, (HumaLOG KwikPen) 100 UNIT/ML Solution Pen-injector Inject under the skin before meals & at bedtime. BG 150-200: 2 units BG 201-250: 4 units BG 251-300: 6 units BG 301-350: 8 units BG 351-400: 10 unitsActive Melatonin 5 MG tablet Take 1 tablet by mouth at bedtime.Active Polyethylene glycol 17 g Pack packet Take 1 packet by mouth daily.Active Ondansetron 4 MG tablet Take 1 tablet by mouth every 8 hours as needed for Nausea / Vomiting.Active Tamsulosin HCl 0.4 MG capsule Take 1 capsule by mouth daily. 30 capsule 5Active aspirin 81 MG Chew Tab chewable tablet Chew 1 tablet daily.5Active faMOTIdine 20 MG tablet Take 1 tablet by mouth every 12 hours.5Active busPIRone 5 MG tablet Take 1 tablet by mouth 2 times daily.5Active Sertraline 25 MG tablet 5Active Rosuvastatin 20 MG tablet 05/13/2025tive Valsartan 80 MG tablet 05/10/2025tive omeprazole [address] capsule Take 1 capsule by mouth daily.Active potassium chloride 20 MEQ Pack Take 1 packet by mouth 2 times daily.Active Acetaminophen 325 MG tablet Take 3 tablets by mouth every 6 hours.06/07/2025tive Celecoxib 200 MG capsule Take 1 capsule by mouth every 12 hours.06/07/2025tive Loperamide 2 MG capsule Take 1 capsule by mouth 4 times daily as needed for Diarrhea.06/07/2025tive oxyCODONE 5 MG tablet Indications:History of revision of total knee arthroplastyTake 1-2 tablets by mouth every 4 hours as needed for Moderate Pain or Severe Pain for up to 3 days. 36 tablet 06/11/2025tive pregabalin 75 MG capsule Indications:Peripheral polyneuropathyTake 1 capsule by mouth 2 times daily for 3 days. 6 capsule 06/11/2025tive Active Problems ProblemNoted DateDiagnosed DateDiarrhea due to drug06/07/2025Elective surgery 06/03/2025Infectious krajlvnvf50/27/2025nemia (Low HGB)11/01/2024Lumbar spinal wfferxlk46/19/2024Infection of left knee10/24/20230261Ujcjqdxvwg42/19/2024nemia, blood loss10/24/2023Type 2 diabetes mellitus with fdtwuuhwbsfyrr94/19/2024 Obesity due to excess kjmjpsyr92/19/2024eripheral bziufujzij12/19/2024Septic arthritis of knee, left10/24/2023Status post amputation of lesser toe of right foot10/24/2023Urge /19/2024Urgency of mznoyrpml78/19/2024Urine iccrfufgo46/19/2024Weak urine wdjomt8610/24/2023Subluxation of left patella 10/10/2023Gout10/04/20234050Xfmerzy58/30/2024Tendon rupture, nontraumatic, extensor 04/12/2023lzheimer's dementia, late onset/oronary artery hfbumtx19/iabetes mellitus with mulykpweizullj68/02/2023 04/06/2023Essential uranac33Eczematous gxrdgkyzvq31/02/2023 04/06/20231238Wjimdswskquhph33/02/202308/02/1472Rvfpmqilxpub11 Hypertrophy of prostate with urinary msotbocbjyy19Restless legsersistent atrial sawlhavsiuov07Type 2 diabetes mellitus with hyperglycemia (A1C > 6.49)09/01/2022rthritis of left knee due to other furyypmq70/19/2022besity (BMI 30.0-34.9)08/18/2022MRSA (methicillin resistant staph aureus) culture /05/2021 Overview (10/24/2023): MRSA knee specimens x 2 on 07/27/2022MRSA nasal swab 07/21/2022MRSA urine 03/19/22MRSA toe wound 06/09/2021 Acute osteomyelitis of ankle or footMalignant neoplasm of skin08/16/2017 Encounters DateTypeDepartmentCare VbheAwliikwzuej03/19/2025Telephone Central Scheduling [address] [place] [address] Flako Godinez MD Advice Only08/16/2025 2:40 PM ESTTelemedicine Orthopedics [facility] Care [address] [address] Flako Godinez MD Infection associated with internal left knee prosthesis, subsequent encounter (Primary Dx); S/P revision of total knee, left; 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 imjsqcoe21/26/2025 1:20 PM ESTOffice Visit Sports Medicine Outpatient Care [address] [place] [address] Kishore Harris PA-C 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); History of revision of total knee arthroplasty; Pain in prosthetic joint, sequela; Left knee pain, unspecified chronicity; Right knee pain, unspecified vndumynbtq02/20/2025Telephone Central Scheduling [address] [place] [phone] Flako Godinez MD Advice Only07/19/2025 1:20 PM ESTOffice Visit Orthopedics Outpatient Care [address] [phone] Flako Godinez MD S/P revision of total knee, left (Primary Dx)07/19/2025 1:00 PM EST - 07/19/2025 11:59 PM ESTHospital Encounter Imaging Outpatient Care [address] [phone] Flako Godinez MD Discharge Disposition: Home or Self Care07/10/2025 12:40 PM ESTOffice Visit Orthopedics Outpatient Care [address] [phone] Dick Monique PA-C S/P revision of total knee, left (Primary Dx)06/26/2025Telephone Central Scheduling [address] [place] [phone] Flako Godinez MD Other06/25/2025 1:32 PM EDT - 06/25/2025 3:58 PM [facility] [address] [place] [phone] Sami Douglass MD Discharge Disposition: Home or Self Care06/25/2025 11:40 AM EDTOffice Visit Orthopedics Outpatient Care [address] [phone] Dick Monique PA-C S/P revision of total knee, left (Primary Dx)06/25/2025 11:15 AM EDT - 06/25/2025 1:31 PM EDTHospital Encounter Imaging Outpatient Care [address] [phone] Dick Monique PA-C Discharge Disposition: Home or Self Care06/25/20257218Oycfqu61/13/2025Telephone Central Scheduling [address] [place] [address] Flako Godinez MD Advice Only06/16/2025Telephone O/S [address] [place] [address] Flako Godinez MD Answering Aqhdcib5806/14/2025Telephone Patient Mgmt Clinical Users [address] [place] [phone] Lily Esparza Post-Discharge Follow Up06/04/20250441Vaqykw42/29/2025 1:13 PM EDTAnesthesia Event [facility] [address] [place] [address] Mynor Brown MD Gunawan, Antonius, MD 06/03/2025 12:30 PM EDT - 06/03/2025 3:41 PM EDTSurgery [facility] [address] [place] [address] Flako Godinez MD REVISION ARTHROPLASTY KNEE06/03/2025 10:49 AM EDT - 06/11/2025 8:14 PM EDT Hospital Encounter ET9 [address] [place] [phone] Flako Godinez MD Elective surgery Discharge Disposition: Mcc Rcaktvsh60/26/2025Telephone Sports Medicine Outpatient Care [address] [place] [address] Flako Godinez MD Surgery (Arrival time )from Last 3 Months Immunizations ImmunizationAdministration DatesNext DueInfluenza Vaccine, High-dose06/23/2021, 06/24/2020,07/27/2019,06/05/2017Influenza Vaccine, Ptiywgamm18/01/2020, 06/07/2016,06/20/2015Influenza, High-dose Seasonal, Quadrivalent, Preservative Free07/05/2023,3Pneumococcal Conjugate 13-valent wwlnpci2302/13/2016, 06/20/2015Pneumococcal Conjugate 7-Valent Vac <5yo, IM06/09/2015Pneumococcal Polysac 23-Valent Hexfxvc5107/06/2011Td Vaccine 2-2 LF06/08/2021Tdap Vaccine 08/21/2019pneumococcal Conjugate 20-Valent Begapgv1009/08/2022 Social History Tobacco UseTypesPacks/DayYears UsedDateSmoking Tobacco: UsrdrvVxpuplaikt2Ofiv: 07/1994Smokeless Tobacco: Never Tobacco Cessation:Counseling Given: Not Answered Comments:Quit 1993 Alcohol UseStandard Drinks/WeekCommentsYes1 (1 standard [...] InformationValueDate RecordedSex Assigned at BirthNot on fileLegal YfhUgbz04/09/2022 11:02 AM ESTGender IdentityNot on fileSexual OrientationNot on file Last Filed Vital Signs Vital SignReadingTime TakenCommentsBlood Gfepsxyv062/5206/25/2025 3:50 PM EDT Hqxak646206/25/2025 3:50 PM KJVRvemvnixkjz22.1 ??C (98.7 ??F)06/25/2025 1:28 PM EDTRespiratory Yexf6440 3:50 PM EDTOxygen Ewlszpmtzy10%06/25/2025 3:50 PM EDTInhaled Oxygen Concentration--Sytwfr08 kg (205 lb)06/08/2025 3:00 PM EDT Qogppx740.4 cm (6' 1 )06/08/2025 3:00 PM EDTBody Mass Index27.0506/08/2025 3:00 PM EDT Plan of Treatment DateTypeDepartmentCare Team (Latest Contact Info)Txvoswikfwt16/06/2026 11:20 AM ESTOffice Visit Orthopedics Outpatient Care [address] [phone] Dick Monique PA-C [address] [place] [address] 09/13/2025 10:00 AM ESTOffice Visit Sports Medicine Outpatient Care [address] [place], [place] [phone] Idalia Gorman PA-C [address] [place] [address] Health MaintenanceDue DateLast DoneCommentsDIABETIC FOOT EXAM1944EYE EXAM 1944 8976LRDYNM10/12/1945URINE MICROALBUMIN TEST1944OLORECTAL CANCER SCREENING DKTRFXJTQL22/12/1990ZOSTER (SHINGLES) VACCINE (1 of 2)1994RSV VACCINE (1 - 1-dose 75+ series)2019HBA1C TEST/401/, 01/12/2023, 2COVID-19 VACCINE ( season)51, 12/30/2022, 01/22/2022, Additional history existsINFLUENZA VACCINE (#1) 509/, 07/05/2023, 09/08/2022, Additional history existsTETANUS /09/2023, 06/08/2021, 08/21/2019PNEUMOCOCCAL VACCINE SERIESCompleted 09/08/2022, 02/13/2016, 06/20/2015, Additional history existsTDAP (ADULT) Dydckyjcd60/01/2024, 08/21/2019HEP B VACCINEAged OutNo longer eligible based on patient's age to complete this topic Medical Devices ImplantedTypeAreaManufacturerDevice IdentifierShelf Expiration DateModel / Serial / LotPalacos R+G 1x40 Single With Gentamicin - [id number] Implanted:Qty: 3 on 08/23/2022 by Donald Marx MD at [facility]: KneeZIMMER BIOMET [id number] / / [id number] R+G 1x40 Single With Gentamicin - [id number] Implanted:Qty: 2 on 08/23/2022 by Donald Marx MD at [facility]: KneeZIMMER BIOMET [id number] / / [id number] Femoral Crutiate Retaining Size 8 Left Cemented Implanted:Qty: 1 on 08/23/2022 by Donald Marx MD at [facility]: Knee [id number] / / [id number] Knee System All Poly Tibial Implant Crutiate Retaining Cemented Size 7 Implanted:Qty: 1 on 08/23/2022 by Donald Marx MD at [facility]: Knee DEPUY ORTHOPAEDICS [id number] / / [id number] R & G Bone Cement High-Viscosity With Gentamicin - [id number] Implanted:Qty: 2 on 04/12/2023 by Donald Marx MD at [facility]: Knee 06/04/2026/ [id number] / [id number] Patella Medialized Dome Implanted:Qty: 1 on 04/12/2023 by Donald Marx MD at [facility]: Knee DEPUY QWGYIYZ4203/04/2028/ 1518-20-041 / [id number] Mesh Implanted:Qty: 1 on 04/12/2023 by Donald Marx MD at [facility]: KneeCR BARD INC11/02/2026/ [id number] / [id number] 4.0mm Cannulated Screw 40mm Long Thread #[id number] Implanted:Qty: 1 on 04/12/2023 by Donald Marx MD at [facility]: Knee DEPUY SYNTHESSurface Articular 16mm Persona 10-12 G-H Knee Right - [id number] Implanted:Qty: 1 on 11/02/2024 by Flako Godinez MD at [facility]: KneeZIMMER BIOMET [id number] / / [id number] Bone Void 10cc 20cc Calcium Sulfate Stimulan Rapid - [id number] Implanted:Qty: 1 on 11/02/2024 by Flako Godinez MD at [facility]: HkvzEXBJQIOBMCJUZ94/30/8970003-963 / / [id number] Bone Cement Quick-Vac Large Capacity Vacuum Mix Adapter - [id number] Implanted:Qty: 1 on 11/02/2024 by Flako Godinez MD at [facility]: KneeZIMMER BIOMET [id number] / / [id number] Bone Refobacin - [id number] Implanted:Qty: 1 on 11/02/2024 by Flako Godinez MD at [facility]: KneeZIMMER BIOMET [id number] / / [id number] Bone Refobacin - [id number] Implanted:Qty: 1 on 11/02/2024 by Flako Godinez MD at [facility]: KneeZIMMER BIOMET [id number] / / [id number] Bone Refobacin - [id number] Implanted:Qty: 1 on 11/02/2024 by Flako Godinez MD at [facility]: KneeZIMMER BIOMET [id number] / / [id number] Femoral 11 Standard Knee Right Posterior Stabilize - [id number] Implanted:Qty: 1 on 11/02/2024 by Flako Godinez MD at [facility]: KneeZIMMER BIOMET [id number] / / [id number] To Bar Clamp Implanted:Qty: 1 on 11/08/2024 by Flako Godinez MD at [facility]: Wjrp80-4971-499-28. / [id number] / Cement Bone Refobacin - [id number] Implanted:Qty: 1 on 11/08/2024 by Flako Godinez MD at [facility]: KneeZIMMER BIOMET [id number] / / [id number] Bone Refobacin - [id number] Implanted:Qty: 1 on 11/08/2024 by Flako Godinez MD at [facility]: KneeZIMMER BIOMET [id number] / / [id number] Bone Void 10cc 20cc Calcium Sulfate Stimulan Rapid - [id number] Implanted:Qty: 1 on 11/08/2024 by Flako Godinez MD at [facility]: DatwUKVWMYJXCTFIC55/30/5440132-560 / / [id number] Bone Refobacin - [id number] Implanted:Qty: 1 on 11/08/2024 by Flako Godinez MD at [facility]: KneeZIMMER BIOMET [id number] / / [id number] Bar Implanted:Qty: 2 on 11/08/2024 by Flako Godinez MD at [facility]: KneeZIMMER BIOMET EDBQR40-8507-228-91 / / Mesh Groin 78d44cc Polypropylene Bard Monofilament Surgical - [id number] Implanted:Qty: 1 on 06/03/2025 by Flako Godinez MD at [facility]: KneeBARD DOTYOL (INACTIVE)[id number] / / [id number] Bone Simplex P Tobramycin Full Dose Antibiotic - [id number] Implanted:Qty: 1 on 06/03/2025 by Flako Godinez MD at [facility]: [facility] ORTHOPEDICS (INACTIVE)[id number] / / [id number] Bone Simplex P Tobramycin Full Dose Antibiotic - [id number] Implanted:Qty: 1 on 06/03/2025 by Flako Godinez MD at [facility]: [facility] ORTHOPEDICS (INACTIVE)[id number] / / [id number] Bone Simplex P Tobramycin Full Dose Antibiotic - [id number] Implanted:Qty: 1 on 06/03/2025 by Flako Godinez MD at [facility]: [facility] ORTHOPEDICS (INACTIVE)[id number] / / [id number] Extension 130mm 17mm Nexgen Flute Knee Femur Tivanium - [id number] Implanted:Qty: 1 on 06/03/2025 by Flako Godinez MD at [facility]: KneeZIMMER BIOMET SPINE223291-1581-297-18 / / [id number] Tib Cntr Persona Sm Cone [id number] - [id number] Implanted:Qty: 1 on 06/03/2025 by Flako Godinez MD at [facility]: KneeZIMMER BIOMET SPINE809912-9578-614-21 / / [id number] Tibial Nexgen Knee Stem Precoat Rotate Hinge 49u41di 5 - [id number] Implanted:Qty: 1 on 06/03/2025 by Flako Godinez MD at [facility]: KneeZIMMER BIOMET SPINE02/27/2030467572-3730-876-74 / / [id number] Extension 30mm 15mm Nexgen Straight Knee Rotate Hinge - [id number] Implanted:Qty: 1 on 06/03/2025 by Flako Godinez MD at [facility]: KneeZIMMER BIOMET SPINE703472-3719-682-69 / / [id number] Femoral F 14z70de Knee Left Rotate Hinge Nexgen - [id number] Implanted:Qty: 1 on 06/03/2025 by Flako Godinez MD at [facility]: KneeZIMMER BIOMET SPINE09/28/2029450691-9430-081-45 / / [id number] Augmentation Nexgen F 10mm Distal Precoat - [id number] Implanted:Qty: 1 on 06/03/2025 by Flako Godinez MD at [facility]: KneeZIMMER BIOMET SPINE356808-2910-259-14 / / [id number] Augmentation Nexgen F 10mm Distal Precoat - [id number] Implanted:Qty: 1 on 06/03/2025 by Flako Godinez MD at [facility]: KneeZIMMER BIOMET SPINE190027-6107-320-25 / / [id number] Cmnt 25mm Joseph 16-21mm Hip Fem Plg - [id number] Implanted:Qty: 1 on 06/03/2025 by Flaok Godinez MD at [facility]: KneeSMITH and NEPHEW [id number] / / [id number] Articular 38m06e35px Nexgen 5-6 F Knee Uhmwpe - [id number] Implanted:Qty: 1 on 06/03/2025 by Flako Godinez MD at [facility]: KneeZIMMER BIOMET SPINE03/27/2030244356-3679-035-03 / / [id number] Bone Refobacin - [id number] Implanted:Qty: 1 on 06/03/2025 by Flako Godinez MD at [facility]: KneeZIMMER BIOMET [id number] / / Cement Bone Refobacin - [id number] Implanted:Qty: 1 on 06/03/2025 by Flako Godinez MD at [facility]: KneeZIMMER BIOMET [id number] / / Procedures Procedure NamePriorityDate/TimeAssociated DiagnosisCommentsBODY FLUID PATH DIFFERENTIAL, PERFORMABLE NECCPxofwpd41/26/2025 2:34 PM EST Status post revision of total replacement of left knee BODY FLUID CELL SMMFEKmuhwgl00/26/2025 2:34 PM EST Status post revision of total replacement of left knee BODY FLUID TECH WMFUUHQPSJIIBscgvfc87/26/2025 2:34 PM EST Status post revision of total replacement of left knee BODY FLUID TECH XWFFIQNTNQBUUbhtggz47/26/2025 2:34 PM EST Status post revision of total replacement of left knee SYNOVASURE PJI, SYNOVIAL VCFBMRttqnzo01/26/2025 2:34 PM EST Status post revision of total replacement of left knee BODY FLUID CULTURE AND DIRECT EGLIHHprdyhe07/26/2025 2:34 PM EST Status post revision of total replacement of left knee FUNGUS FLVHVNWTgmkjuu81/26/2025 2:34 PM EST Status post revision of total replacement of left knee ACID FAST SOVXAAABygaomk35/26/2025 2:34 PM EST Status post revision of total replacement of left knee ANAEROBE AJQFPVYLtucfce58/26/2025 2:34 PM EST Status post revision of total replacement of left knee LA DRAIN/INJECT LARGE JOINT/BURSA ICXPBYTKWCXMjrglpx65/26/2025 1:20 PM EST Status post revision of total replacement of left knee XR KNEE LEFT 1-2 TEDTWMawwpwe96/14/2025 1:37 PM EST S/P revision of total knee, left LA DRAIN/INJECT LARGE JOINT/BURSA RIKFZPSGVKDPvcbkjv97/05/2025 12:40 PM EST S/P revision of total knee, left CBC AND ELECTRONIC GQKJLRWU34/21/2025 1:48 PM EDT CBC, EDIF, TLYJFWILEKXA33/21/2025 1:48 PM EDT LT BLUE TOP KUHNBqkrxjy13/21/2025 1:48 PM EDTLAVENDER TOP CXWYXebeohd23/21/2025 1:48 PM EDTMINT GREEN TOP OFAREeadnpl40/21/2025 1:48 PM EDTGOLD TOP TUBERoutine 06/25/2025 1:48 PM EDTRAINBOW JHALTlydnae58/21/2025 1:48 PM EDT XR KNEE LEFT 1-2 BTHAIXgwnmqm61/21/2025 11:45 AM EDT Status post left knee replacement GLUCOSE NOFLdortvs25/07/2025 3:50 PM EDT GLUCOSE KSRArnodqf02/07/2025 11:49 AM EDT GLUCOSE RRAAfmucho63/07/2025 7:40 AM EDT CBC AND ELECTRONIC ITNPNbopgyk09/07/2025 3:50 AM EDT CBC, EDIF, XELMNJDKHozxhur95/07/2025 3:50 AM EDT CHEM 7 (LYTES,BUN,CREA,GLUC)Otvvofn1706/11/2025 3:50 AM EDT GLUCOSE NEYVpujmda98/06/2025 8:40 PM EDT GLUCOSE TZFPawxmrx42/06/2025 5:26 PM EDT GLUCOSE HOUKhlurpt48/06/2025 11:06 AM EDT GLUCOSE KKSZvvpfjd19/06/2025 10:10 AM EDT GLUCOSE KPAPuvcsne05/06/2025 8:16 AM EDT CBC AND ELECTRONIC MEIPOoprxkk06/06/2025 5:51 AM EDT CBC, EDIF, IKQTDSWJOivheku43/06/2025 5:51 AM EDT CHEM 7 (LYTES,BUN,CREA,GLUC)Kqnjzzy4806/10/2025 5:51 AM EDT GLUCOSE ROBVxyopae01/01/2025 8:48 PM EDT GLUCOSE DTZUmowfng55/05/2025 6:42 PM EDT TRANSFUSE RED BLOOD MMFBVNsajkhz06/05/2025 4:04 PM EDTTYPE AND SCREENRoutine 06/09/2025 1:02 PM EDT PREPARE TO TRANSFUSE RED BLOOD IYFVTDvpqyan12/05/2025 1:02 PM EDT GLUCOSE ACIQzzwlpc59/05/2025 12:35 PM EDT CBC AND ELECTRONIC SJZZLooiukx81/05/2025 11:03 AM EDT CBC, EDIF, BUWBGXJFTprjisg32/05/2025 11:03 AM EDT GLUCOSE VBMAtbazpd33/05/2025 7:44 AM EDT AVUXVJNNYrujttq57/05/2025 4:32 AM EDT VITAMIN B28Aamifnl31/05/2025 4:32 AM EDT IRON/IRON BINDING/MUPQUDCTYWUVhvkbva30/05/2025 4:32 AM EDT CHEM 7 (LYTES,BUN,CREA,GLUC)Ahsnjbm0506/09/2025 4:32 AM EDT GLUCOSE OFWCsvjdtr88/04/2025 8:33 PM EDT GLUCOSE ZJVNmaffun82/04/2025 5:03 PM EDT GLUCOSE MMCYrjpend76/04/2025 11:40 AM EDT GLUCOSE LMRMyxwyto55/04/2025 8:21 AM EDT CBC,ITWDTXKXBFnsupik84/04/2025 4:06 AM EDT CHEM 7 (LYTES,BUN,CREA,GLUC)Oxtcwnk1106/08/2025 4:06 AM EDT GLUCOSE RSZUohrroz86/03/2025 8:50 PM EDT MOLECULAR ENTERIC PANEL, KIJEBKzdytjc75/03/2025 8:43 PM EDT C DIFFICILE TWO STFTZbonyjx12/03/2025 8:43 PM EDT GLUCOSE LSHDeeqgkg19/03/2025 4:33 PM EDT GLUCOSE YHFAgozrkc57/03/2025 11:01 AM EDT XR ABDOMEN 1 VIEW MELJZKIKQpfmiui89/03/2025 8:36 AM EDT GLUCOSE UZUCxprwqu82/03/2025 7:48 AM EDT CHEM 7 (LYTES,BUN,CREA,GLUC)Dbbhvwt1406/07/2025 4:46 AM EDT GLUCOSE EEHDycshjn71/02/2025 8:37 PM EDT GLUCOSE HHNIfvrvpk99/02/2025 8:24 PM EDT GLUCOSE MGCUhalwsi72/02/2025 4:35 PM EDT GLUCOSE RVRLtbeewl52/02/2025 11:44 AM EDT GLUCOSE IKOHhqnmek23/02/2025 8:14 AM EDT CHEM 7 (LYTES,BUN,CREA,GLUC)Rbherse6106/06/2025 7:59 AM EDT GLUCOSE KMWArhamax42/01/2025 9:04 PM EDT GLUCOSE JSXXylnrjb72/01/2025 4:32 PM EDT GLUCOSE JLACidsktw82/01/2025 11:19 AM EDT GLUCOSE EQUJxackkt00/01/2025 8:07 AM EDT CBC AND ELECTRONIC FUPIJjzuatb46/01/2025 12:53 AM EDT CHEM 7 (LYTES,BUN,CREA,GLUC)Phwqlpf0106/05/2025 12:53 AM EDT CBC, EDIF, IYHJEJZVWvqpikz11/01/2025 12:53 AM EDT GLUCOSE EIVBvrdwlt75/30/2025 9:57 PM EDT GLUCOSE BCUQobyvdi94/30/2025 4:46 PM EDT GLUCOSE KGEJivfhur97/30/2025 12:21 PM EDT EXTRA JHWNHMxbkgxw88/30/2025 10:00 AM EDTURINALYSIS REFLEX TO CULTURE IQVFJFNUGKBKqvgiec00/30/2025 10:00 AM EDT URINALYSIS REFLEX TO FHEXGUIWgsssbu79/30/2025 10:00 AM EDT URINE ATMEILKHtwchiq97/30/2025 10:00 AM EDT GLUCOSE IOAYriapjy94/30/2025 7:44 AM EDT CBC AND ELECTRONIC NKFMGpvyhgs93/29/2025 10:57 PM EDT CHEM 7 (LYTES,BUN,CREA,GLUC)Rjgubma3106/03/2025 10:57 PM EDT CBC, EDIF, HPEAZDRKUeoibey10/29/2025 10:57 PM EDT GLUCOSE YYFCemhggw33/ 7:40 PM EDT XR KNEE LEFT 1-2 TZTULYbstyai74/29/2025 5:34 PM EDT GLUCOSE ABKSsiieit77/29/2025 5:21 PM EDT GLUCOSE UJZKtzgrni24/29/2025 3:08 PM EDT TYPE AND FSVDMKSHYC35/29/2025 2:21 PM EDT PREPARE TO TRANSFUSE RED BLOOD IZBGUUxitimg32/29/2025 2:21 PM EDT GLUCOSE WJOVdyloyw40/29/2025 2:05 PM EDT PROCEDURE - IJYPDIONPRAfabzqg01/29/2025 1:30 PM EDT LA SUTR INFRAPATELLAR TDN 2 RCNSTJ W/FSCAL/TDN GRF06/03/2025 1:19 PM EDT Infection associated with internal left knee prosthesis, subsequent encounter Hx of left knee surgery 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 director talent once to make sure ride is setup in enough time and she was worried about him not having if she has to wait the 2 day time frame for an arrival time. 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 director talent once to make sure ride is setup in enough time and she was worried about him not having if she has to wait the 2 day time frame for an arrival time. -Tanvi GLUCOSE PBONxpnoop13/29/2025 11:31 AM EDT [facility] YAHGIKNSRNFqvwlzo40/29/2025 11:04 AM EDTCARDIAC RHYTHM 06/03/2025HEMOGLOBIN O9AVcroj68/15/2024 10:10 AM EST Pre-op testing Preop testing Abnormal finding of blood chemistry, unspecified from Last 3 Months or Most Recently Relevant to Health Maintenance Results * BODY FLUID PATH DIFFERENTIAL, PERFORMABLE ONLY (07/31/2025 2:34 PM EST) ComponentValueRef RangeTest MethodAnalysis TimePerformed AtPathologist SignatureSpecimen SourceSYNOVIAL FLUID08/02/2025 12:59 PM [facility]Comment (Fluid)No unequivocal organisms seen. Acute inflammation present. Correlation with gram stain and culture r ecommended.08/02/2025 12:59 PM [facility] LABORATORYNeutrophils (Fluid)100%08/02/2025 12:59 PM [facility]Comment:The reference range has not been established for this fluid. Clinical correlation is recommended.Lymphocytes (Fluid)0% 08/02/2025 12:59 PM [facility]Comment: The reference range has not been established for this fluid. Clinical correlation is recommended.Monocytes/Macrophages, Fluid0%08/02/2025 12:59 PM [facility]Comment:The reference range has not been established for this fluid. Clinical correlation is recommended. Eosinophils Fluid0%08/02/2025 12:59 PM [facility] CL[facility] LABORATORYComment:The reference range has not been established for this fluid. Clinical correlation is recommended.Basophils (Fluid)0%08/02/2025 12:59 PM [facility] CLINICAL LABORATORYComment:The reference range has not been established for this fluid. Clinical correlation is recommended. Differential Reviewed ByFrancisco Duncan MD08/02/2025 12:59 PM [facility] CLINICAL LABORATORYCells Counted (Fluid)2779908/02/2025 12:59 PM [facility] CLINICAL LABORATORYSpecimen (Source)Anatomical Location / LateralityCollection Method / VolumeCollection TimeReceived Time FluidSYNOVIAL FLUID SPECIMEN / Kjfhxcq4607/31/2025 2:34 PM EST07/31/2025 2:35 PM EST Narrative Authorizing ProviderResult TypeResult StatusAdam D Steven PA-CBODY FLUIDS & STOOLS ORDERABLESFinal ResultPerforming OrganizationAddressCity/State/ZIP Code Phone Number [facility] [address] [address] * BODY FLUID TECH DIFFERENTIAL (07/31/2025 2:34 PM EST)Specimen (Source) Anatomical Location / LateralityCollection Method / VolumeCollection Time Received TimeFluidSYNOVIAL FLUID SPECIMEN / Rxlslfw1807/31/2025 2:34 PM EST 07/31/2025 2:35 PM EST Narrative Authorizing ProviderResult TypeResult StatusAdam D Steven PA-CBODY FLUIDS & STOOLS ORDERABLESFinal ResultPerforming OrganizationAddJefferson Healthty/State/ZIP Code Phone Number [facility] [address] [address] * (ABNORMAL) SYNOVASURE PJI, SYNOVIAL FLUID (07/31/2025 2:34 PM EST)Component ValueRef RangeTest MethodAnalysis TimePerformed AtPathologist Signature Synovasure PJI, Synovial FluidPositive(A)Ijtcculg15/26/2025 5:35 PM [facility] CLINICAL LABORATORYSpecimen (Source)Anatomical Location / LateralityCollection Method / VolumeCollection TimeReceived TimeSynovial Fluid07/31/2025 2:34 PM EST07/31/2025 2:35 PM EST Narrative Authorizing ProviderResult TypeResult StatusAdam D Harris PA-CBODY FLUIDS & STOOLS ORDERABLESFinal ResultPerforming OrganizationAddressCity/State/ZIP Code Phone Number [facility] [address] [address] * ANAEROBE CULTURE (07/31/2025 2:34 PM EST)ComponentValueRef RangeTest Method Analysis TimePerformed AtPathologist SignatureCultureNo anaerobic growth 08/14/2025 9:22 AM [facility] CLINICAL LABORATORYSpecimen (Source) Anatomical Location / LateralityCollection Method / VolumeCollection Time Received TimeAspirateSYNOVIAL FLUID SPECIMEN / Tzgkxzg1207/31/2025 2:34 PM EST 07/31/2025 2:35 PM EST Narrative [facility] - 08/14/2025 9:22 AM EST Specimen incubated up to 14 days. Authorizing ProviderResult TypeResult StatusAdam Siri ELLIOTT-CMICROBIOLOGY - GENERAL ORDERABLESFinal ResultPerforming OrganizationAddressCity/State/ZIP Code Phone Number [facility] [address] [place] [address] * (ABNORMAL) BODY FLUID CULTURE AND DIRECT SMEAR (07/31/2025 2:34 PM EST) ComponentValueRef RangeTest MethodAnalysis TimePerformed AtPathologist LzlrxegmqMizczrtKotoje11/28/2025 2:52 PM [facility] CultureModerate Growth ESBL Producing Klebsiella pneumoniae(A)08/02/2025 2:52 PM [facility] CL[facility]ICAL LABORATORYComment: Susceptibilities setup on 08/01/25 Contact Isolation is required for inpatients with confirmed ESBL producers. ESBL producers are likely clinically resistant to therapy with Penicillins, Cephalosporins, ??and Aztreonam. Gram StainNeutrophils, Heavy08/02/2025 2:52 PM [facility] CLINICAL LABORATORYGram StainRed Blood Cells Sbxwfvf1208/02/2025 2:52 PM [facility] CLINICAL LABORATORYGram StainNo organisms seen08/02/2025 2:52 PM [facility] CLINICAL LABORATORYComment: Preliminary report pending review by Microbiology Specimen (Source)Anatomical Location / LateralityCollection Method / Volume Collection TimeReceived TimeFluidSYNOVIAL FLUID SPECIMEN / Argrjpq0907/31/2025 2:34 PM EST07/31/2025 2:35 PM EST Narrative OrganismAntibioticMethodSusceptibilityESBL Producing Klebsiella pneumoniae Amikacin 4 ug/mL: Susceptible ESBL Producing Klebsiella pneumoniaeAmpicillin >=32 ug/mL: Resistant ESBL Producing Klebsiella pneumoniaeAmpi-Sulb >=32 ug/mL: Resistant ESBL Producing Klebsiella pneumoniaeCefazolin >=32 ug/mL: Resistant ESBL Producing Klebsiella pneumoniaeCefepime >=32 ug/mL: Resistant ESBL Producing Klebsiella pneumoniaeCeftriaxone >=64 ug/mL: Resistant ESBL Producing Klebsiella pneumoniaeCiprofloxacin >=4 ug/mL: Resistant ESBL Producing Klebsiella pneumoniaeErtapenem <=0.12 ug/mL: Susceptible ESBL Producing Klebsiella pneumoniaeGentamicin <=1 ug/mL: Susceptible ESBL Producing Klebsiella pneumoniaeMeropenem <=0.25 ug/mL: Susceptible ESBL Producing Klebsiella pneumoniaePiper/Palmer 16 ug/mL: Resistant ESBL Producing Klebsiella pneumoniaeTrimethoprim/Sulf. >=320 ug/mL: Resistant ESBL Producing Klebsiella pneumoniaeLevofloxacin 1 ug/mL: Intermediate Authorizing ProviderResult TypeResult StatusAdam Siri ELLIOTT-ICROBIOLOGY - GENERAL ORDERABLESFinal ResultPerforming OrganizationAddressCity/State/ZIP Code Phone Number [facility] [address] [place] [address] [facility] [address] [address] * BODY FLUID CELL COUNT (07/31/2025 2:34 PM EST)ComponentValueRef RangeTest MethodAnalysis TimePerformed AtPathologist SignatureTotal Nucleated Cells (TNC)59,130/uL08/05/2025 7:51 AM [facility] CLINICAL LABORATORYComment: The reference range has not been established for this fluid. Clinical correlation is recommended. This is a corrected result. Previous result was 32,513 /uL on 07/31/2025 at 1816 EST Red Blood Cells18,160/uL08/05/2025 7:51 AM [facility] CLINICAL LABORATORYComment: The reference range has not been established for this fluid. Clinical correlation is recommended. This is a corrected result. Previous result was 8,151 /uL on 07/31/2025 at 1816 EST Gross Appearance (Fluid)Nida Qikief3010/06/2024 7:51 AM [facility] Supernatant (Fluid)Yellow Clear08/05/2025 7:51 AM [facility] CLINICAL LABORATORYSpecimen SourceSYNOVIAL FLUID08/05/2025 7:51 AM [facility] CLINICAL LABORATORYSpecimen (Source)Anatomical Location / LateralityCollection Method / VolumeCollection TimeReceived TimeFluidSYNOVIAL FLUID SPECIMEN / Unknown 07/31/2025 2:34 PM EST07/31/2025 2:35 PM EST Narrative Authorizing ProviderResult TypeResult StatusKishore ACKERMANODY FLUIDS & STOOLS ORDERABLESEdited Result - FinalPerforming OrganizationAddress City/State/ZIP CodePhone Number [facility] [address] [address] * LA DRAIN/INJECT LARGE JOINT/BURSA PERFORMABLE (07/31/2025 1:20 PM EST) Anatomical RegionLateralityModalityOther Narrative 07/31/2025 1:20 PM EST Kishore Harris PA-C 07/31/2025 2:16 PM LARGE JOINT/BURSA INJECTION AND/OR ASPIRATION: L knee Date/Time: 07/31/2025 1:20 PM Performed by: Kishore Harris PA-C Authorized by: Kishore Harris PA-C ?? Supporting Documentation Indications: diagnostic evaluation Procedure Details: Location: knee - L knee Local Anesthetic: ethyl chloride (cold spray) and lidocaine 1% Total Local Anesthetic: 1.5 mLs Needle size: 18 G Approach: anterolateral Medication Verification: I have personally verified and performed the final check of the medication(s) used in this procedure prior to administration. The following items were included during the verification process for medication(s) administered: drug name, strength, volume, expiration, physical integrity and appearance of the medication(s). Aspirate amount: 7 mL Aspirate: cloudy Analysis: fluid sample sent for laboratory analysis Patient tolerance: patient tolerated the procedure well with no immediate complications Consent: Consent was obtained prior to the procedure after discussion of the risks, benefits and alternatives, and expected outcomes were discussed with the patient. The possibilities of reaction to medication, bleeding, infection, the need for additional procedures, failure to diagnosis a condition, and creating a complication requiring operation were discussed with the patient. The patient concurred with the proposed plan, giving consent. Preparation: Patient was prepped in the usual sterile fashion. The patient was prepped with alcohol and Chloraprep. Authorizing ProviderResult TypeResult StatusKishore ACKERMANEDSIDE PROCEDURESFinal Result * XR KNEE LEFT 1-2 VIEWS (07/19/2025 1:37 PM EST)Anatomical RegionLaterality Modalityknee, MSKLeftComputed RadiographySpecimen (Source)Anatomical Location / LateralityCollection Method / VolumeCollection TimeReceived Time07/19/2025 1:38 PM EST Impressions 07/19/2025 1:39 PM EST IMPRESSION: Stable previous total knee arthroplasty without hardware failure or acute osseous abnormality. Improved soft tissue changes. 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 Effusion: There is no joint effusion. Soft Tissue: ??Improved soft tissue changes without significant swelling. Surgical clips within the soft tissues is redemonstrated. Skin korey have been removed. Bone: ??Redemonstration of previous total knee arthroplasty. Prosthesis is stable and intact. No acute osseous abnormality is noted. 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 Effusion: There is no joint effusion. Soft Tissue: Improved soft tissue changes without significant swelling. Surgical clips within the soft tissues is redemonstrated. Skin stapleshave been removed. Bone: Redemonstration of previous total knee arthroplasty. Prosthesisis stable and intact. No acute osseous abnormality is noted. IMPRESSION IMPRESSION: Stable previous total knee arthroplasty without hardware failure oracute osseous abnormality. Improved soft tissue changes. Authorizing ProviderResult TypeResult StatusNichenry county hospitalsteffen Arshadodychuk MDDIAGNOSTIC IMAGING ORDERABLESFinal Result * LA DRAIN/INJECT LARGE JOINT/BURSA PERFORMABLE (07/10/2025 12:40 PM EST) Anatomical RegionLateralityModalityOther Narrative 07/10/2025 12:40 PM EST Dick Monique PA-C 07/10/2025 1:33 PM LARGE JOINT/BURSA INJECTION AND/OR ASPIRATION: L knee Date/Time: 07/10/2025 12:40 PM Performed by: Dick Monique PA-C Authorized by: Dick Monique PA-C ?? Supporting Documentation Indications: pain and joint swelling Procedure Details: Location: knee - L knee (seroma) Local Anesthetic: ethyl chloride (cold spray) Needle size: 18 G Approach: anterolateral Medication Verification: I have personally verified and performed the final check of the medication(s) used in this procedure prior to administration. The following items were included during the verification process for medication(s) administered: drug name, strength, volume, expiration, physical integrity and appearance of the medication(s). Aspirate amount: 120 mL Aspirate: blood-tinged Patient tolerance: patient tolerated the procedure well with no immediate complications Consent: Consent was obtained prior to the procedure after discussion of the risks, benefits and alternatives, and expected outcomes were discussed with the patient. The possibilities of reaction to medication, bleeding, infection, the need for additional procedures, failure to diagnosis a condition, and creating a complication requiring operation were discussed with the patient. The patient concurred with the proposed plan, giving consent. Timeout: Immediately prior to procedure a time out was called to verify the correct patient, procedure, medication(s) and site/laterality as required. Preparation: Patient was prepped in the usual sterile fashion. The patient was prepped with alcohol and Betadine. Authorizing ProviderResult TypeResult StatusDick ACKERMANEDSIDE PROCEDURESFinal Result * (ABNORMAL) CBC AND ELECTRONIC DIFF (06/25/2025 1:48 PM EDT) Only the most recent of6 resultswithin the time period is included. ComponentValueRef RangeTest MethodAnalysis TimePerformed AtPathologist Signature WBC Count7.423.73 - 10.10 K/uL06/25/2025 3:43 PM [facility] CLINICAL LABORATORYRBC Count3.02(L)4.38 - 5.83 M/uL06/25/2025 3:43 PM [facility] CLINICAL LABORATORYHemoglobin7.5(L)13.4 - 16.8 g/dL06/25/2025 3:43 PM [facility] CLINICAL YTHYVREQQWGebnizgnji58.0(L)39.6 - 48.8 %06/25/2025 3:43 PM [facility] CLINICAL LABORATORYMean Cell Xhwjdy25.479.0 - 94.5 fL06/25/2025 3:43 PM [facility] CLINICAL LABORATORYComment:Results inconsistent with previous resultsMean Cell Hgb24.8(L)26.1 - 33.3 pg06/25/2025 3:43 PM [facility] CLINICAL LABORATORYMean Cell Hgb Conc27.8(L)31.9 - 36.5 g/dL06/25/2025 3:43 PM [facility] CLINICAL LABORATORYRBC Szbmoaumdtzi04.5(H)10.9 - 14.3 % 06/25/2025 3:43 PM [facility] CLINICAL LABORATORYPlatelet Pmsmh683(H)146 - 337 K/uL06/25/2025 3:43 PM [facility] CLINICAL LABORATORYMean Platelet Volume9.28.7 - 12.3 fL06/25/2025 3:43 PM [facility] LABORATORY DIFF STATUSElectronic Ieqqecyjayqv96/21/2025 3:43 PM [facility] CLINICAL LABORATORYSegs + Bands Auto74.4%06/25/2025 3:43 PM [facility] CLINICAL LABORATORYImmature Grans %0.4%06/25/2025 3:43 PM [facility] CLINICAL LABORATORYLymphocyte % Auto14.0%06/25/2025 3:43 PM [facility] CLINICAL LABORATORYMonocyte % Auto8.9%06/25/2025 3:43 PM [facility] CLINICAL LABORATORYEosinophil % Auto1.6%06/25/2025 3:43 PM [facility] CLINICAL LABORATORYBasophil % Auto0.7%06/25/2025 3:43 PM [facility] CLINICAL LABORATORYNucleated RBC0.0<=0.2 /100 WBC06/25/2025 3:43 PM [facility] CLINICAL LABORATORYSegs + Bands,Absolute Auto5.521.57 - 6.19 K/uL06/25/2025 3:43 PM [facility] CLINICAL LABORATORYImmature Grans Absolute<0.04<=0.07 K/uL 06/25/2025 3:43 PM [facility] CLINICAL LABORATORYAbs Lymph Auto1.040.83 - 3.57 K/uL06/25/2025 3:43 PM [facility] CLINICAL LABORATORYAbs Holmes Auto 0.660.24 - 0.93 K/uL06/25/2025 3:43 PM [facility] CLINICAL LABORATORYAbs Eos Auto0.120.00 - 0.48 K/uL06/25/2025 3:43 PM [facility] CLINICAL LABORATORYAbs Baso Auto0.050.00 - 0.09 K/uL06/25/2025 3:43 PM [facility] CLINICAL LABORATORYSpecimen (Source)Anatomical Location / LateralityCollection Method / VolumeCollection TimeReceived TimeBloodVenipuncture / Qikfwvi8806/25/2025 1:48 PM EDT1 2:03 PM EDT Narrative Authorizing ProviderResult TypeResult StatusMisti ELLIOTT-CHEMATOLOGY ORDERABLESFinal ResultPerforming OrganizationAddressCity/State/ZIP CodePhone Number [facility] [address] [place] [address] * LT BLUE TOP TUBE (06/25/2025 1:48 PM EDT)Specimen (Source)Anatomical Location / LateralityCollection Method / VolumeCollection TimeReceived TimeBlood Venipuncture / Cmgejat0106/25/2025 1:48 PM EDT1 2:03 PM EDT Narrative Authorizing ProviderResult TypeResult StatusEmemanuel Villa DO [facility] HOSPITALHEMATOLOGY ORDERABLESFinal ResultPerforming OrganizationAddressCity/State/ZIP CodePhone Number [facility] [address] [place] [address] * LAVENDER TOP TUBE (06/25/2025 1:48 PM EDT)Specimen (Source)Anatomical Location / LateralityCollection Method / VolumeCollection TimeReceived TimeBlood Venipuncture / Yaooghd9306/25/2025 1:48 PM EDT1 2:03 PM EDT Narrative Authorizing ProviderResult TypeResult StatusEmemanuel Villa DO [facility]ITALHEMATOLOGY ORDERABLESFinal ResultPerforming OrganizationAddressCity/State/ZIP CodePhone Number [facility] [address] [place] [address] * MINT GREEN TOP TUBE (06/25/2025 1:48 PM EDT)Specimen (Source)Anatomical Location / LateralityCollection Method / VolumeCollection TimeReceived Time BloodVenipuncture / Nwojyjc1106/25/2025 1:48 PM EDT1 2:03 PM EDT Narrative Authorizing ProviderResult TypeResult StatusIdalia Villa DO, [facility]OSPITALCHEMISTRY ORDERABLESFinal ResultPerforming OrganizationAddressty/State/ZIP CodePhone Number [facility] [address] [place] [address] * GOLD TOP TUBE (06/25/2025 1:48 PM EDT)Specimen (Source)Anatomical Location / LateralityCollection Method / VolumeCollection TimeReceived TimeBlood Venipuncture / Prccjbp6406/25/2025 1:48 PM EDT1 2:03 PM EDT Narrative Authorizing ProviderResult TypeResult StatusIdalia Villa DO, [facility]PITALCHEMISTRY ORDERABLESFinal ResultPerforming OrganizationAddressty/State/ZIP CodePhone Number [facility] [address] [place] [address] * XR KNEE LEFT 1-2 VIEWS (06/25/2025 11:45 AM EDT)Anatomical RegionLaterality Modalityknee, MSKLeftComputed RadiographySpecimen (Source)Anatomical Location / LateralityCollection Method / VolumeCollection TimeReceived Time06/25/2025 11:58 AM EDT Impressions 06/25/2025 12:00 PM EDT IMPRESSION: Status post left knee constrained total arthroplasty. Hardware appears intact and unchanged in alignment. Persistent left knee soft tissue swelling and effusion. No acute osseous abnormality. Narrative 06/25/2025 12:00 PM EDT EXAM: XR KNEE LEFT 1-2 VIEWS, 06/25/2025 11:45 AM COMPARISON: June 03, 2025. CLINICAL INDICATIONS: ??AP/Lateral RELEVANT CLINICAL HISTORY: ??Z96.652:Status post left knee replacement S/p knee revision; FINDINGS: 4 images obtained. Effusion: There is a joint effusion present. Soft Tissue: ??Persistent soft tissue swelling. Resolved soft tissue gas. Anterior cutaneous korey. Bone: ??No acute osseous abnormality. Patellas surgically absent. Joint: ??Status post constrained left knee total arthroplasty with longstem femoral and tibial components. Hardware appears intact and unchanged in alignment. TibFib syndesmosis: ??The proximal tibiofibular syndesmosis is anatomically aligned. Procedure Note Lito Pinon MD - 06/25/2025 EXAM: XR KNEE LEFT 1-2 VIEWS, 06/25/2025 11:45 AM COMPARISON: June 03, 2025. CLINICAL INDICATIONS: AP/Lateral RELEVANT CLINICAL HISTORY: Z96.652:Status post left knee replacement S/p knee revision; FINDINGS: 4 images obtained. Effusion: There is a joint effusion present. Soft Tissue: Persistent soft tissue swelling. Resolved soft tissue gas. Anterior cutaneous korey. Bone: No acute osseous abnormality. Patellas surgically absent. Joint: Status post constrained left knee total arthroplasty withlongstem femoral and tibial components. Hardware appears intact and unchanged in alignment. TibFib syndesmosis: The proximal tibiofibular syndesmosis isanatomically aligned. IMPRESSION IMPRESSION: Status post left knee constrained total arthroplasty. Hardware appearsintact and unchanged in alignment. Persistent left knee soft tissue swelling and effusion. No acute osseous abnormality. Authorizing ProviderResult TypeResult StatusDick ELLIOTT-CDIAGNOSTIC IMAGING ORDERABLESFinal Result * GLUCOSE POC (06/11/2025 3:50 PM EDT) Only the most recent of38 resultswithin the time period is included. ComponentValueRef RangeTest MethodAnalysis TimePerformed AtPathologist Signature Glucose (POC Device)109Nonfasting Glucose: 70-179 mg/dL06/12/2025 5:56 AM [facility] CLINICAL LABORATORYPOC Sample HvnlSGNJD53/08/2025 5:56 AM [facility] CLINICAL LABORATORYSpecimen (Source)Anatomical Location / LateralityCollection Method / VolumeCollection TimeReceived Time Capillary (CAPILLARY)06/11/2025 3:50 PM EDT1 5:56 AM EDT Narrative [facility] - 06/12/2025 5:56 AM EDT Test performed at address of the patient encounter. Authorizing ProviderResult TypeResult StatusNicelena Godinez [facility] HOSPITALOINT OF CARE TESTINGFinal ResultPerforming OrganizationAddressCity/State/ZIP CodePhone Number [facility] [address] [facility] [place] [address] * (ABNORMAL) CHEM 7 (LYTES,BUN,CREA,GLUC) (06/11/2025 3:50 AM EDT) Only the most recent of8 resultswithin the time period is included. ComponentValueRef RangeTest MethodAnalysis TimePerformed AtPathologist Signature Jrjbpy477433 - 145 mmol/L1 5:20 AM [facility] LABORATORY Potassium4.33.5 - 5.0 mmol/L1 5:20 AM [facility] CLINICAL XJUMBQQGTTItnfixbv87387 - 108 mmol/L1 5:20 AM [facility] CLINICAL AHDQKYFGGBQI26160 - 31 mmol/L1 5:20 AM [facility] CLINICAL FPLABIPRDJRetmlsg639(H)Nonfastin-179 mg/dL; Fastin-99 mg/dL06/11/2025 5:20 AM [facility] CLINICAL JWOOMXUAPZGLX157 - 25 mg/dL06/11/2025 5:20 AM [facility] CLINICAL LABORATORYCreatinine0.900.70 - 1.30 mg/dL06/11/2025 5:20 AM [facility] CLINICAL LABORATORYBun/Crea Ognfg2483/07/2025 5:20 AM [facility] CLINICAL LABORATORYOsmolality (Calculated)437929 - 305 mOsm/kg 06/11/2025 5:20 AM [facility] CLINICAL LABORATORYAnion Gap97 - 17 mmol/L 06/11/2025 5:20 AM [facility] CLINICAL LABORATORYeGFR, CKD-EPI, Male86>=60 mL/min/1.02b03006/11/2025 5:20 AM [facility] CLINICAL LABORATORYComment: Reported eGFR is based on the CKD-EPI 2020 equation using creatinine, age, and sex.Specimen (Source)Anatomical Location / LateralityCollection Method / Volume Collection TimeReceived TimeBloodVenipuncture / Mrdahjo5006/11/2025 3:50 AM EDT 06/11/2025 4:52 AM EDT Narrative Authorizing ProviderResult TypeResult StatusHeather R Freier GRADUATE ASSISTANT ATHLETIC TRAINER-CNPCHEMISTRY ORDERABLESFinal ResultPerforming OrganizationAddressMercy Health St. [facility]/State/ZIP CodePhone Number [facility] [address] [place] [address] * TRANSFUSE RED BLOOD CELLS (06/09/2025 6:09 PM EDT) Narrative Authorizing ProviderResult TypeResult Arash MADSENURSING TREATMENT ORDERABLES - BLOOD ADMINFinal ResultPerforming OrganizationAddress [facility]/ZIP CodePhone Number UMOUT * PREPARE TO TRANSFUSE RED BLOOD CELLS (06/09/2025 1:02 PM EDT) Only the most recent of2 resultswithin the time period is included. ComponentValueRef RangeTest MethodAnalysis TimePerformed AtPathologist Signature BLOOD COMPONENT TYPERed Cells, LeukoreducedBIGFORK VALLEY [facility] LABORATORY BLOOD BANKUNIT [id number] BLOOD BANK UNIT STATUStransfuAd[facility]ist [facility] LABORATORY BLOOD BANKPRODUCT CODE [id number] BLOOD BANKProduct ABO/RH(D) [id number] [facility] BLOOD BANKEXPIRATION [id number] BLOOD BANKABO/RH(D) TYPEBPGRAND VIEW [facility]ALTH [facility]IN[facility] LAB[facility] BLOOD BANKProduct ABO/RH(D)BPGR[facility] BLOOD BANKUnit CompatibilityCompatibilPrime Healthcare Services CLINICAL LABORATORY BLOOD BANKSpecimen (Source)Anatomical Location / LateralityCollection Method / Volume Collection TimeReceived NvzaUxeax12/05/2025 1:02 PM EDT1 1:17 PM EDT Narrative Authorizing ProviderResult TypeResult Arash GALLARODOOD BANK PRODUCT ORDERABLESEdited Result - FinalPerforming OrganizationAddress [facility]/ZIP CodePhone Number [facility] BLOOD BANK [address] [place] [address], * TYPE AND SCREEN (06/09/2025 1:02 PM EDT) Only the most recent of2 resultswithin the time period is included. ComponentValueRef RangeTest MethodAnalysis TimePerformed AtPathologist Signature ABO/RH(D) TYPEB POS06/09/2025 1:56 PM [facility] CLINICAL LABORATORY BLOOD BANKSpecimen Tqaeldiutf10/08/2025 23:5906/09/2025 1:56 PM [facility] CLINICAL LABORATORY BLOOD BANKANTIBODY LBSSJYKVB51/05/2025 1:56 PM [facility] CLINICAL LABORATORY BLOOD BANKSpecimen (Source)Anatomical Location / LateralityCollection Method / VolumeCollection TimeReceived TimeBloodBLOOD SPECIMEN / UnknownVenipuncture / Hahiuej2106/09/2025 1:02 PM EDT1 1:17 PM EDT Narrative Authorizing ProviderResult TypeResult StatusFlako Godinez MDBLOOD BANK ORDERABLESFinal ResultPerforming OrganizationAddressCity/State/ZIP CodePhone Number [facility] CLINICAL LABORATORY BLOOD BANK [address] [place] [address], * VITAMIN B12 (06/09/2025 4:32 AM EDT)ComponentValueRef RangeTest MethodAnalysis TimePerformed AtPathologist SignatureVitamin [id number] - 911 pg/mL06/09/2025 5:39 PM [facility] CLINICAL LABORATORYComment:Testing of Methylmalonic Acid and Intrinsic Factor Blocking Antibody are recommended if clinical suspicion for pernicious anemia due to B12 deficiency is high for patients with intermediate B12 levels (211 to 400 pg/mL) to rule out spurious heterophile antibodies.Specimen (Source)Anatomical Location / Laterality Collection Method / VolumeCollection TimeReceived TimeBloodVenipuncture / Rtuzzmf7106/09/2025 4:32 AM EDT1 4:53 AM EDT Narrative Authorizing ProviderResult TypeResult John Catalan MDHEMATOLOGY ORDERABLESFinal ResultPerforming OrganizationAddressCity/State/ZIP CodePhone Number [facility] CLINICAL LABORATORY [address] [address] * (ABNORMAL) IRON/IRON BINDING/TRANSFERRIN (06/09/2025 4:32 AM EDT)Component ValueRef RangeTest MethodAnalysis TimePerformed AtPathologist XhlhywyiaMxet37 (L)40 - 174 mcg/dL06/09/2025 2:24 PM [facility] CLINICAL LABORATORY Nijvwooikvh799(L)200 - 400 mg/dL06/09/2025 2:24 PM [facility] CLINICAL LABORATORYTotal Iron Binding Xitaeyco925(L)250 - 425 mcg/dL06/09/2025 2:24 PM [facility] CLINICAL LABORATORYIron Yrbigoiely78(L)20 - 55 %06/09/2025 2:24 PM [facility] CLINICAL LABORATORYSpecimen (Source)Anatomical Location / LateralityCollection Method / VolumeCollection TimeReceived Time BloodVenipuncture / Pvpouvt8606/09/2025 4:32 AM EDT1 4:53 AM EDT Narrative Authorizing ProviderResult TypeResult StatusPetra Catalan MDHEMATOLOGY ORDERABLESFinal ResultPerforming OrganizationAddressCity/State/ZIP CodePhone Number [facility] CL[facility] LAB[facility] [address] [place] [address] * FERRITIN (06/09/2025 4:32 AM EDT)ComponentValueRef RangeTest MethodAnalysis TimePerformed AtPathologist QvjprtwnwPbdjdztv92.810.5 - 307.3 ng/mL06/09/2025 5:24 PM [facility] CLINICAL LABORATORYSpecimen (Source) Anatomical Location / LateralityCollection Method / VolumeCollection Time Received TimeBloodVenipuncture / Utiedrt9906/09/2025 4:32 AM EDT1 4:53 AM EDT Narrative Authorizing ProviderResult TypeResult StatusPetra Catalan MDHEMATOLOGY ORDERABLESFinal ResultPerforming OrganizationAddressCity/State/ZIP CodePhone Number [facility] [address] [address] * (ABNORMAL) CBC,PLATELETS (06/08/2025 4:06 AM EDT)ComponentValueRef RangeTest MethodAnalysis TimePerformed AtPathologist SignatureWBC Count5.953.73 - 10.10 K/uL06/08/2025 5:30 AM [facility] CLINICAL LABORATORYRBC Count2.77(L) 4.38 - 5.83 M/uL06/08/2025 5:30 AM [facility] CLINICAL LABORATORY Hemoglobin7.0(L)13.4 - 16.8 g/dL06/08/2025 5:30 AM [facility] CLINICAL XNIUADKEIGRrbwntjwcj92.1(L)39.6 - 48.8 %06/08/2025 5:30 AM [facility] CLINICAL LABORATORYMean Cell Whxpie19.479.0 - 94.5 fL06/08/2025 5:30 AM [facility] CLINICAL LABORATORYMean Cell Hgb25.3(L)26.1 - 33.3 pg06/08/2025 5:30 AM [facility] CLINICAL LABORATORYMean Cell Hgb Conc30.3(L)31.9 - 36.5 g/dL06/08/2025 5:30 AM [facility] CLINICAL LABORATORYRBC Hjnagndgzpzo89.9(H)10.9 - 14.3 %06/08/2025 5:30 AM [facility] CLINICAL LABORATORYPlatelet Omkix700(H)146 - 337 K/uL06/08/2025 5:30 AM [facility] CLINICAL LABORATORYMean Platelet Volume9.78.7 - 12.3 fL06/08/2025 5:30 AM [facility] CLINICAL LABORATORYSpecimen (Source)Anatomical Location / LateralityCollection Method / VolumeCollection TimeReceived Time BloodVenipuncture / Dxtfjro4006/08/2025 4:06 AM EDT1 5:10 AM EDT Narrative Authorizing ProviderResult TypeResult StatusHeather R Freier GRADUATE ASSISTANT ATHLETIC TRAINER-CNPHEMATOLOGY ORDERABLESFinal ResultPerforming OrganizationAddressCity/State/ZIP CodePhone Number [facility] CLINICAL LABORATORY [address] [place] [address] * C DIFFICILE TWO STEP (06/07/2025 8:43 PM EDT)ComponentValueRef RangeTest MethodAnalysis TimePerformed AtPathologist SignatureC Difficile By PcrNegative Ueathxhy48/04/2025 4:35 PM [facility] CLINICAL LABORATORY Comment:This assay detects C. difficile (Toxin B gene DNA) by PCR.Specimen (Source)Anatomical Location / LateralityCollection Method / VolumeCollection TimeReceived TimeStoolSTOOL SPECIMEN / Ixaeadn2706/07/2025 8:43 PM EDT1 10:10 PM EDT Narrative Authorizing ProviderResult TypeResult StatusLetty Montilla GRADUATE ASSISTANT ATHLETIC TRAINER-EVALUATOR TRANSFER STUDENTS MICROBIOLOGY - GENERAL ORDERABLESFinal ResultPerforming OrganizationAddress City/State/ZIP CodePhone Number [facility] CLIN[facility] LAB[facility]ATORY [address] [address] * MOLECULAR ENTERIC PANEL, STOOL (06/07/2025 8:43 PM EDT)ComponentValueRef Range Test MethodAnalysis TimePerformed AtPathologist SignatureShigella Spp./Enteroinvasive E.Coli By QORZnuenhkxDifqszga74/04/2025 4:51 PM [facility] CLINICAL LABORATORYShiga Toxin By PcrNegativeNegative 06/08/2025 4:51 PM [facility] CLINICAL LABORATORY Campylobacter Spp By VyyZlarjkwlVbfutpqw55/04/2025 4:51 PM [facility] CLINICAL LABORATORYSalmonella Spp By PcrNegativeNegative 06/08/2025 4:51 PM [facility] CLINICAL LABORATORYSpecimen (Source)Anatomical Location / LateralityCollection Method / VolumeCollection TimeReceived TimeStoolSTOOL SPECIMEN / Dsmdgaa4906/07/2025 8:43 PM EDT1 10:09 PM EDT Narrative [facility] CL[facility] LAB[facility] - 06/08/2025 4:51 PM EDT This test was performed using a real time PCR assay. Results should be interpreted in conjunction with clinical findings. A positive result does not necessarily indicate the presence of viable organisms. Positive results do not rule out co-infection with other organisms that are not detected by this assay. For Shiga toxin, this assay detects Shiga toxin 1 / Shiga toxin 2 genes (found in Shiga toxin-producing E. coli as well as Shigella dysenteriae). This test should not be used as a test of cure. Authorizing ProviderResult TypeResult StatusEdy MILES FLUIDS & STOOLS ORDERABLESFinal ResultPerforming OrganizationAddressty/State/ZIP Code Phone Number [facility] CLINICAL LABORATORY [address] [address] * XR ABDOMEN 1 VIEW PORTABLE (06/07/2025 8:36 AM EDT)Anatomical RegionLaterality ModalityAbdomen, PelvisComputed RadiographySpecimen (Source)Anatomical Location / LateralityCollection Method / VolumeCollection TimeReceived Time 06/07/2025 8:40 AM EDT Impressions 06/07/2025 11:32 AM EDT IMPRESSION: 1. ??Mild small bowel dilatation concerning for developing ileus. Moderate retained stool throughout the colon and rectum. 2. ??Left renal calculi. I personally viewed and interpreted these images and I have reviewed and approved this report. Narrative 06/07/2025 11:32 AM EDT EXAM: XR ABDOMEN 1 VIEW PORTABLE, 06/07/2025 08:36 AM COMPARISON: None CLINICAL INDICATIONS: ??eval for bowel obstruction in setting of loose stools FINDINGS: Tubes: None. Bowel gas pattern: Gaseous dilation of the small bowel. No abnormal large bowel dilatation. Moderate stool burden throughout the colon and rectal vault. No visible free air. Abnormal calcifications/Radiopacities: Left renal calculi measuring 0.4 cm. Procedure Note Laurent Hogan MD - 06/07/2025 EXAM: XR ABDOMEN 1 VIEW PORTABLE, 06/07/2025 08:36 AM COMPARISON: None CLINICAL INDICATIONS: eval for bowel obstruction in setting of loosestools FINDINGS: Tubes: None. Bowel gas pattern: Gaseous dilation of the small bowel. No abnormallarge bowel dilatation. Moderate stool burden throughout the colon and rectalvault. No visible free air. Abnormal calcifications/Radiopacities: Left renal calculi measuring 0.4cm. IMPRESSION IMPRESSION: 1. Mild small bowel dilatation concerning for developing ileus.Moderate retained stool throughout the colon and rectum. 2. Left renal calculi. I personally viewed and interpreted these images and I have reviewed and approved this report. Authorizing ProviderResult TypeResult StatusHeather R Roldan GRADUATE ASSISTANT ATHLETIC TRAINER-CNPDIAGNOSTIC IMAGING ORDERABLESFinal Result * (ABNORMAL) URINALYSIS REFLEX TO CULTURE PERFORMABLE (06/04/2025 10:00 AM EDT) ComponentValueRef RangeTest MethodAnalysis TimePerformed AtPathologist KyztjcguaRnfkyQybsosGgzvkw40/30/2025 11:36 AM [facility] CLINICAL LABORATORYAppearance UrineCloudy(A)Clear06/04/2025 11:36 AM [facility] CLINICAL LABORATORYGlucose BrjosYnbqxflnRblxlgze47/30/2025 11:36 AM [facility] CLINICAL LABORATORYKetones UrineTrace(A)Wkjvicse09/30/2025 11:36 AM [facility] CLINICAL LABORATORYSpecific Marion Urine1.0331.001 - 1.035 06/04/2025 11:36 AM [facility] CLINICAL LABORATORYBlood UrineNegative Vnezeveh07/30/2025 11:36 AM [facility] CLINICAL LABORATORYpH Urine5.05.0 - 7.009 11:36 AM [facility] CLINICAL LABORATORYProtein Urine Trace(A)Vengbplu69/30/2025 11:36 AM [facility] CLINICAL LABORATORY Urobilinogen Urine0.2 E.U./dL0.2 E.U/dL, 1.0 E.U/dL06/04/2025 11:36 AM [facility] CLINICAL LABORATORYNitrites OpcspDnyqvrcrXyxekxog65/30/2025 11:36 AM [facility] CLINICAL LABORATORYLeukocyte EsteraseModerate(A)Negative 06/04/2025 11:[address] [facility] LABORATORYRBC Urine3-5(A)0 - 2 /HPF06/04/2025 11:36 AM [facility] CLINICAL LABORATORYWBC Urine> 20(A)0 - 5 /HPF06/04/2025 11:36 AM [facility] CLINICAL LABORATORY Squamous/Epithelial Cells, Urine6-10/hpf = 2+(A)0-2/hpf, 3-5/hpf = 1+ 06/04/2025 11:36 AM [facility] CLINICAL LABORATORYBacteriaPRESENT(A) TKHMOY6606/04/2025 11:36 AM [facility] CLINICAL LABORATORYRenal Tubular Cells0-2/hpf0-2/hpf06/04/2025 11:36 AM [facility] CLINICAL LABORATORY Hyaline Casts0 - 2(A)(none) /LPF06/04/2025 11:36 AM [facility] CLINICAL NFHSDREINSSgqkrMTPNGZR20/30/2025 11:36 AM [facility] CLINICAL LABORATORY Specimen (Source)Anatomical Location / LateralityCollection Method / Volume Collection TimeReceived TimeUrineURINE SPECIMEN OBTAINED BY CLEAN CATCH PROCEDURE / Qbcdchi5306/04/2025 10:00 AM EDT06/04/2025 10:17 AM EDT Narrative Authorizing ProviderResult TypeResult StatusGordon Kristian Swank GRADUATE ASSISTANT ATHLETIC TRAINER-CNPBODY FLUIDS & STOOLS ORDERABLESFinal ResultPerforming OrganizationAddressCity/State/ZIP Code Phone Number [facility] CLINICAL LABORATORY [address] [place] [address] * EXTRA MICRO (06/04/2025 10:00 AM EDT)Specimen (Source)Anatomical Location / LateralityCollection Method / VolumeCollection TimeReceived TimeUrineURINE SPECIMEN OBTAINED BY CLEAN CATCH PROCEDURE / Egtwwxm4606/04/2025 10:00 AM EDT 06/04/2025 10:17 AM EDT Narrative Authorizing ProviderResult TypeResult StatusGordon P Swank GRADUATE ASSISTANT ATHLETIC TRAINER-CNPBODY FLUIDS & STOOLS ORDERABLESFinal ResultPerforming OrganizationAddressty/State/[facility] Phone Number [facility] [address] [place] [address] * (ABNORMAL) URINE CULTURE (06/04/2025 10:00 AM EDT)ComponentValueRef RangeTest MethodAnalysis TimePerformed AtPathologist GukjijdoqJcpwatwJrnplu86/02/2025 2:53 PM [facility] CLINICAL LABORATORYCultureESCHERICHIA COLI(A) 06/06/2025 2:53 PM [facility] CLINICAL LABORATORYComment: Disregard Previously Reported Enterococcus Faecalis Susceptibilities setup on 06/05/25 Unable to determine accurate colony count due to antibiotic interference. Specimen (Source)Anatomical Location / LateralityCollection Method / Volume Collection TimeReceived TimeUrineURINE SPECIMEN OBTAINED BY CLEAN CATCH PROCEDURE / Wlmheiq3706/04/2025 10:00 AM EDT06/04/2025 12:54 PM EDT Narrative [facility] - 06/06/2025 2:53 PM EDT Routine cultures are evaluated for significant uropathogens >=100,000 CFU/mL. OrganismAntibioticMethodSusceptibilityEscherichia coliAmikacin 4 ug/mL: Susceptible Escherichia coliAmpicillin >=32 ug/mL: Resistant Escherichia coliAmpi-Sulb 16 ug/mL: Intermediate Escherichia coliCefazolin 4 ug/mL: Susceptible Comment:Cefazolin susceptibility results can be inferred to the following oral cephalosporins: cephalexin, cefuroxime, and cefdinir.Escherichia coliCefepime <=0.12 ug/mL: Susceptible Escherichia coliCeftriaxone <=0.25 ug/mL: Susceptible Escherichia coliCiprofloxacin >=4 ug/mL: Resistant Escherichia coliErtapenem <=0.12 ug/mL: Susceptible Escherichia coliGentamicin >=16 ug/mL: Resistant Escherichia coliNitrofurantoin <=16 ug/mL: Susceptible Escherichia coliPiper/Palmer <=4 ug/mL: Susceptible Escherichia coliTrimethoprim/Sulf. <=20 ug/mL: Susceptible Escherichia coliLevofloxacin >=8 ug/mL: Resistant Authorizing ProviderResult TypeResult StatusGordon Kristian Hudson GRADUATE ASSISTANT ATHLETIC TRAINER-CNPMICROBIOLOGY - GENERAL ORDERABLESFinal ResultPerforming OrganizationAddressCity/State/[facility] CodePhone Number [facility] CL[facility] [address] [place] [address] * XR KNEE LEFT 1-2 VIEWS (06/03/2025 5:34 PM EDT)Anatomical RegionLaterality Modalityknee, MSKLeftComputed RadiographySpecimen (Source)Anatomical Location / LateralityCollection Method / VolumeCollection TimeReceived Time06/03/2025 5:42 PM EDT Impressions 06/03/2025 5:46 PM EDT IMPRESSION: Status post revision left total knee arthroplasty. Narrative 06/03/2025 5:46 PM EDT EXAM: XR KNEE LEFT 1-2 VIEWS, 06/03/2025 17:34 PM COMPARISON: Radiographs dated January 09, 2025. CLINICAL INDICATIONS: ??post op RELEVANT CLINICAL HISTORY: To be completed in PACU; FINDINGS: 4 images obtained. Effusion: Postoperative joint effusion and air. Soft Tissue: ??Postoperative soft tissue swelling and air. Multiple closure korey and surgical clips are evident. A wound VAC is also noted anteriorly. Bone: ??There are interval postoperative changes relating to revision constrained left total knee arthroplasty. No perioperative fracture is identified. Procedure Note Aaron Acosta DO - 06/03/2025 EXAM: XR KNEE LEFT 1-2 VIEWS, 06/03/2025 17:34 PM COMPARISON: Radiographs dated January 09, 2025. CLINICAL INDICATIONS: post op RELEVANT CLINICAL HISTORY: To be completed in PACU; FINDINGS: 4 images obtained. Effusion: Postoperative joint effusion and air. Soft Tissue: Postoperative soft tissue swelling and air. Multipleclosure korey and surgical clips are evident. A wound VAC is also notedanteriorly. Bone: There are interval postoperative changes relating to revision constrained left total knee arthroplasty. No perioperative fracture is identified. IMPRESSION IMPRESSION: Status post revision left total knee arthroplasty. Authorizing ProviderResult TypeResult StatusDick Monique PA-CDIAGNOSTIC IMAGING ORDERABLESFinal Result * LA PROCEDURE - INTUBATION ETT (06/03/2025 1:30 PM EDT)Anatomical Region LateralityModalityOther Narrative 06/03/2025 1:30 PM EDT Emily Wilkins MD 06/03/2025 1:41 PM *INTUBATION Date/Time: 06/03/2025 1:30 PM Authorized by: Mynor Brown MD ?? Performed by: Emily Wilkins MD GENERAL STAFF INFORMATION: Patient location during procedure: OR Room: [facility] No anticipated increased risk of difficult airway INDICATIONS AND PATIENT CONDITION: Sedation level: general anesthesia Patient position: supine Preoxygenated: yes Preoxygenation method: bag mask Mask difficulty assessment: 1 - easy Attending Supervision present for entire procedure: Yes Indication(s) for intubation: general anesthesia FINAL AIRWAY DETAILS: Final airway type: endotracheal airway Final airway difficulty assessment: airway not difficult Successful airway: standard ETT size: 7.0 mm Surgical Airway Tube Type: endotracheal tubeCuffed: yes Endotracheal tube insertion site: oral Successful intubation technique: direct laryngoscopy Blade: Lakisha Blade size: #4 Facilitating devices/methods: intubating stylet Cormack-Lehane Classification: grade IIa - partial view of glottis Placement verified by: CO2 detection and visualization through the cords Tube secured: 22 CM at the gums Tube Secured with: tape Number of attempts at approach: 1 Number of other approaches attempted: 0 Airway placement result: ??atraumatic intubation Successful Placement?: Yes ?? Medication administered at: 06/03/2025 1:30 PM Authorizing ProviderResult TypeResult StatusMynor Brown MDBEDSIDE PROCEDURES Final Result * US IMAGING REGIONAL ANESTHESIA (06/03/2025 11:04 AM EDT)Anatomical Region LateralityModalityUltrasoundSpecimen (Source)Anatomical Location / Laterality Collection Method / VolumeCollection TimeReceived Time06/03/2025 11:04 AM EDT Narrative Authorizing ProviderResult TypeResult StatusFlako Godinez MDUS ORDERABLESFinal Result * CARDIAC RHYTHM (06/03/2025)Specimen (Source)Anatomical Location / Laterality Collection Method / VolumeCollection TimeReceived Time06/03/2025 Narrative Authorizing ProviderResult TypeResult StatusOther Other OTECG ORDERABLESEdited Result - Final * (ABNORMAL) HEMOGLOBIN A1C (09/19/2023 10:10 AM EST)ComponentValueRef RangeTest MethodAnalysis TimePerformed AtPathologist SignatureHEMOGLOBIN A1C6.1(H)0 - 6 [address]: NORMAL <5.7% PREDIABETES 5.7-6.4% DIABETES 6.5% OR HIGHER Estimated Average Yohsluh935yj/dL14 [address]Specime (Source)Anatomical Location / LateralityCollection Method / VolumeCollection TimeReceived YsrzVdpxy03/15/2024 10:10 AM EST09/19/2023 10:17 AM EST Narrative Authorizing ProviderResult TypeResult StatusSamantha ELLIOTT-CHEMATOLOGY ORDERABLES Final ResultPerforming OrganizationAddressCity/State/ZIP CodePhone Number [address] [address] from Last 3 Months or Most Recently Relevant to Health Maintenance Insurance on file Advance Directives For more information, please contact: [phone] (7:30 AM - 6PM [facility], Tuesday-Tuesday) * DNRCC-ARREST (Latest Code Status on File) Date ActivatedDate InactivatedComments06/04/2025 11:11 AMI have discussed Earle Santos's Do Not Resuscitate wishes with Earle Santos. They are in agreement with this code status.QuestionAnswerCommentsCollaborating Physician:* FLAKO GODINEZ * Full Code Date ActivatedDate InactivatedComments11/08/2024 9:38 PM06/04/2025 11:11 AM * Full Code Date ActivatedDate InactivatedComments11/01/2024 1:58 AM11/08/2024 9:38 PMDNRCCA reversed for OR * Full Code Date ActivatedDate InactivatedComments10/10/2023 2:54 PM2 1:58 AM * Full Code Date ActivatedDate InactivatedComments04/12/2023 2:54 PM2 2:54 PM Care Teams Team MemberRelationshipSpecialtyStart DateEnd Date Bruno Antunez III, DO PCP - GeneralFamily Medicine09/15/23
--- OUTSIDE RECORDS SUMMARY | 2025-08-26 13:40 | XMS_ITS | Clinical Summary ---
Author Organization [facility] Healthcare Address [address] [place] [address] Care Team Providers Care [employer] Name Role Phone Bruno Antunez DO Primary Care Provider [phone] Allergies No known active allergies Medications MedicationSigDispense QuantityRefillsLast FilledStart DateEnd DateStatus lisinopril 5 MG tablet Take 5 mg by mouth Daily01/02/2024ctive rosuvastatin (Crestor) 20 MG tablet 20 mg = 1 tab(s), Oral, Daily, Refills(s) ctive dilTIAZem CD (Cardizem CD) 120 MG 24 hr capsule Take 120 mg by mouth in the morning.05/01/2024ctive apixaban (Eliquis) 5 MG tablet Take 5 mg by mouth in the morning and 5 mg before bedtime.Active Gvgopxlfwqu-Evrxddbi-Lseuqufgg 1-0.5-0.075 % solution Indications:Age-related nuclear cataract of both eyesAdminister 1 drop into affected eye(s) in the morning and 1 drop at noon and 1 drop in the evening and 1 drop before bedtime. 10 mL ctive pregabalin (Lyrica) 75 MG capsule Indications:PolyneuropathyTake 1 capsule (75 mg) by mouth in the morning and 1 capsule (75 mg) before bedtime. 60 capsule ctive Active Problems ProblemNoted DateDiagnosed DateObstructive sleep apnea2Dizziness 1Diabetic polyneuropathy associated with type 2 diabetes mellitus 1Lumbar bpiccjcoqws10/06/2020DVT (deep venous thrombosis)05/31/2019 Right leg dwtzudvb30/26/2019Mild cognitive xvcebpkasc29/20/2018Small fiber xrvyzfjuts49/20/5384Bapcecdqattfmc43/20/2018Pre-wmbqbri3704/24/2018Dysautonomia 04/24/2018 Immunizations ImmunizationAdministration DatesNext DueInfluenza, High Dose Seasonal, Preservative Free06/23/2021,06/24/2020,07/27/2019,06/05/2017Influenza, High-dose Seasonal, Quadrivalent, Preservative Free07/05/2023,09/08/2022Influenza, Vmpptchiirn85/07/2019Influenza, seasonal, vcxfhodloa50/01/2020,06/07/2016, 06/20/2015Pneumococcal Conjugate PCV 13002/13/2016,06/20/2015Pneumococcal Conjugate PCV 3Pneumococcal Conjugate PCV Pneumococcal Polysaccharide RNZG082609/05/2010TD (adult), 2 Lf tetanus toxoid, preservative free, gktzqtki24/04/1487Leem47/01/2024,08/21/2019 Family History Medical HistoryRelationNameCommentsHypertensionFatherHypertensionMotherRelation NameStatusCommentsFatherMother Social History Tobacco UseTypesPacks/DayYears UsedDateSmoking Tobacco: FormerCigarettes Tobacco Cessation:Counseling Given: Not Answered Sex and Gender InformationValueDate RecordedSex Assigned at BirthNot on file Legal InnNqlv8901/03/2023 8:32 PM EDTGender IdentityNot on fileSexual Orientation Not on file Last Filed Vital Signs Vital SignReadingTime TakenCommentsBlood Tmgxcaaa273/8602 8:56 AM EST Vilmj130210/09/2024 8:56 AM ESTTemperature--Respiratory Tvxn824110/10/2023 2:48 PM ESTOxygen Itlwmhvfsw56%08/09/2024 2:48 PM ESTInhaled Oxygen Concentration-- Jgkyng262 kg (271 lb)10/09/2024 8:56 AM FEKBnehdy613.4 cm (6' 1 )10/09/2024 8:56 AM ESTBody Mass Index35.75010/09/2024 8:56 AM EST Plan of Treatment Not on file Insurance MemberSubscriberPlan / Payer (Effective 2023-Present)Name:Earle Santos Relation to Subscriber:SelfName:Earle Santos Payer ID:[id number] (NAIC) Type:Not on file Address: [facility] [id number] [place] [phone] Care Teams Team MemberRelationshipSpecialtyStart DateEnd Date Bruno Antunez DO [address] [phone] PCP - GeneralFamily Medicine02/25/25
[2025-08-26 13:55] LABS: Hematocrit 29.9 % (42.0-54.0); Hemoglobin 8.0 g/dL (14.0-18.0); Immature Granulocytes Abs Auto 0.04 10^3/uL (0.00-0.03); Immature Granulocytes Pct Auto 0.5 % (0.0-0.5); Lymphocytes Absolute Auto 1.5 10^3/uL (1.2-3.8); Mean Corpuscular HGB Conc 26.8 g/dL (29.9-35.2); Mean Corpuscular Hemoglobin 20.5 pg (25.9-34.0); Mean Corpuscular Volume 76.5 fL (80.0-94.0); Platelet Count 418 10^3/uL (150-450); Red Blood Count 3.91 10^6/uL (4.70-6.10); White Blood Count 7.5 10^3/uL (4.0-11.0)
[2025-08-26 14:10] LABS: Alanine Aminotransferase 9 U/L (16-63); Albumin Globulin Ratio 0.7; Albumin Level 2.4 g/dL (3.4-5.0); Alkaline Phosphatase 77 U/L (46-116); Anion Gap 13.2; Aspartate Amino Transferase 12 U/L (15-37); Blood Urea Nitrogen 29.0 mg/dL (7.0-18.0); Calcium 8.0 mg/dL (8.5-10.1); Carbon Dioxide 28.4 mmol/L (21.0-32.0); Chloride 111 mmol/L (98-107); Estimated GFR (African America >60 (>=60 mL/min/1.73m^2); Estimated GFR (Non-African Ame >60 (>=60 mL/min/1.73m^2); Globulin 3.5 g/dL; Glucose 117 mg/dL (74-106); Potassium 3.6 mmol/L (3.5-5.1); Sodium 149 mmol/L (136-145); Total Protein 5.9 g/dL (6.4-8.2)
== END 2025-08-26 13:37 | disposition home or self-care (01) ==
LOC: LAB 13:36
PROVIDERS: PCP Family Medicine; Visit Provider Family Medicine
DX: R11.10 Vomiting, unspecified (principal)
CPT/HCPCS: 36415; 80053; 85025